=== PATIENT | female | born 1940 | race Caucasian/White ===

== ENCOUNTER 2024-10-10 11:24 | Inpatient (IN) ==
--- NOTE | 2024-10-10 11:50 | Emergency Department Note ---
Impression & Plan Atrial fibrillation with rapid ventricular response, Acute CHF (congestive heart failure) ED Provider Note Name: ASAD SOTO Age: 84 Sex: Female Arrives Via: Walk-In Informant: Patient, son ED Provider: Josue Hernandez MD Chief Complaint: Shortness of breath Impression: As per impressions above Medical Decision Makin-year-old female with history of A-fib with rapidly worsening shortness of breath with exertion. She has significant weight gain weight over the last 2 weeks and is having difficulty breathing even at rest now. She initially had a plan to be cardioverted later this week however she is having too much symptoms to make it to that point. She has been using p.o. Lasix without improvement. Given the degree of symptoms she was given some IV Lopressor to help slow her heart rate as well as some IV Lasix for fluid overload. Chest x-ray does show some congestive findings and BNP is modestly elevated. Interview and her examination and findings I do feel that hospitalization be warranted to continue IV Lasix and consideration of further intervention on her A-fib RVR. Patient has been taking her Xarelto have no concerns for PE at this time. There is no evidence of infectious etiology at this moment. Hospitalist density will further evaluate. Triage/Nursing Notes reviewed by Me External Chart Review by me: Reviewed echocardiogram by primary care pediatrician from 07/07/2024 Differential:Reactive airway disease, pneumonia, pneumothorax, COPD, CHF, infections, cardiac ischemia, pulmonary embolism, musculoskeletal, gastrointestinal, as well as other pathologies. Vital Signs: reviewed and remarkable for tachy Interventions: lasix iv, lopressor iv, nc O2 Labs:ED labs Reviewed by me and remarkable for BNP elevation Imaging:X ray results are stated below per my interpretation: Chest: 1 view: congestive findings EKG:As per my interpretation. Indication shortness of breath. Atrial fibrillation with rvr 109 bpm QTc of 592. There is no ectopy nor ischemia. I do not have a previous EKG to compare to. Cardiac/Tele Monitoring: Cardiac Monitoring: An Order was placed for continuous cardiac monitoring. The monitor shows a rate of 105 with a afib rvr rhythm. Consults:Dr Adrian ZAIDI Hospitalist who will further evaluate and manage. Plan: Disposition:Hospitalization. Condition: Fair History of Present Illness: 84-year-old female arrives for evaluation of shortness of breath. Patient notes that she was diagnosed with A-fib about 4 months ago. She has had progressive worsening shortness of breath and exhaustion in the last few weeks. She admits started on Lasix due to were increasing fluid overload. She continues to gain weight and have increasing leg and abdominal swelling. She notes she is unable to even sit up without becoming dyspneic and when she lays flat she feels even more short of breath. She is unable to ambulate right now. She denies any specific chest pain or syncope. Notes she is quite dyspneic even with talking. Denies any fevers, chills, chest pain, syncope, abdominal pain, back pain, urinary symptoms or other concerning signs or symptoms. Patient has been taking Xarelto. She was scheduled for cardioversion later next week. Past Medical History:See Below Home Medications:See Below Allergies:nickel Vitals:Blood Pressure: 140/100, Pulse 109, RR 28, T 36.6C, O2 93% on RA Physical Exam: GENERAL: Patient is dyspnea and unwell appearing and in mild distress. RESPIRATORY: Distant with tachypneic with diffuse crackles all lung ball CARDIOVASCULAR: Irregular tachycardic.No murmur appreciated. GASTROINTESTINAL: Significantly distended with fluid wave nontender distant bowel sounds EXTREMITIES: Normal motion all extremities, no cyanosis, no edema. NEUROLOGIC: Alert and oriented. No focal neurologic deficits appreciated SKIN: No rash, no jaundice, no diaphoresis. PSYCH: Appropriate GCS: 15 ED Course: Times/Reassessments: Patient remains in mild A-fib RVR. Her breathing is much improved on nasal cannula O2. She is agreeable to hospitalization for diuresis and as needed management of her A-fib. Josue Hernandez MD Past Med/Surg History Problem List (Updated 10/10/24 @ 14:48 by Josue Hernandez MD) Acute CHF (congestive heart failure) (Acute) Atrial fibrillation with rapid ventricular response (Acute) Encounter for pre-operative examination Medical History Atrial fibrillation Follows with Dr. Walker Cardiac murmur Echo 09/2024 Dyspnea on exertion Edema History of anemia (1989) 4 units PRBCs Hx of congestive heart failure (1989) Surgical History Hx laparoscopic cholecystectomy (2013) Hx of tonsillectomy (1945) Social History Smoking Status: Never smoker Second Hand Exposure: No; Do You Dip or Chew Tobacco: No; Hx Alcohol Use: Yes Hx Substance Use: No Preferred Language: Omani Communication Ability: Effective Recruiter Account Manager Required: No Current Living Situation: Family Current Living Situation Comment: 2 sons Feels Safe at Home: Yes Assistive Devices: Cane Allergies Allergies Allergy/AdvReac Type Severity Reaction Status Date / Time nickel AdvReac Mild Rash Verified 10/10/24 13:39 Home Meds Home Medications Medication Instructions Recorded Confirmed cholecalciferol (vitamin D3) 25 25 mcg PO DAILY 10/06/24 10/10/24 mcg (1,000 unit) tablet (Vitamin D3) furosemide 40 mg tablet 40 mg PO QAM 10/06/24 10/10/24 losartan 100 mg tablet 100 mg PO QAM 10/06/24 10/10/24 potassium chloride 20 mEq 20 meq PO QAM 10/06/24 10/10/24 tablet,extended release rivaroxaban 20 mg tablet (Xarelto) 20 mg PO QPM 10/06/24 10/10/24 metoprolol succinate 100 mg 100 mg PO QPM 10/10/24 10/10/24 tablet,extended release 24 hr Results & Data (ED) Vital Signs Vital Signs - 24 hr 10/10/24 11:30 10/10/24 11:44 10/10/24 12:00 Temperature 36.6 C Temperature Source Temporal Artery Scan Pulse Rate 121 H 109 H Respiratory Rate 28 H Respiratory Effort / Characteristics Non-Labored Spontaneous Respiratory Depth Normal Respiratory Pattern Regular Blood Pressure Blood Pressure Mean Blood Pressure Position Lying Pulse Oximetry 93 93 Oxygen Delivery Method Room Air Nasal Cannula Oxygen Flow Rate Sepsis Recent Fever Within 48 Hours No Sepsis New/Unexplained Change in Mental Status No Sepsis Action Taken by Nursing No Action Required Oxygen Flow Rate - Titration 2 Pulse Oximetry Post Tiitration 98 10/10/24 12:09 10/10/24 12:11 10/10/24 12:26 Temperature Temperature Source Pulse Rate 103 H 97 H 93 H Respiratory Rate 20 Respiratory Effort / Characteristics Respiratory Depth Respiratory Pattern Blood Pressure 126/109 H 126/109 H Blood Pressure Mean 114 Blood Pressure Position Pulse Oximetry 95 Oxygen Delivery Method Nasal Cannula Oxygen Flow Rate 2 Sepsis Recent Fever Within 48 Hours Sepsis New/Unexplained Change in Mental Status Sepsis Action Taken by Nursing Oxygen Flow Rate - Titration Pulse Oximetry Post Tiitration 10/10/24 12:36 10/10/24 13:30 Temperature Temperature Source Pulse Rate 95 H 100 H Respiratory Rate 20 22 Respiratory Effort / Characteristics Respiratory Depth Respiratory Pattern Blood Pressure 113/84 124/95 Blood Pressure Mean 88 104 Blood Pressure Position Pulse Oximetry 97 95 Oxygen Delivery Method Nasal Cannula Nasal Cannula Oxygen Flow Rate 2 2 Sepsis Recent Fever Within 48 Hours Sepsis New/Unexplained Change in Mental Status Sepsis Action Taken by Nursing Oxygen Flow Rate - Titration Pulse Oximetry Post Tiitration Laboratory Data 10/10/24 12:11 10/10/24 12:11 Lab Results 10/10/24 Range/Units 12:11 WBC 10.92 H (4.8-10.8) K/ul RBC 5.29 (4.20-5.40) M/uL Hgb 15.9 (12.0-16.0) g/dl Hct 50.9 H (37.0-47.0) % MCV 96.2 (80.0-100.0) fL MCH 30.1 (25.0-34.0) pg MCHC 31.2 L (32.0-36.0) g/dL RDW Std Deviation 53.1 H (36.4-46.3) fL RDW Coeff of Celso 15.2 H (11.5-14.5) % Plt Count 256 (130-400) K/uL MPV 9.5 (9.4-12.4) fL Immature Gran % (Auto) 0.6 % Neut % (Auto) 78.3 % Lymph % (Auto) 10.5 % Ada % (Auto) 9.5 % Eos % (Auto) 0.5 % Baso % (Auto) 0.6 % Neut # (Auto) 8.53 H (1.40-6.50) K/uL Lymph # (Auto) 1.15 L (1.20-3.40) K/uL Ada # (Auto) 1.04 H (0.11-0.59) K/uL Eos # (Auto) 0.06 (0.00-0.50) K/uL Baso # (Auto) 0.07 (0.00-0.20) K/uL Immature Gran # (Auto) 0.07 (0.01-0.20) K/uL PT 17.7 H (9.0-12.0) Seconds INR 1.7 H (0.9-1.1) APTT 32 H (21-31) Seconds PTT Ratio 1.2 Sodium 139 (136-145) mmol/L Potassium 3.9 (3.5-5.1) mmol/L Chloride 103 (98-107) mmol/L Carbon Dioxide 26 (21-32) mmol/L Anion Gap 10 (3-11) BUN 34 H (6-23) mg/dl Creatinine 1.03 (0.6-1.2) mg/dl Est Cr Clr Drug Dosing Not Reportable eGFR 53.62 BUN/Creatinine Ratio 33.0 H (10-20) Glucose 141 H (70-99(Fasting)) mg/dl Calcium 9.5 (8.6-10.3) mg/dl Magnesium 2.2 (1.7-2.4) mg/dl Total Bilirubin 1.2 H (0.2-1.0) mg/dl Direct Bilirubin 0.5 H (0-0.2) mg/dl AST 28 (13-39) U/L ALT 27 (7-52) U/L Alkaline Phosphatase 181 H (34-104) U/L Troponin I High Sens 11.0 (0-14) pg/ml B-Natriuretic Peptide 424 H (0-100) pg/ml Total Protein 6.7 (6.0-8.3) gm/dl Albumin 3.8 (3.4-5.0) gm/dl TSH 3.415 (0.300-4.500) uIu/ml Administered Medications Discontinued Medications Furosemide (Furosemide 40 Mg/4 Ml Vial) 40 mg IV ONE ONE Stop: 10/10/24 13:11 Last Admin: 10/10/24 13:31 Dose: 40 mg Documented By: JEREL Metoprolol Tartrate (Metoprolol Tartrate 1 Mg/Ml Vial) 5 mg IV NOW STA Stop: 10/10/24 11:48 Last Admin: 10/10/24 12:11 Dose: 5 mg Documented By: MMN Imaging Data Radiologist's Impression: Chest X-Ray 10/10/24 11:47 XR chest 1V portable CLINICAL HISTORY: shortness of breath COMPARISON STUDY: None FINDINGS: There is moderate cardiomegaly with mild pulmonary vascular congestion. Inspiration is shallow. There is mild stranding in the lung bases. No other consolidation or pleural effusion seen. No pneumothorax. IMPRESSION: 1. Mild CHF. 2. Likely lung base atelectasis. Follow-up as clinically indicated. ACT 112: Negative or not required by law. Electronically signed by: Ronny Laura M.D. 10/10/2024 12:20 PM Discharge Plan Visit Data Chief Complaint: Swelling/Edema to Extremity Stated Complaint: EDEMA IN LEGS AND ABD DUE TO AFIB ED Provider: Josue Hernandez Discharge Problem: Atrial fibrillation with rapid ventricular response, Acute CHF (congestive heart failure) Patient Disposition: Home - Self-Care Condition: Fair Forms Stand Alone Forms: [facility], Important Visit Information Prescriptions Prescriptions: No Action furosemide 40 mg Tablet 40 mg PO QAM losartan 100 mg Tablet 100 mg PO QAM cholecalciferol (vitamin D3) [Vitamin D3] 25 mcg (1,000 unit) Tablet 25 mcg PO DAILY Xarelto 20 mg Tablet 20 mg PO QPM Rx Instructions: must administer with evening meal potassium chloride 20 mEq Tablet Extended Release 20 meq PO QAM metoprolol succinate 100 mg tablet extended release 24 hr 100 mg PO QPM Referrals Referrals: David Minaya D.O. [Primary Care Provider] - Discharge Problem: Acute CHF (congestive heart failure) Qualifiers: Heart failure type: combined systolic and diastolic Qualified Code(s): I50.41 - Acute combined systolic (congestive) and diastolic (congestive) heart failure
[2024-10-10] MEDS: METOPROLOL TARTRATE 1 MG/ML VIAL IV STA (12:11)
--- NOTE | 2024-10-10 12:22 | XRay Report ---
XR chest 1V portable CLINICAL HISTORY: shortness of breath COMPARISON STUDY: None FINDINGS: There is moderate cardiomegaly with mild pulmonary vascular congestion. Inspiration is shal low. There is mild stranding in the lung bases. No other consolidation or pleural effusion seen. No p neumothorax. IMPRESSION: 1. Mild CHF. 2. Likely lung base atelectasis. Follow-up as clinically indicated. ACT 112: Negative or not required by law. Electronically signed by: Ronny Laura M.D. 10/10/2024 12:20 PM
[2024-10-10 12:38] LABS: Hematocrit (blood only) 50.9 % (37.0-47.0); Hemoglobin 15.9 g/dl (12.0-16.0); Immature Granulocytes # (auto) 0.07 K/uL (0.01-0.20); Immature Granulocytes % (auto) 0.6 %; Mean Corpuscular Hemoglobin 30.1 pg (25.0-34.0); Mean Corpuscular Volume 96.2 fL (80.0-100.0); Platelet Count 256 K/uL (130-400); RDW Standard Deviation 53.1 fL (36.4-46.3); Red Blood Count 5.29 M/uL (4.20-5.40); White Blood Count 10.92 K/ul (4.8-10.8)
[2024-10-10 13:06] LABS: INR 1.7 (0.9-1.1); Partial Thromboplastin Time 32 Seconds (21-31); Prothrombin Time 17.7 Seconds (9.0-12.0)
[2024-10-10 13:08] LABS: Alanine Aminotransferase 27 U/L (7-52); Alkaline Phosphatase 181 U/L (34-104); Anion Gap 10 (3-11); Bilirubin,Total 1.2 mg/dl (0.2-1.0); Blood Urea Nitrogen 34 mg/dl (6-23); Calcium 9.5 mg/dl (8.6-10.3); Carbon Dioxide 26 mmol/L (21-32); Chloride 103 mmol/L (98-107); Glucose 141 mg/dl (70-99(Fasting)); Magnesium 2.2 mg/dl (1.7-2.4); Potassium 3.9 mmol/L (3.5-5.1); Sodium 139 mmol/L (136-145); Total Protein 6.7 gm/dl (6.0-8.3)
[2024-10-10 13:21] LABS: Thyroid Stimulating Hormone 3.415 uIu/ml (0.300-4.500)
[2024-10-10] MEDS: FUROSEMIDE 40 MG/4 ML VIAL IV ONE (13:31)
--- NOTE | 2024-10-10 14:22 | History & Physical Report ---
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 She has been on Lasix for worsening swelling of lower extremities anasarca and weight gain without good response. Also endorses Lightheadedness and abdominal discomfort from swelling stating it has become "rock hard". Acute on chronic CHF exacerbation CHF protocol orders Echocardiogram TFTs IV Lasix 40 twice daily Continue home ACEI and BB. GDMT per cardiology Await cardiology input A-fib RVR Beta-sera Xarelto Follow-up cardiology appointment possible cardioversion here? 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 She has been on Lasix for worsening swelling of lower extremities anasarca and weight gain without good response. Also endorses Lightheadedness and abdominal discomfort from swelling stating it has become "rock hard". No chest pain nausea vomiting abd ominal pain fevers chills recent illness or any other symptoms. Discussed the case with ED physician. Received 40 of Lasix IV times once and metoprolol 5 IV times once She does not know for sure if she was ever officially diagnosed with heart failure. On review of EMR it is noted she has a history of heart failure She is otherwise in good spirits sitting up at edge of bed conversive very talkative and pleasant. Son at bedside. We discussed all aspects of her care extensively. They were appreciative She confirms she is a DNR/DNI status Allergies Allergy/AdvReac Type Severity Reaction Status Date / Time nickel AdvReac Mild Rash Verified 10/10/24 13:39 Home Medications Medication Instructions Recorded Confirmed Type cholecalciferol (vitamin D3) 25 25 mcg PO DAILY 10/06/24 10/10/24 History mcg (1,000 unit) tablet (Vitamin D3) furosemide 40 mg tablet 40 mg PO QAM 10/06/24 10/10/24 History losartan 100 mg tablet 100 mg PO QAM 10/06/24 10/10/24 History potassium chloride 20 mEq 20 meq PO QAM 10/06/24 10/10/24 History tablet,extended release rivaroxaban 20 mg tablet (Xarelto) 20 mg PO QPM 10/06/24 10/10/24 History metoprolol succinate 100 mg 100 mg PO QPM 10/10/24 10/10/24 History tablet,extended release 24 hr Past Med/Surg History Problem List Encounter for pre-operative examination Medical History Atrial fibrillation Follows with Dr. Walker Cardiac murmur Echo 09/2024 Dyspnea on exertion Edema History of anemia (1989) 4 units PRBCs Hx of congestive heart failure (1989) Surgical History Hx laparoscopic cholecystectomy (2013) Hx of tonsillectomy (194) Social History Smoking Status: Never smoker Second Hand Exposure: No; Do You Dip or Chew Tobacco: No; Hx Alcohol Use: Yes Hx Substance Use: No Preferred Language: Japanese Communication Ability: Effective Lead Housekeeper Required: No Current Living Situation: Family Current Living Situation Comment: 2 sons Feels Safe at Home: Yes Assistive Devices: Cane Review of Systems Review of Systems: Negative except as in HPI Physical Exam Physical Exam: GENERAL: Patient is dyspnea and unwell appearing and in mild distress. RESPIRATORY: Distant with tachypneic with diffuse crackles all lung ball CARDIOVASCULAR: Irregular tachycardic.No murmur appreciated. GASTROINTESTINAL: Significantly distended with fluid wave nontender distant bowel sounds EXTREMITIES: Normal motion all extremities, no cyanosis, no edema. NEUROLOGIC: Alert and oriented. No focal neurologic deficits appreciated SKIN: No rash, no jaundice, no diaphoresis. PSYCH: Appropriate GCS: 15 Results & Data Results & Data Vital Signs (Past 12 Hours) Vital Signs Temp Pulse Resp BP Pulse Ox O2 Del Method O2 Flow Rate 10/10/24 12:36 95 H 20 113/84 97 Nasal Cannula 2 10/10/24 12:26 93 H 10/10/24 12:11 97 H 126/109 H 10/10/24 12:09 103 H 20 126/109 H 95 Nasal Cannula 2 10/10/24 12:00 93 Nasal Cannula 10/10/24 11:44 109 H 10/10/24 11:30 36.6 C 121 H 28 H 93 Room Air Laboratory Results Abnormal Labs 10/10/24 12:11 WBC 10.92 H Hct 50.9 H MCHC 31.2 L RDW Std Deviation 53.1 H RDW Coeff of Celso 15.2 H Neut # (Auto) 8.53 H Lymph # (Auto) 1.15 L Cassia # (Auto) 1.04 H PT 17.7 H INR 1.7 H APTT 32 H BUN 34 H BUN/Creatinine Ratio 33.0 H Glucose 141 H Total Bilirubin 1.2 H Direct Bilirubin 0.5 H Alkaline Phosphatase 181 H B-Natriuretic Peptide 424 H Diagnostic Findings Chest X-Ray 10/10/24 11:47 XR chest 1V portable CLINICAL HISTORY: shortness of breath COMPARISON STUDY: None FINDINGS: There is moderate cardiomegaly with mild pulmonary vascular c ongestion. Inspiration is shallow. There is mild stranding in the lung bases. No other consolidation or pleural effusion seen. No pneumothorax. IMPRESSION: 1. Mild CHF. 2. Likely lung base atelectasis. Follow-up as clinically indicated. ACT 112: Negative or not required by law. Electronically signed by: Ronny Laura M.D. 10/10/2024 12:20 PM PG Care Time/CCT Total # of Minutes Spent Total Time Spent with Patient: Total time spent is greater than 50% in coordination of care (as documented) at patient's floor/unit and/or counseling patient: Coding Level of Care Code 74595 INT INP/OBS CARE 2/55MIN Diagnoses Dyspnea on exertion R06.09 Edema R60.9 Hx of congestive heart failure Z86.79 Atrial fibrillation I48.91
[2024-10-10] MEDS ORDERED: ACETAMINOPHEN 325 MG TAB PO PRN (14:31)
[2024-10-10] MEDS ORDERED: ALUMINUM/MAGNESIUM SUSP 30 ML UDC PO PRN (14:31)
[2024-10-10] MEDS ORDERED: MAGNESIUM HYDROXIDE SUSP 30 ML UDC PO PRN (14:31)
[2024-10-10] MEDS: FUROSEMIDE 40 MG/4 ML VIAL IV SCH (20:29)
[2024-10-10] MEDS: METOPROLOL SUCC 50MG EXT REL TAB PO SCH (20:29)
[2024-10-10] MEDS: RIVAROXABAN 20 MG TAB PO SCH (20:30)
[2024-10-10 22:11] LABS: Appearance Urine Clear (Clear); Bacteria Urine Automated None Seen (None Seen); Epithelial Cell Urine Auto 0-2 /hpf (0-2); Glucose Urine UA Negative (Negative); RBC Urine Automated >20 /hpf (0-2); WBC Urine Automated 0-5 /hpf (0-5)
--- NOTE | 2024-10-10 22:23 | Electrocardiogram Report ---
Test Reason : Blood Pressure : */* mmHG Vent. Rate : 109 BPM Atrial Rate : * BPM P-R Int : * ms QRS Dur : 88 ms QT Int : 348 ms P-R-T Axes : * -5 158 degrees QTcB Int : 469 ms Atrial fibrillation with rapid ventricular response Low voltage QRS Septal infarct , age undetermined Cannot rule out Inferior infarct , age undetermined Incomplete right bundle branch block Nonspecific T wave abnormality Abnormal ECG No previous ECGs available Confirmed by Shabbir Mason ([id number]) on 10/10/2024 10:22:45 PM Referred By: Confirmed By: Shabbir Mason
--- NOTE | 2024-10-10 22:44 | XCELERA ---
[id number]
[2024-10-11] MEDS: LOSARTAN POTASSIUM 50 MG TAB PO SCH (07:56)
[2024-10-11 08:16] LABS: Hematocrit (blood only) 48.1 % (37.0-47.0); Hemoglobin 14.9 g/dl (12.0-16.0); Mean Corpuscular Hemoglobin 30.5 pg (25.0-34.0); Mean Corpuscular Volume 98.6 fL (80.0-100.0); Platelet Count 235 K/uL (130-400); RDW Standard Deviation 53.6 fL (36.4-46.3); Red Blood Count 4.88 M/uL (4.20-5.40); White Blood Count 9.31 K/ul (4.8-10.8)
[2024-10-11 08:23] LABS: Alanine Aminotransferase 23.0 U/L (7-52); Albumin Globulin Ratio 1.7 (0.9-2); Alkaline Phosphatase 143.0 U/L (34-104); Anion Gap 11.0 (3-11); Bilirubin,Total 0.9 mg/dl (0.2-1.0); Blood Urea Nitrogen 35.0 mg/dl (6-23); Calcium 8.9 mg/dl (8.6-10.3); Carbon Dioxide 27.0 mmol/L (21-32); Chloride 103.0 mmol/L (98-107); Creatinine Clr Calc Pharmacy 48.1 ml/min; Globulin 2.0 gm/dl (2.5-4.0); Glucose 110.0 mg/dl (70-99(Fasting)); Potassium 4.4 mmol/L (3.5-5.1); Sodium 141.0 mmol/L (136-145); Total Protein 5.4 gm/dl (6.0-8.3)
--- NOTE | 2024-10-11 08:43 | Cardiology Consultation ---
Date of Consultation October 11, 2024 Assessment & Plan (1) Acute CHF (congestive heart failure): (2) Atrial fibrillation with rapid ventricular response: (3) Anticoagulated: Plan Ms. Slater feels better today but still short of breath. She should continue to be diuresed with IV furosemide until her creatinine bumps. Her heart failure is multifactorial due to afib and also her severe TR. She does not sense being in afib all. There was already a plan to cardiovert on with Dr. Walker. Depending on engineer geophysical laboratory and Dr. Walker's schedules, this could potentially be moved to tomorrow. It's a little unclear if she has been compliant on her Xeralto dosing over the last three weeks so we may elect to perform a YAZMIN prior to cardioversion. Her Xeralto is almost $600 a month for her which she cannot afford. We could check on the ba of Eliquis and if also too expensive switch to Coumadin. She does not think she would qualify for income based assistance. Likely Entresto and Jardiance are going to be too expensive for her as well but we can decide if there is room to add these medications depending on how she does after cardioversion. Her blood pressures are controlled. History of Present Illness Attending Physician: Kelly Campbell MD History of Present Illness Ms. Slater presented to the ED for shortness of breath and weight gain with distension in her belly. She has a significantly elevated bnp. Her chest Xray shows congestion. She is in afib on the monitor rates just over 100 bpm. She still feels a bit sob. No chest pain. No palpitations. She has been taking Xeralto but it's a little unclear if she has had any missed doses. Allergies Allergy/AdvReac Type Severity Reaction Status Date / Time nickel AdvReac Mild Rash Verified 10/10/24 13:39 Home Medications Medication Instructions Recorded Confirmed Type cholecalciferol (vitamin D3) 25 25 mcg PO DAILY 10/06/24 10/10/24 History mcg (1,000 unit) tablet (Vitamin D3) furosemide 40 mg tablet 40 mg PO QAM 10/06/24 10/10/24 History losartan 100 mg tablet 100 mg PO QAM 10/06/24 10/10/24 History potassium chloride 20 mEq 20 meq PO QAM 10/06/24 10/10/24 History tablet,extended release rivaroxaban 20 mg tablet (Xarelto) 20 mg PO QPM 10/06/24 10/10/24 History metoprolol succinate 100 mg 100 mg PO QPM 10/10/24 10/10/24 History tablet,extended release 24 hr Patient History Medical History Edema Dyspnea on exertion History of anemia (1989) 4 units PRBCs Hx of congestive heart failure (1989) Cardiac murmur Echo 09/2024 Atrial fibrillation Follows with Dr. Walker Surgical History Hx of tonsillectomy (1944) Hx laparoscopic cholecystectomy (2013) Social History Smoking Status: Never smoker Second Hand Exposure: No; Do You Dip or Chew Tobacco: No; Hx Alcohol Use: No Hx Substance Use: No Preferred Language: Serbian Communication Ability: Effective Deaf And Hard Of Hearing Teacher Required: No Beliefs That Will Affect Care: None Current Living Situation: Family Current Living Situation Comment: with son Feels Safe at Home: Yes Safety Concerns: Feels Safe At This Time Assistive Devices: None Review of Systems Review of Systems: All systems reviewed & are unremarkable except as noted in HPI & below Physical Exam Constitutional: WD/WN, vitals as above Respiratory: normal respiratory effort, lungs clear to auscultation Cardiovascular: Rate/Rhythm: + abnormal rate and + abnormal rhythm Heart Sounds: normal S1 and normal S2 Skin: no rashes, warm and dry Neurologic: moves all extremities and awake Psychiatric: A+Ox3, euthymic affect Results & Data Vital Signs (Past 12 Hours) Vital Signs Temp Pulse Pulse Resp BP Pulse Ox O2 Del Method 10/11/24 07:54 36.3 C L 109 H 22 125/85 92 Room Air 10/11/24 04:40 36.5 C 101 H 21 99/69 L 95 Room Air 10/11/24 00:12 36.4 C L 102 H 18 99/72 L 97 Room Air 10/10/24 21:47 110 H 10/10/24 21:00 Nasal Cannula 10/10/24 20:46 96 Nasal Cannula 10/10/24 20:46 80 L Room Air O2 Flow Rate 07/28/25 07:54 10/11/24 04:40 10/11/24 00:12 10/10/24 21:47 10/10/24 21:00 2 10/10/24 20:46 2 10/10/24 20:46 Diagnostic Findings Echo: Normal LVEF, with EF of 55 to 60%, no regional wall motion abnormalities, mild concentric left ventricular hypertrophy, septal flattening during diastole nuñez ggesting right ventricular volume overload, mildly dilated right ventricle with normal systolic function, severely dilated atrial dilation, severe tricuspid regurgitation valve leaflets that do not fully collapse during systole, mild pulmonary hypertension with RVSP of 42 mmHg, no significant change from July 07 (1) Acute CHF (congestive heart failure) Heart failure type: combined systolic and diastolic Qualified Code(s): I50.41 - Acute combined systolic (congestive) and diastolic (congestive) heart failure
--- NOTE | 2024-10-11 10:33 | Hospitalist Progress Note ---
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 She has been on Lasix for worsening swelling of lower extremities anasarca and weight gain without good response. Also endorses Lightheadedness and abdominal discomfort from swelling stating it has become "rock hard". Acute on chronic CHF exacerbation Tachycardia induced, right heart failure CHF protocol orders Echocardiogram NLEF, mild LV hypertrophy, RV dilatation with volume overload, severe TR, unchanged from prior. No reports of pulmonary hypertension. IV Lasix 40 twice daily Continue home ACEI and BB. GDMT per cardiology Await cardiology input A-fib RVR Beta-sera Xarelto Case management consulted to determine Eliquis affordability As patient cannot afford Xarelto. Otherwise cardiology considering Coumadin Cardiology considering cardioverting here Severely distended firm abdomen Likely secondary to RV volume overload Asymptomatic in this regard CT abdomen pelvis can be considered by PCP in near future if does not improve with diuresis Acute hypoxic respiratory failure secondary to CHF AE and A-fib Wean O2 Prolonged QTc 592 Telemetry Caution with QT prolonging medications K greater than 4 mag greater than 2 Hypertension Home medications Deconditioning PTOT DVT prophylaxis DNR/DNI Disposition Possible discharge home in 1 to 2 days Once cleared by cardiology Admission and Anticipated Discharge Date Admission Date: October 10, 2024 Subjective Doing well sitting up at bedside tells me her breathing is significantly improved. Feels swelling has improved a little bit with IV diuretics. Denies orthopnea chest pain abdominal pain or any other symptoms She tells me the abdominal distention has occurred over the past couple weeks along with increased water weight lower extremity edema and shortness of breath. No constipation diarrhea Change in bowel habits nausea or other GI complaints I's and O's inaccurate as needed urine output measured. I's and O's ordered reinforced. Daily weight seem to be going up Case management consulted to assist with determining anticoagulation affordability Review of Systems Review of Systems: Negative except as in HPI Physical Exam Physical Exam: GENERAL: NAD RESPIRATORY: cta b/l CARDIOVASCULAR: irregular. GASTROINTESTINAL: Significantly distended with fluid wave nontender distant bowel sounds EXTREMITIES: Normal motion all extremities, no cyanosis, no edema. NEUROLOGIC: Alert and oriented. No focal neurologic deficits appreciated SKIN: No rash, no jaundice, no diaphoresis. 2+ edema chronic skin changes PSYCH: Appropriate GCS: 15 Results & Data Results & Data Vital Signs (Past 12 Hours) Vital Signs Temp Pulse Resp BP Pulse Ox O2 Del Method 10/11/24 07:54 36.3 C L 109 H 22 125/85 92 Room Air 10/11/24 04:40 36.5 C 101 H 21 99/69 L 95 Room Air 10/11/24 00:12 36.4 C L 102 H 18 99/72 L 97 Room Air Laboratory Results Abnormal Labs 10/10/24 10/10/24 10/11/24 12:11 Unknown 05:30 WBC 10.92 H Hct 50.9 H MCHC 31.2 L RDW Std Deviation 53.1 H RDW Coeff of Celso 15.2 H Neut # (Auto) 8.53 H Lymph # (Auto) 1.15 L [place] # (Auto) 1.04 H PT 17.7 H INR 1.7 H APTT 32 H BUN 34 H 35 H BUN/Creatinine Ratio 33.0 H 30.4 H Glucose 141 H 110 H Total Bilirubin 1.2 H Direct Bilirubin 0.5 H Alkaline Phosphatase 181 H 143 H B-Natriuretic Peptide 424 H Total Protein 5.4 L Globulin 2.0 L Urine Blood 2+ H Urine RBC (Auto) >20 H U Hyaline Cast (Auto) 3-5 H 10/11/24 05:37 WBC Hct 48.1 H MCHC 31.0 L RDW Std Deviation 53.6 H RDW Coeff of [place] 15.1 H Neut # (Auto) Lymph # (Auto) [place] # (Auto) PT INR APTT BUN BUN/Creatinine Ratio Glucose Total Bilirubin Direct Bilirubin Alkaline Phosphatase B-Natriuretic Peptide Total Protein Globulin Urine Blood Urine RBC (Auto) U Hyaline Cast (Auto) Diagnostic Findings Chest X-Ray 10/10/24 11:47 XR chest 1V portable CLINICAL HISTORY: shortness of breath COMPARISON STUDY: None FINDINGS: There is moderate cardiomegaly with mild pulmonary vascular congestion. Inspiration is shallow. There is mild stranding in the lung bases. No other consolidation or pleural effusion seen. No pneumothorax. IMPRESSION: 1. Mild CHF. 2. Likely lung base atelectasis. Follow-up as clinically indicated. ACT 112: Negative or not required by law. Electronically signed by: Ronny Laura M.D. 10/10/2024 12:20 PM PG Care Time/CCT Total # of Minutes Spent Total Time Spent with Patient: Total time spent is greater than 50% in coordination of care (as documented) at patient's floor/unit and/or counseling patient: Coding Level of Care Code 87432 SUB INP/OBS CARE 2/35MIN Diagnoses Dyspnea on exertion R06.09 Edema R60.9 Hx of congestive heart failure Z86.79 Atrial fibrillation I48.91
[2024-10-11] MEDS: RIVAROXABAN 20 MG TAB PO SCH (17:47)
--- NOTE | 2024-10-12 09:28 | Cardiology Progress Note ---
Date of Service October 12, 2024 Assessment & Plan (1) Acute CHF (congestive heart failure): (2) Atrial fibrillation with rapid ventricular response: (3) Anticoagulated: Plan Ms. Slater is still short of breath. She should continue to be diuresed with IV furosemide until her creatinine bumps; agree with hospitalist increase in dose given her limited diuresis response to current dose. Her bnp is higher today. I will add spironolactone 25 mg daily. Her Is&Os should be strictly monitored. Her heart failure is multifactorial due to afib and also her severe TR. She does not sense being in afib all. She will be cardioverted tomorrow morning. It's a little unclear if she has been compliant on her Xeralto dosing over the last three weeks so we will have a YAZMIN performed prior to cardioversion. Her atria are severely enlarged which reduces the likelihood of successful cardi oversion. She will start amiodarone 200 mg bid today. Her Xeralto is almost $600 a month for her which she cannot afford. Jhon was checked on by case management and is no better. She will need to switch to Coumadin but has three weeks of Xeralto she can finish at home first. Likely Entresto and Jardiance are going to be too expensive for her as well but we can decide if there is room to add these medications depending on how she does after cardioversion. Her blood pressures are controlled. Her case was discussed with Dr. Walker who is in agreement with the plan. Admission and Anticipated Discharge Date Admission Date: October 10, 2024 Supervising Physician Co-Signing Physician Notes spoke with rn labor delivery will do YAZMIN and CV in rn labor delivery 730 am 10/13/24 npo p dominga tonwalter. Subjective Ms. Slater continues to be short of breath but feels she is urinating. Her Is&Os are not accurate. Her weights are about the same. No chest pain. Review of Systems Review of Systems: All systems reviewed & are unremarkable except as noted in HPI & below Physical Exam Constitutional: WD/WN, vitals as above Respiratory: Auscultation: lungs clear to auscultation bilaterally appears short of breath Cardiovascular: Rate/Rhythm: + abnormal rate and + abnormal rhythm Heart Sounds: normal S1 and normal S2 Extremities: + edema (mild lower extremity edema) Skin: no rashes, warm and dry Neurologic: moves all extremities and awake Psychiatric: A+Ox3, euthymic affect Results & Data Vital Signs (Past 12 Hours) Vital Signs Temp Pulse Resp BP Pulse Ox O2 Del Method 10/12/24 07:44 36.4 C L 122 H 20 130/83 92 Room Air 10/12/24 03:00 94 H 18 91/68 L 96 Room Air 10/11/24 23:11 36.8 C 107 H 16 91/59 L 94 Room Air (1) Acute CHF (congestive heart failure) Heart failure type: combined systolic and diastolic Qualified Code(s): I50.41 - Acute combined systolic (congestive) and diastolic (congestive) heart failure
--- NOTE | 2024-10-12 10:13 | Hospitalist Progress Note ---
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 She has been on Lasix for worsening swelling of lower extremities anasarca and weight gain without good response. Also endorses Lightheadedness and abdominal discomfort from swelling stating it has become "rock hard". Acute on chronic CHF exacerbation Tachycardia induced, right heart failure CHF protocol orders Echocardiogram NLEF, mild LV hypertrophy, RV dilatation with volume overload, severe TR, unchanged from prior. No reports of pulmonary hypertension. Continue home ACEI and BB. GDMT per cardiology Diuresis per cardiology A-fib RVR Beta-sera Xarelto Cardiology planning cardioversion Severely distended firm abdomen Likely secondary to RV volume overload Asymptomatic in this regard CT abdomen pelvis can be considered by PCP in near future if does not improve with diuresis Acute hypoxic respiratory failure secondary to CHF AE and A-fib Wean O2 Prolonged QTc 592 Telemetry Caution with QT prolonging medications K greater than 4 mag greater than 2 Hypertension Home medications Deconditioning PTOT DVT prophylaxis DNR/DNI Disposition Possible discharge home in 1 to 2 days Once cleared by cardiology Admission and Anticipated Discharge Date Admission Date: October 10, 2024 Subjective Overall doing well in good spirits. Conversive. breathing and orthopnea unchanged. she states she feels the swelling in her abdomen has improved. 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 lasix increased to 40 q8 for now labs for today pending Discussed with case management this morning they have coupons for affordability of Xarelto/Eliquis that she gave the patient through the next few months. The patient would like to continue this for now does not want to start on Coumadin unless Cardiology decides that she will have long-term need for anticoagulation Review of Systems Review of Systems: Negative except as in HPI Physical Exam Physical Exam: GENERAL: NAD RESPIRATORY: cta b/l CARDIOVASCULAR: irregular. GASTROINTESTINAL: Significantly distended with fluid wave nontender distant bowel sounds EXTREMITIES: Normal motion all extremities, no cyanosis, no edema. NEUROLOGIC: Alert and oriented. No focal neurologic deficits appreciated SKIN: No rash, no jaundice, no diaphoresis. 2+ edema chronic skin changes PSYCH: Appropriate GCS: 15 Results & Data Results & Data Vital Signs (Past 12 Hours) Vital Signs Temp Pulse Resp BP Pulse Ox O2 Del Method 10/12/24 07:44 36.4 C L 122 H 20 130/83 92 Room Air 10/12/24 03:00 94 H 18 91/68 L 96 Room Air 10/11/24 23:11 36.8 C 107 H 16 91/59 L 94 Room Air Laboratory Results Abnormal Labs 10/10/24 10/10/24 10/11/24 12:11 Unknown 05:30 WBC 10.92 H Hct 50.9 H MCHC 31.2 L RDW Std Deviation 53.1 H RDW Coeff of Celso 15.2 H Neut # (Auto) 8.53 H Lymph # (Auto) 1.15 L [place] # (Auto) 1.04 H PT 17.7 H INR 1.7 H APTT 32 H BUN 34 H 35 H BUN/Creatinine Ratio 33.0 H 30.4 H Glucose 141 H 110 H Total Bilirubin 1.2 H Direct Bilirubin 0.5 H Alkaline Phosphatase 181 H 143 H B-Natriuretic Peptide 424 H Total Protein 5.4 L Globulin 2.0 L Urine Blood 2+ H Urine RBC (Auto) >20 H U Hyaline Cast (Auto) 3-5 H 10/11/24 05:37 WBC Hct 48.1 H MCHC 31.0 L RDW Std Deviation 53.6 H RDW Coeff of [place]so 15.1 H Neut # (Auto) Lymph # (Auto) [place] # (Auto) PT INR APTT BUN BUN/Creatinine Ratio Glucose Total Bilirubin Direct Bilirubin Alkaline Phosphatase B-Natriuretic Peptide Total Protein Globulin Urine Blood Urine RBC (Auto) U Hyaline Cast (Auto) PG Care Time/CCT Total # of Minutes Spent Total Time Spent with Patient: Total time spent is greater than 50% in coordination of care (as documented) at patient's floor/unit and/or counseling patient: Coding Level of Care Code 71720 SUB INP/OBS CARE 2/35MIN Diagnoses Dyspnea on exertion R06.09 Edema R60.9 Hx of congestive heart failure Z86.79 Atrial fibrillation I48.91
[2024-10-12 10:20] LABS: Hematocrit (blood only) 45.7 % (37.0-47.0); Hemoglobin 14.7 g/dl (12.0-16.0); Mean Corpuscular Hemoglobin 30.8 pg (25.0-34.0); Mean Corpuscular Volume 95.6 fL (80.0-100.0); Platelet Count 250 K/uL (130-400); RDW Standard Deviation 51.8 fL (36.4-46.3); Red Blood Count 4.78 M/uL (4.20-5.40); White Blood Count 8.79 K/ul (4.8-10.8)
[2024-10-12 10:35] LABS: Alanine Aminotransferase 29.0 U/L (7-52); Albumin Globulin Ratio 1.6 (0.9-2); Alkaline Phosphatase 145.0 U/L (34-104); Anion Gap 8.0 (3-11); Bilirubin,Total 1.2 mg/dl (0.2-1.0); Blood Urea Nitrogen 37.0 mg/dl (6-23); Calcium 8.9 mg/dl (8.6-10.3); Carbon Dioxide 28.0 mmol/L (21-32); Chloride 104.0 mmol/L (98-107); Creatinine Clr Calc Pharmacy 55.3 ml/min; Globulin 2.2 gm/dl (2.5-4.0); Glucose 236.0 mg/dl (70-99(Fasting)); Potassium 3.7 mmol/L (3.5-5.1); Sodium 140.0 mmol/L (136-145); Total Protein 5.7 gm/dl (6.0-8.3)
[2024-10-12] MEDS: SPIRONOLACTONE 25 MG TAB PO SCH (13:41)
[2024-10-12] MEDS: FUROSEMIDE 40 MG/4 ML VIAL IV SCH (13:41)
[2024-10-12] MEDS: AMIODARONE 200 MG TAB PO SCH (17:58)
--- NOTE | 2024-10-13 06:58 | Anesthesiology Consultation ---
Date of Service October 13, 2024 Assessment & Plan Chart Review Chart Review: Acceptable Risk for Surgery History Surgery Operation Date: 10/13/24 07:30 Proposed Procedures p Transesophageal Echo w/Anesthesia - Maki Walker DO s jayy/cv with anes - Maki Walker DO Height/Weight Height: 5 ft 9 in Weight: 110 kg Allergies Allergy/AdvReac Type Severity Reaction Status Date / Time nickel AdvReac Mild Rash Verified 10/10/24 13:39 Medications Home Medications Medication Instructions Recorded Confirmed Last Taken cholecalciferol (vitamin D3) 25 25 mcg PO DAILY 10/06/24 10/10/24 Unknown mcg (1,000 unit) tablet (Vitamin D3) furosemide 40 mg tablet 40 mg PO QAM 10/06/24 10/10/24 Unknown losartan 100 mg tablet 100 mg PO QAM 10/06/24 10/10/24 Unknown potassium chloride 20 mEq 20 meq PO QAM 10/06/24 10/10/24 Unknown tablet,extended release rivaroxaban 20 mg tablet (Xarelto) 20 mg PO QPM 10/06/24 10/10/24 Unknown metoprolol succinate 100 mg 100 mg PO QPM 10/10/24 10/10/24 Unknown tablet,extended release 24 hr Active Medications Generic Name Dose Route Start Last Admin Trade Name Jesusq PRN Reason Stop Dose Admin Amiodarone HCl 200 mg 10/12/24 17:00 10/12/24 17:58 Amiodarone 200 Mg Tab PO 11/11/24 16:59 200 mg BIDM DERECK Administration Furosemide 40 mg 10/12/24 14:00 10/13/24 05:52 Furosemide 40 Mg/4 Ml Vial IV 11/11/24 13:59 40 mg Q8 DERECK Administration Losartan Potassium 100 mg 10/11/24 09:00 10/12/24 09:27 Losartan Potassium 50 Mg Tab PO 11/10/24 08:59 100 mg QAM DERECK Administration Metoprolol Succinate 100 mg 10/10/24 21:00 10/12/24 21:45 Metoprolol Succ 50mg Ext Rel Tab PO 11/09/24 20:59 100 mg QPM DERECK Administration Rivaroxaban 20 mg 10/11/24 16:30 10/12/24 17:58 Rivaroxaban 20 Mg Tab PO 11/10/24 16:29 20 mg QDD DERECK Administration Spironolactone 25 mg 10/12/24 12:30 10/12/24 13:41 Spironolactone 25 Mg Tab PO 11/11/24 12:29 25 mg QAM DERECK Administration Past Medical History Medical History Edema Dyspnea on exertion History of anemia (1989) 4 units PRBCs Hx of congestive heart failure (1989) Cardiac murmur Echo 09/2024 Atrial fibrillation Follows with Dr. Walker Past Surgical History Surgical History Hx of tonsillectomy (194) Hx laparoscopic cholecystectomy (2013) Social History Smoking Status: Never smoker Do You Dip or Chew Tobacco: No Hx Alcohol Use: No alcohol intake frequency: holidays/special occasions only Hx Substance Use: No substance use type: does not use Physical Exam Vital Signs Last Vital Signs Temp 36.7 C 10/13/24 03:26 Pulse 84 10/13/24 03:26 Resp 16 10/13/24 03:26 BP 100/68 10/13/24 03:26 Pulse Ox 94 10/13/24 03:26 O2 Del Method Room Air 10/13/24 03:26 O2 Flow Rate 2 10/10/24 21:00 Testing Laboratory Results 10/12/24 09:37 10/12/24 09:37 PT 17.7 Seconds (9.0-12.0) H 10/10/24 12:11 INR 1.7 (0.9-1.1) H 10/10/24 12:11 APTT 32 Seconds (21-31) H 10/10/24 12:11 Urine Color Yellow 10/10/24 Unknown Urine Appearance Clear (Clear) 10/10/24 Unknown Urine pH 5.0 (4.5-7.5) 10/10/24 Unknown Ur Specific [place] 1.008 (1.000-1.030) 10/10/24 Unknown Urine Protein Negative (Negative) 10/10/24 Unknown Urine Glucose (UA) Negative (Negative) 10/10/24 Unknown Urine Ketones Negative (Negative) 10/10/24 Unknown Urine Nitrite Negative (Negative) 10/10/24 Unknown Ur Leukocyte Esterase Negative (Negative) 10/10/24 Unknown Urine WBC (Auto) 0-5 /hpf (0-5) 10/10/24 Unknown Urine RBC (Auto) >20 /hpf (0-2) H 10/10/24 Unknown U Hyaline Cast (Auto) 3-5 /lpf (0-2) H 10/10/24 Unknown U Epithel Cells (Auto) 0-2 /hpf (0-2) 10/10/24 Unknown Urine Bacteria (Auto) None Seen (None Seen) 10/10/24 Unknown Electrocardiogram Date: 10/10/24 Findings: + AFIB @ (109) Echocardiogram Date: 10/10/24 EF: 55-60% LV Function: normal Other Findings: + atrial enlargement RV dilated but systolic function is normal severe TR mild pulmonary htn
--- NOTE | 2024-10-13 08:48 | Cardioversion ---
Date of Service October 13, 2024 Electrical Cardioversion Rpt Electrical Cardioversion Report The patient was brought to the laborer livestock in an NPO state. Medications confirmed. Conscious sedation provided by the anesthesia department. Glen performed and reported under separate cover. The left atrial appendage was visualized to be free of thrombus. The patient does have a small PFO with evidence of right to left shunting of blood. Right ventricle and Right atrium are massively dilated with significant TR. With the patient sedated, synchronous DC cardioversion performed at 200J x 1 successfully; Normal sinus rhythm was achieved however patient noted to have frequent PACs. Patient to be given 5mg IV lopressor. Post CV ECG performed. Will continue to po load of amiodarone x 24 hours prior to DC. Will cont with IV diuresis. If remains stable will anticipate DC to home tomorrow. Procedure discussed with her son Ronny Slater at [phone]. Impression: 1. Successful DC cardioversion for PAF 2. Dilated right heart with TR. 3. Patent foramen ovale with right to left shunting of blood and + bubble study. 4. Frequent PACs post Cardioversion 5. Cont po load of amiodarone to help maintain NSR.
--- NOTE | 2024-10-13 08:59 | Cardiology Progress Note ---
Date of Service October 13, 2024 Assessment & Plan (1) Acute CHF (congestive heart failure): (2) Atrial fibrillation with rapid ventricular response: (3) Anticoagulated: Plan Will cont IV lasix but decrease to 40mg IV once daily for now cont po amio load. will watch overnight check labs today and in am Admission and Anticipated Discharge Date Admission Date: October 10, 2024 Subjective Patient seen before, during and after her procedure. YAZMIN shows severely dilated right heart with PFO and +bubble study with right to left shunting of blood. No JUNE thrombus. DC cardioversion peroformed at 200 J x 1 successfully. NSR achieved but having frequent PACs. I suspect she may go back in to Afib. Will cont po amio load until tomorrow. Cont IV lasix but decrease to 40mg IV daily for now. Cont po aldactone as well. Will reassess in am. Spoke with her Son Ronny via phone [phone]. Review of Systems Review of Systems: All systems reviewed & are unremarkable except as noted in HPI & below Physical Exam Physical Exam: pleasant, still SOB Respiratory: rales b/l Cardiovascular: irregular tachy Results & Data Vital Signs (Past 12 Hours) Vital Signs Temp Pulse Pulse Resp BP Pulse Ox O2 Del Method 10/13/24 07:27 36.6 C 117 H 18 118/86 93 Room Air 10/13/24 03:26 36.7 C 84 16 100/68 94 Room Air 10/12/24 23:43 36.4 C L 93 H 20 91/61 L 93 Room Air 10/12/24 21:00 Room Air Laboratory Results Abnormal lab results 10/12/24 Range/Units 09:37 RDW Std Deviation 51.8 H (36.4-46.3) fL RDW Coeff of Celso 14.7 H (11.5-14.5) % BUN 37 H (6-23) mg/dl BUN/Creatinine Ratio 37.0 H (10-20) Glucose 236 H (70-99(Fasting)) mg/dl Total Bilirubin 1.2 H (0.2-1.0) mg/dl Alkaline Phosphatase 145 H (34-104) U/L B-Natriuretic Peptide 496 H (0-100) pg/ml Total Protein 5.7 L (6.0-8.3) gm/dl Globulin 2.2 L (2.5-4.0) gm/dl ECG Additional Comments: post CV NSR with frequent PACs (1) Acute CHF (congestive heart failure) Heart failure type: combined systolic and diastolic Qualified Code(s): I50.41 - Acute combined systolic (congestive) and diastolic (congestive) heart failure
[2024-10-13] MEDS: BENZOCAINE/TETRACAIN/BUTAM 50 APPLN/5 GM CAN EXT ONE (09:53)
[2024-10-13 10:16] LABS: Hematocrit (blood only) 47.5 % (37.0-47.0); Hemoglobin 14.9 g/dl (12.0-16.0); Mean Corpuscular Hemoglobin 30.2 pg (25.0-34.0); Mean Corpuscular Volume 96.2 fL (80.0-100.0); Platelet Count 211 K/uL (130-400); RDW Standard Deviation 52.3 fL (36.4-46.3); Red Blood Count 4.94 M/uL (4.20-5.40); White Blood Count 9.19 K/ul (4.8-10.8)
[2024-10-13 10:27] LABS: Anion Gap 8.0 (3-11); Blood Urea Nitrogen 33.0 mg/dl (6-23); Calcium 8.7 mg/dl (8.6-10.3); Carbon Dioxide 29.0 mmol/L (21-32); Chloride 103.0 mmol/L (98-107); Creatinine Clr Calc Pharmacy 55.9 ml/min; Glucose 127.0 mg/dl (70-99(Fasting)); Potassium 3.9 mmol/L (3.5-5.1); Sodium 140.0 mmol/L (136-145)
[2024-10-13 10:28] LABS: Alanine Aminotransferase 31.0 U/L (7-52); Albumin Globulin Ratio 1.6 (0.9-2); Alkaline Phosphatase 137.0 U/L (34-104); Anion Gap 6.0 (3-11); Bilirubin,Total 1.3 mg/dl (0.2-1.0); Blood Urea Nitrogen 32.0 mg/dl (6-23); Calcium 8.7 mg/dl (8.6-10.3); Carbon Dioxide 31.0 mmol/L (21-32); Chloride 103.0 mmol/L (98-107); Creatinine Clr Calc Pharmacy 57.1 ml/min; Globulin 2.1 gm/dl (2.5-4.0); Glucose 123.0 mg/dl (70-99(Fasting)); Potassium 3.7 mmol/L (3.5-5.1); Sodium 140.0 mmol/L (136-145); Total Protein 5.5 gm/dl (6.0-8.3)
--- NOTE | 2024-10-13 10:57 | Hospitalist Progress Note ---
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 She has been on Lasix for worsening swelling of lower extremities anasarca and weight gain without good response. Also endorses Lightheadedness and abdominal discomfort from swelling stating it has become "rock hard". Acute on chronic CHF exacerbation Tachycardia induced, right heart failure CHF protocol orders Echocardiogram NLEF, mild LV hypertrophy, RV dilatation with volume overload, severe TR, unchanged from prior. No reports of pulmonary hypertension. Continue home ACEI and BB. GDMT per cardiology Diuresis per cardiology A-fib RVR Beta-sera Xarelto Status post DC cardioversion 10/13. Amiodarone initiated By cardiology Severely distended firm abdomen Likely secondary to RV volume overload Asymptomatic in this regard CT abdomen pelvis can be considered by PCP in near future if does not improve with diuresis Acute hypoxic respiratory failure secondary to CHF AE and A-fib Wean O2 Prolonged QTc 592 Telemetry Caution with QT prolonging medications K greater than 4 mag greater than 2 Hypertension Home medications Deconditioning PTOT DVT prophylaxis DNR/DNI Disposition discharge home in 1 to 2 days Once cleared by cardiology Admission and Anticipated Discharge Date Admission Date: October 10, 2024 Subjective YAZMIN cardioversion this morning Doing okay post cardioversion no chest pain dyspnea lightheadedness or other symptoms cardiology decreased diuresis. documented weight unchanged. I/O's inaccurate as output not measured. 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 GASTROINTESTINAL: Significantly distended with fluid wave nontender distant bowel sounds EXTREMITIES: Normal motion all extremities, no cyanosis, no edema. NEUROLOGIC: Alert and oriented. No focal neurologic deficits appreciated SKIN: No rash, no jaundice, no diaphoresis. 2+ edema chronic skin changes PSYCH: Appropriate GCS: 15 Results & Data Results & Data Vital Signs (Past 12 Hours) Vital Signs Temp Pulse Pulse Pulse Resp BP BP 10/13/24 10:38 86 92/63 L 10/13/24 09:41 96 H 10/13/24 09:40 36.4 C L 72 18 91/60 L 10/13/24 09:03 71 18 100/67 10/13/24 08:45 72 18 96/72 L 10/13/24 07:27 36.6 C 117 H 18 118/86 10/13/24 05:38 95 H 10/13/24 03:26 36.7 C 84 16 100/68 10/12/24 23:43 36.4 C L 93 H 20 91/61 L Pulse Ox O2 Del Method 10/13/24 10:38 95 Room Air 10/13/24 09:41 10/13/24 09:40 94 Room Air 10/13/24 09:03 96 Room Air 10/13/24 08:45 99 Room Air 10/13/24 07:27 93 Room Air 10/13/24 05:38 10/13/24 03:26 94 Room Air 10/12/24 23:43 93 Room Air Laboratory Results Abnormal Labs 10/10/24 10/10/24 10/11/24 12:11 Unknown 05:30 WBC 10.92 H Hct 50.9 H MCHC 31.2 L RDW Std Deviation 53.1 H RDW Coeff of Celso 15.2 H Neut # (Auto) 8.53 H Lymph # (Auto) 1.15 L Webb # (Auto) 1.04 H PT 17.7 H INR 1.7 H APTT 32 H BUN 34 H 35 H BUN/Creatinine Ratio 33.0 H 30.4 H Glucose 141 H 110 H Total Bilirubin 1.2 H Direct Bilirubin 0.5 H Alkaline Phosphatase 181 H 143 H B-Natriuretic Peptide 424 H Total Protein 5.4 L Globulin 2.0 L Urine Blood 2+ H Urine RBC (Auto) >20 H U Hyaline Cast (Auto) 3-5 H 10/11/24 10/12/24 10/13/24 05:37 09:37 09:53 WBC Hct 48.1 H 47.5 H MCHC 31.0 L 31.4 L RDW Std Deviation 53.6 H 51.8 H 52.3 H RDW Coeff of Celso 15.1 H 14.7 H 14.9 H Neut # (Auto) Lymph # (Auto) Webb # (Auto) PT INR APTT BUN 37 H 32 H BUN/Creatinine Ratio 37.0 H Glucose 236 H Total Bilirubin 1.2 H Direct Bilirubin Alkaline Phosphatase 145 H B-Natriuretic Peptide 496 H Total Protein 5.7 L Globulin 2.2 L Urine Blood Urine RBC (Auto) U Hyaline Cast (Auto) 10/13/24 10/13/24 10/13/24 09:53 09:53 09:53 WBC Hct MCHC RDW Std Deviation RDW Coeff of Celso Neut # (Auto) Lymph # (Auto) Webb # (Auto) PT INR APTT BUN 33 H BUN/Creatinine Ratio 33.0 H 33.3 H Glucose 123 H 127 H Total Bilirubin 1.3 H Direct Bilirubin Alkaline Phosphatase 137 H B-Natriuretic Peptide 387 H Total Protein 5.5 L Globulin 2.1 L Urine Blood Urine RBC (Auto) U Hyaline Cast (Auto) PG Care Time/CCT Total # of Minutes Spent Total Time Spent with Patient: Total time spent is greater than 50% in coordination of care (as documented) at patient's floor/unit and/or counseling patient: Coding Level of Care Code 48663 SUB INP/OBS CARE 2/35MIN Diagnoses Dyspnea on exertion R06.09 Edema R60.9 Hx of congestive heart failure Z86.79 Atrial fibrillation I48.91
--- NOTE | 2024-10-13 11:38 | Anesthesiology Progress Note ---
Date of Service October 13, 2024 Anesthesia Post Procedure Vital Signs Vital Signs: Temp Pulse Pulse Pulse Resp BP BP 10/13/24 11:23 36.3 C L 92 H 19 107/76 10/13/24 10:38 86 92/63 L 10/13/24 09:41 96 H 10/13/24 09:40 36.4 C L 72 18 91/60 L 10/13/24 09:03 71 18 100/67 10/13/24 08:45 72 18 96/72 L 10/13/24 07:27 36.6 C 117 H 18 118/86 10/13/24 05:38 95 H 10/13/24 03:26 36.7 C 84 16 100/68 10/12/24 23:43 36.4 C L 93 H 20 91/61 L 10/12/24 21:00 10/12/24 19:30 36.3 C L 119 H 20 112/73 10/12/24 15:33 36.5 C 109 H 16 119/88 10/12/24 13:01 115 H Pulse Ox O2 Del Method 10/13/24 11:23 94 Room Air 10/13/24 10:38 95 Room Air 10/13/24 09:41 10/13/24 09:40 94 Room Air 10/13/24 09:03 96 Room Air 10/13/24 08:45 99 Room Air 10/13/24 07:27 93 Room Air 10/13/24 05:38 10/13/24 03:26 94 Room Air 10/12/24 23:43 93 Room Air 10/12/24 21:00 Room Air 10/12/24 19:30 93 Room Air 10/12/24 15:33 96 Room Air 10/12/24 13:01 Transfer of Care Handoff Completed per policy Notes Mental Status: alert / awake / arousable Patient Amnestic to Procedure: Yes Nausea / Vomiting: adequately controlled Pain: adequately controlled Airway Patency, RR, SpO2: stable & adequate BP & HR: stable & adequate Hydration State: stable & adequate Anesthetic Complications: no major complications apparent
[2024-10-14 03:07] VITALS: RESP 18
[2024-10-14 06:21] LABS: Hematocrit (blood only) 46.5 % (37.0-47.0); Hemoglobin 14.5 g/dl (12.0-16.0); Mean Corpuscular Hemoglobin 30.1 pg (25.0-34.0); Mean Corpuscular Volume 96.7 fL (80.0-100.0); Platelet Count 200 K/uL (130-400); RDW Standard Deviation 52.5 fL (36.4-46.3); Red Blood Count 4.81 M/uL (4.20-5.40); White Blood Count 9.12 K/ul (4.8-10.8)
[2024-10-14 06:39] LABS: Alanine Aminotransferase 31.0 U/L (7-52); Albumin Globulin Ratio 1.5 (0.9-2); Alkaline Phosphatase 134.0 U/L (34-104); Anion Gap 6.0 (3-11); Bilirubin,Total 1.0 mg/dl (0.2-1.0); Blood Urea Nitrogen 39.0 mg/dl (6-23); Calcium 8.8 mg/dl (8.6-10.3); Carbon Dioxide 30.0 mmol/L (21-32); Chloride 102.0 mmol/L (98-107); Creatinine Clr Calc Pharmacy 43.3 ml/min; Globulin 2.1 gm/dl (2.5-4.0); Glucose 139.0 mg/dl (70-99(Fasting)); Potassium 4.4 mmol/L (3.5-5.1); Sodium 138.0 mmol/L (136-145); Total Protein 5.3 gm/dl (6.0-8.3)
[2024-10-14] MEDS: FUROSEMIDE 40 MG/4 ML VIAL IV SCH (08:02)
--- NOTE | 2024-10-14 10:02 | Cardiology Progress Note ---
Date of Service October 14, 2024 Assessment & Plan (1) Acute CHF (congestive heart failure): (2) Atrial fibrillation with rapid ventricular response: (3) Anticoagulated: Plan Will cont IV lasix but decrease to 40mg IV once daily for now her ECHO shows very small LV size with normal function but huge RV-implying underlying pulm process-??CRESCENCIO AND hypoxia; I will arrange for OP sleep study will cont po amiodarone loade at this time HOLD ARB for now until we see renal function stabilize-will use loop diuretic 1- 2 times daily depending on fluid status. Admission and Anticipated Discharge Date Admission Date: October 10, 2024 Review of Systems Review of Systems: All systems reviewed & are unremarkable except as noted in HPI & below Physical Exam Physical Exam: pleasant, still SOB Results & Data Vital Signs (Past 12 Hours) Vital Signs Temp Pulse Pulse Resp BP Pulse Ox O2 Del Method 10/14/24 07:27 36.3 C L 95 H 18 127/85 93 Room Air 10/14/24 03:06 36.5 C 63 18 88/62 L 94 Room Air 10/13/24 22:54 36.4 C L 85 16 86/57 L 93 Room Air Laboratory Results Abnormal lab results 10/13/24 10/13/24 10/13/24 Range/Units 09:53 09:53 09:53 Hct 47.5 H (37.0-47.0) % MCHC 31.4 L (32.0-36.0) g/dL RDW Std Deviation 52.3 H (36.4-46.3) fL RDW Coeff of Celso 14.9 H (11.5-14.5) % BUN 32 H 33 H (6-23) mg/dl Creatinine (0.6-1.2) mg/dl BUN/Creatinine Ratio 33.0 H 33.3 H (10-20) Glucose 123 H (70-99(Fasting)) mg/dl Total Bilirubin (0.2-1.0) mg/dl Alkaline Phosphatase (34-104) U/L B-Natriuretic Peptide (0-100) pg/ml Total Protein (6.0-8.3) gm/dl Albumin (3.4-5.0) gm/dl Globulin (2.5-4.0) gm/dl 07/30/25 07/31/25 Range/Units 09:53 05:54 Hct (37.0-47.0) % MCHC 31.2 L (32.0-36.0) g/dL RDW Std Deviation 52.5 H (36.4-46.3) fL RDW Coeff of Celso 14.8 H (11.5-14.5) % BUN 39 H (6-23) mg/dl Creatinine 1.27 H (0.6-1.2) mg/dl BUN/Creatinine Ratio 30.7 H (10-20) Glucose 127 H 139 H (70-99(Fasting)) mg/dl Total Bilirubin 1.3 H (0.2-1.0) mg/dl Alkaline Phosphatase 137 H 134 H (34-104) U/L B-Natriuretic Peptide 387 H 370 H (0-100) pg/ml Total Protein 5.5 L 5.3 L (6.0-8.3) gm/dl Albumin 3.2 L (3.4-5.0) gm/dl Globulin 2.1 L 2.1 L (2.5-4.0) gm/dl Medications Administered Current Inpatient Medications Acetaminophen (Acetaminophen 325 Mg Tab) 650 mg PO Q4H PRN PRN Reason: Pain or Fever Stop: 11/09/24 14:30 Al Hydrox/Mg Hydrox/Simethicone (Aluminum/Magnesium Susp 30 Ml Udc) 15 ml PO Q4H PRN PRN Reason: Dyspepsia Stop: 11/09/24 14:30 Amiodarone HCl (Amiodarone 200 Mg Tab) 200 mg PO BIDM [facility] Stop: 11/11/24 16:59 Last Admin: 10/14/24 08:02 Dose: 200 mg Furosemide (Furosemide 40 Mg/4 Ml Vial) 40 mg IV DAILY [facility] Stop: 11/13/24 08:59 Last Admin: 10/14/24 08:02 Dose: 40 mg Magnesium Hydroxide (Magnesium Hydroxide Susp 30 Ml Udc) 30 ml PO Q12H PRN PRN Reason: Constipation Stop: 11/09/24 14:30 Metoprolol Succinate (Metoprolol Succ 50mg Ext Rel Tab) 100 mg PO QPM [facility] Stop: 11/09/24 20:59 Last Admin: 10/13/24 21:19 Dose: Not Given Rivaroxaban (Rivaroxaban 20 Mg Tab) 20 mg PO QDD [facility] Stop: 11/10/24 16:29 Last Admin: 10/13/24 16:50 Dose: 20 mg Spironolactone (Spironolactone 25 Mg Tab) 25 mg PO QAM [facility] Stop: 11/11/24 12:29 Last Admin: 10/14/24 08:03 Dose: 25 mg (1) Acute CHF (congestive heart failure) Heart failure type: combined systolic and diastolic Qualified Code(s): I50.41 - Acute combined systolic (congestive) and diastolic (congestive) heart failure
[2024-10-14 11:14] VITALS: TEMP 97.2; O2SAT 94
[2024-10-14 13:25] VITALS: BP 107/76; PULSE 63
--- NOTE | 2024-10-14 14:00 | Discharge Summary ---
Discharge Summary Date of Service October 14, 2024 Principal Dx & Hospital Course #1 = Principal Diagnosis (1) Atrial fibrillation with rapid ventricular response: (2) Acute CHF (congestive heart failure): Plan Ms. Slater is an 84-year-old female's active medical conditions include heart failure with preserved ejection fraction, paroxysmal atrial fibrillation, hypertension among other chronic medical conditions who presented to [facility] on 10/10 due to progressive dyspnea on exertion, lower extremity edema. #Acute heart failure exacerbation consequential of atrial fibrillation with RVR Most recent ejection fraction of 55 to 60% obtained 10/13 during DCCV which was successful and the patient remains in sustained normal sinus rhythm; continue medication management as detailed below with outpatient follow-up with cardiology continue amiodarone 200 mg p.o. twice daily, furosemide 40 mg p.o. daily, metoprolol succinate 100 mg p.o. daily, spironolactone 25 mg p.o. daily, Xarelto 20 mg p.o. 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 She has been on Lasix for worsening swelling of lower extremities anasarca and weight gain without good response. Also endorses Lightheadedness and abdominal discomfort from swell ing stating it has become "rock hard". No chest pain nausea vomiting abdominal pain fevers chills recent illness or any other symptoms. Discussed the case with ED physician. Received 40 of Lasix IV times once and metoprolol 5 IV times once She does not know for sure if she was ever officially diagnosed with heart failure. On review of EMR it is noted she has a history of heart failure She is otherwise in good spirits sitting up at edge of bed conversive very talkative and pleasant. Son at bedside. We discussed all aspects of her care extensively. They were appreciative She confirms she is a DNR/DNI status Discharge Exam General: Adult in no acute distress Vital Signs: Reviewed HEENT: Normocephalic, atraumatic; pupils equally reactive to light, extraocular motions intact; moist mucous membranes Neck: No palpable lymphadenopathy Pulmonary: symmetric chest wall excursion; CTAB Cardiovascular: Regular rate and rhythm with no murmurs, rubs, or gallops; S1 and S2 normal; bilateral radial and posterior tibial pulses 2+; trace bilateral lower extremity edema distal of the mid leg Gastrointestinal: Soft, protuberant; normal frequency and pitch of bowel sounds throughout; no palpable masses or organomegaly Neurologic: CN II-XII grossly intact Discharge Plan Discharge Items Patient Disposition: Home - Self-Care Reason For Visit: AF/RVR, CHF Discharge Diagnosis: Heart failure exacerbation in the setting of atrial fibrillation with RVR Condition on Discharge: Good Activity: Resume your previous activity Non-emergency contact: Primary Care Provider and Linen Supervisor Call non-emergency contact if: you have any medication questions and your symptoms worsen Follow-up/Referrals: Maki Walker DO [Physician] - 10/26/24 9:30 am (Postcardioversion ) David Minaya D.O. [Primary Care Provider] - (Please call to schedule follow up) Diet: Carb Consistent or DM2, Low Fat and Low Sodium (2gm) Fluids: 1800ml (7 cups) Ambulatory Orders: Basic Metabolic Panel (Routine) Timeframe: 1 Week Location: Determined by Patient Ordered By: Judd Mendoza Attending Provider Instructions: Please follow-up with your primary care doctor and your doctor within 3 to 5 days or as instructed Pending Studies at Discharge: No Stand-Alone Forms: My [employer], Work/School Release Medications and DC Order Prescriptions: New spironolactone 25 mg Tablet 25 mg PO QAM 30 Days Qty: 30 0RF amiodarone 200 mg Tablet 200 mg PO BIDM 14 Days Qty: 28 0RF Continued furosemide 40 mg Tablet 40 mg PO QAM cholecalciferol (vitamin D3) [Vitamin D3] 25 mcg (1,000 unit) Tablet 25 mcg PO DAILY Xarelto 20 mg Tablet 20 mg PO QPM Rx Instructions: must administer with evening meal potassium chloride 20 mEq Tablet Extended Release 20 meq PO QAM metoprolol succinate 100 mg tablet extended release 24 hr 100 mg PO QPM Held losartan 100 mg Tablet 100 mg PO QAM Hold Instructions: Resume on 10/26/24. Pending review by cardiology in outpatient setting Discharge Orders: Discharge Order- CHF (Routine); Ordered 10/14/24 Ordered By: Judd Ansari/Other Patient Handouts: Heart Failure: Tracking Your Weight, Heart Failure Make Changes Diet, AFib Dc, Heart Failure and Physical Activity Admission Data Admit Date/Time: 10/10/24 14:31 Attending Provider: Judd Hendrix Admit Provider: Kelly Campbell Primary Care Provider: David Minaya Other Providers: Huber Mendoza; Ke Ma; Shalom Mae; Rishabh Brown; Evangelina Samson; Nusrat Hoyt; Yovani Pena; Yovani Mohan; Karthik Eubanks; Hair Benjamin; Baudilio Nichols; Idalia Kaur; Huber Marmolejo; Giorgi Lan; Jac Lewis; Shabbir Mason; Emile Watson; Chayito Lozano; Estephania Mendoza; Baldemar Ball Jr; Jeana Campbell; Cesar Tim; Rosana Holman; Maki Walker; Priscilla Acevedo; Aleena Goncalves; Chantal Pimentel; Kristal Valentine; Luis E Grant; Keron Londono; Huber Dejesus; Tae Webber; Nusrat Weinstein; Norris Moses; Jeff Alva; Cesario Hwang; Caro Watson; Ck Rudd; Belkis Rudd; Nolan Camilo E; Alisia Lewis; Doron Lopes; Julianne Garcia; Snehal Carter; Ronny Whitehead; Edna Castro; Diana Goode; Rhoda Arana; Lili Laureano; Berny Laureano V; José Antonio Bennett; Aleena Stevens; David Ca; Manuela Willett; Berny Morfin; Francis Watson; Judd Al; Leny Herrera; Talita Moore; Berny Prakash; Umang Cunha; Renetta Garcia; Dario Barron; Barbie Cain; Pauly Franco; Rishabh Lobato; Balaji Clancy; Hyacinth Cuenca; Huber Guerra; Mary Beth Khan; Cori Salinas; Reyes Larkin; Luis E Husain Jr; Shena Welch; Mikki Renteria; Ashlyn Farah; Ronny Corley; Luis Carlos; Mikki Velazco; Cesar Carolina; Luciano Domingo; Umberto Doe; Juan A Bailey; Collin Hernández; Diana Nettles; Katherin Smith; Antonieta Gomez; Gissell Verdugo; Karina Villarreal; Reuben Amaya Jr; Lety Moran; Edna Magana; Rachid Krishnamurthy; Brittany Weber; Avani Galeano; Alva Fitch; Cherelle Watson Hospital Stay Data Consultations 10/10/24 13:31 ED Decision to Admit Stat 10/10/24 14:28 [facility] CHF Program Referral Routine 10/11/24 07:31 Consult Cardiology Routine 10/12/24 12:26 Consult Anesthesiology Routine Procedures Performed Operation Date: 10/13/24 07:30 Actual Procedures p Trans-Esophageal Echo - MD arlet Sotelo Cardioversion - DO arlet La Echo Color Flow - DO arlet La Doppler Echo Limited/Follow Up - DO arlet La Echo Doppler Complete - Maki Walker DO Pending Results Patient Have Any Pending Studies at Discharge: No Discharge Instructions Given to Patient (Per Discharging Provider) Please follow-up with your primary care doctor and your doctor within 3 to 5 days or as instructed Total Time Total Time Spent Total Time Spent (In Minutes): 55 Coding Level of Care Code 70574 INP/OBS DISCH >30 MIN Diagnoses Atrial fibrillation with rapid ventricular response I48.91 Acute CHF (congestive heart failure) I50.41 Heart failure type: combined systolic and diastolic
--- NOTE | 2024-10-15 23:55 | Electrocardiogram Report ---
Test Reason : Blood Pressure : */* mmHG Vent. Rate : 70 BPM Atrial Rate : 70 BPM P-R Int : 176 ms QRS Dur : 102 ms QT Int : 430 ms P-R-T Axes : 77 95 136 degrees QTcB Int : 464 ms Sinus rhythm with Premature supraventricular complexes Rightward axis Low voltage QRS Incomplete right bundle branch block Septal infarct (cited on or before 10-Oct-2024) Nonspecific T wave abnormality When compared with ECG of 10-Oct-2024 11:40, Sinus rhythm has replaced Atrial fibrillation Vent. rate has decreased by 39 bpm Minimal criteria for Inferior infarct are no longer Present Confirmed by Shabbir Mason ([id number]) on 10/15/2024 11:55:34 PM Referred By: REFERRED SELF Confirmed By: Shabbir Mason
== END 2024-10-14 16:35 | disposition home or self-care (01) | DRG 308 ==
LOC: SUATTDRO → ED 11:24 → EDINP 14:31 → SUATTDRO 14:31 → 2S 17:28

== ENCOUNTER 2024-10-25 02:51 | Inpatient (IN) ==
[2024-10-25 03:32] LABS: iSTAT Art Bld Gas Base Excess -13.0 meg/L (-9-1.8)
--- NOTE | 2024-10-25 03:57 | XRay Report ---
EXAM: XR chest 1V portable CLINICAL HISTORY: SOB TECHNIQUE: An X-ray image of the chest is obtained in AP projection. COMPARISON: No prior studies are available for comparison. FINDINGS: Pulmonary Parenchyma: Prominent bronchovascular markings suggestive of lung congestion, please correlate clinically. Otherwise clear both lung ball. No evidence of consolidation, collapse, or focal opacities. No pulmonary nodules are identified. Mild left-sided and minimal right-sided pleural effusion. Heart and Mediastinum: Cardiomegaly. No mediastinal widening or masses. No hilar or mediastinal lymphadenopathy. Bony Thorax: Osteoarthritis of acromioclavicular and glenohumeral joints. Soft Tissues: Soft tissues overlying the chest wall are unremarkable. IMPRESSION: Mild left-sided and minimal right-sided pleural effusion. Prominent bronchovascular markings suggestive of lung congestion, please correlate clinically. Cardiomegaly. Electronically signed by Bryon Fitzpatrick 10-25-2024 03:57 AM
[2024-10-25 04:22] LABS: Hematocrit (blood only) 49.4 % (37.0-47.0); Hemoglobin 15.3 g/dl (12.0-16.0); Mean Corpuscular Hemoglobin 29.8 pg (25.0-34.0); Mean Corpuscular Volume 96.3 fL (80.0-100.0); Platelet Count 222 K/uL (130-400); RDW Standard Deviation 54.2 fL (36.4-46.3); Red Blood Count 5.13 M/uL (4.20-5.40); White Blood Count 26.49 K/ul (4.8-10.8)
[2024-10-25 04:40] LABS: Alanine Aminotransferase 185.0 U/L (7-52); Albumin Globulin Ratio 1.3 (0.9-2); Alkaline Phosphatase 221.0 U/L (34-104); Anion Gap 18.0 (3-11); Bilirubin,Total 2.5 mg/dl (0.2-1.0); Blood Urea Nitrogen 52.0 mg/dl (6-23); Calcium 9.1 mg/dl (8.6-10.3); Carbon Dioxide 20.0 mmol/L (21-32); Chloride 94.0 mmol/L (98-107); Creatinine Clr Calc Pharmacy 27.0 ml/min; Globulin 2.6 gm/dl (2.5-4.0); Glucose 129.0 mg/dl (70-99(Fasting)); Potassium 5.3 mmol/L (3.5-5.1); Sodium 132.0 mmol/L (136-145); Total Protein 6.0 gm/dl (6.0-8.3)
[2024-10-25] MEDS: CEFEPIME 2000MG 2,000 MG/20 ML SYR IV STA (05:13)
[2024-10-25 05:44] LABS: Magnesium 2.5 mg/dl (1.7-2.4)
[2024-10-25 05:57] LABS: Immature Granulocytes # (auto) 0.63 K/uL (0.01-0.20); Immature Granulocytes % (auto) 2.4 %; Polychromasia 2+
[2024-10-25] MEDS ORDERED: PROPOFOL BOLUS FROM BAG IV PRN (06:10)
[2024-10-25] MEDS ORDERED: STAT IV Infusion **Titration per Protocol STA ×4 (06:10→06:43)
[2024-10-25 06:15] LABS: Chlamydia pneumoniae PCR Not Detected (NotDetected); Coronavirus 229E PCR Not Detected (NotDetected); Coronavirus CoV-2 (COVID19)PCR Not Detected (NotDetected); Coronavirus HKU1 PCR Not Detected (NotDetected); Coronavirus NL63 PCR Not Detected (NotDetected); Coronavirus OC43PCR Not Detected (NotDetected); Human Metapneumovirus PCR Not Detected (NotDetected); Parainfluenza Virus 1 PCR Not Detected (NotDetected); Parainfluenza Virus 2 PCR Not Detected (NotDetected); Parainfluenza Virus 3 PCR Not Detected (NotDetected); Parainfluenza Virus 4 PCR Not Detected (NotDetected); Respiratory Syncytial VirusPCR Not Detected (NotDetected); Rhinovirus/Enterovirus PCR Not Detected (NotDetected)
[2024-10-25] MEDS ORDERED: Concentrate Norepinephrine IV Infusion ONE (06:21)
[2024-10-25] MEDS: NOREPINEPHRINE/D5W 4 MG/250 ML PLCT IV SCH (06:22)
--- NOTE | 2024-10-25 06:29 | History & Physical Report ---
Date of Service October 25, 2024 Assessment & Plan (1) Admitted to intensive care unit: (2) Acute on chronic respiratory failure: (3) Hypotension: (4) Anticoagulated: (5) Atrial fibrillation with rapid ventricular response: (6) Transaminitis: Plan The patient is an 84-year-old female with past medical history including atrial fibrillation with rapid ventricular response, HFpEF, hypertension, PFO. She is most recently admitted to [facility] from 10/10-10/14/2024, with A-fib with RVR and acute CHF. She underwent DCCV, and was started on amiodarone and Xarelto, which she has continued. She was also continued on furosemide 40 mg daily, and metoprolol succinate 100 mg daily along with spironolactone 25 mg daily. She presented to the emergency department with acute onset of shortness of breath, and was intubated in the ED due to acute respiratory failure. Respiratory panel was negative. Chest x-ray showed a slight increase in left pleural effusion but otherwise appeared normal. AST was 190 and ALT 185, with a troponin of 35.8. In the emergency department, patient became hypotensive, and was started on multiple pressors including Levophed, vasopressin, and had addition of milrinone. Patient is a DNR at this time, but continues to be intubated, and will not undergo CPR. Admission to intensive care unit Acute on chronic respiratory failure- Intubated in the ED Ventilator management per ICU team Serial CBC with differential, chemistry profile, magnesium, ABGs Respiratory panel is negative Received cefepime 2 g IV from the ED Atrial fibrillation with RVR/status post DCCV/hypotensive- Holding amiodarone, furosemide, losartan, metoprolol succinate, spironolactone, Xarelto Would likely need to be started on heparin drip YAZMIN performed on 10/13/2024 with PFO, and EF 60-65% Hypotension- Presently on Levophed, vasopressin, addition of milrinone IV fluid resuscitation will continue Transaminitis- Likely secondary to hepatic congestion Follow serially Acute kidney injury- Creatinine 2.03, with baseline 0.99 Likely secondary to decreased perfusion Follow serially with addition of pressors and fluid resuscitation Further management per ICU team History of Present Illness Chief Complaint: The patient was presented to the [facility] hospitalist service for admission after being intubated due to acute respiratory failure. Primary Care Provider: David Minaya The patient is an 84-year-old female with past medical history including atrial fibrillation with rapid ventricular response, HFpEF, hypertension, PFO. She is most recently admitted to [facility] from 10/10-10/14/2024, with A-fib with RVR and acute CHF. She underwent DCCV, and was started on amiodarone and Xarelto, which she has continued. She was also continued on furosemide 40 mg daily, and metoprolol succinate 100 mg daily along with spironolactone 25 mg daily. She presented to the emergency department with acute onset of shortness of breath, and was intubated in the ED due to acute respiratory failure. Respiratory panel was negative. Chest x-ray showed a slight increase in left pleural effusion but otherwise appeared normal. AST was 190 and ALT 185, with a troponin of 35.8. In the emergency department, patient became hypotensive, and was started on multiple pressors including Levophed, vasopressin, and had addition of milrinone. Patient is a DNR at this time, but continues to be intubated, and will not undergo CPR Allergies Allergy/AdvReac Type Severity Reaction Status Date / Time nickel AdvReac Mild Rash Verified 10/10/24 13:39 Home Medications Medication Instructions Recorded Confirmed Type cholecalciferol (vitamin D3) 25 25 mcg PO DAILY 10/06/24 10/10/24 History mcg (1,000 unit) tablet (Vitamin D3) furosemide 40 mg tablet 40 mg PO QAM 10/06/24 10/10/24 History losartan 100 mg tablet 100 mg PO QAM 10/06/24 10/10/24 History potassium chloride 20 mEq 20 meq PO QAM 10/06/24 10/10/24 History tablet,extended release rivaroxaban 20 mg tablet (Xarelto) 20 mg PO QPM 10/06/24 10/10/24 History metoprolol succinate 100 mg 100 mg PO QPM 10/10/24 10/10/24 History tablet,extended release 24 hr amiodarone 200 mg tablet 200 mg PO BIDM 14 days #28 tabs 10/14/24 Rx spironolactone 25 mg tablet 25 mg PO QAM 30 days #30 tabs 10/14/24 Rx Past Med/Surg History Problem List (Updated 10/25/24 @ 07:11 by Volodymyr Saeed MD) Transaminitis Hypotension Admitted to intensive care unit Acute on chronic respiratory failure Anticoagulated Acute CHF (congestive heart failure) (Acute) Atrial fibrillation with rapid ventricular response (Acute) Encounter for pre-operative examination Medical History Edema Dyspnea on exertion History of anemia (1989) 4 units PRBCs Hx of congestive heart failure (1989) Cardiac murmur Echo 09/2024 Atrial fibrillation Follows with Dr. Walker Surgical History Hx of tonsillectomy (194) Hx laparoscopic cholecystectomy (2013) Social History Smoking Status: Never smoker Second Hand Exposure: No; Do You Dip or Chew Tobacco: No; Hx Alcohol Use: No Hx Substance Use: No Preferred Language: Mongolian Communication Ability: Effective Java Web Architect Required: No Beliefs That Will Affect Care: None Current Living Situation: Family Current Living Situation Comment: with son Feels Safe at Home: Yes Assistive Devices: None Review of Systems Review of Systems: Review of systems in HPI not obtainable due to patient's intubated status Physical Exam Physical Exam: The patient is sedated, intubated and unresponsive HEENT--PERRL, EOMI, mucous membranes and oropharynx dry. Neck--supple. No JVD. No bruits. Thyroid normal, trachea midline, no adenopathy. Heart--normal S1 and S2. No murmurs, rubs or gallops. Lungs--crackles at left base Abdomen--normal bowel sounds and soft. Nontender. Mildly distended Extremities--trace to 1+ bilateral pretibial pitting edema. Dermatologic--normal skin turgor, normal color, no abnormal lymph nodes, no rash. Neurologic--cranial nerves II through XII grossly intact. Rheumatologic--limited exam Psychiatric--sedated, intubated nonresponsive Results & Data Results & Data Vital Signs (Past 12 Hours) Vital Signs Pulse Pulse Resp BP BP Pulse Ox O2 Del Method 10/25/24 06:24 46 L 20 63/42 L 92 Mechanical Vent 10/25/24 06:03 65 20 149/102 H 91 Mechanical Vent 10/25/24 05:57 78 20 166/107 H 85 L Mechanical Vent 10/25/24 05:53 76/55 L 10/25/24 05:46 49 L 83/60 L 99 Ambu-Bag 10/25/24 05:33 49 L 33 H 94/77 L 98 Oxymask 10/25/24 05:33 50 L 94/77 L 98 Oxymask 10/25/24 05:23 49 L 30 H 83/57 L 98 Oxymask 10/25/24 05:12 49 L 30 H 81/55 L 99 Oxymask 10/25/24 05:02 50 L 26 H 81/55 L 98 Oxymask 10/25/24 04:54 50 L 27 H 93/44 L 95 Oxymask 10/25/24 04:54 49 L 20 79/57 L 94 BiPAP 10/25/24 04:32 52 L 27 H 86/58 L 95 BiPAP 10/25/24 04:15 50 L 25 H 107/84 90 BiPAP 10/25/24 03:17 52 L 15 93 BiPAP 10/25/24 03:09 93 BiPAP 10/25/24 03:06 51 L 10/25/24 03:01 52 L 26 H 125/86 92 BiPAP 10/25/24 03:00 51 L 45 H 93 10/25/24 02:59 52 L 25 H 125/86 BiPAP 10/25/24 02:59 BiPAP 10/25/24 02:59 53 L 19 125/86 BiPAP 10/25/24 02:59 BiPAP O2 Flow Rate FiO2 10/25/24 06:24 10/25/24 06:03 10/25/24 05:57 10/25/24 05:53 10/25/24 05:46 10/25/24 05:33 10/25/24 05:33 6 10/25/24 05:23 6 10/25/24 05:12 6 10/25/24 05:02 6 10/25/24 04:54 6 10/25/24 04:54 10/25/24 04:32 10/25/24 04:15 10/25/24 03:17 10/25/24 03:09 10/25/24 03:06 10/25/24 03:01 10/25/24 03:00 60 10/25/24 02:59 10/25/24 02:59 10/25/24 02:59 10/25/24 02:59 Laboratory Results Laboratory Results WBC 26.49 K/ul (4.8-10.8) H 10/25/24 03:45 RBC 5.13 M/uL (4.20-5.40) 10/25/24 03:45 Hgb 15.3 g/dl (12.0-16.0) 10/25/24 03:45 POC Hgb 17.0 g/dl (12.0-16.0) H 10/25/24 03:20 Hct 49.4 % (37.0-47.0) H 10/25/24 03:45 POC Hct 50 % (37-47) H 10/25/24 03:20 MCV 96.3 fL (80.0-100.0) 10/25/24 03:45 MCH 29.8 pg (25.0-34.0) 10/25/24 03:45 MCHC 31.0 g/dL (32.0-36.0) L 10/25/24 03:45 RDW Std Deviation 54.2 fL (36.4-46.3) H 10/25/24 03:45 RDW Coeff of Celso 15.6 % (11.5-14.5) H 10/25/24 03:45 Plt Count 222 K/uL (130-400) 10/25/24 03:45 MPV 10.6 fL (9.4-12.4) 10/25/24 03:45 Immature Gran % (Auto) 2.4 % 10/25/24 03:45 Neut % (Auto) 86.0 % 10/25/24 03:45 Lymph % (Auto) 3.1 % 10/25/24 03:45 [place] % (Auto) 8.3 % 10/25/24 03:45 Eos % (Auto) 0.0 % 10/25/24 03:45 Baso % (Auto) 0.2 % 10/25/24 03:45 Neut # (Auto) 22.78 K/uL (1.40-6.50) H 10/25/24 03:45 Lymph # (Auto) 0.81 K/uL (1.20-3.40) L 10/25/24 03:45 [place] # (Auto) 2.20 K/uL (0.11-0.59) H 10/25/24 03:45 Eos # (Auto) 0.01 K/uL (0.00-0.50) 10/25/24 03:45 Baso # (Auto) 0.06 K/uL (0.00-0.20) 10/25/24 03:45 Immature Gran # (Auto) 0.63 K/uL (0.01-0.20) H 10/25/24 03:45 Absolute Nucleated RBC 0.18 K/uL (0.00-0.12) H 10/25/24 03:45 Nucleated RBC % (auto) 0.7 % 10/25/24 03:45 Polychromasia 2+ 10/25/24 03:45 Echinocytes 2+ 10/25/24 03:45 POC pH 7.33 (7.35-7.45) L 10/25/24 03:20 POC pCO2 24 mmHg (35-46) L 10/25/24 03:20 POC pO2 364 mmHg (80-95) H 10/25/24 03:20 POC HCO3 13 arely/L (19-24) L 10/25/24 03:20 POC Total CO2 13 mmol/L (24-31) L 10/25/24 03:20 POC Base Excess -13.0 arely/L (-9-1.8) L 10/25/24 03:20 POC ABG O2 Sat 100.0 % (90-95) H 10/25/24 03:20 POC Sodium 129 mmol/L (135-144) L 10/25/24 03:20 Sodium 132 mmol/L (136-145) L 10/25/24 03:45 POC Potassium 4.9 mmol/L (3.3-5.0) 10/25/24 03:20 Potassium 5.3 mmol/L (3.5-5.1) H 10/25/24 03:45 Chloride 94 mmol/L (98-107) L 10/25/24 03:45 Carbon Dioxide 20 mmol/L (21-32) L 10/25/24 03:45 Anion Gap 18 (3-11) H 10/25/24 03:45 BUN 52 mg/dl (6-23) H 10/25/24 03:45 Creatinine 2.03 mg/dl (0.6-1.2) H 10/25/24 03:45 Est Cr Clr Drug Dosing 27.0 ml/min 10/25/24 03:45 eGFR 23.75 10/25/24 03:45 BUN/Creatinine Ratio 25.6 (10-20) H 10/25/24 03:45 Glucose 129 mg/dl (70-99(Fasting)) H 10/25/24 03:45 Calcium 9.1 mg/dl (8.6-10.3) 10/25/24 03:45 Magnesium 2.5 mg/dl (1.7-2.4) H 10/25/24 03:45 Total Bilirubin 2.5 mg/dl (0.2-1.0) H 10/25/24 03:45 AST 190 U/L (13-39) H 10/25/24 03:45 ALT 185 U/L (7-52) H 10/25/24 03:45 Alkaline Phosphatase 221 U/L (34-104) H 10/25/24 03:45 Lactate Dehydrogenase 549 U/L (86-244) H 10/25/24 03:45 Total Creatine Kinase 83 U/L (26-192) 10/25/24 03:45 Troponin I High Sens 38.8 pg/ml (0-14) H 10/25/24 03:45 Total Protein 6.0 gm/dl (6.0-8.3) 10/25/24 03:45 Albumin 3.4 gm/dl (3.4-5.0) 10/25/24 03:45 Globulin 2.6 gm/dl (2.5-4.0) 10/25/24 03:45 Albumin/Globulin Ratio 1.3 (0.9-2) 10/25/24 03:45 Procalcitonin 5.78 ng/ml (0-0.5) H 10/25/24 03:45 Adenovirus (PCR) Not Detected (NotDetected) 10/25/24 05:10 B. pertussis DNA (PCR) Not Detected (NotDetected) 10/25/24 05:10 B.parapertussis DNA PCR Not Detected (NotDetected) 10/25/24 05:10 C. pneumoniae DNA (PCR) Not Detected (NotDetected) 10/25/24 05:10 Coronavirus OC43 (PCR) Not Detected (NotDetected) 10/25/24 05:10 Coronavirus HKU1 (PCR) Not Detected (NotDetected) 10/25/24 05:10 Coronavirus 229E (PCR) Not Detected (NotDetected) 10/25/24 05:10 SARS-CoV-2 (PCR) Not Detected (NotDetected) 10/25/24 05:10 Coronavirus NL63 (PCR) Not Detected (NotDetected) 10/25/24 05:10 Human Metapneumovir PCR Not Detected (NotDetected) 10/25/24 05:10 Influenza Type A (PCR) Not Detected (NotDetected) 10/25/24 05:10 Influenza Type B (PCR) Not Detected (NotDetected) 10/25/24 05:10 M. pneumoniae (PCR) Not Detected (NotDetected) 10/25/24 05:10 Parainfluenza 1 (PCR) Not Detected (NotDetected) 10/25/24 05:10 Parainfluenza 2 (PCR) Not Detected (NotDetected) 10/25/24 05:10 Parainfluenza 3 (PCR) Not Detected (NotDetected) 10/25/24 05:10 Parainfluenza 4 (PCR) Not Detected (NotDetected) 10/25/24 05:10 RSV (PCR) Not Detected (NotDetected) 10/25/24 05:10 Entero/Rhino (PCR) Not Detected (NotDetected) 10/25/24 05:10 Impressions Chest X-Ray 10/25/24 06:17 EXAM: XR chest 1V portable CLINICAL HISTORY: ETT TECHNIQUE: An X-ray image of the chest is obtained in AP projection. 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 Otherwise clear both lung ball. Mild left-sided and minimal right-sided pleural effusion. Heart and Mediastinum: Cardiomegaly. No mediastinal widening or masses. No hilar or mediastinal lymphadenopathy. Bony Thorax: Osteoarthritis of acromioclavicular and glenohumeral joints. Soft Tissues: Soft tissues overlying the chest wall are unremarkable. Nasogastric tube insitu with tip not covered in current radiograph IMPRESSION: Focal parenchymal opacities/vascular crowding is noted in right upper zone- possibility of infective etiology-stable. Mild left-sided and minimal right-sided pleural effusion.-reduced compare to prior. Prominent bronchovascular markings suggestive of lung congestion, please correlate clinically.-stable. Cardiomegaly. Interval placement of endotracheal tube with tip ~ 2.3cm above stuart Nasogastric tube insitu with tip not covered in current radiograph Electronically signed by Gabe Sagastume 10-25-2024 06:48 AM Code Status & VTE Plan Code Status Conditional code. No further escalation of treatment other than pressors VTE Prophylaxis Plan VTE Prophylaxis will be ordered: Yes PG Care Time/CCT Total # of Minutes Spent Total Time Spent with Patient: Total time spent is greater than 50% in coordination of care (as documented) at patient's floor/unit and/or counseling patient: 52 minutes Coding Level of Care Code 62368 INT INP/OBS CARE 3/75MIN Diagnoses Admitted to intensive care unit Z78.9 Acute on chronic respiratory failure J96.20 Hypotension I95.9 Anticoagulated Z79.01 Atrial fibrillation with rapid ventricular response I48.91 Transaminitis R74.01
[2024-10-25] MEDS ORDERED: FUROSEMIDE INJ 20 MG/2 ML VIAL IV STA (06:43)
[2024-10-25] MEDS: fentaNYL citrate 2,500 MCG/250 ML BAG IV SCH (06:45)
[2024-10-25] MEDS: MILRINONE LACTATE/D5W 20,000 MCG/100 ML BAG IV SCH (06:49)
--- NOTE | 2024-10-25 06:49 | XRay Report ---
EXAM: XR chest 1V portable CLINICAL HISTORY: ETT TECHNIQUE: An X-ray image of the chest is obtained in AP projection. 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 Otherwise clear both lung ball. Mild left-sided and minimal right-sided pleural effusion. Heart and Mediastinum: Cardiomegaly. No mediastinal widening or masses. No hilar or mediastinal lymphadenopathy. Bony Thorax: Osteoarthritis of acromioclavicular and glenohumeral joints. Soft Tissues: Soft tissues overlying the chest wall are unremarkable. Nasogastric tube insitu with tip not covered in current radiograph IMPRESSION: Focal parenchymal opacities/vascular crowding is noted in right upper zone- possibility of infective etiology-stable. Mild left-sided and minimal right-sided pleural effusion.-reduced compare to prior. Prominent bronchovascular markings suggestive of lung congestion, please correlate clinically.-stable. Cardiomegaly. Interval placement of endotracheal tube with tip ~ 2.3cm above stuart Nasogastric tube insitu with tip not covered in current radiograph Electronically signed by Gabe Sagastume 10-25-2024 06:48 AM
[2024-10-25] MEDS: VASOPRESSIN 20 UNITS in SODIUM CHLORIDE 0.9% 100 ML IV SCH (06:52)
[2024-10-25 07:07] LABS: Creatine Kinase 83.0 U/L (26-192)
--- NOTE | 2024-10-25 07:16 | Billing Data ---
Date of Service October 25, 2024 Coding Level of Care Code 49894 CRITICAL CARE
--- NOTE | 2024-10-25 07:27 | Critical Care Consultation ---
Date of Consultation October 25, 2024 Assessment & Plan (1) Ischemic hepatitis: (2) Acute kidney failure: (3) Lactic acidosis: (4) Cardiogenic shock: (5) Right heart failure: (6) Acute hypoxic respiratory failure: Plan Reason Critically Ill: 1. Acute hypoxemic respiratory failure 2/2 #2 and severe V/Q mismatch, R to L shunting 2. Decompensated R heart failure 3. Cardiogenic shock 4. Congestive hepatopathy 5. HAGMA 2/2 lactic acidosis 6. LEANN on CKD, prerenal 7. Bradycardia 8. Atrial fibrillation with recent cardioversion 9. PFO NEUROLOGIC - CAM ICU: Negative RASS GOAL -1 Fentanyl infusion, benzo pushes PRN CARDIOVASCULAR - Continue norepinephrine, vasopressin for MAP goal > 65mmHg Milrinone infusion for decompensated RHF IV Lasix given, assess response and redose as needed. May require higher doses with LEANN Could consider pulmonary artery catheter placement but patient prefers no aggressive measures and there is no obvious reversible pathology Admit EKG sinus bradycardia with RBBB and QRS duration increase, bradycardia is certainly not helping cardiac output Recent YAZMIN showing PFO, severely dilated RV with moderately reduced function. LVEF intact. This was prior to DCCV ACS considered unlikely Doppler BLE, Arterial duplex RLE. CK negative Consider starting heparin infusion after procedures RESPIRATORY - Congestion on CXR. Too unstable for CT chest. PE considered less likely while on Xarelto SpO2 goal 92%, hyperoxia considered acceptable for pulmonary vasodilation Follow up ABG now and make adjustments as needed HOB 30, pulmonary hygiene GI - Congestive hepatopathy, trend Diet: NPO SUP: PPI Bowel regimen: Start today RENAL/LYTES - Trend lactic acid Replete electrolytes as indicated Parham for accurate I/Os Diuresis as above ENDO - No acute concerns. Could check TSH BG 140-180 per SCCM guidelines ISS if needed while inpatient HEME - DIC considered less likely Consider heparin infusion today whilst off Xarelto Trend coags ID - Intraabdominal coverage as she is high risk for bacterial translocation Follow fever trend and culture data Procal increased but of limited utility in acute renal failure LINES/TUBES/DRAINS - ETT (Day #1) OGT (Day #1) Parham (Day #1) DVT PROPHYLAXIS - Heparin as above DISPOSITION - ICU CODE STATUS - Conditional code (No CPR, defibrillation). Patient was clear that she does not wish for aggressive measures. See Dr. Botti note for details of conversation. Son, Ronny, made aware of grim prognosis. He will gather close by family to visit. Considering compassionate extubation and comfort based measures. I have personally spent 86 minutes of critical care time in the direct manage ment of this patient. This is a life/limb threatening event. This includes time spent evaluating patient, direct bedside care, chart review, placing orders, interpretation of diagnostic studies, discussion with consultants, patient, and family members, as well as other required patient management activities. This time is exclusive of all separately billable procedures, and teaching time and separate from and in addition to any other critical care service time. Thank you for allowing us to participate in the care of this patient. Please refer to my attending physician's documentation for any further recommendations. Supervising Physician Co-Signing Physician Notes I have personally evaluated and examined this patient. I agree with assessment and plan of Terri Fragoso PA-C History of Present Illness Reason for Consultation: Shock, acute hypoxic respiratory failure Requesting Physician: Josue Attending Physician: Mark Crump MD History of Present Illness Ms. Liss Slater is an 84YO chronically ill female with a significant past medical history including but not limited to atrial fibrillation s/p CV, CHF with RHF and pHTN, PFO. She presented to [facility] ED due to 3 weeks of shortness of breath with acute worsening this evening. Initially on BIPAP. Subsequently intubated for airway protection. Hemodynamic collapse with intubation requiring vasopressors. Work-up revealing acute renal failure, leukocytosis, hyperkalemia, HAGMA, transaminitis, troponin elevation. It appears she has developed cardiogenic shock 2/2 decompensated RHF. She is on PEEP 14 with FiO2 1.0 with SpO2 75-88%. I've added vasopressin and milrinone infusions. POCUS shows grossly intact LVEF with significant RV dilation and 4cm dilated IVC with signs of hepatic congestion. L to R shunting suspected i/s/o known PFO. Lasix given. Epoprosteronol not available. Arterial line attempted without success. She has been anuric since arrival and parham placement. Extensive discussion held between patient and Dr. Salas prior to intubation. Patient does NOT want CPR, defibrillation. OK for intubation. Admitted to ICU for continuation of care. ROS not able to obtained. Patient seen in ED B01. Intubated. Fentanyl infusion added due to agitation. 2mg Versed given. Persistent hypotension has improved with addition of vasopressin and milrinone. Non-invasive BPs have been unreliable, but unable to thread arterial line. Allergies Allergy/AdvReac Type Severity Reaction Status Date / Time nickel AdvReac Mild Rash Verified 10/10/24 13:39 Home Medications Medication Instructions Recorded Confirmed Type cholecalciferol (vitamin D3) 25 25 mcg PO DAILY 10/06/24 10/10/24 History mcg (1,000 unit) tablet (Vitamin D3) furosemide 40 mg tablet 40 mg PO QAM 10/06/24 10/10/24 History losartan 100 mg tablet 100 mg PO QAM 10/06/24 10/10/24 History potassium chloride 20 mEq 20 meq PO QAM 10/06/24 10/10/24 History tablet,extended release rivaroxaban 20 mg tablet (Xarelto) 20 mg PO QPM 10/06/24 10/10/24 History metoprolol succinate 100 mg 100 mg PO QPM 10/10/24 10/10/24 History tablet,extended release 24 hr amiodarone 200 mg tablet 200 mg PO BIDM 14 days #28 tabs 10/14/24 Rx spironolactone 25 mg tablet 25 mg PO QAM 30 days #30 tabs 10/14/24 Rx Patient History Medical History Edema Dyspnea on exertion History of anemia (1989) 4 units PRBCs Hx of congestive heart failure (1989) Cardiac murmur Echo 09/2024 Atrial fibrillation Follows with Dr. Walker Surgical History Hx of tonsillectomy (1945) Hx laparoscopic cholecystectomy (2013) Social History Smoking Status: Never smoker Second Hand Exposure: No; Do You Dip or Chew Tobacco: No; Hx Alcohol Use: No Hx Substance Use: No Preferred Language: [place] Communication Ability: Effective Manual Machinist Required: No Beliefs That Will Affect Care: None Current Living Situation: Family Current Living Situation Comment: with son Feels Safe at Home: Yes Assistive Devices: None Review of Systems Review of Systems: Unobtainable due to endotracheal tube Physical Exam Constitutional: + ill appearing, + obese, + frail appear ing and + mechanically ventilated Eyes: PERRL, conjunctivae normal, anicteric sclerae ENMT: external ear and nose normal, oropharynx normal Neck: JVD Respiratory: normal respiratory effort Auscultation: + diminished lung sounds, + crackles and + rales; no wheezes Cardiovascular: Rate/Rhythm: regular rhythm and + bradycardic Heart Sounds: + murmur Vessels: + JVD; no carotid bruit Extremities: + edema; + abnormal capillary refill Gastrointestinal (Abdomen): Inspection/Auscultation: + abdomen distended, normal bowel sounds, + abdominal edema and + significant pannus Percussio n/Palpation: + abdomen firm; abdomen nontender and no guarding Diffuse anasarca and edema, pitting. no fluid wave Musculoskeletal: Extremities: + cyanosis and + chronic stasis changes; normal strength Skin: + dry skin, + erythema and + skin hypert rophy BLE cool and cyanotic. Chronic stasis changes noted. R foot without pedal pulse. Capillary refill very delayed. L foot slightly warmer with palpable pedal. Neurologic: Intubated and sedated Genitourinary: Parham in place. Anuric Results & Data Results & Data Vital Signs (Past 12 Hours) Vital Signs Pulse Pulse Resp BP BP Pulse Ox O2 Del Method 10/25/24 07:03 62 20 93 Mechanical Vent 10/25/24 06:49 76/52 L 10/25/24 06:49 66 20 92 10/25/24 06:48 48 L 22 66/53 L 79 L Mechanical Vent 10/25/24 06:39 48 L 21 77 L Mechanical Vent 10/25/24 06:24 46 L 20 63/42 L 92 Mechanical Vent 10/25/24 06:03 65 20 149/102 H 91 Mechanical Vent 10/25/24 05:57 78 20 166/107 H 85 L Mechanical Vent 10/25/24 05:53 76/55 L 10/25/24 05:46 49 L 83/60 L 99 Ambu-Bag 10/25/24 05:33 49 L 33 H 94/77 L 98 Oxymask 10/25/24 05:33 50 L 94/77 L 98 Oxymask 10/25/24 05:23 49 L 30 H 83/57 L 98 Oxymask 10/25/24 05:12 49 L 30 H 81/55 L 99 Oxymask 10/25/24 05:02 50 L 26 H 81/55 L 98 Oxymask 10/25/24 04:54 50 L 27 H 93/44 L 95 Oxymask 10/25/24 04:54 49 L 20 79/57 L 94 BiPAP 10/25/24 04:32 52 L 27 H 86/58 L 95 BiPAP 10/25/24 04:15 50 L 25 H 107/84 90 BiPAP 10/25/24 03:17 52 L 15 93 BiPAP 10/25/24 03:09 93 BiPAP 10/25/24 03:06 51 L 10/25/24 03:01 52 L 26 H 125/86 92 BiPAP 10/25/24 03:00 51 L 45 H 93 10/25/24 02:59 52 L 25 H 125/86 BiPAP 10/25/24 02:59 BiPAP 10/25/24 02:59 53 L 19 125/86 BiPAP 10/25/24 02:59 BiPAP O2 Flow Rate FiO2 10/25/24 07:03 10/25/24 06:49 10/25/24 06:49 100 10/25/24 06:48 10/25/24 06:39 10/25/24 06:24 10/25/24 06:03 10/25/24 05:57 10/25/24 05:53 10/25/24 05:46 10/25/24 05:33 10/25/24 05:33 6 10/25/24 05:23 6 10/25/24 05:12 6 10/25/24 05:02 6 10/25/24 04:54 6 10/25/24 04:54 10/25/24 04:32 10/25/24 04:15 10/25/24 03:17 10/25/24 03:09 10/25/24 03:06 10/25/24 03:01 10/25/24 03:00 60 10/25/24 02:59 10/25/24 02:59 10/25/24 02:59 10/25/24 02:59 Laboratory Results Reviewed Diagnostic Findings Reviewed Medications Administered See [facility] Procedure Codes (Charges) Ventilator Management Ventilator Managment: 14608 Ventilation assist and management; Hospital inpt/obs, intl day Coding Level of Care Code 84270 IN/OBS CONSULT LVL 5,80M Diagnoses Ischemic hepatitis K72.00 Acute kidney failure N17.9 Lactic acidosis E87.20 Cardiogenic shock R57.0 Right heart failure I50.810 Acute hypoxic respiratory failure J96.01 CPT Codes Ventilator Management - Ventilator Managment: 76118 Ventilation assist and management; Hospital inpt/obs, intl day ([id number]) Time Spent (min) 86
[2024-10-25] MEDS ORDERED: MIDAZOLAM HCL 1 MG/ML 2ML VIAL IV STA (07:34)
[2024-10-25] MEDS ORDERED: ALBUT/IPRATROP 3MG/0.5MG NEB 3 ML VIAL NEB PRN (08:20)
[2024-10-25] MEDS ORDERED: ONDANSETRON INJ 2 MG/ML 2 ML VIAL IV PRN (08:20)
--- NOTE | 2024-10-25 08:49 | Emergency Department Note ---
Impression & Plan Respiratory failure, Cardiogenic shock, Sepsis admit to the ICU ED Provider Note NAME: ASAD SOTO AGE: 84 SEX: Female INFORMANT: Patient ED PROVIDER(S): Rachel Salas DO CHIEF COMPLAINT: shortness of breath PLAN: Disposition: admit to the ICU and the [facility] Hospitalist team MEDICAL DECISION MAKING: This is an 84-year-old female patient who presents to the emergency department with a sudden worsening of her chronic dyspnea. Patient describes having a recent admission to the hospital for A-fib with RVR and undergoing cardioversion. She describes chronic dyspnea but had a fairly sudden onset of worsening shortness of breath tonight. Upon EMS arrival, patient had O2 saturations in the 70s and was tripoding. Patient describes taking intermittent high doses of Lasix but will often times become dehydrated. EMS placed the patient on CPAP which helped her breathing. Currently, the patient's blood pressure is 100/60. chest x-ray shows evidence of bilateral pleural effusions with the left being larger than the right. The patient is noted to have significant cardiomegaly. Laboratory studies shows evidence of a white blood cell count of 2626.49. H&H was slightly elevated with hemoglobin 17 and hematocrit 49. Upper respiratory bio fire testing was negative. Glucose was 129. Lactate is 6.8 and procalcitonin was 5.7. It was 222. Count was 62.9 D-dimer was 6290 magnesium was slightly high at 2.5. Total bilirubin was 2.5. AST was 190, ALT was 185, and troponin was 38. BUN was 52 and creatinine was 2.03. Patient had significant improvement in her shortness of breath after being placed on oxygen by BiPAP. Workup was completed but the patient's blood pressure began to plummet and could no longer be supported on the BiPAP. She was taken off of this and placed on oxime mask. Patient's work of breathing increased and a decision was made that she would require endotracheal intubation to maintain her airway. Patient had initially said she did not want to be intubated or have any heroic measures. After discussion with the patient and her son at the bedside, she was interested in intubation but was very specific about not having CPR or defibrillation if her heart were to stop. RSI was performed with etomidate and succinylcholine. Endotracheal intubation was successfully performed by me. Patient's blood pressure was supported with a 500 cc bolus of normal saline solution and a dose of push dose epi during the intubation. Tube placement was confirmed with a chest x-ray. Of note, the patient has significant peripheral vascular disease in her legs. They were significantly edematous and weeping on my initial evaluation. Upon subsequent evaluations, the legs were very cold to the touch, especially in the toes on the right foot and specifically the right great toe which was completely purple and white. as for the significant leukocytosis, no specific source was identified. The upper respiratory bio fire test was negative. Chest x-ray shows bilateral pleural effusions with the left being greater than the right. Urine had not been collected. The patient appears to be septic. She will not be receiving 30 mL/kg bolus of saline as she is significantly fluid overloaded with excessive fluid from her abdomen to her feet. Suffers from chronic heart failure. Care/management discussed with: The patient, her son, and the director of strategy & mobile team, and [facility] Nursing notes: reviewed and agree with them. Vital Signs: reviewed and remarkable for bradycardia and tachypnea Additional History obtained from: the patient's son who arrived at the bedside Chronic Medical/Social Conditions affecting care: chronic heart failure; peripheral vascular disease; A-fib Differential Diagnosis: Congestive heart failure, pneumonia, PE, pneumothorax, pleural effusions, Diagnostics, independently interpreted by me: ECG: sinus bradycardia at a rate of 52 with a right bundle branch block. Mild ST segment depression in the inferior leads with T wave inversion in the lateral leads. No obvious signs of ischemia Cardiac Monitoring: sinus bradycardia at a rate of 58 Imaging studies: portable chest x-ray: bilateral pleural effusions with the left being greater than the right; associated cardiomegaly as per my independent interpretation HPI: 84 year old Female arrives for evaluation of sudden onset of shortness of breath. patient has a history of A-fib and heart failure. She takes intermittent doses of Lasix. Patient has chronic shortness of breath but tonight was watching TV when she had a sudden onset of shortness of breath. PAST MEDICAL HISTORY: See Below, PAST SURGICAL HISTORY: See Below, SOCIAL HISTORY: See Below, HOME MEDICATIONS: see list ALLERGIES: nickel VITALS: See Below PHYSICAL EXAMINATION: HEENT: Head - normocephalic and atraumatic Pupils are equal, round, and reactive to light. Extraocular eye muscles are intact, and sclera are anicteric. Nose - moist nasal mucosa without discharge. Mouth - moist buccal mucosa. Oropharynx is nonerythematous and there is no tonsillar exudate or edema noted. Neck: Supple; no JVD or cervical lymphadenopathy Heart: Bradycardic rate and regular rhythm. There is a normal S1 and S2 with no murmurs, clicks, or gallops appreciated. Lungs: Clear to auscultation bilaterally with no wheezes, rales, or rhonchi. Abdomen: Soft, significantly distended and edematous. The edema was pitting. Extremities: Patient has evidence of severe peripheral vascular disease in both lower extremities with moderate weeping wounds noted. Skin: warm and dry with Poor turgor and multiple small areas of skin breakdown in both lower extremities. PROCEDURES: endotracheal intubation Endotracheal Intubation Indication respiratory failure. The patient was on 100% oxygen via OxyMask prior to the procedure. Suction, airway equipment, RSI drugs, respiratory equipment, and appropriate personnel were prepared prior to the initiation of the procedure. A time out was taken. Induction was performed with etomidate and succinylcholine. After observing the clinical benefit of the medications, the airway was easily visualized utilizing a [place] scope. A 7.5 size ETT tube was placed atraumatically to 7.525 cm using standard technique. The cuff inflated without signs of malfunction. There were bilateral breath sounds, positive colormetric change, no gastric sounds, a good capnography waveform, and post procedure pulse oximetry was 91%. Post intubation sedation and paralysis was administered using fentanyl and Versed. There were no complications. emergency department treatment: monitoring analyst, BiPAP, supplemental oxygen, IV cefepime, IV normal saline bolus, RSI, endotracheal intubation, push dose epi, IV fentanyl, IV Versed Emergency Department course: the patient was evaluated in room A-10. A complete history and physical was performed. An order was placed for continuous cardiac monitoring. Patient was in a sinus bradycardia at a rate of 58. patient was placed on BiPAP. Laboratory studies were drawn as above. Patient was noted to have a white blood cell count of 26.4. Complete septic protocol was performed. Patient was given a dose of IV cefepime. She was tolerating BiPAP well. She was hemodynamically stable. Portable chest x-ray was performed. Patient became increasingly hypotensive. She began to complain of increasing pain in the right foot. I reevaluated the right foot and it had become completely cold to the touch and purple/white, specifically in the right great toe. The BiPAP had to be removed and she developed increasing respiratory failure. Overall, the patient's skin began to appear more mottled. I had a lengthy discussion with the patient and her son about her wishes. She was agreeable to have endotracheal intubation but was very specific about no CPR or heroic measures such as defibrillation. RSI and endotracheal intubation were performed. She received a bolus of IV normal saline solution and push dose epi during the procedure to support her blood pressure. Following the procedure, she had a postintubation chest x-ray performed and had to remain sitting upright to support O2 saturations. I had a conversation with the critical care medicine team as well as [facility] and they will continue care for this patient. I have personally spent greater than 120 minutes of critical care time in the direct management of this patient. This includes bedside care, interpretation of diagnostic studies, and testing, discussion with consultants, patient, and family members, and other required patient management activities. This 120 minutes is in excess of all separately billable procedures. Past Med/Surg History Problem List (Updated 10/25/24 @ 09:28 by Rachel Salas DO) Sepsis (Acute) Cardiogenic shock (Acute) Respiratory failure (Acute) Acute hypoxic respiratory failure Right heart failure Cardiogenic shock Lactic acidosis Acute kidney failure Ischemic hepatitis Transaminitis Hypotension Admitted to intensive care unit Acute on chronic respiratory failure Anticoagulated Acute CHF (congestive heart failure) (Acute) Atrial fibrillation with rapid ventricular response (Acute) Encounter for pre-operative examination Medical History Edema Dyspnea on exertion History of anemia (1989) 4 units PRBCs Hx of congestive heart failure (1989) Cardiac murmur Echo 09/2024 Atrial fibrillation Follows with Dr. Walker Surgical History Hx of tonsillectomy (1945) Hx laparoscopic cholecystectomy (2013) Social History Smoking Status: Never smoker Second Hand Exposure: No; Do You Dip or Chew Tobacco: No; Hx Alcohol Use: No Hx Substance Use: No Preferred Language: Danish Communication Ability: Effective Media Director Required: No Beliefs That Will Affect Care: None Current Living Situation: Family Current Living Situation Comment: with son Feels Safe at Home: Yes Assistive Devices: None Allergies Allergies Allergy/AdvReac Type Severity Reaction Status Date / Time nickel AdvReac Mild Rash Verified 10/10/24 13:39 Home Meds Home Medications Medication Instructions Recorded Confirmed cholecalciferol (vitamin D3) 25 25 mcg PO DAILY 10/06/24 10/10/24 mcg (1,000 unit) tablet (Vitamin D3) furosemide 40 mg tablet 40 mg PO QAM 10/06/24 10/10/24 losartan 100 mg tablet 100 mg PO QAM 10/06/24 10/10/24 potassium chloride 20 mEq 20 meq PO QAM 10/06/24 10/10/24 tablet,extended release rivaroxaban 20 mg tablet (Xarelto) 20 mg PO QPM 10/06/24 10/10/24 metoprolol succinate 100 mg 100 mg PO QPM 10/10/24 10/10/24 tablet,extended release 24 hr Previous Rx's Medication Instructions Recorded amiodarone 200 mg tablet 200 mg PO BIDM 14 days #28 tabs 10/14/24 spironolactone 25 mg tablet 25 mg PO QAM 30 days #30 tabs 10/14/24 Results & Data (ED) Vital Signs Vital Signs - 24 hr 10/25/24 02:59 10/25/24 02:59 10/25/24 02:59 Pulse Rate 53 L Pulse Rate [Apical] Pulse Rate from SpO2 Sensor Pulse Rhythm Irregular Pulse Rhythm [Apical] Pulse Strength Normal Pulse Strength [Apical] Respiratory Rate 19 Respiratory Effort / Characteristics Spontaneous Labored Spontaneous Labored Respiratory Depth Deep Normal Respiratory Pattern Tachypnea Regular Blood Pressure 125/86 Blood Pressure [Right Arm] Blood Pressure Mean 99 Blood Pressure Mean [Right Arm] Blood Pressure Position [Right Arm] Pulse Oximetry Oxygen Delivery Method BiPAP BiPAP BiPAP Oxygen Flow Rate Fraction of Inspired Oxygen Sepsis Recent Fever Within 48 Hours No Sepsis New/Unexplained Change in Mental Status No Sepsis Action Taken by Nursing No Action Required End-Tidal CO2 10/25/24 02:59 10/25/24 03:00 10/25/24 03:01 Pulse Rate 51 L 52 L Pulse Rate [Apical] 52 L Pulse Rate from SpO2 Sensor Pulse Rhythm Pulse Rhythm [Apical] Irregular Pulse Strength Pulse Strength [Apical] Normal Respiratory Rate 25 H 45 H 26 H Respiratory Effort / Characteristics Spontaneous Labored Spontaneous Accessory Muscle Use Respiratory Depth Deep Respiratory Pattern Tachypnea Tachypnea Blood Pressure 125/86 Blood Pressure [Right Arm] 125/86 Blood Pressure Mean 99 Blood Pressure Mean [Right Arm] 99 Blood Pressure Position [Right Arm] Pulse Oximetry 93 92 Oxygen Delivery Method BiPAP BiPAP Oxygen Flow Rate Fraction of Inspired Oxygen 60 Sepsis Recent Fever Within 48 Hours Sepsis New/Unexplained Change in Mental Status Sepsis Action Taken by Nursing End-Tidal CO2 10/25/24 03:06 10/25/24 03:09 10/25/24 03:17 Pulse Rate 51 L 52 L Pulse Rate [Apical] Pulse Rate from SpO2 Sensor Pulse Rhythm Irregular Pulse Rhythm [Apical] Pulse Strength Pulse Strength [Apical] Respiratory Rate 15 Respiratory Effort / Characteristics Respiratory Depth Respiratory Pattern Blood Pressure Blood Pressure [Right Arm] Blood Pressure Mean Blood Pressure Mean [Right Arm] Blood Pressure Position [Right Arm] Pulse Oximetry 93 93 Oxygen Delivery Method BiPAP BiPAP Oxygen Flow Rate Fraction of Inspired Oxygen Sepsis Recent Fever Within 48 Hours Sepsis New/Unexplained Change in Mental Status Sepsis Action Taken by Nursing End-Tidal CO2 10/25/24 04:15 10/25/24 04:32 10/25/24 04:54 Pulse Rate 50 L 52 L 49 L Pulse Rate [Apical] Pulse Rate from SpO2 Sensor 49 L 49 L Pulse Rhythm Pulse Rhythm [Apical] Pulse Strength Pulse Strength [Apical] Respiratory Rate 25 H 27 H 20 Respiratory Effort / Characteristics Respiratory Depth Respiratory Pattern Blood Pressure 107/84 86/58 L 79/57 L Blood Pressure [Right Arm] Blood Pressure Mean 91 60 64 Blood Pressure Mean [Right Arm] Blood Pressure Position [Right Arm] Pulse Oximetry 90 95 94 Oxygen Delivery Method BiPAP BiPAP BiPAP Oxygen Flow Rate Fraction of Inspired Oxygen Sepsis Recent Fever Within 48 Hours Sepsis New/Unexplained Change in Mental Status Sepsis Action Taken by Nursing End-Tidal CO2 10/25/24 04:54 10/25/24 05:02 10/25/24 05:12 Pulse Rate 50 L 50 L 49 L Pulse Rate [Apical] Pulse Rate from SpO2 Sensor 49 L Pulse Rhythm Pulse Rhythm [Apical] Pulse Strength Pulse Strength [Apical] Respiratory Rate 27 H 26 H 30 H Respiratory Effort / Characteristics Respiratory Depth Respiratory Pattern Blood Pressure 93/44 L 81/55 L 81/55 L Blood Pressure [Right Arm] Blood Pressure Mean 60 71 63 Blood Pressure Mean [Right Arm] Blood Pressure Position [Right Arm] Pulse Oximetry 95 98 99 Oxygen Delivery Method Oxymask Oxymask Oxymask Oxygen Flow Rate 6 6 6 Fraction of Inspired Oxygen Sepsis Recent Fever Within 48 Hours Sepsis New/Unexplained Change in Mental Status Sepsis Action Taken by Nursing End-Tidal CO2 10/25/24 05:23 10/25/24 05:33 10/25/24 05:33 Pulse Rate 50 L Pulse Rate [Apical] 49 L 49 L Pulse Rate from SpO2 Sensor 50 L Pulse Rhythm Pulse Rhythm [Apical] Irregular Irregular Pulse Strength Pulse Strength [Apical] Normal Respiratory Rate 30 H 33 H Respiratory Effort / Characteristics Spontaneous Labored Spontaneous Labored Short of Breath Respiratory Depth Shallow Shallow Respiratory Pattern Tachypnea Tachypnea Blood Pressure 94/77 L Blood Pressure [Right Arm] 83/57 L 94/77 L Blood Pressure Mean 82 Blood Pressure Mean [Right Arm] 65 82 Blood Pressure Position [Right Arm] Sitting Pulse Oximetry 98 98 98 Oxygen Delivery Method Oxymask Oxymask Oxymask Oxygen Flow Rate 6 6 Fraction of Inspired Oxygen Sepsis Recent Fever Within 48 Hours Sepsis New/Unexplained Change in Mental Status Sepsis Action Taken by Nursing End-Tidal CO2 10/25/24 05:46 10/25/24 05:53 10/25/24 05:57 Pulse Rate 49 L 78 Pulse Rate [Apical] Pulse Rate from SpO2 Sensor Pulse Rhythm Pulse Rhythm [Apical] Pulse Strength Pulse Strength [Apical] Respiratory Rate 20 Respiratory Effort / Characteristics Respiratory Depth Respiratory Pattern Blood Pressure 83/60 L 76/55 L 166/107 H Blood Pressure [Right Arm] Blood Pressure Mean 65 58 126 Blood Pressure Mean [Right Arm] Blood Pressure Position [Right Arm] Pulse Oximetry 99 85 L Oxygen Delivery Method Ambu-Bag Mechanical Vent Oxygen Flow Rate Fraction of Inspired Oxygen Sepsis Recent Fever Within 48 Hours Sepsis New/Unexplained Change in Mental Status Sepsis Action Taken by Nursing End-Tidal CO2 28 10/25/24 06:03 10/25/24 06:24 Pulse Rate 65 46 L Pulse Rate [Apical] Pulse Rate from SpO2 Sensor Pulse Rhythm Pulse Rhythm [Apical] Pulse Strength Pulse Strength [Apical] Respiratory Rate 20 20 Respiratory Effort / Characteristics Respiratory Depth Respiratory Pattern Blood Pressure 149/102 H 63/42 L Blood Pressure [Right Arm] Blood Pressure Mean 117 49 Blood Pressure Mean [Right Arm] Blood Pressure Position [Right Arm] Pulse Oximetry 91 92 Oxygen Delivery Method Mechanical Vent Mechanical Vent Oxygen Flow Rate Fraction of Inspired Oxygen Sepsis Recent Fever Within 48 Hours Sepsis New/Unexplained Change in Mental Status Sepsis Action Taken by Nursing End-Tidal CO2 30 23 Laboratory Data 10/25/24 03:45 10/25/24 03:45 Lab Results 10/25/24 10/25/24 10/25/24 Range/Units 03:20 03:45 05:00 WBC 26.49 H (4.8-10.8) K/ul RBC 5.13 (4.20-5.40) M/uL Hgb 15.3 (12.0-16.0) g/dl POC Hgb 17.0 H (12.0-16.0) g/dl Hct 49.4 H (37.0-47.0) % POC Hct 50 H (37-47) % MCV 96.3 (80.0-100.0) fL MCH 29.8 (25.0-34.0) pg MCHC 31.0 L (32.0-36.0) g/dL RDW Std Deviation 54.2 H (36.4-46.3) fL RDW Coeff of Celso 15.6 H (11.5-14.5) % Plt Count 222 (130-400) K/uL MPV 10.6 (9.4-12.4) fL Immature Gran % (Auto) 2.4 % Neut % (Auto) 86.0 % Lymph % (Auto) 3.1 % Blount % (Auto) 8.3 % Eos % (Auto) 0.0 % Baso % (Auto) 0.2 % Neut # (Auto) 22.78 H (1.40-6.50) K/uL Lymph # (Auto) 0.81 L (1.20-3.40) K/uL Blount # (Auto) 2.20 H (0.11-0.59) K/uL Eos # (Auto) 0.01 (0.00-0.50) K/uL Baso # (Auto) 0.06 (0.00-0.20) K/uL Immature Gran # (Auto) 0.63 H (0.01-0.20) K/uL Absolute Nucleated RBC 0.18 H (0.00-0.12) K/uL Nucleated RBC % (auto) 0.7 % Polychromasia 2+ Echinocytes 2+ D-Dimer 6290 H* (0-500) ug/L FEU POC pH 7.33 L (7.35-7.45) POC pCO2 24 L (35-46) mmHg POC pO2 364 H (80-95) mmHg POC HCO3 13 L (19-24) arely/L POC Total CO2 13 L (24-31) mmol/L POC Base Excess -13.0 L (-9-1.8) arely/L POC ABG O2 Sat 100.0 H (90-95) % POC Sodium 129 L (135-144) mmol/L Sodium 132 L (136-145) mmol/L POC Potassium 4.9 (3.3-5.0) mmol/L Potassium 5.3 H (3.5-5.1) mmol/L Chloride 94 L (98-107) mmol/L Carbon Dioxide 20 L (21-32) mmol/L Anion Gap 18 H (3-11) BUN 52 H (6-23) mg/dl Creatinine 2.03 H (0.6-1.2) mg/dl Est Cr Clr Drug Dosing 27.0 ml/min eGFR 23.75 BUN/Creatinine Ratio 25.6 H (10-20) Glucose 129 H (70-99(Fasting)) mg/dl Lactate 6.8 H* (0.4-2.0) mmol/L Calcium 9.1 (8.6-10.3) mg/dl Magnesium 2.5 H (1.7-2.4) mg/dl Total Bilirubin 2.5 H (0.2-1.0) mg/dl AST 190 H (13-39) U/L ALT 185 H (7-52) U/L Alkaline Phosphatase 221 H (34-104) U/L Lactate Dehydrogenase 549 H (86-244) U/L Total Creatine Kinase 83 (26-192) U/L Troponin I High Sens 38.8 H (0-14) pg/ml Total Protein 6.0 (6.0-8.3) gm/dl Albumin 3.4 (3.4-5.0) gm/dl Globulin 2.6 (2.5-4.0) gm/dl Albumin/Globulin Ratio 1.3 (0.9-2) Procalcitonin 5.78 H (0-0.5) ng/ml Adenovirus (PCR) (NotDetected) B. pertussis DNA (PCR) (NotDetected) B.parapertussis DNA PCR (NotDetected) C. pneumoniae DNA (PCR) (NotDetected) Coronavirus OC43 (PCR) (NotDetected) Coronavirus HKU1 (PCR) (NotDetected) Coronavirus 229E (PCR) (NotDetected) SARS-CoV-2 (PCR) (NotDetected) Coronavirus NL63 (PCR) (NotDetected) Human Metapneumovir PCR (NotDetected) Influenza Type A (PCR) (NotDetected) Influenza Type B (PCR) (NotDetected) M. pneumoniae (PCR) (NotDetected) Parainfluenza 1 (PCR) (NotDetected) Parainfluenza 2 (PCR) (NotDetected) Parainfluenza 3 (PCR) (NotDetected) Parainfluenza 4 (PCR) (NotDetected) RSV (PCR) (NotDetected) Entero/Rhino (PCR) (NotDetected) 10/25/24 Range/Units 05:10 WBC (4.8-10.8) K/ul RBC (4.20-5.40) M/uL Hgb (12.0-16.0) g/dl POC Hgb (12.0-16.0) g/dl Hct (37.0-47.0) % POC Hct (37-47) % MCV (80.0-100.0) fL MCH (25.0-34.0) pg MCHC (32.0-36.0) g/dL RDW Std Deviation (36.4-46.3) fL RDW Coeff of Celso (11.5-14.5) % Plt Count (130-400) K/uL MPV (9.4-12.4) fL Immature Gran % (Auto) % Neut % (Auto) % Lymph % (Auto) % Blount % (Auto) % Eos % (Auto) % Baso % (Auto) % Neut # (Auto) (1.40-6.50) K/uL Lymph # (Auto) (1.20-3.40) K/uL Blount # (Auto) (0.11-0.59) K/uL Eos # (Auto) (0.00-0.50) K/uL Baso # (Auto) (0.00-0.20) K/uL Immature Gran # (Auto) (0.01-0.20) K/uL Absolute Nucleated RBC (0.00-0.12) K/uL Nucleated RBC % (auto) % Polychromasia Echinocytes D-Dimer (0-500) ug/L FEU POC pH (7.35-7.45) POC pCO2 (35-46) mmHg POC pO2 (80-95) mmHg POC HCO3 (19-24) arely/L POC Total CO2 (24-31) mmol/L POC Base Excess (-9-1.8) arely/L POC ABG O2 Sat (90-95) % POC Sodium (135-144) mmol/L Sodium (136-145) mmol/L POC Potassium (3.3-5.0) mmol/L Potassium (3.5-5.1) mmol/L Chloride (98-107) mmol/L Carbon Dioxide (21-32) mmol/L Anion Gap (3-11) BUN (6-23) mg/dl Creatinine (0.6-1.2) mg/dl Est Cr Clr Drug Dosing ml/min eGFR BUN/Creatinine Ratio (10-20) Glucose (70-99(Fasting)) mg/dl Lactate (0.4-2.0) mmol/L Calcium (8.6-10.3) mg/dl Magnesium (1.7-2.4) mg/dl Total Bilirubin (0.2-1.0) mg/dl AST (13-39) U/L ALT (7-52) U/L Alkaline Phosphatase (34-104) U/L Lactate Dehydrogenase (86-244) U/L Total Creatine Kinase (26-192) U/L Troponin I High Sens (0-14) pg/ml Total Protein (6.0-8.3) gm/dl Albumin (3.4-5.0) gm/dl Globulin (2.5-4.0) gm/dl Albumin/Globulin Ratio (0.9-2) Procalcitonin (0-0.5) ng/ml Adenovirus (PCR) Not Detected (NotDetected) B. pertussis DNA (PCR) Not Detected (NotDetected) B.parapertussis DNA PCR Not Detected (NotDetected) C. pneumoniae DNA (PCR) Not Detected (NotDetected) Coronavirus OC43 (PCR) Not Detected (NotDetected) Coronavirus HKU1 (PCR) Not Detected (NotDetected) Coronavirus 229E (PCR) Not Detected (NotDetected) SARS-CoV-2 (PCR) Not Detected (NotDetected) Coronavirus NL63 (PCR) Not Detected (NotDetected) Human Metapneumovir PCR Not Detected (NotDetected) Influenza Type A (PCR) Not Detected (NotDetected) Influenza Type B (PCR) Not Detected (NotDetected) M. pneumoniae (PCR) Not Detected (NotDetected) Parainfluenza 1 (PCR) Not Detected (NotDetected) Parainfluenza 2 (PCR) Not Detected (NotDetected) Parainfluenza 3 (PCR) Not Detected (NotDetected) Parainfluenza 4 (PCR) Not Detected (NotDetected) RSV (PCR) Not Detected (NotDetected) Entero/Rhino (PCR) Not Detected (NotDetected) Administered Medications Fentanyl Citrate (Fentanyl Citrate) 2,500 mcg in 250 mls @ 2.5 mls/hr IV .Q96H [facility]; Protocol Stop: 11/08/24 06:14 Last Admin: 10/25/24 06:45 Dose: 25 mcg/hr, 2.5 mls/hr Documented By: ARTURO Co-signed By: KUSHAL Norepinephrine Bitartrate (Levophed/D5w) 4 mg in 250 mls @ 60.863 mls/hr IV .Q4H7M [facility]; Protocol Stop: 11/24/24 06:29 Last Titration: 10/25/24 06:57 Dose: 0.15 mcg/kg/min, 60.9 mls/hr Documented By: ARTURO Co-signed By: ML Titration: 10/25/24 06:57 Dose: 0.11 mcg/kg/min, 44.6 mls/hr Documented By: ARTURO Co-signed By: CC Titration: 10/25/24 06:56 Dose: 0.09 mcg/kg/min, 36.5 mls/hr Documented By: CASAW Co-signed By: CC Titration: 10/25/24 06:28 Dose: 0.07 mcg/kg/min, 28.4 mls/hr Documented By: CASAW Co-signed By: KUSHAL Admin: 10/25/24 06:22 Dose: 0.05 mcg/kg/min, 20.3 mls/hr Documented By: CASAW Co-signed By: KUSHAL Vasopressin 20 units/ Sodium (Chloride) 101 mls @ 12.12 mls/hr IV .Q8H20M [facility] Stop: 11/24/24 06:44 Last Admin: 10/25/24 06:52 Dose: 0.04 unit/min, 12.1 mls/hr Documented By: ARTURO Co-signed By: KUSHAL Milrinone Lactate/Dextrose (Primacor/D5w) 20,000 mcg in 100 mls @ 3.246 mls/hr IV .Q24H [facility]; Protocol Stop: 11/24/24 06:44 Last Admin: 10/25/24 06:49 Dose: 0.1 mcg/kg/min, 3.2 mls/hr Documented By: ARTURO Co-signed By: KUSHAL Discontinued Medications Cefepime HCl (Maxipime 2000mg) 2,000 mg in 20 mls @ 5 mls/min IV NOW STA; Protocol Stop: 10/25/24 04:50 Last Admin: 10/25/24 05:13 Dose: 5 mls/min Documented By: RICHARD Imaging Data Radiologist's Impression: Chest X-Ray 10/25/24 03:01 EXAM: XR chest 1V portable CLINICAL HISTORY: SOB TECHNIQUE: An X-ray image of the chest is obtained in AP projection. COMPARISON: No prior studies are available for comparison. FINDINGS: Pulmonary Parenchyma: Prominent bronchovascular markings suggestive of lung congestion, please correlate clinically. Otherwise clear both lung ball. No evidence of consolidation, collapse, or focal opacities. No pulmonary nodules are identified. Mild left-sided and minimal right-sided pleural effusion. Heart and Mediastinum: Cardiomegaly. No mediastinal widening or masses. No hilar or mediastinal lymphadenopathy. Bony Thorax: Osteoarthritis of acromioclavicular and glenohumeral joints. Soft Tissues: Soft tissues overlying the chest wall are unremarkable. IMPRESSION: Mild left-sided and minimal right-sided pleural effusion. Prominent bronchovascular markings suggestive of lung congestion, please correlate clinically. Cardiomegaly. Electronically signed by Bryon Fitzpatrick 10-25-2024 03:57 AM Chest X-Ray 10/25/24 06:17 EXAM: XR chest 1V portable CLINICAL HISTORY: ETT TECHNIQUE: An X-ray image of the chest is obtained in AP projection. 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 Otherwise clear both lung ball. Mild left-sided and minimal right-sided pleural effusion. Heart and Mediastinum: Cardiomegaly. No mediastinal widening or masses. No hilar or mediastinal lymphadenopathy. Bony Thorax: Osteoarthritis of acromioclavicular and glenohumeral joints. Soft Tissues: Soft tissues overlying the chest wall are unremarkable. Nasogastric tube insitu with tip not covered in current radiograph IMPRESSION: Focal parenchymal opacities/vascular crowding is noted in right upper zone- possibility of infective etiology-stable. Mild left-sided and minimal right-sided pleural effusion.-reduced compare to prior. Prominent bronchovascular markings suggestive of lung congestion, please correlate clinically.-stable. Cardiomegaly. Interval placement of endotracheal tube with tip ~ 2.3cm above stuart Nasogastric tube insitu with tip not covered in current radiograph Electronically signed by Gabe Sagastume 10-25-2024 06:48 AM Discharge Plan Visit Data Chief Complaint: Respiratory Problems Stated Complaint: SOB ED Provider: Rachel Salas Discharge Problem: Respiratory failure, Cardiogenic shock, Sepsis Patient Disposition: Admitted As Inpatient Condition: Critical Discharge Instructions Interventions: ED Discharge Assessment Last Done: 10/25/24 07:26
--- NOTE | 2024-10-25 08:50 | Communication Note ---
Date of Service: October 25, 2024 Had extensive discussion with patient's family at bedside. Discussed CODE STATUS, she would not want chest compressions in the event of cardiac arrest she is comfortable with intubation in event of respiratory insufficiency. At this time we will minimize aggressive interventions and watch the patient clinically. She had significant prolonged hypoxia with slow recovery, she has very minimal cardiopulmonary reserve. I have personally spent 30 minutes of critical care time in the direct management of this patient. This is a life/limb threatening event. This includes time spent evaluating patient, direct bedside care, chart review, placing orders, interpretation of diagnostic studies, discussion with consultants, patient, and/or family members regarding treatment decisions, as well as other required patient management activities. This time is exclusive of all separately billable procedures, and teaching time and separate from and in addition to any other critical care service time. Coding Level of Care Code 02419 CRITICAL CARE 1ST 30-74M
[2024-10-25] MEDS: RAPID SEQUENCE INDUCTION BAG ONE (08:57)
[2024-10-25] MEDS: NOREPINEPHRINE/D5W 4 MG/250 ML IV ONE (08:58)
[2024-10-25] MEDS: PANTOprazole 40 MG/10 ML SYR IV SCH (10:09)
[2024-10-25] MEDS: FUROSEMIDE 40 MG/4 ML VIAL IV STA (10:10)
[2024-10-25 10:24] LABS: Base Excess VBG -6.6 mEq/L; HCO3 VBG 17 mmol/L; Oxygen Saturation VBG 99.9 %; PCO2 VBG 28 mmHg (38-50); PO2 VBG 284 mmHg; pH VBG 7.39 (7.36-7.41)
[2024-10-25 10:38] LABS: Hematocrit (blood only) 44.8 % (37.0-47.0); Hemoglobin 14.4 g/dl (12.0-16.0)
[2024-10-25 10:51] LABS: Anion Gap 16.0 (3-11); Blood Urea Nitrogen 55.0 mg/dl (6-23); Calcium 8.6 mg/dl (8.6-10.3); Carbon Dioxide 17.0 mmol/L (21-32); Chloride 98.0 mmol/L (98-107); Creatinine Clr Calc Pharmacy 27.4 ml/min; Glucose 154.0 mg/dl (70-99(Fasting)); Potassium 4.5 mmol/L (3.5-5.1); Sodium 131.0 mmol/L (136-145)
--- NOTE | 2024-10-25 11:14 | Procedure Note ---
Procedure Note Date of Service October 25, 2024 ARTERIAL LINE PROCEDURE NOTE: Procedure: Left Axillary Arterial Line Placement Attending: Dr. Tae Chew APC: SINCERE [place] Indication: Monitoring on Pressors/Frequent labs Anesthesia: Lidocaine 1% Consent was not signed due to emergent circumstances. A time-out was completed verifying correct patient, procedure, site, positioning, and implant(s) or special equipment if applicable. Allens test was performed to ensure adequate perfusion. Patients left upper arm was prepped and draped in the usual sterile fashion. Ultrasound guidance was used to aid needle placement. A 20g Arrow arterial line was introduced into the left axillary artery. Catheter was threaded, and the needle was removed with appropriate blood return. Good waveform was observed. The patient tolerated the procedure well.]Confirmation of placement with ultrasound. Images saved to medical record. Blood Loss: Minimal Complications: None Procedural Ultrasound Guidance: Procedure Date: Indication: Arterial catheter placement. Attending: Dr. Oniel Chew APC: SINCERE Mccain Artery Identified: YES Line confirmed in Artery with ultrasound: Yes Complications: NONE Patient tolerated procedure: [facility] [place] Procedure Codes (Charges) Tubes, Drains, and Vasc Access Procedure 1: Tubes, Drains, and Vasc Access: [id number] Arterial Cath/Cannulation Sa mpling/Monitoring/Transfusion Procedure 2: Tubes, Drains, and Vasc Access: [id number] Ultrasound Guidance For Vascular Coding CPT Codes Tubes, Drains, and Vasc Access - Tubes, Drains, and Vasc Access: [id number] Arterial Cath/Cannulation Sampling/Monitoring/Transfusion ([id number]) Tubes, Drains, and Vasc Access - Tubes, Drains, and Vasc Access: [id number] Ultrasound Guidance For Vascular ([id number]) Additional Codes Date of Service (PG.SURGERY)
[2024-10-25 11:21] LABS: Fibrinogen 370 mg/dl (184-400)
[2024-10-25] MEDS ORDERED: MIDAZOLAM HCL 5 MG/ML 2ML VIAL IV ONE ×2 (11:29)
[2024-10-25] MEDS ORDERED: ETOMIDATE 2 MG/ML 20 ML VIAL IV ONE (11:29)
[2024-10-25] MEDS ORDERED: SUCCINYLCHOLINE CHLORIDE 20 MG/ML 10 ML VIAL IV ONE (11:29)
[2024-10-25] MEDS: FUROSEMIDE 100 MG in SODIUM CHLORIDE 0.9% 90 ML IV SCH (12:04)
--- NOTE | 2024-10-25 12:10 | Electrocardiogram Report ---
Test Reason : Blood Pressure : */* mmHG Vent. Rate : 52 BPM Atrial Rate : 52 BPM P-R Int : 176 ms QRS Dur : 150 ms QT Int : 508 ms P-R-T Axes : 70 85 16 degrees QTcB Int : 472 ms Sinus bradycardia Right bundle branch block Abnormal ECG When compared with ECG of 13-Oct-2024 08:41, Premature supraventricular complexes are no longer Present QRS duration has increased Questionable change in initial forces of Anteroseptal leads Nonspecific T wave abnormality, worse in Inferior leads T wave inversion now evident in Anterolateral leads Confirmed by Shalom Mae ([id number]) on 10/25/2024 12:10:21 PM Referred By: REFERRED SELF Confirmed By: Shalom Mae
--- NOTE | 2024-10-25 12:39 | XCELERA ---
[id number]
[2024-10-25 13:28] LABS: iSTAT Art Bld Gas Base Excess -7.0 meg/L (-9-1.8); iSTAT Art Bld Gas pCO2 Correct 37 mmHg (35-46); iSTAT Art Bld Gas pH Corrected 7.318 (7.35-7.45); iSTAT Arterial Blood Gas pO2 C 159
--- NOTE | 2024-10-25 13:50 | Ultrasound Report ---
BILATERAL LOWER EXTREMITY VENOUS DOPPLER HISTORY: rule out DVT COMPARISON STUDY: 06/07/2024 FINDINGS: No evidence of DVT seen in bilateral lower extremities. IMPRESSION: No DVT seen. ACT 112: Negative or not required by law. Electronically signed by: Ronny Laura M.D. 10/25/2024 1:49 PM
--- NOTE | 2024-10-25 14:24 | Ultrasound Report ---
US arterial duplex LE RT CLINICAL HISTORY: Cold L foot COMPARISON STUDY: None FINDINGS: No elevated velocities seen at the right lower extremity arteries. There is monophasic wave form at the superficial femoral artery, popliteal artery, and all of the below the knee arteries sugg esting proximal right SFA or distal right common femoral artery narrowing. There is minimal flow into the right dorsalis pedis artery. IMPRESSION: 1. No arterial occlusion seen at the right lower extremity. 2. Low flow suggesting proximal narrowing. ACT 112: Negative or not required by law. Electronically signed by: Ronny Laura M.D. 10/25/2024 2:22 PM
[2024-10-25 15:51] LABS: Appearance Urine Cloudy (Clear); Bacteria Urine Automated None Seen (None Seen); Cast Urine Automated >20 /lpf (0-2); Glucose Urine UA Negative (Negative); RBC Urine Automated >20 /hpf (0-2)
[2024-10-25 18:10] LABS: iSTAT Art Bld Gas Base Excess -2.0 meg/L (-9-1.8); iSTAT Art Bld Gas pCO2 Correct 45 mmHg (35-46); iSTAT Art Bld Gas pH Corrected 7.332 (7.35-7.45); iSTAT Arterial Blood Gas pO2 C 171
--- NOTE | 2024-10-25 18:32 | Communication Note ---
Date of Service: October 25, 2024 Patient seen and examined. Admitted the same day therefore I will not be billing for this encounter. Admitted for cardiogenic shock. Severe sudden onset s hortness of breath suggestive of flash pulmonary edema more than infective etiology, cefepime given in the ER, will defer further antibiotics to ICU team. Appreciate ICU and cardiology management of acute decompensated heart failure with Lasix drip and milrinone. 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 Will need cardioversion if continues to decompensate.
[2024-10-25 19:02] LABS: A calco-baum cmplx NotReported Not Detected (NotDetected); Bact fragilis Not Reported Not Detected (NotDetected); Blood Culture Id Panel See PCR Comment (NotDetected); C auris Not Reported Not Detected (NotDetected); CTX-M Resistant Gene Not Detected (NotDetected); Calbicans Not Reported Not Detected (NotDetected); Candida glabrata Not Reported Not Detected (NotDetected); Candida krusei Not Reported Not Detected (NotDetected); Cneoformans/gatti Not Reported Not Detected (NotDetected); Cparapsilosis Not Reported Not Detected (NotDetected); Ctropicalis Not Reported Not Detected (NotDetected); E cloacae compx Not Reported Not Detected (NotDetected); Efaecalis Not Reported Not Detected (NotDetected); Efaecium Not Reported Not Detected (NotDetected); Enterobacterales Not Reported DETECTED (NotDetected); Escherichia coli Not Reported Not Detected (NotDetected); H influenzae Not Reported Not Detected (NotDetected); IMP Resistant Gene Not Detected (NotDetected); K aerogenes Not Reported Not Detected (NotDetected); KPC Resistant Gene Not Detected (NotDetected); Koxytoca Not Reported Not Detected (NotDetected); Kpneumoniae grp Not Reported Not Detected (NotDetected); Lmonocyt Not Reported Not Detected (NotDetected); N meningitidis Not Reported Not Detected (NotDetected); NDM Resistant Gene Not Detected (NotDetected); OXA 48 Like Resistant Gene Not Detected (NotDetected); P aeruginosa Not Reported Not Detected (NotDetected); Proteus spp Not Reported Not Detected (NotDetected); Salmonella spp Not Reported Not Detected (NotDetected); Staph lugdunensis Not Reported Not Detected (NotDetected); Staph spp. Not Reported Not Detected (NotDetected); Staphaureus Not Reported Not Detected (NotDetected); Staphepi Not Reported Not Detected (NotDetected); Stenmaltophilia Not Reported Not Detected (NotDetected); Strep agal(GrpB) Not Reported Not Detected (NotDetected); Strep pneum Not Reported Not Detected (NotDetected); Strep pyog (GrpA) Not Reported Not Detected (NotDetected); Strep spp Not Reported Not Detected (NotDetected); VIM Resistant Gene Not Detected (NotDetected)
[2024-10-25 19:12] LABS: Hematocrit (blood only) 42.7 % (37.0-47.0); Hemoglobin 13.7 g/dl (12.0-16.0)
[2024-10-25 19:29] LABS: Anion Gap 11.0 (3-11); Blood Urea Nitrogen 56.0 mg/dl (6-23); Calcium 8.2 mg/dl (8.6-10.3); Carbon Dioxide 23.0 mmol/L (21-32); Chloride 99.0 mmol/L (98-107); Creatinine Clr Calc Pharmacy 29.3 ml/min; Glucose 118.0 mg/dl (70-99(Fasting)); Potassium 4.2 mmol/L (3.5-5.1); Sodium 133.0 mmol/L (136-145)
[2024-10-25 19:45] LABS: Enterobacterales DETECTED (NotDetected)
--- NOTE | 2024-10-25 19:56 | Communication Note ---
Date of Service: October 25, 2024 Rocephin ordered due to fever this evening. Subsequently received word that BC + Enterobacter. Will replace with Cefepime renally dose pending susceptibilities. D/w pharmacy Kidney function improving slowly. Electrolytes WNL. Lactate downtrending. Lasix gtt on. Follow UOP closely, loop + thiazide if limited OP. AFRVR recurred this afternoon. Rates currently controlled around 70-80bpm. On 200mg BID amidoarone at home. If RVR returns will give Digoxin. D/w Dr. Chew Addendum 0115: Digitalization load calculated with assistance of pharmacy and administered. Remaining load 0300 and 0900. Persistent tachyarrhythmia with HR > 150 requiring increasing dose of norepinephrine. Vasopressin restarted. Milrinone increased. Norepinephrine able to be decreased. Amiodarone straight dose infusion at 1mg/min started. HR improved to 110s and pressor requirement continues to improve. Will consider bolus as well. Coding Level of Care Code None
[2024-10-25] MEDS: cefTRIAXone SODIUM 2,000 MG/50 ML BAG IV SCH (20:02)
[2024-10-25] MEDS: DIGOXIN 125 MCG in SYRINGE 9.5 ML IV STA (20:57)
[2024-10-25] MEDS: CEFEPIME 1000MG 1,000 MG/10 ML SYR IV SCH (20:57)
[2024-10-25] MEDS ORDERED: 0.2 MICRON FILTER SET 1 EACH IV ONE (22:23)
[2024-10-25] MEDS: AMIODARONE / D5W 360 MG/200 ML BAG IV SCH (22:52)
[2024-10-26] MEDS: DIGOXIN IV ONE ×2 (02:52→09:06)
[2024-10-26] MEDS ORDERED: DIGOXIN IV ONE ×2 (03:00→09:00)
[2024-10-26 04:04] LABS: Hematocrit (blood only) 44.2 % (37.0-47.0); Hemoglobin 14.3 g/dl (12.0-16.0); Mean Corpuscular Hemoglobin 29.5 pg (25.0-34.0); Mean Corpuscular Volume 91.3 fL (80.0-100.0); Platelet Count 192 K/uL (130-400); RDW Standard Deviation 50.0 fL (36.4-46.3); Red Blood Count 4.84 M/uL (4.20-5.40); White Blood Count 20.36 K/ul (4.8-10.8)
[2024-10-26 04:25] LABS: Alanine Aminotransferase 245.0 U/L (7-52); Albumin Globulin Ratio 1.5 (0.9-2); Alkaline Phosphatase 167.0 U/L (34-104); Anion Gap 8.0 (3-11); Bilirubin,Total 2.3 mg/dl (0.2-1.0); Blood Urea Nitrogen 54.0 mg/dl (6-23); Calcium 8.2 mg/dl (8.6-10.3); Carbon Dioxide 25.0 mmol/L (21-32); Chloride 100.0 mmol/L (98-107); Creatinine Clr Calc Pharmacy 33.9 ml/min; Globulin 1.9 gm/dl (2.5-4.0); Glucose 168.0 mg/dl (70-99(Fasting)); Magnesium 2.0 mg/dl (1.7-2.4); Potassium 4.0 mmol/L (3.5-5.1); Sodium 133.0 mmol/L (136-145); Total Protein 4.7 gm/dl (6.0-8.3)
[2024-10-26 04:27] LABS: Immature Granulocytes # (auto) 0.18 K/uL (0.01-0.20); Immature Granulocytes % (auto) 0.9 %; Polychromasia 2+; Toxic Vacuolation 1+
[2024-10-26 04:41] LABS: Partial Thromboplastin Time 48 Seconds (21-31); Prothrombin Time 52.9 Seconds (9.0-12.0)
[2024-10-26 06:02] LABS: INR 5.7 (0.9-1.1)
--- NOTE | 2024-10-26 06:42 | Critical Care Consultation ---
Date of Consultation October 26, 2024 Assessment & Plan (1) Ischemic hepatitis: (2) Acute kidney failure: (3) Lactic acidosis: (4) Cardiogenic shock: (5) Right heart failure: (6) Acute hypoxic respiratory failure: Plan Reason Critically Ill: 1. Acute hypoxemic respiratory failure 2/2 #2 and severe V/Q mismatch, R to L shunting 2. Decompensated R heart failure 3. Cardiogenic shock 4. Congestive hepatopathy 5. HAGMA 2/2 lactic acidosis 6. LEANN on CKD, prerenal 7. Bradycardia 8. Atrial fibrillation with recent cardioversion 9. PFO NEUROLOGIC - CAM ICU: Negative RASS GOAL -1 Fentanyl infusion, benzo pushes PRN CARDIOVASCULAR - Continue norepinephrine, vasopressin for MAP goal > 65mmHg Milrinone infusion for decompensated RHF IV Lasix given, assess response and redose as needed. May require higher doses with LEANN Could consider pulmonary artery catheter placement but patient prefers no aggressive measures and there is no obvious reversible pathology Admit EKG sinus bradycardia with RBBB and QRS duration increase, bradycardia is certainly not helping cardiac output Recent YAZMIN showing PFO, severely dilated RV with moderately reduced function. LVEF intact. This was prior to DCCV ACS considered unlikely Doppler BLE, Arterial duplex RLE. CK negative Consider starting heparin infusion after procedures RESPIRATORY - Congestion on CXR. Too unstable for CT chest. PE considered less likely while on Xarelto SpO2 goal 92%, hyperoxia considered acceptable for pulmonary vasodilation Follow up ABG now and make adjustments as needed HOB 30, pulmonary hygiene GI - Congestive hepatopathy, trend Diet: NPO SUP: PPI Bowel regimen: Start today RENAL/LYTES - Trend lactic acid Replete electrolytes as indicated Badillo for accurate I/Os Diuresis as above ENDO - No acute concerns. Could check TSH BG 140-180 per SCCM guidelines ISS if needed while inpatient HEME - DIC considered less likely Consider heparin infusion today whilst off Xarelto Trend coags ID - Intraabdominal coverage as she is high risk for bacterial translocation Follow fever trend and culture data Procal increased but of limited utility in acute renal failure LINES/TUBES/DRAINS - ETT (Day #1) OGT (Day #1) Badillo (Day #1) DVT PROPHYLAXIS - Heparin as above DISPOSITION - ICU CODE STATUS - Conditional code (No CPR, defibrillation). Patient was clear that she does not wish for aggressive measures. See Dr. Botti note for details of conversation. Son, Ronny, made aware of grim prognosis. He will gather close by family to visit. Considering compassionate extubation and comfort based measures. I have personally spent 86 minutes of critical care time in the direct manage ment of this patient. This is a life/limb threatening event. This includes time spent evaluating patient, direct bedside care, chart review, placing orders, interpretation of diagnostic studies, discussion with consultants, patient, and family members, as well as other required patient management activities. This time is exclusive of all separately billable procedures, and teaching time and separate from and in addition to any other critical care service time. Thank you for allowing us to participate in the care of this patient. Please refer to my attending physician's documentation for any further recommendations. History of Present Illness Attending Physician: Mark Crump MD Allergies Allergy/AdvReac Type Severity Reaction Status Date / Time nickel AdvReac Mild Rash Verified 10/10/24 13:39 Home Medications Medication Instructions Recorded Confirmed Type cholecalciferol (vitamin D3) 25 25 mcg PO DAILY 10/06/24 10/10/24 History mcg (1,000 unit) tablet (Vitamin D3) furosemide 40 mg tablet 40 mg PO QAM 10/06/24 10/10/24 History losartan 100 mg tablet 100 mg PO QAM 10/06/24 10/10/24 History potassium chloride 20 mEq 20 meq PO QAM 10/06/24 10/10/24 History tablet,extended release rivaroxaban 20 mg tablet (Xarelto) 20 mg PO QPM 10/06/24 10/10/24 History metoprolol succinate 100 mg 100 mg PO QPM 10/10/24 10/10/24 History tablet,extended release 24 hr amiodarone 200 mg tablet 200 mg PO BIDM 14 days #28 tabs 10/14/24 Rx spironolactone 25 mg tablet 25 mg PO QAM 30 days #30 tabs 10/14/24 Rx Patient History Medical History Edema Dyspnea on exertion History of anemia (1989) 4 units PRBCs Hx of congestive heart failure (1989) Cardiac murmur Echo 09/2024 Atrial fibrillation Follows with Dr. Walker Surgical History Hx of tonsillectomy (1945) Hx laparoscopic cholecystectomy (2014) Social History Smoking Status: Never smoker Second Hand Exposure: No; Do You Dip or Chew Tobacco: No; Hx Alcohol Use: Yes Alcohol type: beer and wine Hx Substance Use: No Preferred Language: Bolivian Communication Ability: Effective Government Property Inspector Required: No Beliefs That Will Affect Care: None Current Living Situation: Family Current Living Situation Comment: Lives with Son Ronny Feels Safe at Home: Yes Assistive Devices: None Physical Exam Physical Exam: The patient is sedated, intubated and unresponsive HEENT--PERRL, EOMI, mucous membranes and oropharynx dry. Neck--supple. No JVD. No bruits. Thyroid normal, trachea midline, no adenopathy. Heart--normal S1 and S2. No murmurs, rubs or gallops. Lungs--crackles at left base Abdomen--normal bowel sounds and soft. Nontender. Mildly distended Extremities--trace to 1+ bilateral pretibial pitting edema. Dermatologic--normal skin turgor, normal color, no abnormal lymph nodes, no rash. Neurologic--cranial nerves II through XII grossly intact. Rheumatologic--limited exam Psychiatric--sedated, intubated nonresponsive Results & Data Results & Data Vital Signs (Past 12 Hours) Vital Signs Temp Pulse Resp BP Pulse Ox O2 Del Method FiO2 10/26/24 06:03 36.5 C 115 H 12 97 Mechanical Vent 40 10/26/24 05:00 36.6 C 120 H 17 94 Mechanical Vent 40 10/26/24 04:00 36.6 C 110 H 12 97 Mechanical Vent 40 10/26/24 04:00 40 10/26/24 04:00 110 H 98/51 L 10/26/24 03:27 121 H 12 98 40 10/26/24 03:06 36.8 C 115 H 14 97 Mechanical Vent 40 10/26/24 02:52 113 H 10/26/24 02:06 37.0 C 113 H 12 99 Mechanical Vent 50 10/26/24 01:06 37.3 C 122 H 12 98 Mechanical Vent 50 10/26/24 00:58 98 50 10/26/24 00:03 37.6 C H 126 H 12 96 Mechanical Vent 50 10/26/24 00:00 50 10/26/24 00:00 119 H 108/58 L 10/25/24 23:03 37.7 C H 153 H 13 95 Mechanical Vent 50 10/25/24 23:03 146 H 10/25/24 22:40 139 H 14 95 50 10/25/24 22:03 37.8 C H 151 H 14 96 Mechanical Vent 50 10/25/24 21:30 38.0 C H 90 14 97 10/25/24 21:22 Mechanical Vent 50 10/25/24 21:06 38.1 C H 147 H 13 97 Mechanical Vent 50 10/25/24 20:57 148 H 10/25/24 20:15 38.0 C H 107 H 14 96 Mechanical Vent 50 10/25/24 20:00 50 10/25/24 20:00 140 H 91/53 L 10/25/24 19:54 99 H 14 96 50 10/25/24 19:00 38.2 C H 87 14 96 Mechanical Vent 50 10/25/24 18:50 127 H
--- NOTE | 2024-10-26 06:44 | Critical Care Progress Note ---
Date of Service October 26, 2024 Assessment & Plan (1) Ischemic hepatitis: (2) Acute kidney failure: (3) Lactic acidosis: (4) Cardiogenic shock: (5) Right heart failure: (6) Acute hypoxic respiratory failure: Plan Reason Critically Ill: 1. Acute hypoxemic respiratory failure 2/2 #2 and severe V/Q mismatch, R to L shunting 2. Decompensated R heart failure 3. Cardiogenic shock 4. Congestive hepatopathy 5. HAGMA 2/2 lactic acidosis 6. LEANN on CKD, prerenal 7. Bradycardia 8. Atrial fibrillation with recent cardioversion 9. PFO NEUROLOGIC - CAM ICU: Negative RASS GOAL -1 Fentanyl infusion, benzo pushes PRN CARDIOVASCULAR - Wean Milrinone infusion to DC Following DC of milrinone, begin weaning norepinephrine, then vasopressin as tolerable while maintaining MAP goal > 65mmHg Continue IV Lasix at 10mg/hr Could consider pulmonary artery catheter placement but patient prefers no aggressive measures and there is no obvious reversible pathology Pt has been in a-fib, primarily with RVR since 1800 on 10/25. She received digoxin loading and amiodarone - Continue IV amiodarone 1mg/min Recent YAZMIN showing PFO, severely dilated RV with moderately reduced function. LVEF intact. This was prior to DCCV ACS considered unlikely Doppler BLE, Arterial duplex RLE. CK negative Holding heparin due to elevated INR and coag panal RESPIRATORY - Congestion on CXR. Too unstable for CT chest. PE considered less likely while on Xarelto at home SpO2 goal 92%, hyperoxia considered acceptable for pulmonary vasodilation Follow up ABG now and make adjustments as needed HOB 30, pulmonary hygiene GI - Congestive hepatopathy, ALT/AST are trending up. Concern for cirrhosis, infected ascites Started thiamine 100mg qam Diet: start tube feed SUP: Continue IV pantoprazole 40mg BID Bowel regimen: Continue RENAL/LYTES - Increase in overnight urine output, IV Lasix reduced Electrolytes have been stable Continue Parham for accurate I/Os Continue Diuresis as above Trending CMP q8h x 6 to assess potassium ENDO - No acute concerns. BG 140-180 per SCCM guidelines ISS if needed while inpatient HEME - Elevated coag panel with symptomatic vaginal bleeding- likely due to liver pathology Holding chemo DVT prophylaxis Holding anticoag for a-fib Continue to trend coags Ordered H&H q8h x 3 ID - Blood cx grew gram neg cocci Changed antibiotic Intraabdominal coverage from Cefepime to Ceftazidime as she is high risk for bacterial translocation Follow fever trend Repeat blood cx ordered for 8/13 AM Lactate trending down, continue trending lactate level in AM labs LINES/TUBES/DRAINS - ETT (Day #2) OGT (Day #2) Parham (Day #2) DVT PROPHYLAXIS - Chemo prophylaxis contraindicated due to elevated coag panel and current vaginal bleeding. SCDs contraindicated due to open,weeping sore at bilateral LEs. Ordered GARRET hose DISPOSITION - ICU CODE STATUS - Conditional code (No CPR, defibrillation). Patient was clear that she does not wish for aggressive measures. See Dr. Salas note for details of conversation. Son, Ronny, made aware of grim prognosis. He will gather close by family to visit. Considering compassionate extubation and comfort based measures. Admission and Anticipated Discharge Date Admission Date: October 25, 2024 Supervising Physician Co-Signing Physician Notes Dr. Stephens was resident physician during care of patient. I separately evaluated patient for rivera portions of the history and the exam. I was present during the critical portion of medical decision making, and I discussed the case with the resident. I generally agree with the findings and plan. Patient most likely has congestive hepatopathy causing supratherapeutic INR. Having vaginal bleeding, I think the risks of bleeding outweigh the benefits of chemical prophylaxis for DVT. Patient also has bilateral lower extremity wounds precluding mechanical prophylaxis through SCDs, will order GARRET hose to be applied. Patient has very limited cardiopulmonary reserve yesterday when she would drop from 40 degrees head of elevation to roughly flat she would promptly desaturate. Her renal function is improved and she is starting to have urinary output, goal will to be 2 L negative today. Will trend H&H if there is blood loss that becomes concerning we will consider treating the supratherapeutic INR however I feel treating it at this time would most likely create a prothrombotic situation. Serial H&H and BMPs given aggressive diuresis. Patient receiving 250 mg digoxin load will check digoxin level, also continuing amiodarone patient had been on this as an outpatient I feel the benefits from a cardiovascular standpoint outweigh the risks of any pulmonary toxicity. Amiodarone will be decreased to half a milligram per hour until we can transition to oral with some reassurance that she is adequately absorbing: Ideally this will be off vasoactive medication. Patient's oxygenation requirement has decreased I think it is reasonable to discontinue the milrinone at this time. Lactate improving, adding thiamine. Ultimately the patient is battling gram- negative sepsis: Given that ID of organism is not E. coli and critical illness I feel it prudent to check repeat blood cultures tomorrow morning. Will adjust antibiotics to cefoxitin for greater gram-negative/anaerobic coverage, I do not believe the patient has risk factors for Pseudomonas. I have personally spent 65 minutes of critical care time in the direct management of this patient. This is a life/limb threatening event. This includes time spent evaluating patient, direct bedside care, chart review, placing orders, interpretation of diagnostic studies, discussion with consultants, patient, and/or family members regarding treatment decisions, as well as other required patient management activities. This time is exclusive of all separately billable procedures, and teaching time and separate from and in addition to any other critical care service time. Subjective Overnight, pt started making large amounts of urine totaling 3L. Lasix drip was reduced to 15mls/hr. She continues in a-fib. She received digoxin load as well as amiodarone drip. Rate continues between 110-120. Pt remains sedated and on vent this morning. Her son from [place] is at bed side. Physical Exam Physical Exam: Gen: Laying bed bed, sedated, on vent HENT: Normocephalic, atraumatic. External ear without deformities. Trachea midline, no thyromegaly Cardio: a-fib, no murmurs or clicks. Resp: CTAB, Equal bilateral chest rise, on ventilator GI: Distended but soft, hypoactive bowel sounds : Parham in place, large volume, pale yellow urine in parham bag MSK: Moving left arm without purpose. All other extremities without movement due to sedation Skin: Reduction in purple coloring at bilateral distal toes, Feet with warmth to touch Neuro: Pt is sedated, CN II-VII not tested at this time Results & Data Results & Data Vital Signs (Past 12 Hours) Vital Signs Temp Pulse Resp BP Pulse Ox O2 Del Method FiO2 10/26/24 06:03 36.5 C 115 H 12 97 Mechanical Vent 40 10/26/24 05:00 36.6 C 120 H 17 94 Mechanical Vent 40 10/26/24 04:00 36.6 C 110 H 12 97 Mechanical Vent 40 10/26/24 04:00 40 10/26/24 04:00 110 H 98/51 L 10/26/24 03:27 121 H 12 98 40 10/26/24 03:06 36.8 C 115 H 14 97 Mechanical Vent 40 10/26/24 02:52 113 H 10/26/24 02:06 37.0 C 113 H 12 99 Mechanical Vent 50 10/26/24 01:06 37.3 C 122 H 12 98 Mechanical Vent 50 10/26/24 00:58 98 50 10/26/24 00:03 37.6 C H 126 H 12 96 Mechanical Vent 50 10/26/24 00:00 50 10/26/24 00:00 119 H 108/58 L 10/25/24 23:03 37.7 C H 153 H 13 95 Mechanical Vent 50 10/25/24 23:03 146 H 10/25/24 22:40 139 H 14 95 50 10/25/24 22:03 37.8 C H 151 H 14 96 Mechanical Vent 50 10/25/24 21:30 38.0 C H 90 14 97 10/25/24 21:22 Mechanical Vent 50 10/25/24 21:06 38.1 C H 147 H 13 97 Mechanical Vent 50 10/25/24 20:57 148 H 10/25/24 20:15 38.0 C H 107 H 14 96 Mechanical Vent 50 10/25/24 20:00 50 10/25/24 20:00 140 H 91/53 L 10/25/24 19:54 99 H 14 96 50 10/25/24 19:00 38.2 C H 87 14 96 Mechanical Vent 50 10/25/24 18:50 127 H Resident Activity Tracking Resident Involvement: Resident Care Provided Care Provided: [facility] Medicine
[2024-10-26] MEDS ORDERED: Nursing to Pharmacy Communication SCH (08:30)
--- NOTE | 2024-10-26 09:09 | Hospitalist Progress Note ---
Date of Service October 26, 2024 Assessment & Plan (1) Acute on chronic respiratory failure: (2) Hypotension: (3) Anticoagulated: (4) Atrial fibrillation with rapid ventricular response: (5) Transaminitis: (6) Bacteremia due to Gram-negative bacteria: (7) Acute on chronic heart failure with preserved ejection fraction: (8) Septic shock: (9) Acute kidney failure: (10) Cardiogenic shock: Plan The patient is an 84-year-old female with past medical history including atrial fibrillation with rapid ventricular response, HFpEF, hypertension, PFO. She is most recently admitted to [facility] from 10/10-10/14/2024, with A-fib with RVR and acute CHF. She underwent DCCV, and was started on amiodarone and Xarelto, which she has continued. She was also continued on furosemide 40 mg daily, and metoprolol succinate 100 mg daily along with spironolactone 25 mg daily. She presented to the emergency department with acute onset of shortness of breath, and was intubated in the ED due to acute respiratory failure. Respiratory panel was negative. Chest x-ray showed a slight increase in left pleural effusion but otherwise appeared normal. AST was 190 and ALT 185, with a troponin of 35.8. In the emergency department, patient became hypotensive, and was started on multiple pressors including Levophed, vasopressin, and had addition of milrinone. Patient is a DNR at this time, but continues to be intubated, and will not undergo CPR. #Cardiogenic and septic shock Management per ICU team with combination of Levophed, vasopressin and milrinone (now discontinued) #Gram-negative bacilli bacteremia Cefepime given in the ER 10/25, restarted 10/25 evening after blood cultures returned positive, switched to ceftazidime 10/26 Leclercia Adecarboxylata - I have not come across this bacteria however from [facility] this is normal gut shashi but can also come from water, soil environments and contaminated food Alternative source is right lower extremity which appears more cellulitic now that her legs are better perfused (dusky, purple appearance yesterday bilaterally) Discussed with Dr Chew and suspect this is translocation of bacteria with her significant volume overload and ascites on POCUS Consider ID consult Enteral feeding started #Acute on chronic respiratory failure with hypoxia / Acute on chronic HFpEF Intubated in the ED Ventilator management per ICU team Diuresing well on Lasix drip Unclear cause for deterioration other than bacteremia as above Pantoprazole for GI prophylaxis with elevated INR - hemoglobin appears stable #Atrial fibrillation with rapid ventricular rate Paroxysmal following cardioversion 10/13 on last hospitalization and discharged on amiodarone Converted to a. fib RVR 10/25 evening with subsequent drop in BP therefore could consider cardioversion especially now after amiodarone running for a day however Levophed is coming down therefore will defer this to the ICU Rates appear to be improved on digoxin and amiodarone Currently off anticoagulation (see VTE Prophylaxis) #Transaminitis Likely secondary to hepatic congestion Improving #Acute kidney injury Creatinine 2.03, with baseline 0.99 Improving with treatment of shock and decreased congestion, having good urine output on Lasix drip and this was decreased by ICU team #Elevated INR - concerning for possible DIC however platelets and PTT relatively unremarkable in comparison, no bleeding from cannula sites but reportedly having vagina bleeding, ?hepatic congestion - repeat levels in AM VTE Prophylaxis - defer to ICU team in the setting of elevated INR, reportedly also having vaginal bleeding, SCDs contraindicated with skin condition of lower extremities Disposition - continued admission to ICU, renal/liver improving, concerning elevation in INR, prognosis remains guarded however heart failure is being treated successfully with good urine output and she is on antibiotics for a pot entially reversible bacteremia without immunosuppressive medications or medical conditions at baseline Admission and Anticipated Discharge Date Admission Date: October 25, 2024 Subjective Patient currently sedated and intubated. Son at bedside was updated. Converted to atrial fibrillation yesterday evening. This was treated with amiodarone and digoxin. Rates appear better controlled today. Physical Exam Constitutional: no acute distress Respiratory: Intubated and sedated, Cardiovascular: Rate/Rhythm: + tachycardic and + irregularly irregular Heart Sounds: no murmur Extremities: + pedal edema (1+ with tight skin) Gastrointestinal (Abdomen): Inspection/Auscultation: + abdomen distended Percussion/Palpation: abdomen soft; abdomen nontender Skin: Feet are now more well-perfused from yesterday, right lower extremity appears more cellulitic than left lower extremity which is normal colour. Capillary refill less than 2 seconds in toes Neurologic: + not awake Results & Data Results & Data Vital Signs (Past 12 Hours) Vital Signs Temp Pulse Resp BP Pulse Ox O2 Del Method FiO2 08/12/25 08:18 36.3 C L 117 H 12 98 10/26/24 08:00 40 10/26/24 08:00 121 H 10/26/24 07:45 36.3 C L 117 H 12 99 10/26/24 07:30 36.3 C L 120 H 12 98 10/26/24 07:25 116 H 12 98 40 10/26/24 07:15 36.4 C L 110 H 12 98 10/26/24 07:03 36.4 C L 112 H 12 98 Mechanical Vent 40 10/26/24 07:00 Mechanical Vent 40 10/26/24 06:03 36.5 C 115 H 12 97 Mechanical Vent 40 10/26/24 05:00 36.6 C 120 H 17 94 Mechanical Vent 40 10/26/24 04:00 36.6 C 110 H 12 97 Mechanical Vent 40 10/26/24 04:00 40 10/26/24 04:00 110 H 98/51 L 10/26/24 03:27 121 H 12 98 40 10/26/24 03:06 36.8 C 115 H 14 97 Mechanical Vent 40 10/26/24 02:52 113 H 10/26/24 02:06 37.0 C 113 H 12 99 Mechanical Vent 50 10/26/24 01:06 37.3 C 122 H 12 98 Mechanical Vent 50 10/26/24 00:58 98 50 10/26/24 00:03 37.6 C H 126 H 12 96 Mechanical Vent 50 10/26/24 00:00 50 10/26/24 00:00 119 H 108/58 L 10/25/24 23:03 37.7 C H 153 H 13 95 Mechanical Vent 50 10/25/24 23:03 146 H 10/25/24 22:40 139 H 14 95 50 10/25/24 22:03 37.8 C H 151 H 14 96 Mechanical Vent 50 10/25/24 21:30 38.0 C H 90 14 97 10/25/24 21:22 Mechanical Vent 50 PG Care Time/CCT Total # of Minutes Spent Total Time Spent with Patient: Total time spent is greater than 50% in coordination of care (as documented) at patient's floor/unit and/or counseling patient: Coding Level of Care Code 55869 SUB INP/OBS CARE 3/50MIN Diagnoses Acute on chronic respiratory failure J96.20 Hypotension I95.9 Anticoagulated Z79.01 Atrial fibrillation with rapid ventricular response I48.91 Transaminitis R74.01 Bacteremia due to Gram-negative bacteria R78.81 Acute on chronic heart failure with preserved ejection fraction I50.33 Septic shock A41.9; R65.21 Acute kidney failure N17.9 Cardiogenic shock R57.0
--- NOTE | 2024-10-26 10:13 | Billing Data ---
Date of Service October 26, 2024 Coding Level of Care Code 59504 CRITICAL CARE M
[2024-10-26 10:57] LABS: Hematocrit (blood only) 43.5 % (37.0-47.0); Hemoglobin 14.1 g/dl (12.0-16.0)
[2024-10-26 11:09] LABS: Alanine Aminotransferase 225.0 U/L (7-52); Albumin Globulin Ratio 1.3 (0.9-2); Alkaline Phosphatase 169.0 U/L (34-104); Anion Gap 8.0 (3-11); Bilirubin,Total 2.2 mg/dl (0.2-1.0); Blood Urea Nitrogen 52.0 mg/dl (6-23); Calcium 8.0 mg/dl (8.6-10.3); Carbon Dioxide 27.0 mmol/L (21-32); Chloride 98.0 mmol/L (98-107); Creatinine Clr Calc Pharmacy 36.7 ml/min; Globulin 2.0 gm/dl (2.5-4.0); Glucose 206.0 mg/dl (70-99(Fasting)); Potassium 3.8 mmol/L (3.5-5.1); Sodium 133.0 mmol/L (136-145); Total Protein 4.6 gm/dl (6.0-8.3)
[2024-10-26] MEDS: THIAMINE HCL 100 MG in SYRINGE 9 ML IV SCH (11:36)
[2024-10-26] MEDS: cefTAZidime 2,000 MG in DEXTROSE 5 % MINI-B 50 ML IV SCH (11:40)
--- NOTE | 2024-10-26 11:54 | XRay Report ---
KUB HISTORY: confirm OG placement for tube feeds COMPARISON STUDY: None FINDINGS: Nasogastric tube tip is in the proximal stomach with the sidehole near the GE junction. IMPRESSION: Nasogastric tube. ACT 112: Negative or not required by law. The above report was generated using voice recognition software. It may contain grammatical, syntax o r spelling errors. Electronically signed by: Ronny Laura M.D. 10/26/2024 11:52 AM
[2024-10-26] MEDS ORDERED: GLUCOSE 10 TAB/TUBE PO PRN (12:08)
[2024-10-26] MEDS ORDERED: DEXTROSE 50% 50 ML SYRINGE IV PRN (12:08)
[2024-10-26] MEDS ORDERED: CARBOHYDRATES FOR HYPOGLYCEMIA PO PRN (12:08)
[2024-10-26] MEDS ORDERED: GLUCAGON FOR INJ 1 MG VIAL SQ PRN (12:08)
[2024-10-26] MEDS ORDERED: GLUCOSE 40% GEL 15 GM TUBE PO PRN (12:08)
[2024-10-26] MEDS: INSULIN ASPART PER UNIT CHARGE SC SCH (12:29)
[2024-10-26] MEDS: PEPTAMEN INTENSE VHP 1.0 CAL 1,000 ML BAG OG SCH (12:31)
[2024-10-26] MEDS: TUBE FEEDING WATER FLUSH OG SCH (12:31)
--- NOTE | 2024-10-26 13:17 | Electrocardiogram Report ---
Test Reason : Blood Pressure : */* mmHG Vent. Rate : 120 BPM Atrial Rate : * BPM P-R Int : * ms QRS Dur : 136 ms QT Int : 336 ms P-R-T Axes : * 96 -52 degrees QTcB Int : 474 ms Probable Atrial flutter with 2 to 1 block Right bundle branch block Septal infarct (cited on or before 10-Oct-2024) T wave abnormality, consider inferior ischemia Abnormal ECG When compared with ECG of 25-Oct-2024 03:00, Atrial flutter has replaced Sinus rhythm Vent. rate has increased by 68 bpm Questionable change in initial forces of Anteroseptal leads Nonspecific T wave abnormality has replaced inverted T waves in Lateral leads Confirmed by Shalom Mae ([id number]) on 10/26/2024 1:16:42 PM Referred By: REFERRED SELF Confirmed By: Shalom Mae
--- NOTE | 2024-10-26 13:30 | Electrocardiogram Report ---
Test Reason : Blood Pressure : */* mmHG Vent. Rate : 115 BPM Atrial Rate : * BPM P-R Int : * ms QRS Dur : 102 ms QT Int : 344 ms P-R-T Axes : * 95 91 degrees QTcB Int : 475 ms Probable Atrial fibrillation with rapid ventricular response Rightward axis Low voltage QRS Incomplete right bundle branch block Abnormal ECG When compared with ECG of 25-Oct-2024 18:08, (unconfirmed) Questionable change in QRS duration Criteria for Septal infarct are no longer Present Confirmed by Shalom Mae ([id number]) on 10/26/2024 1:30:06 PM Referred By: REFERRED SELF Confirmed By: Shalom Mae
[2024-10-26 17:35] LABS: Anion Gap 8.0 (3-11); Blood Urea Nitrogen 46.0 mg/dl (6-23); Calcium 8.0 mg/dl (8.6-10.3); Carbon Dioxide 30.0 mmol/L (21-32); Chloride 98.0 mmol/L (98-107); Creatinine Clr Calc Pharmacy 42.4 ml/min; Glucose 205.0 mg/dl (70-99(Fasting)); Magnesium 1.8 mg/dl (1.7-2.4); Potassium 3.7 mmol/L (3.5-5.1); Sodium 136.0 mmol/L (136-145)
[2024-10-26 18:03] LABS: iSTAT Art Bld Gas Base Excess 6.0 meg/L (-9-1.8); iSTAT Art Bld Gas pCO2 Correct 45 mmHg (35-46); iSTAT Art Bld Gas pH Corrected 7.438 (7.35-7.45); iSTAT Arterial Blood Gas pO2 C 131
[2024-10-26] MEDS: POTASSIUM CHLORIDE 20 MEQ/15 ML UDC PO STA ×2 (20:04→23:39)
[2024-10-26] MEDS: acetaZOLAMIDE 500 MG in SYRINGE 0 ML IV STA (20:04)
[2024-10-26] MEDS: FUROSEMIDE 40 MG/4 ML VIAL IV ONE (20:04)
[2024-10-26 23:03] LABS: Anion Gap 7.0 (3-11); Blood Urea Nitrogen 44.0 mg/dl (6-23); Calcium 8.0 mg/dl (8.6-10.3); Carbon Dioxide 32.0 mmol/L (21-32); Chloride 96.0 mmol/L (98-107); Creatinine Clr Calc Pharmacy 47.6 ml/min; Glucose 208.0 mg/dl (70-99(Fasting)); Potassium 3.5 mmol/L (3.5-5.1); Sodium 135.0 mmol/L (136-145)
[2024-10-27 04:51] LABS: Hematocrit (blood only) 40.5 % (37.0-47.0); Hemoglobin 13.7 g/dl (12.0-16.0); Immature Granulocytes # (auto) 0.12 K/uL (0.01-0.20); Immature Granulocytes % (auto) 0.7 %; Mean Corpuscular Hemoglobin 29.8 pg (25.0-34.0); Mean Corpuscular Volume 88.2 fL (80.0-100.0); Platelet Count 139 K/uL (130-400); RDW Standard Deviation 48.2 fL (36.4-46.3); Red Blood Count 4.59 M/uL (4.20-5.40); White Blood Count 16.16 K/ul (4.8-10.8)
[2024-10-27 05:20] LABS: INR 2.4 (0.9-1.1); Partial Thromboplastin Time 38 Seconds (21-31); Prothrombin Time 24.2 Seconds (9.0-12.0)
[2024-10-27 05:49] LABS: Alanine Aminotransferase 189.0 U/L (7-52); Albumin Globulin Ratio 1.1 (0.9-2); Alkaline Phosphatase 197.0 U/L (34-104); Anion Gap 9.0 (3-11); Bilirubin,Total 1.7 mg/dl (0.2-1.0); Blood Urea Nitrogen 42.0 mg/dl (6-23); Calcium 8.0 mg/dl (8.6-10.3); Carbon Dioxide 29.0 mmol/L (21-32); Chloride 97.0 mmol/L (98-107); Creatinine Clr Calc Pharmacy 50.8 ml/min; Globulin 2.2 gm/dl (2.5-4.0); Glucose 205.0 mg/dl (70-99(Fasting)); Magnesium 1.6 mg/dl (1.7-2.4); Potassium 3.9 mmol/L (3.5-5.1); Sodium 135.0 mmol/L (136-145); Total Protein 4.6 gm/dl (6.0-8.3)
[2024-10-27] MEDS: MAGNESIUM SULFATE / D5W 1 GM/100 ML BAG IV SCH (06:28)
[2024-10-27] MEDS: POTASSIUM CHLORIDE 20 MEQ/15 ML UDC PO STA (06:28)
[2024-10-27] MEDS ORDERED: POLYETHYLENE (MIRALAX) 17 GM PACK PO PRN (06:38)
--- NOTE | 2024-10-27 06:41 | Critical Care Progress Note ---
Date of Service October 27, 2024 Assessment & Plan (1) Ischemic hepatitis: (2) Acute kidney failure: (3) Lactic acidosis: (4) Cardiogenic shock: (5) Right heart failure: (6) Acute hypoxic respiratory failure: Plan Reason Critically Ill: 1. Acute hypoxemic respiratory failure 2/2 #2 and severe V/Q mismatch, R to L shunting 2. Decompensated R heart failure 3. Cardiogenic shock 4. Congestive hepatopathy 5. HAGMA 2/2 lactic acidosis 6. LEANN on CKD, prerenal 7. Bradycardia 8. Atrial fibrillation with recent cardioversion 9. PFO NEUROLOGIC - CAM ICU: Negative RASS GOAL -1 Fentanyl infusion at 25mcg, benzo pushes PRN CARDIOVASCULAR - DC'ed Milrinone infusion 10/26 Continue weaning norepinephrine, then vasopressin as tolerable while maintaining MAP goal > 65mmHg DC IV Lasix drip 10/26, Continue IV lasix 60mg BID and IV Diamox 500mg BID Pt has been in a-fib 1800 on 10/25, RVR has resolved with amiodarone and digoxin - DC IV amiodarone, resume home dose of 200mg po - DC digoxin - Consider resuming metoprolol 100mg pending wean from pressors and pt's ability to maintain BPs Recent YAZMIN showing PFO, severely dilated RV with moderately reduced function. LVEF intact. This was prior to DCCV Ordered Cardio consult Doppler BLE, Arterial duplex RLE. CK negative Holding heparin due to elevated INR and coag panel RESPIRATORY - Congestion on CXR. Too unstable for CT chest. PE considered less likely while on Xarelto at home Continue on vent for respiratory support while continuing to diurese SpO2 goal 92%, hyperoxia considered acceptable for pulmonary vasodilation Pt is awake and alert, consider trial for extubation 10/28 pending continued reduction in volume Follow up ABG now and make adjustments as needed HOB 30, pulmonary hygiene GI - Congestive hepatopathy, ALT/AST are down trending Continue thiamine 100mg qam Diet: continue tube feed SUP: Continue IV pantoprazole 40mg qd Bowel regimen: Continue RENAL/LYTES - Continues with high urine output on diuretics, another 3+L int he last 24 hrs Started Diamox due to concern for contraction alkalosis Cr is stable Replaced potassium, phosphorus and magnesium Continue Parham for accurate I/Os Continue Diuresis as above Trending BMP q8h to assess potassium ENDO - Ordered random cortisol, pending BG 140-180 per SCCM guidelines ISS if needed while inpatient HEME - Down trending coag panel and resolution of vaginal bleeding which was likely due to liver pathology Holding chemo DVT prophylaxis Holding anticoag for a-fib Continue to trend coags Hbg and Hct was stable ID - Blood cx positive for Leclercia adacarboxlata, gram negative cristi, that is known to be a normal shashi in the gut Continue Ceftazidime for presumed bacterial translocation from gut Follow fever trend Repeat blood cx pending WBC trending down, lactate in normal range LINES/TUBES/DRAINS - ETT (Day #3) OGT (Day #3) Parham (Day #3) DVT PROPHYLAXIS - Chemo prophylaxis contraindicated due to INR in suprathrapeutic range. GARRET hose in place at L LE, add SCD to L LE. Unable to apply GARRET or SCD to R LE due to skin fragility and continuous weeping. DISPOSITION - ICU CODE STATUS - Conditional code (No CPR, defibrillation). Patient was clear that she does not wish for aggressive measures. See Dr. Salas note for details of conversation. Son, Ronny, made aware of grim prognosis. He will gather close by family to visit. Considering compassionate extubation and comfort based measures. Admission and Anticipated Discharge Date Admission Date: October 25, 2024 Supervising Physician Co-Signing Physician Notes Dr. Stephens was resident physician during care of patient. I separately evaluated patient for rivera portions of the history and the exam. I was present during the critical portion of medical decision making, and I discussed the case with the resident. I generally agree with the findings and plan. Discontinuing IV amiodarone transition to oral home dose. Patient is in A-fib however rate controlled. Adding random cortisol, patient is off milrinone saturating well. 6 L diuresis despite this patient still exhibiting significant clinical signs of volume overload and sodium is 125. Continue aggressive diuresis with Diamox and Lasix (500 mg Diamox and 60 mg Lasix twice today) Kidney function significantly improved: I suspect this was largely due to c ardiorenal syndrome, INR improving again I believe multifactorial but most consistent with congestive hepatopathy. Aggressive potassium repletion will likely require both oral and IV, 21 mmol of potassium phosphate. Anticipate family discussion today as patient might be candidate for extubation there needs to be a definitive plan for respiratory insufficiency and whether patient would desire reintubation or transition to comfort measures. Patient was reported to be having vaginal bleeding; however, this is in the setting of supratherapeutic INR. This appears to have stopped H&H is stable, while this is concerning and may require outpatient evaluation there are larger goals of care questions and patient is too unstable to necessitate evaluation of possible vaginal bleeding. I also believe the patient's supratherapeutic INR is indicative of poor synthetic function I feel the risk of additional anticoagulation outweighs the benefit we will hold today. We attempted to place GARRET hose they are on the left lower extremity, right lower extremity has significant wounds and skin is sloughing with attempted applications therefore we have not applied GARRET hose for the fear of worsening her clinical status and giving additional wounds. We will apply SCDs to the left lower extremity where the GARRET hose have been applied. Patient can be on a PPI daily, no indication for high-dose therapy. Tolerating trickle feeds if patient remains intubated today we could advance nutritional support. Continue current antibiotics we have repeat cultures pending. This is an atypical organism, I suspect this could be contaminant as it is 1 of 2 bottles and the patient is not on immunocompromising agents. Not withstanding we will continue the antibiotics. If this represents a true infection this is most likely from bacterial translocation in the setting of significant abdominal ascites. Had an extensive discussion with 3 of the patient's sons in the patient's room. Patient was able to follow two-step commands and appeared to express an understanding of the discussion. Patient shook her head affirmative that she would want breathing tube replaced in event of respiratory insufficiency. We discussed probabilities of successful liberation from the ventilator. Today is the first day we have been able to decrease the patient's inclination without having adverse effects on oxygenation. She shows persistent physical signs of volume overload. I do believe she would not be able to tolerate negative pressure breathing, therefore we will continue with intubation and aggressive diuresis goal 1 to 2 L negative again today. Patient's weight on October 06 of this year was reported by the patient at 200 (90 kg) pounds, it does not appear that this was an actual measured weight, lowest measured weight according to our records was 108 kg; outpatient cardiology notes dated August 20 document 84 kg weight without specification of how this weight was obtained. I have personally spent 65 minutes of critical care time in the direct management of this patient. This is a life/limb threatening event. This includes time spent evaluating patient, direct bedside care, chart review, placing orders, interpretation of diagnostic studies, discussion with consultants, patient, and/or family members regarding treatment decisions, as well as other required patient management activities. This time is exclusive of all separately billable procedures, and teaching time and separate from and in addition to any other critical care service time. Subjective Overnight, lasix drip was stopped and she was given IV lasix 60mg and IV acetazolamide 500mg. Pt put on 2.5L or urine. Per report, she was more awake and alert. This morning, pt awakes to sound, opens her eyes and answers yes/no questions and follows commands. Pt denies CP, abdominal pain, nausea, numbness/tingling or noted extremity weakness. Review of Systems Review of Systems: As per HPI Physical Exam Physical Exam: Gen: Laying bed bed, easily arousable but sleepy, on vent HENT: Normocephalic, atraumatic. External ear without deformities. Trachea midline, no thyromegaly Cardio: a-fib, no murmurs or clicks. Resp: CTAB, Equal bilateral chest rise, ventilator in place but breathing independently GI: Distended but soft, normoactive bowel sounds : Parham in place, pale yellow urine in parham bag MSK: Following commands, able to move UE's against gravity, move toes and ankles Skin: Bilateral distal toes/feet are red and warm to touch, lower legs with weeping open skin. Drainage is serous. Neuro: Pt is alert and oriented to name. Unable to assess orientation to time and place due to vent in place. Pt is following commands and answering questions with yes/no. gross strength is noted at UE's and LEs as well as sensation to sound during exam. Results & Data Results & Data Vital Signs (Past 12 Hours) Vital Signs Temp Pulse Resp BP Pulse Ox O2 Del Method FiO2 10/27/24 04:03 36.7 C 97 H 23 99 40 10/27/24 04:00 92 H 120/62 10/27/24 04:00 40 10/27/24 03:15 100 H 14 100 35 10/27/24 03:09 36.6 C 92 H 12 98 40 10/27/24 02:03 36.8 C 102 H 12 96 40 10/27/24 01:09 36.8 C 106 H 12 95 40 10/27/24 00:00 36.8 C 100 H 19 97 40 10/27/24 00:00 95 H 10/27/24 00:00 99 H 108/55 L 10/27/24 00:00 40 10/26/24 23:06 36.9 C 105 H 12 97 40 10/26/24 22:51 111 H 12 97 35 10/26/24 22:12 36.9 C 100 H 12 98 40 10/26/24 21:00 36.9 C 107 H 12 99 40 10/26/24 20:20 103 H 18 100 40 10/26/24 20:00 36.8 C 108 H 21 100 40 10/26/24 20:00 40 10/26/24 20:00 105 H 106/54 L 10/26/24 19:30 Mechanical Vent 10/26/24 19:06 36.7 C 111 H 26 H 99 40 Resident Activity Tracking Resident Involvement: Resident Care Provided Care Provided: Adult Hospital Medicine
--- NOTE | 2024-10-27 07:36 | Hospitalist Progress Note ---
Date of Service October 27, 2024 Assessment & Plan (1) Acute on chronic respiratory failure: (2) Hypotension: (3) Anticoagulated: (4) Atrial fibrillation with rapid ventricular response: (5) Transaminitis: (6) Bacteremia due to Gram-negative bacteria: (7) Acute on chronic heart failure with preserved ejection fraction: (8) Septic shock: (9) Acute kidney failure: (10) Cardiogenic shock: Plan The patient is an 84-year-old female with past medical history including atrial fibrillation with rapid ventricular response, HFpEF, hypertension, PFO. She is most recently admitted to [facility] from 10/10-10/14/2024, with A-fib with RVR and acute CHF. She underwent DCCV, and was started on amiodarone and Xarelto, which she has continued. She was also continued on furosemide 40 mg daily, and metoprolol succinate 100 mg daily along with spironolactone 25 mg daily. She presented to the emergency department with acute onset of shortness of breath, and was intubated in the ED due to acute respiratory failure. Respiratory panel was negative. Chest x-ray showed a slight increase in left pleural effusion but otherwise appeared normal. AST was 190 and ALT 185, with a troponin of 35.8. In the emergency department, patient became hypotensive, and was started on multiple pressors including Levophed, vasopressin, and had addition of milrinone. Patient is a DNR at this time, but continues to be intubated, and will not undergo CPR. #Cardiogenic and septic shock, HFPEFresolved and felt to be initial event even with sepsis Management per ICU team with combination of Levophed, vasopressin and milrinone (now discontinued) attempting to maximize diuresis while reducing vasopressors #Gram-negative bacilli bacteremia Cefepime given in the ER 10/25, restarted 10/25 evening after blood cultures returned positive, switched to ceftazidime 10/26 Leclercia Adecarboxylata - this is normal gut shashi suspect this is translocation of bacteria with her significant volume overload and ascites on POCUS Alternative source is right lower extremity which appears more cellulitic now that her legs are better perfused (dusky, purple appearance yesterday bilaterally) Enteral feeding started, appropriate positive with attempts of extubation #Acute on chronic respiratory failure with hypoxia / Acute on chronic HFpEF Diuresing well on parenteral Lasix Pantoprazole for GI prophylaxis with elevated INR - hemoglobin appears stable #Atrial fibrillation with rapid ventricular rate Paroxysmal following cardioversion 10/13 on last hospitalization and discharged on amiodarone Converted to a. fib RVR 10/25 evening with subsequent drop in BP Rates appear to be improved on digoxin and amiodarone Currently off anticoagulation but INR is 2.4 digoxin is subtherapeutic at 0.7 state cardiology is following #Transaminitis Likely secondary to hepatic congestion., shock liver Improving #Acute kidney injury Creatinine 2.03, with baseline 0.99 Improving with treatment of shock and decreased congestion, having good urine output on Lasix drip and this was decreased by ICU team VTE Prophylaxis - defer to ICU team in the setting of elevated INR, reportedly also having vaginal bleeding, SCDs contraindicated with skin condition of lower extremities Disposition - continued admission to ICU, renal/liver improving, concerning elevation in INR, prognosis remains guarded however heart failure is being treated successfully with good urine output and she is on antibiotics for a potentially reversible bacteremia without immunosuppressive medications or medical conditions at baseline. Discussion to reintubate if the patient fails extubation is understandable hopefully target possible extubation on 10/28 Admission and Anticipated Discharge Date Admission Date: October 25, 2024 Subjective Patient is intubated but communicative. She is understanding provide try to optimize her cardiovascular status with diuresis and then attempt to extubate on 10/28. Patient did voiced to the ICU team that she wishes to be reintubated if she fails extubation. She has no other focal complaints or problems mildly uncomfortable abdomen Physical Exam Physical Exam: Card exam is regular lungs are coarse she is mildly uncomfortable abdomen on the right side to exam there is not a rigid abdomen acute abdomen or guarding. Results & Data Results & Data Vital Signs (Past 12 Hours) Vital Signs Temp Pulse Resp BP Pulse Ox O2 Del Method FiO2 10/27/24 06:00 98.2 F 103 H 23 99 40 10/27/24 05:24 98.2 F 91 H 13 98 40 10/27/24 04:03 98.1 F 97 H 23 99 40 10/27/24 04:00 92 H 120/62 10/27/24 04:00 40 10/27/24 03:15 100 H 14 100 35 10/27/24 03:09 97.9 F 92 H 12 98 40 10/27/24 02:03 98.2 F 102 H 12 96 40 10/27/24 01:09 98.2 F 106 H 12 95 40 10/27/24 00:00 98.2 F 100 H 19 97 40 10/27/24 00:00 95 H 10/27/24 00:00 99 H 108/55 L 10/27/24 00:00 40 10/26/24 23:06 98.4 F 105 H 12 97 40 10/26/24 22:51 111 H 12 97 35 10/26/24 22:12 98.4 F 100 H 12 98 40 10/26/24 21:00 98.4 F 107 H 12 99 40 10/26/24 20:20 103 H 18 100 40 10/26/24 20:00 98.2 F 108 H 21 100 40 10/26/24 20:00 40 10/26/24 20:00 105 H 106/54 L 10/26/24 19:30 Mechanical Vent Laboratory Results Reviewed CBC persistent leukocytosis reviewed chemistry, LFTs improving discussed case with ICU team PG Care Time/CCT Total # of Minutes Spent Total Time Spent with Patient: Total time spent is greater than 50% in coordination of care (as documented) at patient's floor/unit and/or counseling patient: Coding Level of Care Code 05894 SUB INP/OBS CARE 3/50MIN Diagnoses Acute on chronic respiratory failure J96.20 Hypotension I95.9 Anticoagulated Z79.01 Atrial fibrillation with rapid ventricular response I48.91 Transaminitis R74.01 Bacteremia due to Gram-negative bacteria R78.81 Acute on chronic heart failure with preserved ejection fraction I50.33 Septic shock A41.9; R65.21 Acute kidney failure N17.9 Cardiogenic shock R57.0
[2024-10-27] MEDS: MULTI VIT W/MINERALS LIQUID 15 ML UDC NG SCH (08:29)
[2024-10-27] MEDS ORDERED: SODIUM PHOSPHATE 3 MMOL/1 ML INFUSION IV STA (09:26)
[2024-10-27] MEDS ORDERED: SODIUM PHOSPHATE 15 MMOL in SODIUM CHLORIDE 0.9% 250 ML IV ONE (09:45)
--- NOTE | 2024-10-27 09:49 | Cardiology Consultation ---
Date of Consultation October 27, 2024 Assessment & Plan (1) Right-sided congestive heart failure: (2) Diastolic CHF, chronic: (3) Atrial fibrillation with rapid ventricular response: (4) Atrial fibrillation with rapid ventricular response: (5) Acute hypoxic respiratory failure: (6) Acute kidney failure: (7) Ischemic hepatitis: Plan I suspect her significant right-sided heart failure has been going on for longer than we realize. By her own report when I saw her in the office she had had abdominal swelling and lower extremity edema and was told that the right side of her heart was enlarged in the past. The etiology of this is not completely clear however her atrial fibrillation has been extremely difficult to control and was definitely contributing to her symptoms. At this point her family is trying to decide how they want to proceed with her level of care. I know she has 5 sons I have spoken to her her son Ronny who lives locally and assists her. I will attempt to touch base with them as well so we can come up with a game plan History of Present Illness Attending Physician: Fernando Pope MD History of Present Illness Liss Treviño is an 84-year-old woman who I first met back in August and evaluated her for atrial fibrillation as well as increasing shortness of breath. She has a history of A-fib going back to at least 2013 when she was in [place] and apparently never had this further evaluated. She apparently developed gallstone pancreatitis back in 2013 and that was when she first developed her A-fib initially when I met her she told me that she did have signs of heart failure for years she was told this many years ago with swelling in her abdomen as well as swelling in her legs. Initially when I met her she was found to have A-fib with RVR and appeared to be quite short of breath. We attempted to get her on rate controlling medications with metoprolol and she was started on Xarelto as well as furosemide. She came to me already taking losartan. Her echo done showed overall normal LV function however her right heart was significantly dilated with at least mild pulmonary hypertension. After several weeks of attempting to control her heart rate unsuccessfully we decided to proceed with doing a cardioversion on her. Unfortunately she ended up being admitted to the hospital with congestive heart failure several days before the outpatient cardioversion. We did do a YAZMIN because I was not completely sure if she was compliant with her anticoagulation prior to doing the cardioversion. The YAZMIN sh ows a massively enlarged right heart with pulmonary hypertension the LV was small and somewhat hyperdynamic but there was no signs of left atrial appendage thrombus so we proceeded with cardioversion. Normal sinus rhythm was achieved. While she was in the hospital she was also started on p.o. amiodarone in an attempt to maintain normal rhythm. Prior to her discharge from the hospital at the end of September I stopped her losartan and maintained her just on beta-sera amiodarone as well as diuresis. She was scheduled to follow-up with me in the office this past Friday and unfortunately no-showed for the appointment. When we looked her up in the [employer] system I found that she come into the hospital the day before in respiratory distress and had already been intubated at this point. She remains on the ventilator and intubated initially when she came in she was quite hypotensive and was on pressors as well. Her weight when I saw her initially in August was 84 kg. Subsequent visits in the office she refused to be weighed. Allergies Allergy/AdvReac Type Severity Reaction Status Date / Time nickel AdvReac Mild Rash Verified 10/10/24 13:39 Home Medications Medication Instructions Recorded Confirmed Type cholecalciferol (vitamin D3) 25 25 mcg PO DAILY 10/06/24 10/10/24 History mcg (1,000 unit) tablet (Vitamin D3) furosemide 40 mg tablet 40 mg PO QAM 10/06/24 10/10/24 History losartan 100 mg tablet 100 mg PO QAM 10/06/24 10/10/24 History potassium chloride 20 mEq 20 meq PO QAM 10/06/24 10/10/24 History tablet,extended release rivaroxaban 20 mg tablet (Xarelto) 20 mg PO QPM 10/06/24 10/10/24 History metoprolol succinate 100 mg 100 mg PO QPM 10/10/24 10/10/24 History tablet,extended release 24 hr amiodarone 200 mg tablet 200 mg PO BIDM 14 days #28 tabs 10/14/24 Rx spironolactone 25 mg tablet 25 mg PO QAM 30 days #30 tabs 10/14/24 Rx Patient History Medical History Edema Dyspnea on exertion History of anemia (1989) 4 units PRBCs Hx of congestive heart failure (1989) Cardiac murmur Echo 09/2024 Atrial fibrillation Follows with Dr. 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 Beliefs That Will Affect Care: None Current Living Situation: Family Current Living Situation Comment: Lives with Son Ronny Feels Safe at Home: Yes Assistive Devices: None Review of Systems Review of Systems: Unobtainable due to endotracheal tube Physical Exam Physical Exam: Intubated and ventilated Neck: JVD Respiratory: Diminished breath sounds Cardiovascular: Irregular tachycardic in A-fib Skin: Significant edema Results & Data Vital Signs (Past 12 Hours) Vital Signs Temp Pulse Resp BP Pulse Ox FiO2 10/27/24 08:00 40 10/27/24 08:00 88 10/27/24 08:00 88 10/27/24 07:50 94 H 19 99 30 10/27/24 07:24 36.8 C 88 15 99 10/27/24 06:51 36.8 C 93 H 12 99 10/27/24 06:36 36.8 C 94 H 12 98 10/27/24 06:15 36.9 C 100 H 22 100 10/27/24 06:00 36.8 C 103 H 23 99 40 10/27/24 05:24 36.8 C 91 H 13 98 40 10/27/24 04:03 36.7 C 97 H 23 99 40 10/27/24 04:00 92 H 120/62 10/27/24 04:00 40 10/27/24 03:15 100 H 14 100 35 10/27/24 03:09 36.6 C 92 H 12 98 40 10/27/24 02:03 36.8 C 102 H 12 96 40 10/27/24 01:09 36.8 C 106 H 12 95 40 10/27/24 00:00 36.8 C 100 H 19 97 40 10/27/24 00:00 95 H 10/27/24 00:00 99 H 108/55 L 10/27/24 00:00 40 10/26/24 23:06 36.9 C 105 H 12 97 40 10/26/24 22:51 111 H 12 97 35 10/26/24 22:12 36.9 C 100 H 12 98 40 Laboratory Results Abnormal lab results 10/26/24 10/26/24 10/26/24 Range/Units 10:27 12:01 16:40 WBC (4.8-10.8) K/ul RDW Std Deviation (36.4-46.3) fL RDW Coeff of Celso (11.5-14.5) % Neut # (Auto) (1.40-6.50) K/uL Lymph # (Auto) (1.20-3.40) K/uL Yolo # (Auto) (0.11-0.59) K/uL PT (9.0-12.0) Seconds INR (0.9-1.1) APTT (21-31) Seconds POC pO2 (80-95) mmHg POC HCO3 (19-24) arely/L POC Total CO2 (24-31) mmol/L POC Base Excess (-9-1.8) arely/L POC ABG O2 Sat (90-95) % Sodium 133 L (136-145) mmol/L Chloride (98-107) mmol/L BUN 52 H 46 H (6-23) mg/dl Creatinine 1.40 H 1.21 H (0.6-1.2) mg/dl BUN/Creatinine Ratio 37.1 H 38.0 H (10-20) Glucose 206 H 205 H (70-99(Fasting)) mg/dl POC Glucose (other) 203 H (70-99) mg/dl Calcium 8.0 L 8.0 L (8.6-10.3) mg/dl Phosphorus (2.5-4.9) mg/dl Magnesium (1.7-2.4) mg/dl Total Bilirubin 2.2 H (0.2-1.0) mg/dl AST 146 H (13-39) U/L ALT 225 H (7-52) U/L Alkaline Phosphatase 169 H (34-104) U/L Total Protein 4.6 L (6.0-8.3) gm/dl Albumin 2.6 L (3.4-5.0) gm/dl Globulin 2.0 L (2.5-4.0) gm/dl Digoxin (0.8-2.0) ng/ml 10/26/24 10/26/24 10/26/24 Range/Units 17:52 18:21 22:29 WBC (4.8-10.8) K/ul RDW Std Deviation (36.4-46.3) fL RDW Coeff of Celso (11.5-14.5) % Neut # (Auto) (1.40-6.50) K/uL Lymph # (Auto) (1.20-3.40) K/uL Yolo # (Auto) (0.11-0.59) K/uL PT (9.0-12.0) Seconds INR (0.9-1.1) APTT (21-31) Seconds POC pO2 134 H (80-95) mmHg POC HCO3 31 H (19-24) arely/L POC Total CO2 32 H (24-31) mmol/L POC Base Excess 6.0 H (-9-1.8) arely/L POC ABG O2 Sat 99.0 H (90-95) % Sodium 135 L (136-145) mmol/L Chloride 96 L (98-107) mmol/L BUN 44 H (6-23) mg/dl Creatinine (0.6-1.2) mg/dl BUN/Creatinine Ratio 40.7 H (10-20) Glucose 208 H (70-99(Fasting)) mg/dl POC Glucose (other) 210 H (70-99) mg/dl Calcium 8.0 L (8.6-10.3) mg/dl Phosphorus (2.5-4.9) mg/dl Magnesium (1.7-2.4) mg/dl Total Bilirubin (0.2-1.0) mg/dl AST (13-39) U/L ALT (7-52) U/L Alkaline Phosphatase (34-104) U/L Total Protein (6.0-8.3) gm/dl Albumin (3.4-5.0) gm/dl Globulin (2.5-4.0) gm/dl Digoxin (0.8-2.0) ng/ml 10/26/24 10/27/24 Range/Units 23:24 04:20 WBC 16.16 H (4.8-10.8) K/ul RDW Std Deviation 48.2 H (36.4-46.3) fL RDW Coeff of Celso 14.9 H (11.5-14.5) % Neut # (Auto) 13.73 H (1.40-6.50) K/uL Lymph # (Auto) 0.70 L (1.20-3.40) K/uL Yolo # (Auto) 1.47 H (0.11-0.59) K/uL PT 24.2 H (9.0-12.0) Seconds INR 2.4 H (0.9-1.1) APTT 38 H (21-31) Seconds POC pO2 (80-95) mmHg POC HCO3 (19-24) arely/L POC Total CO2 (24-31) mmol/L POC Base Excess (-9-1.8) arely/L POC ABG O2 Sat (90-95) % Sodium 135 L (136-145) mmol/L Chloride 97 L (98-107) mmol/L BUN 42 H (6-23) mg/dl Creatinine (0.6-1.2) mg/dl BUN/Creatinine Ratio 41.6 H (10-20) Glucose 205 H (70-99(Fasting)) mg/dl POC Glucose (other) 206 H (70-99) mg/dl Calcium 8.0 L (8.6-10.3) mg/dl Phosphorus 2.2 L D (2.5-4.9) mg/dl Magnesium 1.6 L (1.7-2.4) mg/dl Total Bilirubin 1.7 H (0.2-1.0) mg/dl AST 90 H (13-39) U/L ALT 189 H (7-52) U/L Alkaline Phosphatase 197 H (34-104) U/L Total Protein 4.6 L (6.0-8.3) gm/dl Albumin 2.4 L (3.4-5.0) gm/dl Globulin 2.2 L (2.5-4.0) gm/dl Digoxin 0.7 L (0.8-2.0) ng/ml
[2024-10-27] MEDS: POTASSIUM PHOSPHATE 21 MMOL in SODIUM CHLORIDE 0.9% 500 ML IV ONE (10:02)
[2024-10-27] MEDS: POTASSIUM CHLORIDE 20 MEQ/15 ML UDC PO ONE (11:05)
[2024-10-27] MEDS: acetaZOLAMIDE 500 MG in SYRINGE 0 ML IV SCH (11:05)
[2024-10-27] MEDS: AMIODARONE 200 MG TAB PO SCH (11:05)
[2024-10-27 11:12] LABS: Hematocrit (blood only) 39.3 % (37.0-47.0); Hemoglobin 13.4 g/dl (12.0-16.0)
[2024-10-27] MEDS: FUROSEMIDE 40 MG/4 ML VIAL IV SCH (11:24)
--- NOTE | 2024-10-27 13:09 | Electrocardiogram Report ---
Test Reason : Blood Pressure : */* mmHG Vent. Rate : 99 BPM Atrial Rate : * BPM P-R Int : * ms QRS Dur : 106 ms QT Int : 300 ms P-R-T Axes : * 85 231 degrees QTcB Int : 385 ms Atrial fibrillation Low voltage QRS Incomplete right bundle branch block Nonspecific T wave abnormality Abnormal ECG When compared with ECG of 26-Oct-2024 04:51, Nonspecific T wave abnormality now evident in Inferior leads Nonspecific T wave abnormality, worse in Anterior leads Confirmed by Shalom Mae ([id number]) on 10/27/2024 1:09:03 PM Referred By: REFERRED SELF Confirmed By: Shalom Mae
[2024-10-27 16:20] LABS: Anion Gap 7.0 (3-11); Blood Urea Nitrogen 38.0 mg/dl (6-23); Calcium 8.0 mg/dl (8.6-10.3); Carbon Dioxide 30.0 mmol/L (21-32); Chloride 100.0 mmol/L (98-107); Creatinine Clr Calc Pharmacy 55.9 ml/min; Glucose 154.0 mg/dl (70-99(Fasting)); Magnesium 2.1 mg/dl (1.7-2.4); Potassium 4.0 mmol/L (3.5-5.1); Sodium 137.0 mmol/L (136-145)
[2024-10-27] MEDS: MAGNESIUM OXIDE 400 MG TAB PO SCH (20:01)
[2024-10-28] MEDS: FUROSEMIDE 40 MG/4 ML VIAL IV ONE ×3 (00:12→15:43)
[2024-10-28 04:31] LABS: Hematocrit (blood only) 40.8 % (37.0-47.0); Hemoglobin 13.4 g/dl (12.0-16.0); Immature Granulocytes # (auto) 0.09 K/uL (0.01-0.20); Immature Granulocytes % (auto) 0.5 %; Mean Corpuscular Hemoglobin 29.5 pg (25.0-34.0); Mean Corpuscular Volume 89.7 fL (80.0-100.0); Platelet Count 120 K/uL (130-400); RDW Standard Deviation 50.4 fL (36.4-46.3); Red Blood Count 4.55 M/uL (4.20-5.40); White Blood Count 17.03 K/ul (4.8-10.8)
[2024-10-28 04:48] LABS: Alanine Aminotransferase 137.0 U/L (7-52); Albumin Globulin Ratio 1.1 (0.9-2); Alkaline Phosphatase 214.0 U/L (34-104); Anion Gap 3.0 (3-11); Bilirubin,Total 1.5 mg/dl (0.2-1.0); Blood Urea Nitrogen 34.0 mg/dl (6-23); Calcium 8.2 mg/dl (8.6-10.3); Carbon Dioxide 31.0 mmol/L (21-32); Chloride 103.0 mmol/L (98-107); Creatinine Clr Calc Pharmacy 60.4 ml/min; Globulin 2.3 gm/dl (2.5-4.0); Glucose 136.0 mg/dl (70-99(Fasting)); Magnesium 2.0 mg/dl (1.7-2.4); Potassium 3.5 mmol/L (3.5-5.1); Sodium 137.0 mmol/L (136-145); Total Protein 4.8 gm/dl (6.0-8.3)
[2024-10-28 04:58] LABS: INR 1.3 (0.9-1.1); Partial Thromboplastin Time 33 Seconds (21-31); Prothrombin Time 13.6 Seconds (9.0-12.0)
[2024-10-28] MEDS: POTASSIUM CHLORIDE / WTR 10 MEQ/100 ML PLCT IV SCH (06:30)
--- NOTE | 2024-10-28 06:45 | Critical Care Progress Note ---
Date of Service October 28, 2024 Assessment & Plan (1) Ischemic hepatitis: (2) Acute kidney failure: (3) Lactic acidosis: (4) Cardiogenic shock: (5) Right heart failure: (6) Acute hypoxic respiratory failure: Plan Reason Critically Ill: 1. Acute hypoxemic respiratory failure 2/2 #2 and severe V/Q mismatch, R to L shunting 2. Decompensated R heart failure 3. Cardiogenic shock 4. Congestive hepatopathy 5. HAGMA 2/2 lactic acidosis 6. LEANN on CKD, prerenal 7. Bradycardia 8. Atrial fibrillation with recent cardioversion 9. PFO NEUROLOGIC - CAM ICU: Negative RASS GOAL -1 Fentanyl infusion at 50mcg, benzo pushes PRN CARDIOVASCULAR - DC'ed Milrinone infusion 10/26 DC vasopressin 10/27 Continue weaning norepinephrine, maintaining MAP goal > 65mmHg Continues hypervolemic, volume reduced by -7.4L Continue IV lasix 60mg BID and IV Diamox 500mg BID Pt has been in a-fib 1800 on 10/25, RVR has resolved - Continue po amiodarone of 200mg - Resume metoprolol 100mg pending wean from pressors and pt's ability to maintain BPs Recent YAZMIN showing PFO, severely dilated RV with moderately reduced function. LVEF intact. This was prior to [facility] Cardio consult completed Doppler BLE, Arterial duplex RLE. CK negative Resume Xarelto at home dose of 20mg RESPIRATORY - Due to significant reduction in volume since admission, consider trial of spontaneous breathing and extubation today SpO2 goal 92%, hyperoxia considered acceptable for pulmonary vasodilation Follow up ABG now and make adjustments as needed HOB 30, pulmonary hygiene GI - Congestive hepatopathy, ALT/AST continues down trending Ordered hepatic panel Continue thiamine 100mg qam Diet: continue tube feed SUP: Continue IV pantoprazole 40mg qd Bowel regimen: Continue RENAL/LYTES - Continues with high urine output on diuretics, another 3+L int he last 24 hrs Continue Diamox due to concern for contraction alkalosis Cr is stable Replaced potassium and magnesium Continue Parham for accurate I/Os Continue Diuresis as above Trending potassium q12h ENDO - Random cortisol is 28.13, slightly below threshold for beginning hydrocortisone therapy Considering she is able to reduce pressor support without drop in MAP, will hold off on starting IV steroids at this time BSG ranging from 231-149 BG 140-180 per SCCM guidelines ISS if needed while inpatient HEME - Down trending coag panel and resolution of vaginal bleeding Resume Xarelto Continue to trend coags Hbg and Hct was stable ID - Blood cx positive for Leclercia adacarboxlata in 1/2 bottles. Repeat blood cx is negative for growth in 24 hrs Pt is symptomatic and stable WBC Continue Ceftazidime for presumed bacterial translocation from gut Will continue to follow LINES/TUBES/DRAINS - ETT (Day #4) OGT (Day #4) Parham (Day #4) DVT PROPHYLAXIS - Xarelto 20mg DISPOSITION - ICU CODE STATUS - Conditional code (No CPR, defibrillation). Patient was clear that she does not wish for aggressive measures. See Dr. Salas note for details of conversation. Son, Ronny, made aware of grim prognosis. He will gather close by family to visit. Considering compassionate extubation and comfort based measures. Admission and Anticipated Discharge Date Admission Date: October 25, 2024 Supervising Physician Co-Signing Physician Notes Dr. Stephens was resident physician during care of patient. I separately evaluated patient for rivera portions of the history and the exam. I was present during the critical portion of medical decision making, and I discussed the case with the resident. I generally agree with the findings and plan. Additional information from cardiology service reports that 08/16/2024 outpatient note weight was a measured scale weight of 84 kg. Next measured at weight 8 weeks later, October 10, 2024 was 108 kg. Admission measured weight initially 108.2 kg. Current weight 96.7 kg. Current I/O: -7.6 L, patient now tolerating lowering head of bed; however, still showing significant clinical signs of anasarca, albeit decreased. Ceftazidime for possible bacteremia, will treat for 7 days, this would be adequate coverage for community-acquired pneumonia: Patient has leukocytosis however remains afebrile) further but feel the organism in 1 bottle does not represent a true bacteremia. This organism is not known to cause significant infections and not immunocompromise individuals, she does not have significant evidence of osteomyelitis which there appear to be only case reports of this organism causing similar infections, I feel it would be appropriate for 7 days treatment duration. For completeness we will add an acute hepatitis panel however clinically this appears to be most consistent with congestive hepatopathy. Supratherapeutic INR resolving, I feel it is appr opriate to continue systemic anticoagulation with the indication being atrial fibrillation. She does not appear to have evidence concerning for venous thromboembolism, her venous duplex was negative, a CT scan of the chest was not obtained secondary to acute kidney injury. Patient's hypoxia appeared to be most consistent with profound volume overload I feel the risks of a CT scan of the chest outweigh the benefits of empiric treatment, further given the patient was reportedly taking anticoagulation medication I feel the pretest probability of her having a venous thromboembolism is exceedingly low. Restart Xarelto 20 mg daily. Patient on minimal vasoactives that can probably be discontinued. I think it is reasonable to restart her metoprolol we will start 50 mg tartrate to evaluate for tolerability. Continuing with aggressive diuresis with Diamox and Lasix: Patient received first dose this morning, continue potassium supplementation Subjective No acute events overnight. This morning, pt continues to be easily arousable with voice or tough. She answers yes/no questions with head nods or shakes as she remains intubated. She denies chest pain, new myalgias/arthralgias, abdominal pain, headache, dizziness, or nausea. Pt endorses numbness in her hands and feet, but confirms this symptom was a pre-existing to this hospitaliza tion. Review of Systems Review of Systems: As per HPI Physical Exam Physical Exam: Gen: Laying bed bed, easily arousable but sleepy, intubated HENT: Normocephalic, atraumatic. External ear without deformities. Trachea midline, no thyromegaly Cardio: a-fib, no murmurs or clicks. Resp: CTAB, Equal bilateral chest rise, ventilator assisted GI: Distended but soft, and nontender, normoactive bowel sounds : Parham in place, pale yellow urine in parham bag MSK: Able to move UE's and LE's against gravity, moving toes and fingers, fair- good grasp Skin: Bilateral distal toes/feet are red and warm to touch, lower legs with weeping open skin. Drainage is serous. Neuro: Pt is alert and oriented to name. Unable to assess orientation to time and place due to intubation. Pt is following 1-2 step commands and answering questions with yes/no. gross strength is noted at UE's and LEs as well as sensation during exam. Results & Data Results & Data Vital Signs (Past 12 Hours) Vital Signs Temp Pulse Resp BP Pulse Ox O2 Del Method O2 Flow Rate 10/28/24 03:35 94 H 16 99 10/28/24 03:03 36.8 C 89 12 98 10/28/24 02:06 36.9 C 102 H 12 99 10/28/24 01:00 36.8 C 105 H 12 96 10/28/24 00:06 36.8 C 103 H 14 96 10/28/24 00:00 96 H 10/28/24 00:00 105 H 110/60 10/28/24 00:00 10/27/24 23:30 100 H 12 98 10/27/24 23:12 36.8 C 103 H 12 98 10/27/24 22:06 36.7 C 98 H 14 94 10/27/24 21:00 36.8 C 91 H 12 93 10/27/24 20:38 15 10/27/24 20:12 36.7 C 104 H 12 93 10/27/24 20:00 10/27/24 20:00 100 H 107/60 10/27/24 19:30 Mechanical Vent 30 10/27/24 19:00 36.6 C 111 H 24 95 FiO2 10/28/24 03:35 30 10/28/24 03:03 30 10/28/24 02:06 30 10/28/24 01:00 30 10/28/24 00:06 30 10/28/24 00:00 10/28/24 00:00 10/28/24 00:00 30 10/27/24 23:30 30 10/27/24 23:12 30 10/27/24 22:06 10/27/24 21:00 30 10/27/24 20:38 30 10/27/24 20:12 30 10/27/24 20:00 30 10/27/24 20:00 10/27/24 19:30 10/27/24 19:00 40 Critical Care Results & Data Vital Signs (Past 12 Hours) Vital Signs Temp Pulse Resp BP Pulse Ox O2 Del Method O2 Flow Rate 10/28/24 10:05 98 Oxymask 4 10/28/24 09:54 36.9 C 18 99 Oxymask 7 10/28/24 09:39 36.9 C 90 25 H 10/28/24 09:15 36.9 C 93 H 12 95 10/28/24 09:03 36.9 C 89 15 100 Mechanical Vent 10/28/24 08:30 36.8 C 82 45 H 99 Mechanical Vent 10/28/24 08:28 Mechanical Vent 10/28/24 08:03 36.8 C 90 23 100 Mechanical Vent 10/28/24 08:00 10/28/24 08:00 78 10/28/24 07:54 36.8 C 98 H 30 H 100 CPAP 10/28/24 07:40 85 13 100 10/28/24 07:00 36.8 C 78 18 100 Mechanical Vent 10/28/24 06:42 36.8 C 82 17 100 Mechanical Vent 10/28/24 06:12 36.9 C 77 14 98 10/28/24 05:33 36.9 C 100 H 27 H 98 10/28/24 04:00 36.8 C 90 17 100 10/28/24 04:00 10/28/24 04:00 96/51 L 10/28/24 03:35 94 H 16 99 10/28/24 03:03 36.8 C 89 12 98 10/28/24 02:06 36.9 C 102 H 12 99 10/28/24 01:00 36.8 C 105 H 12 96 10/28/24 00:06 36.8 C 103 H 14 96 10/28/24 00:00 96 H 10/28/24 00:00 105 H 110/60 10/28/24 00:00 10/27/24 23:30 100 H 12 98 10/27/24 23:12 36.8 C 103 H 12 98 10/27/24 22:06 36.7 C 98 H 14 94 FiO2 10/28/24 10:05 10/28/24 09:54 10/28/24 09:39 10/28/24 09:15 10/28/24 09:03 10/28/24 08:30 10/28/24 08:28 30 10/28/24 08:03 10/28/24 08:00 30 10/28/24 08:00 10/28/24 07:54 10/28/24 07:40 30 10/28/24 07:00 10/28/24 06:42 10/28/24 06:12 30 10/28/24 05:33 30 10/28/24 04:00 30 10/28/24 04:00 30 10/28/24 04:00 10/28/24 03:35 30 10/28/24 03:03 30 10/28/24 02:06 30 10/28/24 01:00 30 10/28/24 00:06 30 10/28/24 00:00 10/28/24 00:00 10/28/24 00:00 30 10/27/24 23:30 30 10/27/24 23:12 30 10/27/24 22:06 Lab & Micro Results (Past 24 Hours) RBC 4.55 M/uL (4.20-5.40) 10/28/24 WBC 17.03 K/ul (4.8-10.8) H 10/28/24 Hgb 13.4 g/dl (12.0-16.0) 10/28/24 Hct 40.8 % (37.0-47.0) 10/28/24 MCV 89.7 fL (80.0-100.0) 10/28/24 MCH 29.5 pg (25.0-34.0) 10/28/24 MCHC 32.8 g/dL (32.0-36.0) 10/28/24 RDW Standard Deviation 50.4 fL (36.4-46.3) H 10/28/24 RDW Coefficient of Variation 15.5 % (11.5-14.5) H 10/28/24 Plt Count 120 K/uL (130-400) L 10/28/24 MPV 10.3 fL (9.4-12.4) 10/28/24 Neutrophils (%) (Auto) 83.6 % 10/28/24 Lymphocytes (%) (Auto) 5.3 % 10/28/24 Monocytes # (Auto) 1.60 K/uL (0.11-0.59) H 10/28/24 Eosinophils # (Auto) 0.16 K/uL (0.00-0.50) 10/28/24 Immature Granulocyte % (Auto) 0.5 % 10/28/24 Neutrophils # (Auto) 14.22 K/uL (1.40-6.50) H 10/28/24 Lymphocytes # (Auto) 0.91 K/uL (1.20-3.40) L 10/28/24 Monocytes # (Auto) 1.60 K/uL (0.11-0.59) H 10/28/24 Eosinophils # (Auto) 0.16 K/uL (0.00-0.50) 10/28/24 Basophils # (Auto) 0.05 K/uL (0.00-0.20) 10/28/24 Immature Granulocyte # (Auto) 0.09 K/uL (0.01-0.20) 5 Na 137 mmol/L (136-145) 10/28/24 K 3.5 mmol/L (3.5-5.1) 10/28/24 Cl 103 mmol/L (98-107) 10/28/24 CO2 31 mmol/L (21-32) 10/28/24 Anion Gap 3 (3-11) 10/28/24 BUN 34 mg/dl (6-23) H 10/28/24 Creatinine 0.87 mg/dl (0.6-1.2) 10/28/24 BUN/Creatinine Ratio 39.1 (10-20) H 10/28/24 Glu 136 mg/dl (70-99(Fasting)) H 10/28/24 Ca 8.2 mg/dl (8.6-10.3) L 10/28/24 Phosphorus Level 2.8 mg/dl (2.5-4.9) 10/27/24 Total Bilirubin 1.5 mg/dl (0.2-1.0) H 10/28/24 AST 52 U/L (13-39) H 10/28/24 ALT 137 U/L (7-52) H 10/28/24 Alkaline Phosphatase 214 U/L (34-104) H 10/28/24 TP 4.8 gm/dl (6.0-8.3) L 10/28/24 Albumin 2.5 gm/dl (3.4-5.0) L 10/28/24 Globulin 2.3 gm/dl (2.5-4.0) L 10/28/24 Albumin/Globulin Ratio 1.1 (0.9-2) 10/28/24 Mg 2.0 mg/dl (1.7-2.4) 10/28/24 04:09 Calcium Level 8.2 mg/dl (8.6-10.3) L 10/28/24 04:09 Prothromb Time International Ratio 1.3 (0.9-1.1) H 10/28/24 04 :09 Microbiology 10/27/24 04:20 Aerobic Blood Culture - Preliminary Blood No growth in Aerobic bottle after 24 hours. Anaerobic Blood Culture - Preliminary No growth in Anaerobic bottle after 24 hours. 10/27/24 04:20 Aerobic Blood Culture - Preliminary Blood No growth in Aerobic bottle after 24 hours. Anaerobic Blood Culture - Preliminary No growth in Anaerobic bottle after 24 hours. 10/25/24 10:10 Aerobic Blood Culture - Preliminary Blood No growth in Aerobic bottle after 48 hours. Anaerobic Blood Culture - Final 10/25/24 05:00 Aerobic Blood Culture - Final Blood Leclercia adecarboxylata Anaerobic Blood Culture - Final Leclercia adecarboxylata I & O Totals 24 Hours 10/27/24 10/28/24 10/29/24 06:59 06:59 06:59 Intake Total 1748.188 / 2262.996 9788.449 / 2166.449 288.324 / 288.324 Output Total 6610 / 6610 3450 / 3450 550 / 550 Balance -4861.812 / -4861.812 -1283.551 / -1283.551 -261.676 / -261.676 Cumulative 10/25/24 02:44 thru 10/28/24 10:00 Intake Total 6002.243 Output Total 92387 Balance -7977.757 RT Ventilator Mngmt (Last Documented) Ventilator Ordered Settings Ventilator Support Mode Assist Control 10/28/24 08 :00 Respiratory Rate 18 10/28/24 09:54 Ventilator Tidal Volume 440 10/28/24 08:00 Setting Minute Ventilation 57 10/28/24 07:40 Positive End Expiratory 6 10/28/24 08:00 Pressure Fraction of Inspired Oxygen 30 10/28/24 08:28 Machine Comment Fio2 decreaed from 35% to 30% 10/27/24 07:50 Ventilator - PT Measurements Respiratory Rate 18 Exhaled Tidal Volume 441 Minute Ventilation 57 Peak Inspiratory Airway 19 Pressure Plateau Pressure 15.6 Respiratory Cycle Inspiratory: 1:4 Expiratory Ratio Inspiratory Phase Time 1 End-Tidal CO2 34 Static Lung Compliance 45.94 Dynamic Lung Compliance 33.92 Normal Static Lung Compliance 48.00 Patient Measurements Comment Pt extubated at 09:[address] Beckwith order. PT placed on 6L O2. PT's SPO2 995, HR 99. RR 28. RT will continue to monitor. Resident Activity Tracking Resident Involvement: Resident Care Provided Care Provided: Adult [facility] Medicine
[2024-10-28] MEDS: POTASSIUM CHLORIDE / WTR 20 MEQ/100 ML PLCT IV ONE (07:07)
[2024-10-28] MEDS: THIAMINE HCL 100 MG TAB PO SCH (07:29)
[2024-10-28] MEDS: PANTOprazole 40 MG/10 ML SYR IV SCH (07:31)
[2024-10-28 07:58] LABS: Hemoglobin A1C 7.6 % (4.5-5.6)
--- NOTE | 2024-10-28 08:28 | Hospitalist Progress Note ---
Date of Service October 28, 2024 Assessment & Plan (1) Acute on chronic respiratory failure: (2) Hypotension: (3) Anticoagulated: (4) Atrial fibrillation with rapid ventricular response: (5) Transaminitis: (6) Bacteremia due to Gram-negative bacteria: (7) Acute on chronic heart failure with preserved ejection fraction: (8) Septic shock: (9) Acute kidney failure: (10) Cardiogenic shock: Plan The patient is an 84-year-old female with past medical history including atrial fibrillation with rapid ventricular response, HFpEF, hypertension, PFO. She is most recently admitted to [facility] from 10/10-10/14/2024, with A-fib with RVR and acute CHF. She underwent DCCV, and was started on amiodarone and Xarelto, which she has continued. She was also continued on furosemide 40 mg daily, and metoprolol succinate 100 mg daily along with spironolactone 25 mg daily. She presented to the emergency department with acute onset of shortness of breath, and was intubated in the ED due to acute respiratory failure. Respiratory panel was negative. Chest x-ray showed a slight increase in left pleural effusion but otherwise appeared normal. AST was 190 and ALT 185, with a troponin of 35.8. In the emergency department, patient became hypotensive, and was started on multiple pressors including Levophed, vasopressin, and had addition of milrinone. Patient successfully extubated remains conditional code pressors have been titrated to off #Cardiogenic and septic shock, HFPEFresolved and felt to be initial event even with sepsis Parenteral blood pressure support has been discontinued and patient is improving from cardiogenic shock #Gram-negative bacilli bacteremia Cefepime given in the ER 10/25, restarted 10/25 evening after blood cultures returned positive, switched to ceftazidime 10/26 Leclercia Adecarboxylata - this is normal gut shashi suspect this is translocation of bacteria with her significant volume overload and ascites on POCUS Alternative source is right lower extremity which appears more cellulitic now that her legs are better perfused patient has evidence of skin breach with skin tear and hematoma which likely could be portal of entry for her gram-negative bacteremia #Acute on chronic respiratory failure with hypoxia / Acute on chronic HFpEF Successfully extubated daily dosing of Lasix to be determined Pantoprazole for GI prophylaxis with elevated INR - hemoglobin appears stable #Atrial fibrillation with rapid ventricular rate Paroxysmal following cardioversion 10/13 on last hospitalization and discharged on amiodarone Converted to a. fib RVR 10/25 evening with subsequent drop in BP Rates appear to be improved on digoxin and amiodarone Currently off anticoagulation but INR is 2.4 digoxin is subtherapeutic at 0.7 [facility] cardiology is following #Transaminitis Likely secondary to hepatic congestion., shock liver Improving #Acute kidney injury Improving with treatment of shock and decreased congestion, having good urine output intermittent Lasix dosing determined by clinical assessment VTE Prophylaxis - defer to ICU team in the setting of elevated INR, reportedly also having vaginal bleeding, SCDs contraindicated with skin condition of lower extremities Admission and Anticipated Discharge Date Admission Date: October 25, 2024 Subjective Patient is extubated and breathing comfortably. Son is at the bedside and updated. Patient arouses but falls back to sleep easily she has no focal complaints. She does have discomfort to her leg where she has got both a skin tear and looks like a hematoma that is beginning to expand breast is held by pointing to the skin. Physical Exam Physical Exam: Her card exam is regular her lungs are diminished at the bases her abdomen is normal active bowel sounds no longer tender and her extremity Continues to be erythematous with a hematoma and a skin tear. Results & Data Results & Data Vital Signs (Past 12 Hours) Vital Signs Temp Pulse Resp BP Pulse Ox O2 Del Method FiO2 10/28/24 08:03 98.2 F 90 23 100 Mechanical Vent 10/28/24 08:00 30 10/28/24 08:00 78 10/28/24 07:54 98.2 F 98 H 30 H 100 CPAP 10/28/24 07:40 85 13 100 10/28/24 07:00 98.2 F 78 18 100 Mechanical Vent 10/28/24 06:42 98.2 F 82 17 100 Mechanical Vent 10/28/24 06:12 98.4 F 77 14 98 30 10/28/24 05:33 98.4 F 100 H 27 H 98 30 10/28/24 04:00 98.2 F 90 17 100 30 10/28/24 04:00 30 10/28/24 04:00 96/51 L 10/28/24 03:35 94 H 16 99 30 10/28/24 03:03 98.2 F 89 12 98 10/28/24 02:06 98.4 F 102 H 12 99 30 10/28/24 01:00 98.2 F 105 H 12 96 30 10/28/24 00:06 98.2 F 103 H 14 96 30 10/28/24 00:00 96 H 10/28/24 00:00 105 H 110/60 10/28/24 00:00 30 10/27/24 23:30 100 H 12 98 30 10/27/24 23:12 98.2 F 103 H 12 98 30 10/27/24 22:06 98.1 F 98 H 14 94 10/27/24 21:00 98.2 F 91 H 12 93 30 10/27/24 20:38 15 30 Laboratory Results Reviewed CBC continues with leukocytosis reviewed chemistry transaminases improving from shock liver PG Care Time/CCT Total # of Minutes Spent Total Time Spent with Patient: Total time spent is greater than 50% in coordination of care (as documented) at patient's floor/unit and/or counseling patient: Coding Level of Care Code 32859 SUB INP/OBS CARE 3/50MIN Diagnoses Acute on chronic respiratory failure J96.20 Hypotension I95.9 Anticoagulated Z79.01 Atrial fibrillation with rapid ventricular response I48.91 Transaminitis R74.01 Bacteremia due to Gram-negative bacteria R78.81 Acute on chronic heart failure with preserved ejection fraction I50.33 Septic shock A41.9; R65.21 Acute kidney failure N17.9 Cardiogenic shock R57.0
[2024-10-28] MEDS: POTASSIUM CHLORIDE 20 MEQ/15 ML UDC PO STA (08:42)
[2024-10-28] MEDS: acetaZOLAMIDE 500 MG in SYRINGE 0 ML IV STA (08:44)
[2024-10-28] MEDS: METOPROLOL TARTRATE 50 MG TAB PO SCH (09:08)
[2024-10-28] MEDS: POTASSIUM CHLORIDE PWD 20 MEQ PACK PO SCH (09:08)
--- NOTE | 2024-10-28 10:09 | Billing Data ---
Date of Service October 28, 2024 Coding Level of Care Code 74586 CRITICAL CARE
[2024-10-28 10:18] LABS: Hep B Surface Ag with confirm Negative (Negative)
[2024-10-28 10:23] LABS: Hep C Ab Rflx HepCQuant RNA Negative (Negative)
[2024-10-28] MEDS: cefTAZidime 2,000 MG in DEXTROSE 5 % MINI-B 50 ML IV SCH (11:00)
--- NOTE | 2024-10-28 11:21 | Cardiology Progress Note ---
Date of Service October 28, 2024 Assessment & Plan (1) Right-sided congestive heart failure: (2) Diastolic CHF, chronic: (3) Atrial fibrillation with rapid ventricular response: (4) Acute hypoxic respiratory failure: (5) Acute kidney failure: (6) Ischemic hepatitis: Plan I suspect her significant right-sided heart failure has been going on for longer than we realize. By her own report when I saw her in the office she had had abdominal swelling and lower extremity edema and was told that the right side of her heart was enlarged in the past. The etiology of this is not completely clear however her atrial fibrillation has been extremely difficult to control and was definitely contributing to her symptoms. At this point her family is trying to decide how they want to proceed with her level of care. I know she has 5 sons I have spoken to her her son Ronny who lives locally and assists her. Her weight is still up from 84kg from my August OV. She still has significant diuresis to undergo--must do cautiously to follow her renal function Admission and Anticipated Discharge Date Admission Date: October 25, 2024 Subjective No acute events overnight. This morning, pt continues to be easily arousable with voice or tough. Extubated earlier this am; resp appear comfortable Spoke with son Ronny Review of Systems Review of Systems: Unobtainable due to reduced consciousness Physical Exam Physical Exam: Extubated; appear comfortable able to answer yes/no questions Respiratory: diminshed b/l Cardiovascular: irregular/tachy/afib Results & Data Vital Signs (Past 12 Hours) Vital Signs Temp Pulse Resp BP Pulse Ox O2 Del Method O2 Flow Rate 10/28/24 10:05 98 Oxymask 4 10/28/24 09:54 36.9 C 18 99 Oxymask 7 10/28/24 09:39 36.9 C 90 25 H 10/28/24 09:15 36.9 C 93 H 12 95 10/28/24 09:03 36.9 C 89 15 100 Mechanical Vent 10/28/24 08:30 36.8 C 82 45 H 99 Mechanical Vent 10/28/24 08:28 Mechanical Vent 10/28/24 08:03 36.8 C 90 23 100 Mechanical Vent 10/28/24 08:00 90 10/28/24 08:00 10/28/24 08:00 78 10/28/24 07:54 36.8 C 98 H 30 H 100 CPAP 10/28/24 07:40 85 13 100 10/28/24 07:00 36.8 C 78 18 100 Mechanical Vent 10/28/24 06:42 36.8 C 82 17 100 Mechanical Vent 10/28/24 06:12 36.9 C 77 14 98 10/28/24 05:33 36.9 C 100 H 27 H 98 10/28/24 04:00 36.8 C 90 17 100 10/28/24 04:00 10/28/24 04:00 96/51 L 10/28/24 03:35 94 H 16 99 10/28/24 03:03 36.8 C 89 12 98 10/28/24 02:06 36.9 C 102 H 12 99 10/28/24 01:00 36.8 C 105 H 12 96 10/28/24 00:06 36.8 C 103 H 14 96 10/28/24 00:00 96 H 10/28/24 00:00 105 H 110/60 10/28/24 00:00 10/27/24 23:30 100 H 12 98 FiO2 10/28/24 10:05 10/28/24 09:54 10/28/24 09:39 10/28/24 09:15 10/28/24 09:03 10/28/24 08:30 10/28/24 08:28 30 10/28/24 08:03 10/28/24 08:00 10/28/24 08:00 30 10/28/24 08:00 10/28/24 07:54 10/28/24 07:40 30 10/28/24 07:00 10/28/24 06:42 10/28/24 06:12 30 10/28/24 05:33 30 10/28/24 04:00 30 10/28/24 04:00 30 10/28/24 04:00 10/28/24 03:35 30 10/28/24 03:03 30 10/28/24 02:06 30 10/28/24 01:00 30 10/28/24 00:06 30 10/28/24 00:00 10/28/24 00:00 10/28/24 00:00 30 10/27/24 23:30 30 Laboratory Results Abnormal lab results 10/27/24 10/27/24 10/27/24 Range/Units 11:08 15:48 17:28 WBC (4.8-10.8) K/ul RDW Std Deviation (36.4-46.3) fL RDW Coeff of Celso (11.5-14.5) % Plt Count (130-400) K/uL Neut # (Auto) (1.40-6.50) K/uL Lymph # (Auto) (1.20-3.40) K/uL Mccracken # (Auto) (0.11-0.59) K/uL PT (9.0-12.0) Seconds INR (0.9-1.1) APTT (21-31) Seconds BUN 38 H (6-23) mg/dl BUN/Creatinine Ratio 40.4 H (10-20) Glucose 154 H (70-99(Fasting)) mg/dl POC Glucose (other) 231 H 128 H (70-99) mg/dl Hemoglobin A1c (4.5-5.6) % Calcium 8.0 L (8.6-10.3) mg/dl Total Bilirubin (0.2-1.0) mg/dl AST (13-39) U/L ALT (7-52) U/L Alkaline Phosphatase (34-104) U/L Total Protein (6.0-8.3) gm/dl Albumin (3.4-5.0) gm/dl Globulin (2.5-4.0) gm/dl 10/28/24 10/28/24 Range/Units 00:08 04:09 WBC 17.03 H (4.8-10.8) K/ul RDW Std Deviation 50.4 H (36.4-46.3) fL RDW Coeff of Celso 15.5 H (11.5-14.5) % Plt Count 120 L (130-400) K/uL Neut # (Auto) 14.22 H (1.40-6.50) K/uL Lymph # (Auto) 0.91 L (1.20-3.40) K/uL Mccracken # (Auto) 1.60 H (0.11-0.59) K/uL PT 13.6 H (9.0-12.0) Seconds INR 1.3 H (0.9-1.1) APTT 33 H (21-31) Seconds BUN 34 H (6-23) mg/dl BUN/Creatinine Ratio 39.1 H (10-20) Glucose 136 H (70-99(Fasting)) mg/dl POC Glucose (other) 149 H (70-99) mg/dl Hemoglobin A1c 7.6 H (4.5-5.6) % Calcium 8.2 L (8.6-10.3) mg/dl Total Bilirubin 1.5 H (0.2-1.0) mg/dl AST 52 H (13-39) U/L ALT 137 H (7-52) U/L Alkaline Phosphatase 214 H (34-104) U/L Total Protein 4.8 L (6.0-8.3) gm/dl Albumin 2.5 L (3.4-5.0) gm/dl Globulin 2.3 L (2.5-4.0) gm/dl
[2024-10-28] MEDS ORDERED: FUROSEMIDE 40 MG/4 ML VIAL IV ONE (12:00)
[2024-10-28] MEDS ORDERED: Nursing to Pharmacy Communication SCH (13:15)
[2024-10-28] MEDS: acetaZOLAMIDE 500 MG in SYRINGE 0 ML IV SCH (15:43)
[2024-10-28] MEDS ORDERED: ENOXAPARIN 1 MG/KG SQ ONE (19:00)
[2024-10-28] MEDS: RIVAROXABAN 20 MG TAB PO SCH (19:11)
[2024-10-28] MEDS: ENOXAPARIN 100 MG/1ML SYR SQ SCH (20:42)
[2024-10-28] MEDS: METOPROLOL TARTRATE 1 MG/ML VIAL IV SCH (20:43)
[2024-10-29 05:07] LABS: Hematocrit (blood only) 41.5 % (37.0-47.0); Hemoglobin 13.4 g/dl (12.0-16.0); Immature Granulocytes # (auto) 0.17 K/uL (0.01-0.20); Immature Granulocytes % (auto) 1.1 %; Mean Corpuscular Hemoglobin 29.4 pg (25.0-34.0); Mean Corpuscular Volume 91.0 fL (80.0-100.0); Platelet Count 127 K/uL (130-400); RDW Standard Deviation 52.4 fL (36.4-46.3); Red Blood Count 4.56 M/uL (4.20-5.40); White Blood Count 14.81 K/ul (4.8-10.8)
[2024-10-29 05:22] LABS: Anion Gap 8.0 (3-11); Blood Urea Nitrogen 35.0 mg/dl (6-23); Calcium 8.3 mg/dl (8.6-10.3); Carbon Dioxide 29.0 mmol/L (21-32); Chloride 102.0 mmol/L (98-107); Creatinine Clr Calc Pharmacy 61.0 ml/min; Glucose 136.0 mg/dl (70-99(Fasting)); Magnesium 2.0 mg/dl (1.7-2.4); Potassium 3.5 mmol/L (3.5-5.1); Sodium 139.0 mmol/L (136-145)
[2024-10-29 05:32] LABS: INR 1.2 (0.9-1.1); Prothrombin Time 12.7 Seconds (9.0-12.0)
--- NOTE | 2024-10-29 06:44 | Critical Care Progress Note ---
Date of Service October 29, 2024 Assessment & Plan (1) Ischemic hepatitis: (2) Acute kidney failure: (3) Lactic acidosis: (4) Cardiogenic shock: (5) Right heart failure: (6) Acute hypoxic respiratory failure: (7) Cardiorenal syndrome with renal failure: (8) Hepatopathy: Plan Liss is breathing independently and sating >92% on RA. She is hemodynamically stable and no longer requiring pressors to maintain MAP >65mmHg. Concern for safe swallowing and unilateral lower extremity edema/calf pain/decreased sensation. Pt is medically stable and no longer requires critical care support. Pt ready to downgrade to medical floor for continued hospital course. Reason Critically Ill: 1. Acute hypoxemic respiratory failure 2/2 #2 and severe V/Q mismatch, R to L shunting 2. Decompensated R heart failure 3. Cardiogenic shock 4. Congestive hepatopathy 5. HAGMA 2/2 lactic acidosis 6. LEANN on CKD, prerenal 7. Bradycardia 8. Atrial fibrillation with recent cardioversion 9. PFO NEUROLOGIC - Neurologically intact. Swallow eval with ST today. Pending recommendations CARDIOVASCULAR - Remove arterial line DC norepinephrine with MAP goal > 65mmHg without meds Continues hypervolemic, volume reduced by -9.5L Continue IV lasix 60mg BID and IV Diamox 500mg BID Cardio following, will adjust meds as appropriate to treat continued a-fib po Xarelto 20mg held, given weight based lovenox. Will resume po Xarelto is deemed safe for po meds following ST eval Concern for DVT at right vs left lower leg with more edema, pain with palpation at proximal calf and decreased sensation at foot when compared to left. Placed order for repeat doppler to assess venous blood flow. WIll follow up on study RESPIRATORY - Successfully extubated 10/28 in AM. Pt's O2 sat >92% on RA. ICS prn Will continue to monitor GI - Congestive hepatopathy, ALT/AST continues down trending Hep Bs and hep C are negative, pending Hep B core IgM and Hep C IgM Continue thiamine 100mg qam Diet: pending ST eval SUP: Continue IV pantoprazole 40mg qd Bowel regimen: Continue RENAL/LYTES - Continues with high urine output on diuretics, another 2.6L int he last 24 hrs Continue Diamox due to concern for contraction alkalosis Cr is stable Replaced potassium Continue Parham for accurate I/Os Continue Diuresis as above Continue BMP qam ENDO - A1c is 7.6%, no previous dx of DM BSG ranging from 118-136 BG 140-180 per SCC[employer] guidelines ISS if needed HEME - INR is stable at 1.2 Holding po Xarelto in favor of lovenox. Resume po meds when clear for safe swallow by ST Continue to trend coags Hbg and Hct was stable ID - Initial blood cx positive for Leclercia adacarboxlata in 1/2 bottles. Repeat b lood cx is negative for growth in 48 hrs. Contaminant vs resolved bacteremia Pt is asymptomatic and stable WBC Continue Ceftazidime to complete 7 day course Will continue to follow LINES/TUBES/DRAINS - Parham (Day #5) DVT PROPHYLAXIS - Lovenox 100mg sq DISPOSITION - Downgrade to medical floor CODE STATUS - Conditional code (No CPR, defibrillation). Patient was clear that she does not wish for aggressive measures. See Dr. Salas note for details of conversation. Son, Ronny, made aware of grim prognosis. He will gather close by family to visit. Considering compassionate extubation and comfort based measures. Admission and Anticipated Discharge Date Admission Date: October 25, 2024 Supervising Physician Co-Signing Physician Notes Dr. Stephens was resident physician during care of patient. I separately evaluated patient for rivera portions of the history and the exam. I was present during the critical portion of medical decision making, and I discussed the case with the resident. I generally agree with the findings and plan. Presumptive dry weight of 84 kg from 08/16/2024 outpatient notes, today's weight 96.5 kg down 12 kg from admission approaching 10 L negative. INR normalizing, on Lovenox for systemic anticoagulation secondary to atrial fibrillation until cleared for swallow and would transition back to Xarelto. Sodium back within acceptable range previously hypervolemic hyponatremia, LFTs also normalizing, hepatitis panel B surface and C both negative A and B core pending. Anticipate finishing 7-day ceftazidime course given questionable bacteremia and possible pneumonia. Continue aggressive diuresis: I would anticipate she should be able to tolerate aggressive until 90 kg body weight or other systemic signs of relative intravascular depletion. At this point patient still shows systemic signs of anasarca. Patient is tolerating low-dose beta-sera at this time. I anticipate the patient will be able to pass a swallow study today and would add a fluid restricted, low-sodium heart healthy diet as well as a bowel regimen With regards to the significant hypoxia, the patient could have been experiencing hepatopulmonary syndrome: Echo was not obtained with agitated saline. Dean-pulmonary hypertension also remains in the differential. There is significant overlap regarding treatment so we will continue with diuresis, sodium restriction and beta-blockade. Patient had grade 3 ascites on presentation. Prior LFTs were normal therefore I suspect primary hepatic disease to be less likely compared to congestive hepatopathy. Given the ascites findings would consider increasing spironolactone to 50 mg daily and attempt to maintain 5:2 ratio spironolactone to Lasix when able to take p.o. We have discontinued vasoactive medications this morning. If patient remains off vasoactives she would be stable for downgrade out of ICU later today. Subjective Pt was extubated yesterday. This morning, pt reports she is feeling tired, but overall well. She notes pain at her right lower leg and foot. She also has some mild discomfort at left lower leg, but not as bad at the right. Pt was sucking on ice chips during the exam and denied chocking or coughing. Pt denies chest pain, SOB, dizziness/lightheadedness, abdominal pain, nausea, vomiting, or headache. Pt endorses bilateral foot numbness, but states right foot feels more numb than left this morning. Pt also endorses sore throat. Review of Systems Review of Systems: As per HPI Physical Exam Physical Exam: Gen: Laying in bed. Alert and awake. Verbally answering questions appropriately in complete sentences HENT: Normocephalic, atraumatic. External ear without deformities. Trachea midline, no thyromegaly Cardio: a-fib, no murmurs or clicks. Right lower leg, ankle and foot is more edematous than left. Right proximal calf is significantly tender to palpation and firm when compared to left. Bilateral lower legs and feet warm to touch. Resp: CTAB, Equal bilateral chest rise, no increased work of breathing at rest GI: Distended but primarily soft mildly firm at right lower quadrant, Non tender to palpation, normoactive bowel sounds : Parham in place, pale yellow urine in parham bag MSK: Able to move UE's against gravity, general weakness noted, move all toes and bilateral ankles Skin: Bilateral distal toes/feet are red and warm to touch, Right lower leg bandaged due to weeping open skin. Drainage is serous. Neuro: A&O x 3. CN II- VII is grossly intact. Gross motor and sensation are in tact with exception of right foot with reported decreased sensation to light touch than left Results & Data Results & Data Vital Signs (Past 12 Hours) Vital Signs Temp Pulse Resp BP Pulse Ox O2 Del Method 10/29/24 06:00 36.8 C 84 19 92 10/29/24 05:00 36.8 C 81 20 92 10/29/24 04:24 36.9 C 83 19 92 10/29/24 04:15 87 92/51 L 10/29/24 04:00 89 112/59 L 10/29/24 03:06 37.0 C 91 H 36 H 92 10/29/24 02:03 37.0 C 81 17 87 L 10/29/24 01:00 37.0 C 87 18 94 10/29/24 00:03 37.0 C 97 H 26 H 94 10/29/24 00:00 97 H 10/28/24 23:03 37.1 C 98 H 27 H 93 10/28/24 22:03 37.1 C 86 32 H 91 10/28/24 21:03 37.1 C 83 23 91 10/28/24 21:03 78 89/52 L 10/28/24 20:43 92 H 120/60 10/28/24 20:00 37.0 C 97 H 21 92 10/28/24 19:56 Room Air 10/28/24 19:00 36.9 C 91 H 25 H 93
[2024-10-29] MEDS: POTASSIUM CHLORIDE / WTR 10 MEQ/100 ML PLCT IV SCH (06:45)
--- NOTE | 2024-10-29 07:24 | Hospitalist Progress Note ---
Date of Service October 29, 2024 Assessment & Plan (1) Acute on chronic respiratory failure: (2) Septic shock: (3) Acute on chronic heart failure with preserved ejection fraction: (4) Atrial fibrillation with rapid ventricular response: (5) Acute kidney failure: Plan The patient is an 84-year-old female with past medical history including atrial fibrillation with rapid ventricular response, HFpEF, hypertension, PFO. She is most recently admitted to [facility] from 10/10-10/14/2024, with A-fib with RVR and acute CHF. She underwent DCCV, and was started on amiodarone and Xarelto, which she has continued. She was also continued on furosemide 40 mg daily, and metoprolol succinate 100 mg daily along with spironolactone 25 mg daily. She presented to the emergency department with acute onset of shortness of breath, and was intubated in the ED due to acute respiratory failure. She was septic with confirmed bacteremia, AST was 190 and ALT 185, with a troponin of 35.8. In the emergency department despite volume resusitation her bp was not improved until was started on multiple pressors including Levophed, vasopressin, and had addition of milrinone. Patient successfully extubated, with treatment of sepsis pressors have been titrated to off, remains conditional code #Cardiogenic and septic shock, HFPEFresolved and felt to be initial event even with sepsis Parenteral blood pressure support has been discontinued and patient is improving from cardiogenic shock #Gram-negative bacilli bacteremia Cefepime given in the ER 10/25, restarted 10/25 evening after blood cultures returned positive, switched to ceftazidime 10/26 comlete 7 days -- Leclercia Adecarboxylata - this is normal gut shashi suspect this is translocation of bacteria with her significant volume overload and ascites on POCUS Alternative source is right lower extremity which appears more cellulitic now that her legs are better perfused patient has evidence of skin breach with skin tear and hematoma which likely could be portal of entry for her gram-negative bacteremia #Acute on chronic respiratory failure with hypoxia / Acute on chronic HFpEF Successfully extubated daily dosing of Lasix to be determined Pantoprazole for GI prophylaxis with elevated INR - hemoglobin appears stable #Atrial fibrillation with rapid ventricular rate Paroxysmal following cardioversion 10/13 on last hospitalization and discharged on amiodarone Converted to a. fib RVR 10/25 evening with subsequent drop in BP Rates appear to be improved on digoxin and cardiology wishes to stop amiodarone given history of liver dysfunction, target rate control with b sera and dig, will start b sera as bp allows Currently lovenox with transition to Xarelto #Transaminitis Likely secondary to hepatic congestion., shock liver Improving #Acute kidney injury Improving with treatment of shock and decreased congestion, having good urine output intermittent Lasix dosing determined by clinical assessment no lasix on 10/29/24 VTE Prophylaxis -full anticoagulation for afib xarelto, electing to use prophylactic dose with non occlusive changes suggested in right leg on us given recent hematoma and vaginal bleeding Admission and Anticipated Discharge Date Admission Date: October 25, 2024 Subjective Patient is doing well eating Icelandic lemon ice. Speech therapy is willing to give her a liquid diet for another day before pursuing more advanced diet She endorses extreme weakness and fatigue. Her leg wound is without significant pain except with movement lower extremity Doppler today right venous webers nonocclusive thrombus right common femoral vein Physical Exam Physical Exam: Her card exam is regular her lungs are diminished at the bases her abdomen is normal active bowel sounds no longer tender and her extremity Continues to be erythematous with a hematoma and a skin tear. Of the right leg swelling in place. Doppler is not confirmatory of DVT but suggestive Results & Data Results & Data Vital Signs (Past 12 Hours) Vital Signs Temp Pulse Resp BP Pulse Ox O2 Del Method 10/29/24 07:08 92 H 10/29/24 06:00 98.2 F 84 19 92 10/29/24 05:00 98.2 F 81 20 92 10/29/24 04:24 98.4 F 83 19 92 10/29/24 04:15 87 92/51 L 10/29/24 04:00 89 112/59 L 10/29/24 03:06 98.6 F 91 H 36 H 92 10/29/24 02:03 98.6 F 81 17 87 L 10/29/24 01:00 98.6 F 87 18 94 10/29/24 00:03 98.6 F 97 H 26 H 94 10/29/24 00:00 97 H 10/28/24 23:03 98.8 F 98 H 27 H 93 10/28/24 22:03 98.8 F 86 32 H 91 10/28/24 21:03 98.8 F 83 23 91 10/28/24 21:03 78 89/52 L 10/28/24 20:43 92 H 120/60 10/28/24 20:00 98.6 F 97 H 21 92 10/28/24 19:56 Room Air Laboratory Results Reviewed CBC reviewed chemistry Discussed case with cardiology at the bedside Discussed case with intensive care provider in the unit PG Care Time/CCT Total # of Minutes Spent Total Time Spent with Patient: Total time spent is greater than 50% in coordination of care (as documented) at patient's floor/unit and/or counseling patient: Coding Level of Care Code 63117 SUB INP/OBS CARE 3/50MIN Diagnoses Acute on chronic respiratory failure J96.20 Septic shock A41.9; R65.21 Acute on chronic heart failure with preserved ejection fraction I50.33 Atrial fibrillation with rapid ventricular response I48.91 Acute kidney failure N17.9
--- NOTE | 2024-10-29 08:34 | Cardiology Progress Note ---
Date of Service October 29, 2024 Assessment & Plan (1) Right-sided congestive heart failure: (2) Diastolic CHF, chronic: (3) Atrial fibrillation with rapid ventricular response: (4) Acute hypoxic respiratory failure: (5) Acute kidney failure: (6) Ischemic hepatitis: Plan I suspect her significant right-sided heart failure has been going on for longer than we realize. By her own report when I saw her in the office she had had abdominal swelling and lower extremity edema and was told that the right side of her heart was enlarged in the past. The etiology of this is not completely clear however her atrial fibrillation has been extremely difficult to control and was definitely contributing to her symptoms. Would opt for HR control at this time and abandon rhythm control. particularly with amio given the right sided CHF as well as ? ascites. DC ami, cont IV/PO metoprolol . Diurese judiciously. Her weight is about 15kg above her weight from August. I will be away for the next week. Asked Dr. Eubanks and [facility] to cover in my absence Patient and family aware. Admission and Anticipated Discharge Date Admission Date: October 25, 2024 Subjective No acute events overnight. This morning, pt continues to be easily arousable with voice or tough. Extubated earlier this am; resp appear comfortable Spoke with son. Remains in Afib but rate controlled. Review of Systems Review of Systems: All systems reviewed & are unremarkable except as noted in HPI & below Physical Exam Physical Exam: Extubated; appear comfortable able to answer yes/no questions Respiratory: diminished BS b/l there are some rales noted Cardiovascular: ireegular no new murmurs noted +3 edema Gastrointestinal (Abdomen): distended BS ascites? Results & Data Vital Signs (Past 12 Hours) Vital Signs Temp Pulse Resp BP Pulse Ox O2 Del Method 10/29/24 07:09 36.7 C 94 H 18 93 Room Air 10/29/24 07:08 92 H 10/29/24 06:48 36.7 C 87 23 93 Room Air 10/29/24 06:00 36.8 C 84 19 92 10/29/24 05:00 36.8 C 81 20 92 10/29/24 04:24 36.9 C 83 19 92 10/29/24 04:15 87 92/51 L 10/29/24 04:00 89 112/59 L 10/29/24 03:06 37.0 C 91 H 36 H 92 10/29/24 02:03 37.0 C 81 17 87 L 10/29/24 01:00 37.0 C 87 18 94 10/29/24 00:03 37.0 C 97 H 26 H 94 10/29/24 00:00 97 H 10/28/24 23:03 37.1 C 98 H 27 H 93 10/28/24 22:03 37.1 C 86 32 H 91 10/28/24 21:03 37.1 C 83 23 91 10/28/24 21:03 78 89/52 L 10/28/24 20:43 92 H 120/60 Laboratory Results Abnormal lab results 10/28/24 10/28/24 10/29/24 Range/Units 11:20 17:25 00:48 WBC (4.8-10.8) K/ul RDW Std Deviation (36.4-46.3) fL RDW Coeff of Celso (11.5-14.5) % Plt Count (130-400) K/uL Neut # (Auto) (1.40-6.50) K/uL Lymph # (Auto) (1.20-3.40) K/uL Jones # (Auto) (0.11-0.59) K/uL PT (9.0-12.0) Seconds INR (0.9-1.1) BUN (6-23) mg/dl BUN/Creatinine Ratio (10-20) Glucose (70-99(Fasting)) mg/dl POC Glucose 120 H 118 H (70-99) mg/dl POC Glucose (other) 135 H (70-99) mg/dl Calcium (8.6-10.3) mg/dl 10/29/24 Range/Units 04:49 WBC 14.81 H (4.8-10.8) K/ul RDW Std Deviation 52.4 H (36.4-46.3) fL RDW Coeff of Celso 15.8 H (11.5-14.5) % Plt Count 127 L (130-400) K/uL Neut # (Auto) 11.81 H (1.40-6.50) K/uL Lymph # (Auto) 0.89 L (1.20-3.40) K/uL Jones # (Auto) 1.77 H (0.11-0.59) K/uL PT 12.7 H (9.0-12.0) Seconds INR 1.2 H (0.9-1.1) BUN 35 H (6-23) mg/dl BUN/Creatinine Ratio 41.2 H (10-20) Glucose 136 H (70-99(Fasting)) mg/dl POC Glucose (70-99) mg/dl POC Glucose (other) (70-99) mg/dl Calcium 8.3 L (8.6-10.3) mg/dl Diagnostic Findings Repeat ECHO done still with massive Right heart PA pressures 40ish LV size function normal Medications Administered Current Inpatient Medications Albuterol (Albut/Ipratrop 3mg/0.5mg Neb 3 Ml Vial) 3 ml NEB Q2H PRN; Protocol PRN Reason: dyspnea Stop: 11/24/24 08:19 Amiodarone HCl (Amiodarone 200 Mg Tab) 200 mg PO BIDM DERECK Stop: 11/26/24 11:59 Last Admin: 10/28/24 19:11 Dose: Not Given Dextrose (Dextrose 50% 50 Ml Syringe) 25 - 50 ml IV UD PRN; Protocol PRN Reason: Hypoglycemia Protocol Stop: 11/25/24 12:07 Enoxaparin Sodium (Enoxaparin 100 Mg/1ml Syr) 100 mg SQ ONE DERECK Stop: 11/27/24 19:14 Last Admin: 10/28/24 20:42 Dose: 100 mg Glucagon (Glucagon For Inj 1 Mg Vial) 1 mg SQ UD PRN; Protocol PRN Reason: Hypoglycemia Protocol Stop: 11/25/24 12:07 Glucose (Glucose 40% Gel 15 Gm Tube) 15 - 30 gm PO UD PRN; Protocol PRN Reason: Hypoglycemia Protocol Stop: 11/25/24 12:07 Glucose (Glucose 10 Tab/Tube) 4 - 8 tab PO UD PRN; Protocol PRN Reason: Hypoglycemia Protocol Stop: 11/25/24 12:07 Norepinephrine Bitartrate (Levophed/D5w) 4 mg in 250 mls @ 8.115 mls/hr IV .Q24H DERECK; Protocol Stop: 11/24/24 06:29 Last Titration: 10/28/24 18:59 Dose: 0.02 mcg/kg/min, 8.1 mls/hr Pantoprazole Sodium (Protonix) 40 mg in 10 mls @ 5 mls/min IV DAILY DERECK Stop: 11/24/24 08:59 Last Admin: 10/28/24 07:31 Dose: 5 mls/min Acetazolamide 500 mg/ Syringe 5 mls @ 1.667 mls/min IV ONE DERECK Stop: 11/27/24 15:59 Last Admin: 10/28/24 15:43 Dose: 1.667 mls/min Ceftazidime 2,000 mg/ Dextrose 50 mls @ 100 mls/hr IV Q8H DERECK Stop: 11/01/24 23:59 Last Infusion: 10/29/24 04:40 Dose: Infused Potassium Chloride (K Yosef / Wtr) 10 meq in 100 mls @ 100 mls/hr IV Q1H DERECK Stop: 10/29/24 10:29 Last Admin: 10/29/24 06:45 Dose: 100 mls/hr Insulin Aspart (Insulin Aspart Per Unit Charge) 0 units SC Q6 DERECK Stop: 11/25/24 12:14 Last Admin: 10/29/24 05:55 Dose: Not Given Lorazepam (Lorazepam 2 Mg/1 Ml Vial) 0.5 mg IV Q6H PRN PRN Reason: Anxiety/Agitation Stop: 11/27/24 08:49 Magnesium Oxide (Magnesium Oxide 400 Mg Tab) 400 mg PO BID DERECK Stop: 11/26/24 20:59 Last Admin: 10/28/24 20:40 Dose: Not Given Metoprolol Tartrate (Metoprolol Tartrate 50 Mg Tab) 50 mg PO BID DERECK Stop: 11/27/24 08:59 Last Admin: 10/28/24 09:08 Dose: 50 mg Metoprolol Tartrate (Metoprolol Tartrate 1 Mg/Ml Vial) 5 mg IV Q6H DERECK Stop: 11/27/24 20:59 Last Admin: 10/29/24 04:00 Dose: 5 mg Miscellaneous (Carbohydrates For Hypoglycemia ) 15 - 30 gm PO UD PRN PRN Reason: Hypoglycemia Protocol Stop: 11/25/24 12:07 Multivitamins/Minerals (Multi Vit W/Minerals Liquid 15 Ml Udc) 15 ml NG QAM DERECK Stop: 11/26/24 08:59 Last Admin: 10/28/24 07:29 Dose: 15 ml Nutritional Formula (Peptamen Intense Vhp 1.0 Bk 1,000 Ml Bag) 1,000 ml OG .See Protocol DERECK; Protocol Stop: 11/25/24 10:59 Last Admin: 10/26/24 12:31 Dose: 1,000 ml Ondansetron HCl (Ondansetron Inj 2 Mg/Ml 2 Ml Vial) 4 mg IV Q6H PRN PRN Reason: NAUSEA/VOMITING Stop: 11/24/24 08:19 Polyethylene Glycol (Polyethylene (Miralax) 17 Gm Pack) 17 gm PO DAILY PRN PRN Reason: Constipation Stop: 11/26/24 06:37 Potassium Chloride (Potassium Chloride Pwd 20 Meq Pack) [facility] [place]: 11/27/24 08:59 Last Admin: 10/28/24 09:08 Dose: 20 meq Rivaroxaban (Rivaroxaban 20 Mg Tab) 20 mg PO DAILY@[facility] Stop: 11/27/24 16:59 Last Admin: 10/28/24 19:11 Dose: Not Given Thiamine HCl (Thiamine Hcl 100 Mg Tab) [address] [facility] Stop: 11/27/24 08:59 Last Admin: 10/28/24 07:29 Dose: 100 mg
--- NOTE | 2024-10-29 09:01 | Billing Data ---
Date of Service October 29, 2024 Coding Level of Care Code 08509 SUB INP/OBS CARE 3MIN
[2024-10-29] MEDS: acetaZOLAMIDE 500 MG in SYRINGE 0 ML IV STA (09:21)
[2024-10-29] MEDS: FUROSEMIDE 40 MG/4 ML VIAL IV ONE (09:22)
[2024-10-29] MEDS: SPIRONOLACTONE 25 MG TAB PO ONE (09:54)
--- NOTE | 2024-10-29 09:56 | Ultrasound Report ---
US venous doppler LE RT HISTORY: edema, calf pain and sensation at R foot COMPARISON: 10/25/2024 TECHNIQUE: Multiple real-time sonographic images of the right lower extremity deep venous structures were obtained assessing grayscale appearance, color and spectral flow. FINDINGS: There is nonocclusive linear echogenicity in the right common femoral vein, likely venous w eb or nonocclusive thrombus. No evidence of DVT seen at the right lower extremity. IMPRESSION: 1. Venous web versus nonocclusive thrombus at the right common femoral vein. 2. No other evidence of DVT seen in the right lower extremity. ACT 112: Negative or not required by law. The above report was generated using voice recognition software. It may contain grammatical, syntax o r spelling errors. Electronically signed by: Ronny Laura M.D. 10/29/2024 9:55 AM
[2024-10-29 10:47] LABS: Hepatitis A Antibody IgM NON-REACTIVE (NON-REACTIVE); Hepatitis B Core Antibody IgM NON-REACTIVE (NON-REACTIVE)
[2024-10-29] MEDS ORDERED: METOPROLOL TARTRATE 1 MG/ML VIAL IV PRN (13:23)
[2024-10-29] MEDS ORDERED: Nursing to Pharmacy Communication SCH (19:00)
[2024-10-29] MEDS: INSULIN ASPART PER UNIT CHARGE SC SCH (19:49)
[2024-10-30] MEDS: METOPROLOL SUCC 25MG EXT REL TAB PO SCH (09:38)
[2024-10-30] MEDS: METOPROLOL TARTRATE 25 MG TAB PO SCH (09:38)
--- NOTE | 2024-10-30 12:27 | Cardiology Progress Note ---
Date of Service October 30, 2024 Assessment & Plan (1) Atrial fibrillation with rapid ventricular response: (2) Right-sided congestive heart failure: (3) Tricuspid regurgitation: (4) Edema of both legs: Plan 1. Atrial fibrillation/flutter: Although not always very organized her electrocardiogram from October 26, 2024 suggests atrial flutter with rapid AV conduction, the heart rate is now much better controlled on relatively low doses of AV heaven blocking medications (Metoprolol succinate 25 mg daily and metoprolol tartrate 12.5 mg twice daily) and looks more like atrial fibrillation. Part of this heart rate variability may be catecholamine level, part may be a change in rhythm between flutter and fibrillation. We need to watch but she may need better heart rate control from time to time, especially with discontinuation of amiodarone and a gradual improvement in AV heaven function. Agree with anticoagulation and rhythm control for now. Her blood pressure is little bit on the low side so I am not increasing her beta-blockade although I suspect she will need a higher dose in the future. I am going to switch from a combination of metoprolol succinate to metoprolol tartrate at a roughly equivalent dose. 2. Right heart failure: She has right heart failure based on her echocardiogram and exam, she has significant pulmonary hypertension which would be difficult to directly address. Some of her pulmonary hypertension may be due to elevated left ventricular end-diastolic pressure but I do not think that is the primary component. Between her pulmonary hypertension and her tricuspid regurgitation control of her leg edema will be very difficult. Her AST and ALT as well as her bilirubin have improved consistent with improved liver congestion with diuresis. 3. Tricuspid regurgitation: She does have severe tricuspid regurgitation, this could potentially be addressed. I discussed this with her to a certain extent and she would be interested if it can be addressed, there are potentially percutaneous methods to control the regurgitation and I can investigate that this coming week, I cannot do that very easily over the weekend. With her liver congestion and severe debilitating leg edema I think this approach should be entertained. 4. Leg edema: By her description it seems that that has occurred relatively recently, possibly with onset of right heart failure which could have occurred this year (we do not have prior records as far as I know). I would try diuresis however it is likely that we will not be able to eliminate her peripheral edema with her pulmonary hypertension and severe TR. I believe it is disabling enough that we should consider tricuspid valve repair and possibly venous evaluation. She is not opposed to this. Her albumin is also on the low side which will contribute. Admission and Anticipated Discharge Date Admission Date: October 25, 2024 Subjective Chart reviewed and patient examined. I am a little bit confused about her presentation with respiratory failure, her chest x-ray does not really look like left heart failure, her left ventricular function is hyperdynamic so this really does not fit. Nor did she have an cardiac ischemic event evidently based on her troponin although it did rise somewhat. Perhaps it was sepsis. She has recovered from this presentation. At the time of my evaluation she is feeling well, she is laying supine in bed having just completed a bath. She does not have orthopnea, she does not have palpitations and has no specific complaints. She has not had chest discomfort and is not short of breath but has not been active and out of bed. Her main complaint has been severe leg swelling and shortness of breath over the last few months, a relatively short period of time based on her history. Her records here (which only started in June of this year) also describe relatively acute peripheral edema starting around May of this year. Physical Exam Physical Exam: Constitutional: Alert, cooperative and in no distress. Laying supine in bed comfortably. HEENT: Unremarkable Neck: No jugular venous distention, carotid pulses are normal and equal bilaterally without bruits. Pulmonary: Clear to auscultation bilaterally. Cardiac: Regular rhythm with no murmur, gallop or rub. Abdomen: Soft with normal bowel sounds. Extremities: +3 bilateral pitting edema. Neurologic: No focal findings. Skin: No rash, her legs are ecchymotic with signs of ulceration and chronic venous disease. Results & Data Vital Signs (Past 12 Hours) Vital Signs Temp Pulse Pulse Resp BP BP Pulse Ox 10/30/24 11:52 36.5 C 87 18 111/78 94 10/30/24 09:37 83 91/65 L 10/30/24 08:00 10/30/24 07:50 36.3 C L 92 H 20 96/66 L 94 10/30/24 04:00 36.7 C 93 H 24 10/30/24 04:00 87/60 L 10/30/24 03:03 36.8 C 87 22 10/30/24 02:00 37.0 C 102 H 22 10/30/24 01:00 36.9 C 94 H 28 H O2 Del Method 10/30/24 11:52 Room Air 10/30/24 09:37 10/30/24 08:00 Room Air 10/30/24 07:50 10/30/24 04:00 10/30/24 04:00 10/30/24 03:03 10/30/24 02:00 10/30/24 01:00 Laboratory Results Intake and Output 10/29/24 10/30/24 10/30/24 22:59 06:59 14:59 Intake Total 50 / 1058.72 50 / 1058.72 50 / 50 Output Total 225 / 985 310 / 985 Balance -175 / 73.72 -260 / 73.72 50 / 50 Intake: IV 50 / 738.72 50 / 738.72 50 / 50 cefTAZidime 2,000 mg In 50 / 150 50 / 150 50 / 50 Dextrose 5 % Mini-B 50 ml @ 100 mls/hr IV Q8H [facility] Rx#:[id number] Output: Urine Amount (Catheter) 225 / 985 310 / 985 [place]/Indwelling 225 / 985 310 / 985 Diagnostic Findings An echocardiogram today demonstrates mild left ventricular hypertrophy with a small left ventricular cavity and hyperdynamic left ventricular function, the right ventricle is moderate to severely dilated with mild to moderate right ventricular hypertrophy and mild to moderate right ventricular dysfunction. There is severe tricuspid regurgitation and her right ventricular systolic pressure is markedly elevated. Telemetry: Atrial fibrillation with a well-controlled heart rate in the 80s. PG Care Time/CCT Total # of Minutes Spent Total Time Spent with Patient: Total time spent is greater than 50% in coordination of care (as documented) at patient's floor/unit and/or counseling patient: Coding Level of Care Code 09445 SUB INP/OBS CARE 3/50MIN Diagnoses Atrial fibrillation with rapid ventricular response I48.91 Right-sided congestive heart failure I50.810 Tricuspid regurgitation I07.1 Edema of both legs R60.0
[2024-10-30] MEDS: ACETAMINOPHEN 325 MG TAB PO PRN (12:28)
--- NOTE | 2024-10-30 17:22 | Hospitalist Progress Note ---
Date of Service October 30, 2024 Assessment & Plan (1) Acute on chronic respiratory failure: (2) Septic shock: (3) Acute on chronic heart failure with preserved ejection fraction: (4) Atrial fibrillation with rapid ventricular response: (5) Acute kidney failure: Plan The patient is an 84-year-old female with past medical history including atrial fibrillation with rapid ventricular response, HFpEF, hypertension, PFO. She is most recently admitted to [facility] from 10/10-10/14/2024, with A-fib with RVR and acute CHF. She underwent DCCV, and was started on amiodarone and Xarelto, which she has continued. She was also continued on furosemide 40 mg daily, and metoprolol succinate 100 mg daily along with spironolactone 25 mg daily. She presented to the emergency department with acute onset of shortness of breath, and was intubated in the ED due to acute respiratory failure. She was septic with confirmed bacteremia, AST was 190 and ALT 185, with a troponin of 35.8. In the emergency department despite volume resusitation her bp was not improved until was started on multiple pressors including Levophed, vasopressin, and had addition of milrinone. Patient successfully extubated, with treatment of sepsis pressors have been titrated to off, remains conditional code #Cardiogenic and septic shock, HFPEFresolved and felt to be initial event even with sepsis Parenteral blood pressure support has been discontinued and patient is improving from cardiogenic shock - cardiology recs appreciated, suggest the volume overload status / right heart failure in the setting of pulm HTN and TR. Recs tricuspid valve repair, attempt to be done during the week. #Gram-negative bacilli bacteremia Cefepime given in the ER 10/25, restarted 10/25 evening after blood cultures returned positive, switched to ceftazidime 10/26 complete 7 days -- Leclercia Adecarboxylata - this is normal gut shashi suspect this is translocation of bacteria with her significant volume overload and ascites on POCUS Alternative source is right lower extremity which appears more cellulitic now that her legs are better perfused patient has evidence of skin breach with skin tear and hematoma which likely could be portal of entry for her gram-negative bacteremia #RLE wound - wound care on board, cont recs - cont abx #Acute on chronic respiratory failure with hypoxia / Acute on chronic HFpEF Successfully extubated daily dosing of Lasix to be determined Pantoprazole for GI prophylaxis with elevated INR - hemoglobin appears stable #Atrial fibrillation with rapid ventricular rate Paroxysmal following cardioversion 10/13 on last hospitalization and discharged on amiodarone Converted to a. fib RVR 10/25 evening with subsequent drop in BP Rates appear to be improved on digoxin and cardiology wishes to stop amiodarone given history of liver dysfunction, target rate control with b sera and dig, will start b sera as bp allows Currently lovenox with transition to Xarelto #Transaminitis Likely secondary to hepatic congestion., shock liver Improving #Acute kidney injury Improving with treatment of shock and decreased congestion, having good urine output intermittent Lasix dosing determined by clinical assessment no lasix on 10/29/24 #Vaginal bleeding - pt stated that she has had this ongoing since 2013. she stated she was not concerned about it as it did not get heavy. She had pap smear 2001 (she is unsure). Discussed importance of follow up once acute illness resolves. Pt agreeable VTE Prophylaxis -full anticoagulation for afib xarelto, electing to use prophylactic dose with non occlusive changes suggested in right leg on us given recent hematoma and vaginal bleeding Admission and Anticipated Discharge Date Admission Date: October 25, 2024 Subjective No acute events overnight and not really complaining of chest pain, dyspnea, palpitations. Pt notes that she has improvement in her abdominal distension. Currently, her biggest complaint now is the swelling of her legs and inability to raise her legs. Review of Systems Review of Systems: Comprehensive ROS completed and is otherwise negative. Physical Exam Physical Exam: Gen: no acute distress, lying in bed comfortable HEENT: NC/AT, MMM Lungs: nonlabored breathing, CTAB CVS: s1s2nl, II/, RRR Abd: nl bowel sounds, soft, NT / ND : no parham Ext: b/l LE edema, R > L, right foot wound / erythema Neuro: AAOx3 Psych: calm cooperative Results & Data Results & Data Vital Signs (Past 12 Hours) Vital Signs Temp Pulse Pulse Resp BP BP Pulse Ox 10/30/24 16:01 36.4 C L 79 18 104/73 94 10/30/24 16:00 92 H 10/30/24 11:52 36.5 C 87 18 111/78 94 10/30/24 09:37 83 91/65 L 10/30/24 08:00 08/16/25 07:50 36.3 C L 92 H 20 96/66 L 94 O2 Del Method 10/30/24 16:01 Room Air 10/30/24 16:00 10/30/24 11:52 Room Air 10/30/24 09:37 10/30/24 08:00 Room Air 10/30/24 07:50 PG Care Time/CCT Total # of Minutes Spent Total Time Spent with Patient: Total time spent is greater than 50% in coordination of care (as documented) at patient's floor/unit and/or counseling patient: Coding Level of Care Code 59486 SUB INP/OBS CARE 3/50MIN Diagnoses Acute on chronic respiratory failure J96.20 Septic shock A41.9; R65.21 Acute on chronic heart failure with preserved ejection fraction I50.33 Atrial fibrillation with rapid ventricular response I48.91 Acute kidney failure N17.9
[2024-10-30] MEDS ORDERED: CARBOHYDRATES FOR HYPOGLYCEMIA PO PRN (20:16)
[2024-10-30] MEDS ORDERED: GLUCOSE 40% GEL 15 GM TUBE PO PRN (20:16)
[2024-10-30] MEDS ORDERED: DEXTROSE 50% 50 ML SYRINGE IV PRN (20:16)
[2024-10-30] MEDS ORDERED: GLUCAGON FOR INJ 1 MG VIAL SQ PRN (20:16)
[2024-10-30] MEDS ORDERED: GLUCOSE 10 TAB/TUBE PO PRN (20:16)
[2024-10-30] MEDS: INSULIN ASPART PER UNIT CHARGE SC SCH (20:51)
[2024-10-31 07:14] LABS: Hematocrit (blood only) 41.7 % (37.0-47.0); Hemoglobin 13.2 g/dl (12.0-16.0); Mean Corpuscular Hemoglobin 28.9 pg (25.0-34.0); Mean Corpuscular Volume 91.2 fL (80.0-100.0); Platelet Count 168 K/uL (130-400); RDW Standard Deviation 52.0 fL (36.4-46.3); Red Blood Count 4.57 M/uL (4.20-5.40); White Blood Count 11.98 K/ul (4.8-10.8)
[2024-10-31 07:44] LABS: Anion Gap 8.0 (3-11); Blood Urea Nitrogen 30.0 mg/dl (6-23); Calcium 8.8 mg/dl (8.6-10.3); Carbon Dioxide 27.0 mmol/L (21-32); Chloride 102.0 mmol/L (98-107); Creatinine Clr Calc Pharmacy 71.3 ml/min; Glucose 121.0 mg/dl (70-99(Fasting)); Magnesium 2.1 mg/dl (1.7-2.4); Potassium 3.6 mmol/L (3.5-5.1); Sodium 137.0 mmol/L (136-145)
--- NOTE | 2024-10-31 07:56 | Hospitalist Progress Note ---
Date of Service October 31, 2024 Assessment & Plan (1) Acute on chronic respiratory failure: (2) Septic shock: (3) Acute on chronic heart failure with preserved ejection fraction: (4) Atrial fibrillation with rapid ventricular response: (5) Acute kidney failure: Plan 84 yo F with PMHx of AFib, HFpEF, HTN, PFO, tricuspid regurgitation, pulm HTN returns to [facility] on 10/25/24 for the evaluation of acute onset of dyspnea. She was most recently admitted to [facility] from 10/10-10/14/2024, with A-fib with RVR and acute CHF. During this time, she underwent DCCV and was started on amiodarone and Xarelto, which she has continued. She was also continued on furosemide 40 mg daily, and metoprolol succinate 100 mg daily along with spironolactone 25 mg daily. During the current presentation, she was intubated in the ED due to acute respiratory failure. She was septic with confirmed bacteremia. Her AST was 190 and ALT 185, with a troponin of 35.8. In the ER, despite volume resuscitation, her bp was not improved until initiation of multiple pressors including Levophed, vasopressin, and addition of milrinone. Patient successfully extubated on 10/28 and with treatment of sepsis, pressors have been titrated to off. She remains conditional code (ok for pulmonary resuscitation, but no cardiac resuscitation). #Cardiogenic and septic shock - resolved and felt to be initial event with sepsis - currently not on pressors and pt is improving from cardiogenic shock - cardiology recs appreciated, suspect the volume overload status / right heart failure in the setting of pulm HTN (RVSP: 42mmHg) and severe TR. Recs tricuspid valve repair, attempt to be done during the week. #Gram-negative bacilli bacteremia - Cefepime given in the ER 10/25, restarted 10/25 evening after blood cultures returned positive, switched to ceftazidime 10/26 complete 7 days -- - Leclercia Adecarboxylata - this is normal gut shashi suspect this is translocation of bacteria with her significant volume overload and ascites on POCUS - Alternative source is right lower extremity which appears more cellulitic now that her legs are better perfused patient has evidence of skin breach with skin tear and hematoma which likely could be portal of entry for her gram-negative bacteremia #RLE wound - wound care on board, cont recs - cont Ceftazidime as above #Acute on chronic respiratory failure with hypoxia / Acute on chronic HFpEF - Successfully extubated - will give Lasix 20mg IV x1 with albumin - Pantoprazole for GI prophylaxis with elevated INR - hemoglobin appears stable #Atrial fibrillation with rapid ventricular rate - Paroxysmal following cardioversion 10/13 on last hospitalization and discharged on amiodarone - Converted to a. fib RVR 10/25 evening with subsequent drop in BP - Rates appear to be improved on digoxin and cardiology wishes to stop amiodarone given history of liver dysfunction, target rate control with b sera and dig, will start b sera as bp allows - AC with Xarelto #Transaminitis - Likely secondary to hepatic congestion, shock liver - Improving #Acute kidney injury - resolved - Improving with treatment of shock and decreased congestion, having good urine output intermittent Lasix dosing determined by clinical assessment no lasix on 10/29/24 - no diuretics on 10/30 due to hypotension / borderline BP - additional lasix (10/31) #Vaginal bleeding - pt stated that she has had this ongoing since 2013. she stated she was not concerned about it as it did not get heavy. She had pap smear 2001 (she is unsure but states it was normal). Discussed importance of follow up once acute illness resolves. Pt agreeable #DVT ppx: full anticoagulation for afib xarelto, electing to use prophylactic dose with non occlusive changes suggested in right leg on us given recent hematoma and vaginal bleeding Admission and Anticipated Discharge Date Admission Date: October 25, 2024 Subjective No acute events overnight Currently no new complaints Review of Systems Review of Systems: Comprehensive ROS completed and is otherwise negative. Physical Exam Physical Exam: Gen: no acute distress, lying in bed comfortable HEENT: NC/AT, MMM Lungs: nonlabored breathing, CTAB CVS: s1s2nl, RRR Abd: nl bowel sounds, soft, NT / ND : no parham Ext: b/l LE edema, R > L, right foot wound / erythema Neuro: AAOx3 Psych: calm cooperative Results & Data Results & Data Vital Signs (Past 12 Hours) Vital Signs Temp Pulse Pulse Resp BP Pulse Ox O2 Del Method 10/31/24 03:02 36.5 C 85 18 106/70 92 Room Air 10/31/24 00:00 76 10/30/24 23:03 36.4 C L 85 18 111/75 94 Room Air PG Care Time/CCT Total # of Minutes Spent Total Time Spent with Patient: Total time spent is greater than 50% in coordination of care (as documented) at patient's floor/unit and/or counseling patient: Coding Level of Care Code 89819 SUB INP/OBS CARE 2/35MIN Diagnoses Acute on chronic respiratory failure J96.20 Septic shock A41.9; R65.21 Acute on chronic heart failure with preserved ejection fraction I50.33 Atrial fibrillation with rapid ventricular response I48.91 Acute kidney failure N17.9
[2024-10-31 08:30] LABS: Alanine Aminotransferase 62.0 U/L (7-52); Alkaline Phosphatase 187.0 U/L (34-104); Bilirubin,Total 1.8 mg/dl (0.2-1.0); Total Protein 5.1 gm/dl (6.0-8.3)
[2024-10-31] MEDS: METOPROLOL SUCC 50MG EXT REL TAB PO SCH (09:14)
--- NOTE | 2024-10-31 11:11 | Cardiology Progress Note ---
Date of Service October 31, 2024 Assessment & Plan (1) Atrial fibrillation with rapid ventricular response: (2) Right-sided congestive heart failure: (3) Tricuspid regurgitation: (4) Edema of both legs: Plan 1. Atrial fibrillation/flutter: Although not always very organized her electrocardiogram from October 26, 2024 suggests atrial flutter with rapid AV conduction, the heart rate is now much better controlled on relatively low doses of AV heaven blocking medications (Metoprolol succinate 50 mg daily) and looks more like atrial fibrillation. Part of this heart rate variability may be catecholamine level, part may be a change in rhythm between flutter and fibrillation. We need to watch but she may need better heart rate control from time to time, especially with discontinuation of amiodarone and a gradual improvement in AV heaven function that may become apparent over time as the amiodarone is metabolized. Agree with anticoagulation and rhythm control for now. Her blood pressure is little bit on the low side so I am not increasing her beta-blockade although I suspect she will need a higher dose in the future but for now with residual amiodarone effect and inactivity her heart rate is adequately controlled. 2. Right heart failure: She has right heart failure based on her echocardiogram and exam, she has significant pulmonary hypertension which would be difficult to directly address. Some of her pulmonary hypertension may be due to elevated left ventricular end-diastolic pressure but I do not think that is the primary component. Between her pulmonary hypertension and her tricuspid regurgitation control of her leg edema will be very difficult. Her AST and ALT as well as her bilirubin have improved consistent with improved liver congestion with diuresis. Her weights vary so much that I do not think they are helpful to assess fluid status but her legs look better to me today. 3. Tricuspid regurgitation: She does have severe tricuspid regurgitation, this could potentially be addressed. I discussed this with her to a certain extent and she would be interested if it can be addressed, there are now percutaneous methods to control the regurgitation and I can investigate that this coming week, I cannot do that very easily over the weekend. With her liver congestion and severe debilitating leg edema I think this approach should be entertained. 4. Leg edema: By her description it seems that that has occurred relatively recently, possibly with onset of right heart failure which could have occurred this year (we do not have prior records as far as I know). I would try diuresis however it is likely that we will not be able to eliminate her peripheral edema due to her pulmonary hypertension and severe TR raising venous pressure. I believe it is disabling enough that we should consider tricuspid valve repair and possibly venous evaluation. She is not opposed to this. Her albumin is also on the low side which will contribute. Admission and Anticipated Discharge Date Admission Date: October 25, 2024 Subjective She is feeling relatively well today although her legs are still bothering her, she tells me she cannot move them but by that she means that it hurts when she moves her legs. She relates this to her edema and leg difficulty over the last few months. She tells me she has no recollection of the events during her first few days here. She is not short of breath and has no other cardiovascular complaints. Physical Exam Physical Exam: Constitutional: Alert, cooperative and in no distress. Laying supine in bed comfortably. HEENT: Unremarkable Neck: No jugular venous distention, carotid pulses are normal and equal bilaterally without bruits. Pulmonary: Clear to auscultation bilaterally. Cardiac: Regular rhythm with no murmur, gallop or rub. Abdomen: Soft with normal bowel sounds. Extremities: +2 bilateral pitting edema. Neurologic: No focal findings. Skin: No rash, her legs are ecchymotic with signs of ulceration and chronic venous disease. Results & Data Vital Signs (Past 12 Hours) Vital Signs Temp Pulse Pulse Resp BP Pulse Ox O2 Del Method 10/31/24 08:30 36.4 C L 85 19 105/71 93 Room Air 10/31/24 03:02 36.5 C 85 18 106/70 92 Room Air 10/31/24 00:00 76 Laboratory Results Cardiac Enzymes 10/31/24 10/31/24 Range/Units 06:02 06:02 AST 28 Cancelled (13-39) U/L CBC 10/31/24 Range/Units 06:02 WBC 11.98 H (4.8-10.8) K/ul RBC 4.57 (4.20-5.40) M/uL Hgb 13.2 (12.0-16.0) g/dl Hct 41.7 (37.0-47.0) % Plt Count 168 (130-400) K/uL Comprehensive Metabolic Panel 10/31/24 10/31/24 10/31/24 Range/Units 06:02 06:02 06:02 Sodium 137 (136-145) mmol/L Potassium 3.6 (3.5-5.1) mmol/L Chloride 102 (98-107) mmol/L Carbon Dioxide 27 (21-32) mmol/L BUN 30 H (6-23) mg/dl Creatinine 0.75 (0.6-1.2) mg/dl Glucose 121 H (70-99(Fasting)) mg/dl Calcium 8.8 (8.6-10.3) mg/dl Direct Bilirubin 0.8 H Cancelled (0-0.2) mg/dl AST 28 Cancelled (13-39) U/L ALT 62 H (7-52) U/L Alkaline Phosphatase (34-104) U/L Total Protein (6.0-8.3) gm/dl Albumin (3.4-5.0) gm/dl 10/31/24 10/31/24 10/31/24 Range/Units 06:02 06:02 06:02 Sodium (136-145) mmol/L Potassium (3.5-5.1) mmol/L Chloride (98-107) mmol/L Carbon Dioxide (21-32) mmol/L BUN (6-23) mg/dl Creatinine (0.6-1.2) mg/dl Glucose (70-99(Fasting)) mg/dl Calcium (8.6-10.3) mg/dl Direct Bilirubin (0-0.2) mg/dl AST (13-39) U/L ALT Cancelled (7-52) U/L Alkaline Phosphatase 187 H Cancelled (34-104) U/L Total Protein 5.1 L Cancelled (6.0-8.3) gm/dl Albumin 2.6 L (3.4-5.0) gm/dl 10/31/24 Range/Units 06:02 Sodium (136-145) mmol/L Potassium (3.5-5.1) mmol/L Chloride (98-107) mmol/L Carbon Dioxide (21-32) mmol/L BUN (6-23) mg/dl Creatinine (0.6-1.2) mg/dl Glucose (70-99(Fasting)) mg/dl Calcium (8.6-10.3) mg/dl Direct Bilirubin (0-0.2) mg/dl AST (13-39) U/L ALT (7-52) U/L Alkaline Phosphatase (34-104) U/L Total Protein (6.0-8.3) gm/dl Albumin Cancelled (3.4-5.0) gm/dl Intake and Output 10/30/24 10/31/24 10/31/24 22:59 06:59 14:59 Intake Total 50 / 880 300 / 880 Output Total 300 / 500 Balance 50 / 380 0 / 380 Intake: IV 50 / 150 50 / 150 cefTAZidime 2,000 mg In 50 / 150 50 / 150 Dextrose 5 % Mini-B 50 ml @ 100 mls/hr IV Q8H [facility] Rx#:[id number] Oral 250 / 730 Output: Urine Amount (Catheter) 300 / 500 [place]/Indwelling 300 / 500 Other: Weight 102.9 kg Weight Measurement Method Built in [facility] Diagnostic Findings Telemetry: Atrial fibrillation with a heart rate ranging from 80 to 90 bpm. PG Care Time/CCT Total # of Minutes Spent Total Time Spent with Patient: Total time spent is greater than 50% in coordination of care (as documented) at patient's floor/unit and/or counseling patient: Coding Level of Care Code 77223 SUB INP/OBS CARE 2/35MIN Diagnoses Atrial fibrillation with rapid ventricular response I48.91 Right-sided congestive heart failure I50.810 Tricuspid regurgitation I07.1 Edema of both legs R60.0
[2024-10-31] MEDS: POT PHOSPHATE MONOBASIC W/ SOD TAB PO SCH (12:41)
[2024-10-31] MEDS: ALBUMIN 25% 25 GM/100 ML VIAL IV ONE (12:41)
[2024-10-31] MEDS: FUROSEMIDE INJ 20 MG/2 ML VIAL IV ONE (12:42)
[2024-10-31] MEDS: MAGNESIUM OXIDE 400 MG TAB PO SCH (18:44)
[2024-11-01 06:40] LABS: Hematocrit (blood only) 39.4 % (37.0-47.0); Hemoglobin 13.1 g/dl (12.0-16.0); Mean Corpuscular Hemoglobin 30.2 pg (25.0-34.0); Mean Corpuscular Volume 90.8 fL (80.0-100.0); Platelet Count 176 K/uL (130-400); RDW Standard Deviation 52.7 fL (36.4-46.3); Red Blood Count 4.34 M/uL (4.20-5.40); White Blood Count 12.04 K/ul (4.8-10.8)
[2024-11-01 07:12] LABS: Alanine Aminotransferase 45.0 U/L (7-52); Albumin Globulin Ratio 1.2 (0.9-2); Alkaline Phosphatase 158.0 U/L (34-104); Anion Gap 6.0 (3-11); Bilirubin,Total 1.7 mg/dl (0.2-1.0); Blood Urea Nitrogen 30.0 mg/dl (6-23); Calcium 8.8 mg/dl (8.6-10.3); Carbon Dioxide 29.0 mmol/L (21-32); Chloride 102.0 mmol/L (98-107); Creatinine Clr Calc Pharmacy 68.5 ml/min; Globulin 2.3 gm/dl (2.5-4.0); Glucose 112.0 mg/dl (70-99(Fasting)); Magnesium 2.1 mg/dl (1.7-2.4); Potassium 3.8 mmol/L (3.5-5.1); Sodium 137.0 mmol/L (136-145); Total Protein 5.1 gm/dl (6.0-8.3)
--- NOTE | 2024-11-01 08:49 | XRay Report ---
XR chest 1V portable CLINICAL HISTORY: CHF COMPARISON STUDY: 10/25/2024 FINDINGS: Stable cardiomegaly with mild pulmonary vascular congestion. Stable small bilateral pleural effusions and lung base consolidation. No pneumothorax. There is interval intubation. IMPRESSION: Stable CHF with small bilateral pleural effusions. ACT 112: Negative or not required by law. Electronically signed by: Ronny Laura M.D. 11/01/2024 8:48 AM
[2024-11-01] MEDS: FUROSEMIDE 40 MG/4 ML VIAL IV SCH (10:43)
--- NOTE | 2024-11-01 16:53 | Hospitalist Progress Note ---
Date of Service November 01, 2024 Assessment & Plan (1) Acute on chronic respiratory failure: Plan: She required ventilator support earlier this admission. Now resolved. She is on room air (2) Septic shock: Plan: Present on admission. Due to gram-negative bacteremia. Intravenous antibiotic has been switched to oral cephalexin today, November 01, to complete a 2-week course (3) Acute on chronic heart failure with preserved ejection fraction: Plan: Parenteral Lasix therapy. Serial chest x-ray. Monitor intake and output. (4) Atrial fibrillation with rapid ventricular response: Plan: Now rate controlled. Continue current medical management. Continue Xarelto therapy (5) Acute kidney failure: Plan: Now resolved. Monitor intake and output. Serial labs Plan IPR or SNF at discharge pending. Hopefully within the next day or 2 Admission and Anticipated Discharge Date Admission Date: October 25, 2024 Subjective Alert and oriented. Her chest x-ray reveals evidence of CHF with bilateral pleural effusions. She is now on parenteral Lasix therapy. Fortunately, she is on room air. Appreciate cardiology consultation and recommendations. She will require assessment for possible TR repair at a later date. 2/4 blood culture bottles positive for Leclerciaon October 25. Repeat blood cultures drawn October 27 are negative. Ceftazidime has been switched to oral Keflex therapy. Review of Systems 2 Review of Systems: Constitutionalno fever or chills ENTno blurred vision, no double vision, no epistaxis, no sore throat Respiratoryno cough, no wheezing, no shortness of breath at rest. She does have dyspnea on exertion Cardiacno palpitations, no chest pain, no syncope Joel nausea, vomiting, diarrhea, melena, hematochezia GUno urinary retention, no urinary incontinence, no dysuria, no hematuria Musculoskeletalno joint pain, no muscle tenderness. 1-2+ pitting edema bilateral lower extremities below the knees Skinno bruising, no rashes, no pruritus Neurono isolated weakness, no paresthesia, no weakness Psychno depression, no anxiety Physical Exam 2 Physical Exam: General-alert and oriented x3, no fever, no chills HEENT-head atraumatic and normocephalic, pupils equal and reactive to light, extraocular muscles intact Neck-no lymphadenopathy or thyromegaly, trachea midline Chest-bibasilar inspiratory rales. No rhonchi. No wheezing. Cardiac -irregular rhythm. Controlled rate. Normal S1 and S2 GI-normal bowel sounds, no hepatosplenomegaly Cudccmjtgid-0-9+ pitting edema bilateral lower extremities below the knees Neuro-cranial nerves II through XII intact, motor and sensory function within normal limits, strength symmetrical, no focal deficits Psych-normal affect, normal mood Results & Data Results & Data Vital Signs (Past 12 Hours) Vital Signs Temp Pulse Pulse Resp BP Pulse Ox O2 Del Method 11/01/24 12:07 36.5 C 70 20 113/60 97 Room Air 11/01/24 08:00 36.6 C 72 18 129/68 96 Room Air 11/01/24 07:40 82 Laboratory Results 11/01/24 06:14 11/01/24 06:14 PG Care Time/CCT Total # of Minutes Spent Total Time Spent with Patient: Total time spent is greater than 50% in coordination of care (as documented) at patient's floor/unit and/or counseling patient: Coding Level of Care Code 93268 SUB INP/OBS CARE 3/50MIN Diagnoses Acute on chronic respiratory failure J96.20 Septic shock A41.9; R65.21 Acute on chronic heart failure with preserved ejection fraction I50.33 Atrial fibrillation with rapid ventricular response I48.91 Acute kidney failure N17.9
[2024-11-02 07:47] LABS: Anion Gap 6.0 (3-11); Blood Urea Nitrogen 29.0 mg/dl (6-23); Calcium 8.6 mg/dl (8.6-10.3); Carbon Dioxide 29.0 mmol/L (21-32); Chloride 101.0 mmol/L (98-107); Creatinine Clr Calc Pharmacy 74.0 ml/min; Glucose 128.0 mg/dl (70-99(Fasting)); Potassium 3.6 mmol/L (3.5-5.1); Sodium 136.0 mmol/L (136-145)
--- NOTE | 2024-11-02 13:51 | Hospitalist Progress Note ---
Date of Service November 02, 2024 Assessment & Plan (1) Acute on chronic respiratory failure: Plan: She required ventilator support earlier this admission. Now resolved. She is on room air (2) Septic shock: Plan: Present on admission. Due to gram-negative bacteremia. Intravenous antibiotic has been switched to oral cephalexin on November 01 to complete a 2-week course (3) Acute on chronic heart failure with preserved ejection fraction: Plan: Improving with parenteral Lasix therapy. Serial chest x-ray. Monitor intake and output. (4) Atrial fibrillation with rapid ventricular response: Plan: Now rate controlled. Continue current medical management. Continue Xarelto therapy (5) Acute kidney failure: Plan: Now resolved. Monitor intake and output. Serial labs (6) Chronic cor pulmonale: Plan: Known severe tricuspid regurgitation and elevated right ventricular systolic pressures. She may be a candidate for tricuspid valve repair in the future. Cardiology consultation and recommendations appreciated. Plan IPR or SNF at discharge pending. Hopefully within the next day or 2 Admission and Anticipated Discharge Date Admission Date: October 25, 2024 Subjective Alert and oriented. Nursing however states she is not participating with therapies and I spoke to her telling her that this needs to be accomplished so we can get authorization for her to go to senior living. She had a significant diuresis with the parenteral Lasix started yesterday, November 01, and this will continue. She remains on room air. Will repeat chest x-ray again tomorrow, November 03. Review of Systems 2 Review of Systems: Constitutionalno fever or chills ENTno blurred vision, no double vision, no epistaxis, no sore throat Respiratoryno cough, no wheezing, no shortness of breath at rest. She does have dyspnea on exertion Cardiacno palpitations, no chest pain, no syncope Joel nausea, vomiting, diarrhea, melena, hematochezia GUno urinary retention, no urinary incontinence, no dysuria, no hematuria Musculoskeletalno joint pain, no muscle tenderness. 1-2+ pitting edema bilateral lower extremities below the knees Skinno bruising, no rashes, no pruritus Neurono isolated weakness, no paresthesia, no weakness Psychno depression, no anxiety Physical Exam 2 Physical Exam: General-alert and oriented x3, no fever, no chills HEENT-head atraumatic and normocephalic, pupils equal and reactive to light, extraocular muscles intact Neck-no lymphadenopathy or thyromegaly, trachea midline Chest-bibasilar inspiratory rales. No rhonchi. No wheezing. Cardiac -irregular rhythm. Controlled rate. Normal S1 and S2 GI-normal bowel sounds, no hepatosplenomegaly Qqhmryvzxgi-7-9+ pitting edema bilateral lower extremities below the knees Neuro-cranial nerves II through XII intact, motor and sensory function within normal limits, strength symmetrical, no focal deficits Psych-normal affect, normal mood Results & Data Results & Data Vital Signs (Past 12 Hours) Vital Signs Temp Pulse Resp BP Pulse Ox O2 Del Method 11/02/24 11:30 36.6 C 84 18 114/56 L 96 Room Air 11/02/24 08:00 36.5 C 89 16 129/66 97 Room Air 11/02/24 03:04 36.4 C L 77 18 100/71 94 Room Air Laboratory Results 11/01/24 06:14 11/02/24 06:35 PG Care Time/CCT Total # of Minutes Spent Total Time Spent with Patient: Total time spent is greater than 50% in coordination of care (as documented) at patient's floor/unit and/or counseling patient: Coding Level of Care Code 37559 SUB INP/OBS CARE 2/35MIN Diagnoses Acute on chronic respiratory failure J96.20 Septic shock A41.9; R65.21 Acute on chronic heart failure with preserved ejection fraction I50.33 Atrial fibrillation with rapid ventricular response I48.91 Acute kidney failure N17.9 Chronic cor pulmonale I27.81
[2024-11-03 06:34] LABS: Anion Gap 6.0 (3-11); Blood Urea Nitrogen 29.0 mg/dl (6-23); Calcium 8.4 mg/dl (8.6-10.3); Carbon Dioxide 31.0 mmol/L (21-32); Chloride 101.0 mmol/L (98-107); Creatinine Clr Calc Pharmacy 77.6 ml/min; Glucose 101.0 mg/dl (70-99(Fasting)); Potassium 4.0 mmol/L (3.5-5.1); Sodium 138.0 mmol/L (136-145)
--- NOTE | 2024-11-03 08:47 | XRay Report ---
EXAM: XR chest 1V portable CLINICAL HISTORY: CHF TECHNIQUE: An X-ray image of the chest is obtained in AP projection. COMPARISON: Chest x ray 11/01/2024. FINDINGS: Pulmonary Parenchyma: Mild left-sided and minimal right-sided pleural effusion. (stable) Stable appearance of the right upper zone opacity. Prominent bronchovascular markings suggestive of lung congestion. (stable) Heart and Mediastinum: Cardiomegaly is seen (stable) No mediastinal widening or masses. No hilar or mediastinal lymphadenopathy. Bony Thorax: Bony thorax appears intact without fractures or deformities. Soft Tissues: Soft tissues overlying the chest wall are unremarkable. IMPRESSION: 1. Mild left-sided and minimal right-sided pleural effusion.(stable) 2. Stable appearance of the right upper zone opacity. 3. Prominent bronchovascular markings suggestive of lung congestion. (stable) 4. Cardiomegaly. (stable) Electronically signed by Bryon Fitzpatrick 11-03-2024 08:46 AM
--- NOTE | 2024-11-03 13:49 | Hospitalist Progress Note ---
Date of Service November 03, 2024 Assessment & Plan (1) Acute on chronic respiratory failure: Plan: She required ventilator support earlier this admission. Now resolved. She is on room air (2) Septic shock: Plan: Present on admission. Due to gram-negative bacteremia( leclercia). Intravenous antibiotic has been switched to oral cephalexin on November 01 to complete a 2- week course (3) Acute on chronic heart failure with preserved ejection fraction: Plan: Improving with parenteral Lasix therapy. Chest x-ray done today, November 03, looks better with decreased size of bilateral pleural effusions. Serial chest x-ray every 2 days while hospitalized. Monitor intake and output. (4) Atrial fibrillation with rapid ventricular response: Plan: Now rate controlled. Continue current medical management. Continue Xarelto therapy (5) Acute kidney failure: Plan: Now resolved. Monitor intake and output. Serial labs (6) Chronic cor pulmonale: Plan: Known severe tricuspid regurgitation and elevated right ventricular systolic pressures. She may be a candidate for tricuspid valve repair in the future. Cardiology consultation and recommendations appreciated. Plan IPR or SNF at discharge pending. She is stable for discharge when arrangements are finalized Admission and Anticipated Discharge Date Admission Date: October 25, 2024 Subjective Alert and oriented. Good spirits. Continued a brisk diuresis with parenteral Lasix. Chest x-ray done today, November 03, looks better with decreased size of bilateral pleural effusions. Potassium corrected to 4.0. Oral dosage has been decreased today, November 03. She was encouraged to participate with OT and PT so case management can apply for rehab or SNF placement. Review of Systems 2 Review of Systems: Constitutionalno fever or chills ENTno blurred vision, no double vision, no epistaxis, no sore throat Respiratoryno cough, no wheezing, no shortness of breath at rest. She does have dyspnea on exertion Cardiacno palpitations, no chest pain, no syncope Joel nausea, vomiting, diarrhea, melena, hematochezia GUno urinary retention, no urinary incontinence, no dysuria, no hematuria Musculoskeletalno joint pain, no muscle tenderness. 1-2+ pitting edema bilateral lower extremities below the knees Skinno bruising, no rashes, no pruritus Neurono isolated weakness, no paresthesia, no weakness Psychno depression, no anxiety Physical Exam 2 Physical Exam: General-alert and oriented x3, no fever, no chills HEENT-head atraumatic and normocephalic, pupils equal and reactive to light, extraocular muscles intact Neck-no lymphadenopathy or thyromegaly, trachea midline Chest-bibasilar inspiratory rales. No rhonchi. No wheezing. Cardiac -irregular rhythm. Controlled rate. Normal S1 and S2 GI-normal bowel sounds, no hepatosplenomegaly Qojybisswxq-9-3+ pitting edema bilateral lower extremities below the knees Neuro-cranial nerves II through XII intact, motor and sensory function within normal limits, strength symmetrical, no focal deficits Psych-normal affect, normal mood Results & Data Results & Data Vital Signs (Past 12 Hours) Vital Signs Temp Pulse Resp BP Pulse Ox O2 Del Method 11/03/24 11:00 36.4 C L 87 19 119/73 95 Room Air 11/03/24 07:45 36.4 C L 86 18 119/77 93 Room Air 11/03/24 04:20 36.0 C L 82 18 112/79 93 Room Air Laboratory Results 11/01/24 06:14 11/03/24 05:36 PG Care Time/CCT Total # of Minutes Spent Total Time Spent with Patient: Total time spent is greater than 50% in coordination of care (as documented) at patient's floor/unit and/or counseling patient: Coding Level of Care Code 42852 SUB INP/OBS CARE 2/35MIN Diagnoses Acute on chronic respiratory failure J96.20 Septic shock A41.9; R65.21 Acute on chronic heart failure with preserved ejection fraction I50.33 Atrial fibrillation with rapid ventricular response I48.91 Acute kidney failure N17.9 Chronic cor pulmonale I27.81
[2024-11-04 06:10] LABS: Hematocrit (blood only) 39.9 % (37.0-47.0); Hemoglobin 12.5 g/dl (12.0-16.0); Immature Granulocytes # (auto) 0.31 K/uL (0.01-0.20); Immature Granulocytes % (auto) 2.2 %; Mean Corpuscular Hemoglobin 29.6 pg (25.0-34.0); Mean Corpuscular Volume 94.3 fL (80.0-100.0); Platelet Count 242 K/uL (130-400); RDW Standard Deviation 55.3 fL (36.4-46.3); Red Blood Count 4.23 M/uL (4.20-5.40); White Blood Count 13.89 K/ul (4.8-10.8)
[2024-11-04 06:26] LABS: Anion Gap 4.0 (3-11); Blood Urea Nitrogen 30.0 mg/dl (6-23); Calcium 8.4 mg/dl (8.6-10.3); Carbon Dioxide 34.0 mmol/L (21-32); Chloride 101.0 mmol/L (98-107); Creatinine Clr Calc Pharmacy 66.8 ml/min; Glucose 107.0 mg/dl (70-99(Fasting)); Potassium 4.2 mmol/L (3.5-5.1); Sodium 139.0 mmol/L (136-145)
[2024-11-04] MEDS: POTASSIUM CHLORIDE PWD 20 MEQ PACK PO SCH (08:22)
[2024-11-04] MEDS: SODIUM CHLORIDE 0.9% 500 ML IV SCH (10:57)
--- NOTE | 2024-11-04 11:38 | OB/GYN Consultation ---
Date of Consultation November 04, 2024 Assessment & Plan (1) Vaginal bleeding: - Ultrasound is pending today, ordered by primary service already. 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 Small amount of blood was seen, however does not appear to be actively bleeding from what I can see. -Hemoglobin is slightly down trended from yesterday but not significantly. Discussed potential etiologies including malignancy but would not be able to determine this by imaging alone and patient verbalized understanding. Suspect if pathology is present, it is worsened due to recent coagulopathy and antic oagulation. Can discuss workup further pending pelvic ultrasound results today and outpatient follow-up when she is medically more stable. Patient in agreement. - Can let gynecology know when patient will be discharged and outpatient follow- up can be arranged. History of Present Illness Reason for Consultation: Vaginal bleeding Attending Physician: Andres Workman MD History of Present Illness 84-year-old para 5 menopausal female admitted to medicine service for acute on chronic heart and respiratory failure and septic shock now resolving with concerns for vaginal bleeding. Complex past medical history who was admitted in September for A-fib and subsequently underwent cardioversion and started on Xarelto after that admission. Re-presented 11 days ago with the above concerns and admitted to ICU, now on floor status however significantly weaker than prior with plans to go to SNF/rehab. Gynecology consulted due to concerns for vaginal bleeding. The patient reports that she has been hav intermittent spotting since 2013 when she underwent a cholecystectomy. Would have episodes of spotting every 12 to 15 months, because it never got where she did not think much of it and did not get evaluated. Bleeding worsened slightly following initiation of Xarelto last month. During this hospital admission has been having intermittent vaginal bleeding, nursing noted passage of small dime size clots last evening so gynecology was called. -Reports 5 vaginal deliveries, possibly has had more pregnancies but were very early miscarriages -Reports menopause occurred around age 52, prior to that did have long episodes of menorrhagia that required blood transfusion. Has not really seen a stock digger since then. Denies history of abnormal Pap and STIs, last Pap was likely around that time. Allergies Allergy/AdvReac Type Severity Reaction Status Date / Time nickel AdvReac Mild Rash Verified 10/10/24 13:39 Home Medications Medication Instructions Recorded Confirmed Type cholecalciferol (vitamin D3) 25 25 mcg PO DAILY 10/06/24 11/03/24 History mcg (1,000 unit) tablet (Vitamin D3) furosemide 40 mg tablet 40 mg PO QAM 10/06/24 11/03/24 History losartan 100 mg tablet 100 mg PO QAM 10/06/24 11/03/24 History potassium chloride 20 mEq 20 meq PO QAM 10/06/24 11/03/24 History tablet,extended release rivaroxaban 20 mg tablet (Xarelto) 20 mg PO QPM 10/06/24 11/03/24 History metoprolol succinate 100 mg 100 mg PO QPM 10/10/24 11/03/24 History tablet,extended release 24 hr amiodarone 200 mg tablet 200 mg PO BIDM 14 days #28 tabs 10/14/24 11/03/24 Rx spironolactone 25 mg tablet 25 mg PO QAM 30 days #30 tabs 10/14/24 11/03/24 Rx Patient History Medical History Edema Dyspnea on exertion History of anemia (1989) 4 units PRBCs Hx of congestive heart failure (1989) Cardiac murmur Echo 09/2024 Atrial fibrillation Follows with Dr. Walker Surgical History Hx of tonsillectomy (194) Hx laparoscopic cholecystectomy (2013) Social History Smoking Status: Never smoker Second Hand Exposure: No; Do You Dip or Chew Tobacco: No; Hx Alcohol Use: Yes Alcohol type: beer and wine Hx Substance Use: No Preferred Language: Danish Communication Ability: Impaired Wildlife Biologist Required: No Beliefs That Will Affect Care: None Current Living Situation: Family Current Living Situation Comment: Lives with Son Ronny Feels Safe at Home: Yes Assistive Devices: None Physical Exam Genitourinary: Patient very weak and unable to move lower extremities without assistance. Able to see pad under patient with small amount of red blood, was recently changed. Of note urine in [place] tubing does appear to be pink Results & Data Vital Signs (Past 12 Hours) Vital Signs Temp Pulse Pulse Resp BP BP Pulse Ox 11/04/24 10:41 97.5 F L 86 14 107/72 93 11/04/24 08:00 90 11/04/24 07:25 97.5 F L 86 16 122/86 94 11/04/24 03:15 97.5 F L 90 16 112/76 94 O2 Del Method 11/04/24 10:41 Room Air 11/04/24 08:00 11/04/24 07:25 Room Air 11/04/24 03:15 Room Air PG Care Time/CCT Total # of Minutes Spent Total Time Spent with Patient: Total time spent is greater than 50% in coordination of care (as documented) at patient's floor/unit and/or counseling patient: Coding Level of Care Code 36669 INT INP/OBS CARE 2/55MIN Diagnoses Vaginal bleeding N93.9
--- NOTE | 2024-11-04 12:06 | Hospitalist Progress Note ---
Date of Service November 04, 2024 Assessment & Plan (1) Acute on chronic respiratory failure: Plan: She required ventilator support earlier this admission. Now resolved. She is on room air (2) Septic shock: Plan: Present on admission. Due to gram-negative bacteremia( leclercia). Intravenous antibiotic has been switched to oral cephalexin on November 01 to complete a 2- week course (3) Acute on chronic heart failure with preserved ejection fraction: Plan: Improving with parenteral Lasix therapy. Chest x-ray done on November 03 looked better with decreased size of bilateral pleural effusions. Serial chest x-ray every 2 days while hospitalized. Monitor intake and output. (4) Atrial fibrillation with rapid ventricular response: Plan: Now rate controlled. Continue current medical management. Continue Xarelto therapy (5) Acute kidney failure: Plan: Now resolved. Monitor intake and output. Serial labs (6) Chronic cor pulmonale: Plan: Known severe tricuspid regurgitation and elevated right ventricular systolic pressures. She may be a candidate for tricuspid valve repair in the future. Cardiology consultation and recommendations appreciated. (7) Vaginal bleeding: Plan: She is having persistent dysfunctional uterine bleeding. 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 This will need further outpatient follow-up. Plan IPR or SNF at discharge pending. She is stable for discharge when arrangements are finalized. Hopefully she can be discharged tomorrow, November 05 Admission and Anticipated Discharge Date Admission Date: October 25, 2024 Subjective Alert and oriented and clinically improved. She was able to dissipate with OT and PT. Acceptance at either [facility] or [facility] is pending. She continues to have some vaginal bleeding, probably from dysfunctional uterine bleeding. While she is hospitalized this will be evaluated with SPINNING MACHINE TENDER consultation and pelvic ultrasound. Review of Systems 2 Review of Systems: Constitutionalno fever or chills ENTno blurred vision, no double vision, no epistaxis, no sore throat Respiratoryno cough, no wheezing, no shortness of breath at rest. She does have dyspnea on exertion Cardiacno palpitations, no chest pain, no syncope Joel nausea, vomiting, diarrhea, melena, hematochezia GUno urinary retention, no urinary incontinence, no dysuria, no hematuria Musculoskeletalno joint pain, no muscle tenderness. 1-2+ pitting edema bilateral lower extremities below the knees Skinno bruising, no rashes, no pruritus Neurono isolated weakness, no paresthesia, no weakness Psychno depression, no anxiety Physical Exam 2 Physical Exam: General-alert and oriented x3, no fever, no chills HEENT-head atraumatic and normocephalic, pupils equal and reactive to light, extraocular muscles intact Neck-no lymphadenopathy or thyromegaly, trachea midline Chest-faint bibasilar inspiratory rales. No rhonchi. No wheezing. Cardiac -irregular rhythm. Controlled rate. Normal S1 and S2 GI-normal bowel sounds, no hepatosplenomegaly Feeozduxcgo-0-8+ pitting edema bilateral lower extremities below the knees Neuro-cranial nerves II through XII intact, motor and sensory function within normal limits, strength symmetrical, no focal deficits Psych-normal affect, normal mood Results & Data Results & Data Vital Signs (Past 12 Hours) Vital Signs Temp Pulse Pulse Resp BP BP Pulse Ox 11/04/24 10:41 36.4 C L 86 14 107/72 93 11/04/24 08:00 90 11/04/24 07:25 36.4 C L 86 16 122/86 94 11/04/24 03:15 36.4 C L 90 16 112/76 94 O2 Del Method 11/04/24 10:41 Room Air 11/04/24 08:00 11/04/24 07:25 Room Air 11/04/24 03:15 Room Air Laboratory Results 11/04/24 05:48 11/04/24 05:48 PG Care Time/CCT Total # of Minutes Spent Total Time Spent with Patient: Total time spent is greater than 50% in coordination of care (as documented) at patient's floor/unit and/or counseling patient: Coding Level of Care Code 12412 SUB INP/OBS CARE 3/50MIN Diagnoses Acute on chronic respiratory failure J96.20 Septic shock A41.9; R65.21 Acute on chronic heart failure with preserved ejection fraction I50.33 Atrial fibrillation with rapid ventricular response I48.91 Acute kidney failure N17.9 Chronic cor pulmonale I27.81 Vaginal bleeding N93.9
--- NOTE | 2024-11-04 12:48 | Ultrasound Report ---
ULTRASOUND OF THE PELVIS CLINICAL HISTORY: Chronic vaginal bleeding. COMPARISON STUDY: No priors TECHNIQUE: Real-time, grayscale, and color flow sonography of the pelvis is performed. Images are rev iewed in the transverse and longitudinal planes. FINDINGS: Uterus: The uterus is enlarged and heterogeneous, measuring 13.9 x 7.0 x 8.0 cm. Endometrium: The endometrium appears markedly thickened and heterogeneous, measuring up to 5.8 cm in diameter. There are endometrial calcifications as well as cystic foci/pockets of fluid. No abnormal f low is clearly shown on color imaging. Ovaries: The ovaries were not visualized on this transabdominal examination due to overlying bowel ga s. Pelvis: There is pelvic ascites. No adnexal lesion is seen. IMPRESSION: 1. Enlarged and heterogeneous uterus. 2. The endometrium appears markedly thickened and heterogeneous as above. An endometrial neoplasm is to be excluded. Follow-up with gynecology is recommended. 3. The ovaries were not visualized. 4. Pelvic ascites. ACT 112: Positive. There are findings on this exam that require communication between the performing entity and the patient following Patient Test Result Information Act ([place] Act 112) guidelines. Electronically signed by: Dario Hong M.D. 11/04/2024 12:46 PM
[2024-11-05] MEDS: ACETAMINOPHEN 325 MG TAB PO STA (07:32)
--- NOTE | 2024-11-05 08:24 | XRay Report ---
EXAM: XR chest 1V portable CLINICAL HISTORY: CHF TECHNIQUE: An X-ray image of the chest was obtained in AP projection. COMPARISON: Chest X-ray 11/03/2024 FINDINGS: Pulmonary Parenchyma: Mild left-sided and minimal right-sided pleural effusion (increasing). Prominent bronchovascular markings suggestive of lung congestion (stable). Heart and Mediastinum: Cardiomegaly is seen (stable). No mediastinal widening or masses. No hilar or mediastinal lymphadenopathy. Bony Thorax: Bony thorax appears intact without fractures or deformities. Soft Tissues: Soft tissues overlying the chest wall are unremarkable. IMPRESSION: 1. Compared to X-ray study dated 11/03/2024. 2. Mild left-sided and minimal right-sided pleural effusion (increased). 3. Prominent bronchovascular markings suggestive of lung congestion (stable). 4. Cardiomegaly (stable). Electronically signed by Bryon Fitzpatrick 11-05-2024 08:23 AM
--- NOTE | 2024-11-05 12:51 | Hospitalist Progress Note ---
Date of Service November 05, 2024 Assessment & Plan (1) Acute on chronic respiratory failure: Plan: She required ventilator support earlier this admission. Now resolved. She is on room air (2) Septic shock: Plan: Present on admission. Due to gram-negative bacteremia( leclercia). Intravenous antibiotic has been switched to oral cephalexin on November 01 to complete a 2- week course (3) Acute on chronic heart failure with preserved ejection fraction: Plan: Improving with parenteral Lasix therapy. Chest x-ray done today, November 05, read as increasing size of left pleural effusion but I think overall she is stable. Parenteral Lasix has been switched to oral dosing today, November 05. Monitor intake and output. (4) Atrial fibrillation with rapid ventricular response: Plan: Now rate controlled. Continue current medical management. Continue Xarelto therapy (5) Acute kidney failure: Plan: Now resolved. Monitor intake and output. Serial labs (6) Chronic cor pulmonale: Plan: Known severe tricuspid regurgitation and elevated right ventricular systolic pressures. She may be a candidate for tricuspid valve repair in the future. Cardiology consultation and recommendations appreciated. (7) Vaginal bleeding: Plan: Pelvic ultrasound reveals enlarged uterine size and thickened endometrium. This will need further outpatient assessment to rule out uterine cancer. In the meantime, Xarelto has been discontinued. Appreciate SYSTEMS MANAGEMENT CONSULTANT consultation and recommendations Plan IPR has been denied by insurance. Case management will pursue SNF placement. She is stable for discharge when arrangements are finalized. Admission and Anticipated Discharge Date Admission Date: October 25, 2024 Subjective Alert and oriented. Pleasant. She understands the results of the pelvic ultrasound and the fact that she will need further outpatient evaluation. Xarelto in the meantime has been discontinued to hopefully stem her blood loss. Parenteral Lasix has been switched to oral dosing. IPR placement has been denied by insurance. Case management notified to pursue SNF placement. She remains on room air. Parenteral Fortaz has been switched to oral Keflex. Chest x-ray done today, November 05, was interpreted as increasing size of left pleural effusion but I think overall she is stable. Review of Systems 2 Review of Systems: Constitutionalno fever or chills ENTno blurred vision, no double vision, no epistaxis, no sore throat Respiratoryno cough, no wheezing, no shortness of breath at rest. She does have dyspnea on exertion Cardiacno palpitations, no chest pain, no syncope Joel nausea, vomiting, diarrhea, melena, hematochezia GUno urinary retention, no urinary incontinence, no dysuria, no hematuria Musculoskeletalno joint pain, no muscle tenderness. 1-2+ pitting edema bilateral lower extremities below the knees Skinno bruising, no rashes, no pruritus Neurono isolated weakness, no paresthesia, no weakness Psychno depression, no anxiety Physical Exam 2 Physical Exam: General-alert and oriented x3, no fever, no chills HEENT-head atraumatic and normocephalic, pupils equal and reactive to light, extraocular muscles intact Neck-no lymphadenopathy or thyromegaly, trachea midline Chest-faint bibasilar inspiratory rales. No rhonchi. No wheezing. Cardiac -irregular rhythm. Controlled rate. Normal S1 and S2 GI-normal bowel sounds, no hepatosplenomegaly Xwiltclxbur-[id number]+ pitting edema bilateral lower extremities below the knees Neuro-cranial nerves II through XII intact, motor and sensory function within normal limits, strength symmetrical, no focal deficits Psych-normal affect, normal mood Results & Data Results & Data Vital Signs (Past 12 Hours) Vital Signs Temp Pulse Resp BP BP Pulse Ox O2 Del Method 11/05/24 11:23 85 17 97/64 L 95 Room Air 11/05/24 08:01 91 H 18 105/74 94 Room Air 11/05/24 08:00 Room Air 11/05/24 02:42 36.4 C L 77 18 104/70 93 Room Air Laboratory Results 11/04/24 05:48 11/04/24 05:48 PG Care Time/CCT Total # of Minutes Spent Total Time Spent with Patient: Total time spent is greater than 50% in coordination of care (as documented) at patient's floor/unit and/or counseling patient: Coding Level of Care Code 19468 SUB INP/OBS CARE 3/50MIN Diagnoses Acute on chronic respiratory failure J96.20 Septic shock A41.9; R65.21 Acute on chronic heart failure with preserved ejection fraction I50.33 Atrial fibrillation with rapid ventricular response I48.91 Acute kidney failure N17.9 Chronic cor pulmonale I27.81 Vaginal bleeding N93.9
[2024-11-05] MEDS: FUROSEMIDE 80 MG TAB PO SCH (17:43)
[2024-11-06 06:58] LABS: Hematocrit (blood only) 36.7 % (37.0-47.0); Hemoglobin 11.8 g/dl (12.0-16.0); Immature Granulocytes # (auto) 0.12 K/uL (0.01-0.20); Immature Granulocytes % (auto) 1.1 %; Mean Corpuscular Hemoglobin 30.5 pg (25.0-34.0); Mean Corpuscular Volume 94.8 fL (80.0-100.0); Platelet Count 248 K/uL (130-400); RDW Standard Deviation 58.0 fL (36.4-46.3); Red Blood Count 3.87 M/uL (4.20-5.40); White Blood Count 10.57 K/ul (4.8-10.8)
[2024-11-06 07:29] LABS: Anion Gap 4.0 (3-11); Blood Urea Nitrogen 32.0 mg/dl (6-23); Calcium 8.4 mg/dl (8.6-10.3); Carbon Dioxide 35.0 mmol/L (21-32); Chloride 101.0 mmol/L (98-107); Creatinine Clr Calc Pharmacy 73.3 ml/min; Glucose 112.0 mg/dl (70-99(Fasting)); Potassium 4.2 mmol/L (3.5-5.1); Sodium 140.0 mmol/L (136-145)
[2024-11-06] MEDS: MULTIVITAMIN TAB PO SCH (09:16)
[2024-11-06] MEDS: POTASSIUM CHLORIDE 10 MEQ TABCR PO SCH (09:19)
--- NOTE | 2024-11-06 15:28 | Hospitalist Progress Note ---
Date of Service November 06, 2024 Assessment & Plan (1) Acute on chronic respiratory failure: Plan: She required ventilator support earlier this admission. Now resolved. She is on room air (2) Septic shock: Plan: Present on admission. Due to gram-negative bacteremia( leclercia). Intravenous antibiotic has been switched to oral cephalexin on November 01 to complete a 2- week course (3) Acute on chronic heart failure with preserved ejection fraction: Plan: Improved with parenteral Lasix therapy. Parenteral Lasix has been switched to oral dosing on November 05. Monitor intake and output. (4) Atrial fibrillation with rapid ventricular response: Plan: Now rate controlled. Continue current medical management. Continue Xarelto therapy (5) Acute kidney failure: Plan: Now resolved. Monitor intake and output. Serial labs (6) Chronic cor pulmonale: Plan: Known severe tricuspid regurgitation and elevated right ventricular systolic pressures. She may be a candidate for tricuspid valve repair in the future. Cardiology consultation and recommendations appreciated. (7) Vaginal bleeding: Plan: Pelvic ultrasound reveals enlarged uterine size and thickened endometrium. This will need further outpatient assessment to rule out uterine cancer. In the meantime, Xarelto has been discontinued. Appreciate COMMUNICATIONS ANALYST consultation and recommendations Plan IPR has been denied by insurance. SNF has not been improved. Anticipate discharge to [facility] on November 08. She is stable for discharge Admission and Anticipated Discharge Date Admission Date: October 25, 2024 Subjective Stable overall. SNF approval has been received. Anticipate discharge to [facility] on November 08. Xarelto has been discontinued due to dysfunctional uterine bleeding. Fortunately, her hemoglobin remains stable. She is on room air. Review of Systems 2 Review of Systems: Constitutionalno fever or chills ENTno blurred vision, no double vision, no epistaxis, no sore throat Respiratoryno cough, no wheezing, no shortness of breath at rest. She does have dyspnea on exertion Cardiacno palpitations, no chest pain, no syncope Joel nausea, vomiting, diarrhea, melena, hematochezia GUno urinary retention, no urinary incontinence, no dysuria, no hematuria Musculoskeletalno joint pain, no muscle tenderness. 1-2+ pitting edema bilateral lower extremities below the knees Skinno bruising, no rashes, no pruritus Neurono isolated weakness, no paresthesia, no weakness Psychno depression, no anxiety Physical Exam 2 Physical Exam: General-alert and oriented x3, no fever, no chills HEENT-head atraumatic and normocephalic, pupils equal and reactive to light, extraocular muscles intact Neck-no lymphadenopathy or thyromegaly, trachea midline Chest-faint bibasilar inspiratory rales. No rhonchi. No wheezing. Cardiac -irregular rhythm. Controlled rate. Normal S1 and S2 GI-normal bowel sounds, no hepatosplenomegaly Xzewpgiixmc-4-9+ pitting edema bilateral lower extremities below the knees Neuro-cranial nerves II through XII intact, motor and sensory function within normal limits, strength symmetrical, no focal deficits Psych-normal affect, normal mood Results & Data Results & Data Vital Signs (Past 12 Hours) Vital Signs Temp Pulse Resp BP Pulse Ox O2 Del Method 11/06/24 12:00 36.6 C 92 H 18 98/60 L 98 Room Air 11/06/24 08:00 Room Air 11/06/24 08:00 36.5 C 91 H 20 98/64 L 99 Room Air 11/06/24 03:47 36.4 C L 82 18 100/67 95 Room Air Laboratory Results 11/06/24 06:07 11/06/24 06:07 PG Care Time/CCT Total # of Minutes Spent Total Time Spent with Patient: Total time spent is greater than 50% in coordination of care (as documented) at patient's floor/unit and/or counseling patient: Coding Level of Care Code 81657 SUB INP/OBS CARE 2/35MIN Diagnoses Acute on chronic respiratory failure J96.20 Septic shock A41.9; R65.21 Acute on chronic heart failure with preserved ejection fraction I50.33 Atrial fibrillation with rapid ventricular response I48.91 Acute kidney failure N17.9 Chronic cor pulmonale I27.81 Vaginal bleeding N93.9
[2024-11-06 19:55] VITALS: RESP 18
[2024-11-07 06:40] LABS: Hematocrit (blood only) 35.0 % (37.0-47.0); Hemoglobin 11.2 g/dl (12.0-16.0); Immature Granulocytes # (auto) 0.12 K/uL (0.01-0.20); Immature Granulocytes % (auto) 1.0 %; Mean Corpuscular Hemoglobin 30.4 pg (25.0-34.0); Mean Corpuscular Volume 95.1 fL (80.0-100.0); Platelet Count 266 K/uL (130-400); RDW Standard Deviation 60.3 fL (36.4-46.3); Red Blood Count 3.68 M/uL (4.20-5.40); White Blood Count 11.76 K/ul (4.8-10.8)
[2024-11-07 07:09] LABS: Anion Gap 6.0 (3-11); Blood Urea Nitrogen 32.0 mg/dl (6-23); Calcium 8.5 mg/dl (8.6-10.3); Carbon Dioxide 34.0 mmol/L (21-32); Chloride 101.0 mmol/L (98-107); Creatinine Clr Calc Pharmacy 80.7 ml/min; Glucose 108.0 mg/dl (70-99(Fasting)); Potassium 3.9 mmol/L (3.5-5.1); Sodium 141.0 mmol/L (136-145)
[2024-11-07 08:22] VITALS: PULSE 94; TEMP 97.9; O2SAT 92
--- NOTE | 2024-11-07 10:35 | Discharge Summary ---
Discharge Summary Date of Service November 07, 2024 Principal Dx & Hospital Course #1 = Principal Diagnosis (1) Acute on chronic respiratory failure: She required ventilator support earlier this admission. Now resolved. She is on room air (2) Septic shock: Present on admission. Due to gram-negative bacteremia( leclercia). Intravenous antibiotic has been switched to oral cephalexin on November 01 to complete a 2- week course (3) Acute on chronic heart failure with preserved ejection fraction: Improved with parenteral Lasix therapy. Parenteral Lasix has been switched to oral dosing on November 05. Monitor intake and output. (4) Atrial fibrillation with rapid ventricular response: Now rate controlled. Continue current medical management. Xarelto has been discontinued due to dysfunctional uterine bleeding (5) Acute kidney failure: Now resolved. Monitor intake and output. Serial labs (6) Chronic cor pulmonale: Known severe tricuspid regurgitation and elevated right ventricular systolic pressures. She may be a candidate for tricuspid valve repair in the future. Cardiology consultation and recommendations appreciated. (7) Vaginal bleeding: Pelvic ultrasound reveals enlarged uterine size and thickened endometrium. This will need further outpatient assessment to rule out uterine cancer. In the meantime, Xarelto has been discontinued. Appreciate CRUISE AGENT consultation and recommendations Plan Discharge to [facility] today, November 07. She will follow-up with CRUISE AGENT as soon as she can get an appointment for further evaluation of the dysfunctional uterine bleeding. Xarelto has been discontinued. Admission HPI Per Admitting Provider The patient is an 84-year-old female with past medical history including atrial fibrillation with rapid ventricular response, HFpEF, hypertension, PFO. She is most recently admitted to [facility] from 10/10-10/14/2024, with A-fib with RVR and acute CHF. She underwent DCCV, and was started on amiodarone and Xarelto, which she has continued. She was also continued on furosemide 40 mg daily, and metoprolol succinate 100 mg daily along with spironolactone 25 mg daily. She presented to the emergency department with acute onset of shortness of breath, and was intubated in the ED due to acute respiratory failure. Respiratory panel was negative. Chest x-ray showed a slight increase in left pleural effusion but otherwise appeared normal. AST was 190 and ALT 185, with a troponin of 35.8. In the emergency department, patient became hypotensive, and was started on multiple pressors including Levophed, vasopressin, and had addition of milrinone. Patient is a DNR at this time, but continues to be intubated, and will not undergo CPR Discharge Exam General-alert and oriented x3, no fever, no chills HEENT-head atraumatic and normocephalic, pupils equal and reactive to light, extraocular muscles intact Neck-no lymphadenopathy or thyromegaly, trachea midline Chest-faint bibasilar inspiratory rales. No rhonchi. No wheezing. Cardiac -irregular rhythm. Controlled rate. Normal S1 and S2 GI-normal bowel sounds, no hepatosplenomegaly Xnhzrnbvtxq-6-4+ pitting edema bilateral lower extremities below the knees Neuro-cranial nerves II through XII intact, motor and sensory function within normal limits, strength symmetrical, no focal deficits Psych-normal affect, normal mood Discharge Plan Discharge Items Patient Disposition: Transfer Shelter Fac Reason For Visit: ACUTE RESPIRATORY FAILURE Discharge Diagnosis: Acute on chronic respiratory failure, acute diastolic congestive heart failure, gram-negative bacteremia, dysfunctional uterine bleeding Condition on Discharge: Good Activity: Resume your previous activity Non-emergency contact: Primary Care Provider Call non-emergency contact if: your symptoms worsen Follow-up/Referrals: David Minaya D.O. [Primary Care Provider] - Diet: Regular and Heart Healthy Add Attending Provider Instructions: See your primary care provider soon as possible after discharge from [facility]. Follow-up with CRUISE AGENT physician for further evaluation of abnormal uterus and bleeding Pending Studies at Discharge: No Stand-Alone Forms: My [facility] Skilled Items Patient informed of condition?: Yes DNR: Yes Discharge Level of Care: Skilled Communicable Disease: No Discharge Prognosis: Stable Lines: None Urinary Catheter: Yes Medications and DC Order Prescriptions: New metoprolol succinate 50 mg Tablet Extended Release 24 Hr 50 mg PO QAM Qty: 20 0RF thiamine HCl (vitamin B1) 100 mg Tablet 100 mg PO QAM Qty: 20 0RF magnesium oxide 400 mg (241.3 mg magnesium) Tablet 400 mg PO BID@0700,1900 Qty: 20 0RF furosemide 80 mg Tablet 80 mg PO BID17 Qty: 20 0RF cephalexin 500 mg Capsule 500 mg PO QID Qty: 8 0RF multivitamin with folic acid [Daily-Charity (with folic acid)] 400 mcg Tablet 1 tab PO QAM Qty: 20 0RF Continued cholecalciferol (vitamin D3) [Vitamin D3] 25 mcg (1,000 unit) Tablet 25 mcg PO DAILY potassium chloride 20 mEq Tablet Extended Release 20 meq PO QAM amiodarone 200 mg Tablet 200 mg PO BIDM 14 Days Qty: 28 0RF Discontinued furosemide 40 mg Tablet 40 mg PO QAM losartan 100 mg Tablet 100 mg PO QAM Hold Instructions: Resume on 10/26/24. Pending review by cardiology in outpatient setting Xarelto 20 mg Tablet 20 mg PO QPM Rx Instructions: must administer with evening meal metoprolol succinate 100 mg tablet extended release 24 hr 100 mg PO QPM spironolactone 25 mg Tablet 25 mg PO QAM 30 Days Qty: 30 0RF Discharge Orders: Discharge Order- CHF (Routine); Ordered 11/07/24 Ordered By: Andres Ansari/Other Patient Handouts: Type 2 Diabetes Admission Data Admit Date/Time: 10/25/24 06:28 Attending Provider: Andres Workman Admit Provider: Volodymyr Saeed Primary Care Provider: David Minaya Other Providers: [facility]; Shgagy Bro [facility] [place]; Volodymyr Saeed; Chad Ron; Maki Walker; Rhoda Nunez; Patrice Charles; Alisson Hopper; Meri Campbell; Chery Dobbs; Jose Weiss; Chhaya Walters; Sharlene Thakkar; Nay Angeles; Aubrey Rodrigez; Agata Zapata Meagan R Hospital Stay Data Consultations 10/25/24 06:13 ED Decision to Admit Stat 10/25/24 08:20 Consult Cisco Consultant Routine 10/27/24 09:38 Consult Cardiology Routine 11/04/24 10:11 Consult Gynecology Routine Diagnostic Imagining Performed 10/25/24 06:14 US venous doppler LE BI Urgent 10/25/24 06:20 US arterial duplex LE RT Urgent 10/29/24 08:30 US venous doppler LE RT Stat 11/04/24 10:12 US pelvic complete Urgent Pending Results Patient Have Any Pending Studies at Discharge: No Discharge Instructions Given to Patient (Per Discharging Provider) See your primary care provider soon as possible after discharge from [facility]. Follow-up with CRUISE AGENT physician for further evaluation of abnormal uterus and bleeding Total Time Total Time Spent Total Time Spent (In Minutes): 45 minutes Coding Level of Care Code 83789 INP/OBS DISCH >30 MIN Diagnoses Acute on chronic respiratory failure J96.20 Septic shock A41.9; R65.21 Acute on chronic heart failure with preserved ejection fraction I50.33 Atrial fibrillation with rapid ventricular response I48.91 Acute kidney failure N17.9 Chronic cor pulmonale I27.81 Vaginal bleeding N93.9
[2024-11-07 12:01] VITALS: BP 97/64
== END 2024-11-07 13:58 | DRG 208 ==
LOC: SUATTDRO → ED 02:51 → SUATTDRO 06:28 → 1E 06:28 → 2S 10-30 06:37

== ENCOUNTER 2024-11-15 20:56 | Inpatient (IN) ==
[2024-11-15 21:22] LABS: Hematocrit (blood only) 39.3 % (37.0-47.0); Hemoglobin 12.3 g/dl (12.0-16.0); Immature Granulocytes # (auto) 0.10 K/uL (0.01-0.20); Immature Granulocytes % (auto) 1.0 %; Mean Corpuscular Hemoglobin 30.5 pg (25.0-34.0); Mean Corpuscular Volume 97.5 fL (80.0-100.0); Platelet Count 296 K/uL (130-400); RDW Standard Deviation 64.2 fL (36.4-46.3); Red Blood Count 4.03 M/uL (4.20-5.40); White Blood Count 10.30 K/ul (4.8-10.8)
--- NOTE | 2024-11-15 21:40 | Emergency Department Note ---
Impression & Plan Acute CHF (congestive heart failure), Atrial fibrillation with rapid ventricular response, Hypervolemia, Compensated respiratory acidosis, Hypoalbuminemia, Pleural effusion ED Provider Note NAME: ASAD SOTO AGE: 84 SEX: F : 1940 ARRIVES VIA: Ambulance INFORMANT: Patient, EMS ED PROVIDER(S): Ryan Rodrigez DO CHIEF COMPLAINT: hypervolemia HPI: This is a 84-year-old female with the PMHx of paroxysmal atrial fibrillation on Xarelto, CHF, valvular heart disease, and ongoing vaginal bleeding presenting to [facility] for further evaluation of dypnea and swelling. Patient is accompanied by EMS who provide additional history. EMS states that the patient required no treatments while and route. They note that she was tachypneic. Patient states this has been ongoing since May of this year. She states that she has had multiple admissions for hypervolemia in the setting of CHF. Patient states that her diuretic regiment was recently changed as an outpatient in order to prevent admission. She states that she is only voiding approximately 4 times a day. She has reported no improvement since changes in her medications. She reports progressive dyspnea as well as orthopnea. Patient reports abdominal swelling and some lower extremity edema. They deny fever or chills. No cough or congestion. Denies chest pain or palpitations. They deny abdominal pain, nausea and vomiting. No urinary complaints. No recent changes in bowel movements. Patient denies recent changes in medications or OTC supplements. Patient offers no other complaints, today. ADDITIONAL HISTORY OBTAINED: Per HPI Chronic Medical/Social Conditions Affecting Care: Per HPI PAST MEDICAL HISTORY: See Below PAST SURGICAL HISTORY: See Below FAMILY HISTORY: See Below SOCIAL HISTORY: See Below HOME MEDICATIONS: See Below ALLERGIES: See Below VITALS: See Below PHYSICAL EXAMINATION: GENERAL: Sitting up in bed, alert, well appearing, well nourished, no distress, non-toxic EYE EXAM: normal conjunctiva. PERRL and EOM's grossly intact. OROPHARYNX: no exudate, no erythema, lips, buccal mucosa, and tongue normal and mucous membranes are moist NECK: supple, no nuchal rigidity, no adenopathy, non-tender LUNGS: Rales in bases. Tachypnea. Normal chest wall mechanics HEART: no murmurs, tachycardic rate, irregular rhythm ABDOMEN: abdomen soft, non-tender, no masses, no rebound or guarding. Some distention, likely fluid. BACK: Back is symmetrical on inspection and there is no deformity, no midline tenderness, no CVA tenderness. SKIN: no rashes and no bruising UPPER EXTREMITIES: upper extremities are grossly normal. LOWER EXTREMITIES: 1+ pitting edema. NEURO EXAM: Normal sensorium, GCS 15, normal speech, no gross weakness of arms, no gross weakness of legs. MEDICAL DECISION MAKING: Differential diagnoses includes but not limited to ACS, unstable angina, dysrhythmia, PNA, hypervolemia/pulmonary edema, CHF exacerbation, COPD exacerbation, PE, pneumothorax, pericardial effusion, cardiac tamponade, anxiety/psychogenic, viral URI In summary, this is a 84 year old female who presented with dyspnea and evidence of hypervolemia Differential as above. Nursing notes and pertinent past medical records reviewed. Vital signs reviewed and the patient is tachycardic and tachypneic. Patient has normal oxygenation status on room air. History and presentation revealed extensive cardiovascular history. Physical examination revealed evidence of hypervolemia. As a result of my initial evaluation, plan for labs and chest x-ray. Do feel the patient presentation today is likely related to hypervolemia in the setting of decompensated heart failure. Patient will require inpatient management for further IV diuresis as she has failed outpatient management. Diagnostics interpreted by me include EKG and cardiac monitoring as listed below: -Cardiac Monitoring: An order was placed for continuous cardiac monitoring. The monitor shows a rate of 80-130s with irregular rhythm. -ECG: EKG independently interpreted by me reveals rate controlled atrial fibrillation at [address] segment changes to suggest STEMI. QRS is of low voltage on this EKG. Intervals are within normal limits. Patient completed laboratory studies and imaging. Chest x-ray is independently interpreted me as negative for focal infiltration to suggest pneumonia. No pneumothorax. There is bilateral interstitial edema as well as pleural effusions that are worse on the left. Results independently interpreted by me are no significant anemia or leukocytosis. Coagulation studies are normal. VBG shows some evidence of a respiratory acidosis that is compensated. No significant electrolyte derangements. Patient does have minimal hypocalcemia. Mild elevation in alkaline phosphatase. Troponin is normal. Does have hypoalbuminemia which is likely falsely lowering calcium. And there is elevation of the patient's BMP which fits her physical examination is consistent with hypervolemia. Patient's lab work, examination, history and chest x-ray are consistent with hypervolemia from mild CHF. Unfortunately, the patient has failed outpatient management with increased diuretics. Patient will require IV diuretics given her tachypnea and progressive hypervolemia. Given clinical picture, we will plan for IV bolus of Furosemide in the ED. Ultimately, the decision was made to admit the patient for mildly decompensated CHF with hypervolemia and tachypnea. I discussed the case with the hospitalist service via telephone/T[employer] and they are agreeable to admit the patient to their services. Based on the above, including the patient's age, coexisting illnesses, labs, imaging, and exam findings the decision to treat as an inpatient. I discussed the patient with the hospitalist team who recommended admission to their services. They received the medications, treatments, interventions indicated above and their condition []. I discussed my findings with the patient and their family and they understand and agree with the treatment plan. All patient / family questions were answered to their satisfaction. Following admission, the patient reported brief chest pain that resolved prior to obtaining EKG. Repeat EKG was independently interpreted by me reveals what appears to be rate controlled atrial fibrillation at 99 bpm. There is an incomplete right bundle branch block present. No significant ST segment changes to suggest STEMI. There is a poor baseline on this EKG. Consults/Care Managements Discussions: Per MDM ER treatment provided: See above Procedures:none Critical Care: None The chart was completed utilizing [employer] Speech voice recognition software. Grammatical errors, random word insertions, pronoun errors, and incomplete sentences are an occasional consequence of this system due to software limitations, ambient noise, and hardware issues. Any formal questions or concerns about the content, text, or information contained within the body of this dictation should be directly addressed to the physician for clarification. Past Med/Surg History Problem List (Updated 11/16/24 @ 00:50 by Ryan Rodrigez DO) Pleural effusion (Acute) Hypoalbuminemia (Acute) Compensated respiratory acidosis (Acute) Hypervolemia (Acute) Vaginal bleeding Vaginal bleeding Chronic cor pulmonale Edema of both legs Tricuspid regurgitation Hepatopathy Cardiorenal syndrome with renal failure Atrial fibrillation with rapid ventricular response (Acute) Diastolic CHF, chronic Right-sided congestive heart failure Septic shock Acute on chronic heart failure with preserved ejection fraction Bacteremia due to Gram-negative bacteria Sepsis (Acute) Cardiogenic shock (Acute) Respiratory failure (Acute) Acute hypoxic respiratory failure Right heart failure Cardiogenic shock Lactic acidosis Acute kidney failure Ischemic hepatitis Transaminitis Hypotension Admitted to intensive care unit Acute on chronic respiratory failure Anticoagulated Acute CHF (congestive heart failure) (Acute) Atrial fibrillation with rapid ventricular response (Acute) Medical History Edema Dyspnea on exertion History of anemia (1989) 4 units PRBCs Hx of congestive heart failure (1989) Cardiac murmur Echo 09/2024 Atrial fibrillation Follows with Dr. 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 Beliefs That Will Affect Care: None Current Living Situation: Family Current Living Situation Comment: Lives with Son Ronny Feels Safe at Home: Yes Assistive Devices: None Allergies Allergies Allergy/AdvReac Type Severity Reaction Status Date / Time nickel AdvReac Mild Rash Verified 10/10/24 13:39 Home Meds Home Medications Medication Instructions Recorded Confirmed cholecalciferol (vitamin D3) 25 25 mcg PO DAILY 10/06/24 11/03/24 mcg (1,000 unit) tablet (Vitamin D3) furosemide 40 mg tablet 40 mg PO QAM 10/06/24 11/03/24 losartan 100 mg tablet 100 mg PO QAM 10/06/24 11/03/24 potassium chloride 20 mEq 20 meq PO QAM 10/06/24 11/03/24 tablet,extended release rivaroxaban 20 mg tablet (Xarelto) 20 mg PO QPM 10/06/24 11/03/24 metoprolol succinate 100 mg 100 mg PO QPM 10/10/24 11/03/24 tablet,extended release 24 hr Previous Rx's Medication Instructions Recorded cephalexin 500 mg capsule 500 mg PO QID #8 caps 11/07/24 furosemide 80 mg tablet 80 mg PO BID17 #20 tabs 11/07/24 magnesium oxide 400 mg (241.3 mg 400 mg PO BID@0700,1900 #20 tabs 11/07/24 magnesium) tablet metoprolol succinate 50 mg 50 mg PO QAM #20 tabs 11/07/24 tablet,extended release 24 hr multivitamin with folic acid 400 1 tab PO QAM #20 tabs 11/07/24 mcg tablet (Daily-Charity (with folic acid)) thiamine HCl (vitamin B1) 100 mg 100 mg PO QAM #20 tabs 11/07/24 tablet Results & Data (ED) Vital Signs Vital Signs - 24 hr 11/15/24 20:50 11/15/24 21:07 11/15/24 21:12 Temperature 36.5 C Temperature Source Oral Pulse Rate 100 H Pulse Rate from SpO2 Sensor Respiratory Rate 25 H Respiratory Effort / Characteristics Non-Labored Respiratory Depth Normal Respiratory Pattern Regular Blood Pressure 112/87 Blood Pressure Mean 95 Pulse Oximetry 93 Oxygen Delivery Method Room Air Room Air Sepsis Recent Fever Within 48 Hours No Sepsis New/Unexplained Change in Mental Status No Sepsis Action Taken by Nursing No Action Required 11/15/24 21:14 11/15/24 21:15 11/15/24 21:24 Temperature Temperature Source Pulse Rate 92 H 101 H 90 Pulse Rate from SpO2 Sensor 95 H Respiratory Rate 26 H 25 H Respiratory Effort / Characteristics Respiratory Depth Respiratory Pattern Blood Pressure 111/79 Blood Pressure Mean 89 Pulse Oximetry 97 Oxygen Delivery Method Sepsis Recent Fever Within 48 Hours Sepsis New/Unexplained Change in Mental Status Sepsis Action Taken by Nursing 11/15/24 21:27 11/15/24 21:32 11/15/24 21:36 Temperature Temperature Source Pulse Rate 92 H 89 Pulse Rate from SpO2 Sensor 96 H 92 H Respiratory Rate 29 H 30 H Respiratory Effort / Characteristics Respiratory Depth Respiratory Pattern Blood Pressure 111/79 Blood Pressure Mean 91 Pulse Oximetry 96 98 Oxygen Delivery Method Sepsis Recent Fever Within 48 Hours Sepsis New/Unexplained Change in Mental Status Sepsis Action Taken by Nursing 11/15/24 21:45 11/15/24 21:57 11/15/24 22:00 Temperature Temperature Source Pulse Rate 91 H 96 H Pulse Rate from SpO2 Sensor 97 H 95 H Respiratory Rate Respiratory Effort / Characteristics Respiratory Depth Respiratory Pattern Blood Pressure 98/74 L Blood Pressure Mean 83 Pulse Oximetry 95 96 Oxygen Delivery Method Sepsis Recent Fever Within 48 Hours Sepsis New/Unexplained Change in Mental Status Sepsis Action Taken by Nursing 11/15/24 22:21 11/15/24 22:30 11/15/24 22:30 Temperature Temperature Source Pulse Rate 112 H 90 Pulse Rate from SpO2 Sensor Respiratory Rate 34 H 27 H Respiratory Effort / Characteristics Respiratory Depth Respiratory Pattern Blood Pressure 106/83 Blood Pressure Mean 86 Pulse Oximetry Oxygen Delivery Method Sepsis Recent Fever Within 48 Hours Sepsis New/Unexplained Change in Mental Status Sepsis Action Taken by Nursing 11/15/24 22:30 11/15/24 22:30 11/15/24 22:30 Temperature Temperature Source Pulse Rate Pulse Rate from SpO2 Sensor Respiratory Rate Respiratory Effort / Characteristics Respiratory Depth Respiratory Pattern Blood Pressure 106/83 106/83 106/83 Blood Pressure Mean 86 86 86 Pulse Oximetry Oxygen Delivery Method Sepsis Recent Fever Within 48 Hours Sepsis New/Unexplained Change in Mental Status Sepsis Action Taken by Nursing 11/15/24 22:48 11/15/24 23:00 11/15/24 23:00 Temperature Temperature Source Pulse Rate 93 H 93 H Pulse Rate from SpO2 Sensor 91 H Respiratory Rate 35 H 30 H Respiratory Effort / Characteristics Respiratory Depth Respiratory Pattern Blood Pressure 121/81 Blood Pressure Mean 96 Pulse Oximetry 95 Oxygen Delivery Method Sepsis Recent Fever Within 48 Hours Sepsis New/Unexplained Change in Mental Status Sepsis Action Taken by Nursing 11/15/24 23:18 11/15/24 23:21 11/15/24 23:42 Temperature Temperature Source Pulse Rate 90 101 H 125 H Pulse Rate from SpO2 Sensor 94 H 99 H 99 H Respiratory Rate 40 H 40 H 25 H Respiratory Effort / Characteristics Respiratory Depth Respiratory Pattern Blood Pressure Blood Pressure Mean Pulse Oximetry 95 95 89 L Oxygen Delivery Method Sepsis Recent Fever Within 48 Hours Sepsis New/Unexplained Change in Mental Status Sepsis Action Taken by Nursing 11/15/24 23:51 11/15/24 23:54 11/16/24 00:01 Temperature Temperature Source Pulse Rate 101 H 99 H Pulse Rate from SpO2 Sensor 101 H 95 H Respiratory Rate 30 H 30 H Respiratory Effort / Characteristics Respiratory Depth Respiratory Pattern Blood Pressure 113/85 Blood Pressure Mean 100 Pulse Oximetry 94 95 Oxygen Delivery Method Sepsis Recent Fever Within 48 Hours Sepsis New/Unexplained Change in Mental Status Sepsis Action Taken by Nursing 11/16/24 00:12 11/16/24 00:21 11/16/24 00:31 Temperature Temperature Source Pulse Rate 103 H 93 H 97 H Pulse Rate from SpO2 Sensor 104 H 101 H Respiratory Rate 36 H 30 H 35 H Respiratory Effort / Characteristics Respiratory Depth Respiratory Pattern Blood Pressure 113/82 Blood Pressure Mean Pulse Oximetry 96 90 96 Oxygen Delivery Method Room Air Sepsis Recent Fever Within 48 Hours Sepsis New/Unexplained Change in Mental Status Sepsis Action Taken by Nursing Laboratory Data 11/15/24 21:04 11/15/24 21:04 Lab Results 11/15/24 11/15/24 Range/Units 21:04 21:28 WBC 10.30 (4.8-10.8) K/ul RBC 4.03 L (4.20-5.40) M/uL Hgb 12.3 (12.0-16.0) g/dl Hct 39.3 (37.0-47.0) % MCV 97.5 (80.0-100.0) fL MCH 30.5 (25.0-34.0) pg MCHC 31.3 L (32.0-36.0) g/dL RDW Std Deviation 64.2 H (36.4-46.3) fL RDW Coeff of Celso 18.2 H (11.5-14.5) % Plt Count 296 (130-400) K/uL MPV 9.4 (9.4-12.4) fL Immature Gran % (Auto) 1.0 % Neut % (Auto) 72.5 % Lymph % (Auto) 11.7 % Tift % (Auto) 12.0 % Eos % (Auto) 1.6 % Baso % (Auto) 1.2 % Neut # (Auto) 7.48 H (1.40-6.50) K/uL Lymph # (Auto) 1.20 (1.20-3.40) K/uL Tift # (Auto) 1.24 H (0.11-0.59) K/uL Eos # (Auto) 0.16 (0.00-0.50) K/uL Baso # (Auto) 0.12 (0.00-0.20) K/uL Immature Gran # (Auto) 0.10 (0.01-0.20) K/uL Absolute Nucleated RBC 0.04 (0.00-0.12) K/uL Nucleated RBC % (auto) 0.4 % PT 11.8 (9.0-12.0) Seconds INR 1.1 (0.9-1.1) APTT 24 (21-31) Seconds PTT Ratio 0.9 VBG pH 7.40 (7.36-7.41) VBG pCO2 54 H (38-50) mmHg VBG pO2 < 20 mmHg VBG HCO3 33 mmol/L VBG O2 Saturation < 60.0 % VBG Base Excess 7.2 mEq/L Sodium 138 (136-145) mmol/L Potassium 4.3 (3.5-5.1) mmol/L Chloride 99 (98-107) mmol/L Carbon Dioxide 30 (21-32) mmol/L Anion Gap 9 (3-11) BUN 31 H (6-23) mg/dl Creatinine 0.93 (0.6-1.2) mg/dl Est Cr Clr Drug Dosing 52.0 ml/min eGFR 60.61 BUN/Creatinine Ratio 33.3 H (10-20) Glucose 157 H (70-99(Fasting)) mg/dl Calcium 8.5 L (8.6-10.3) mg/dl Magnesium 2.4 (1.7-2.4) mg/dl Total Bilirubin 0.8 (0.2-1.0) mg/dl AST 20 (13-39) U/L ALT 22 (7-52) U/L Alkaline Phosphatase 191 H (34-104) U/L Troponin I High Sens 13.2 (0-14) pg/ml B-Natriuretic Peptide 535 H (0-100) pg/ml Total Protein 6.1 (6.0-8.3) gm/dl Albumin 3.2 L (3.4-5.0) gm/dl Globulin 2.9 (2.5-4.0) gm/dl Albumin/Globulin Ratio 1.1 (0.9-2) Administered Medications Discontinued Medications Furosemide (Furosemide 40 Mg/4 Ml Vial) 80 mg IV ONE ONE Stop: 11/15/24 22:08 Last Admin: 11/15/24 22:14 Dose: 80 mg Documented By: [facility] Imaging Data Radiologist's Impression: Chest X-Ray 11/15/24 21:07 Exam(s): XR CXR 1 VIEW EXAM: XR Chest, 1 View CLINICAL HISTORY: Reason for exam: Dyspnea. TECHNIQUE: Frontal view of the chest. COMPARISON: 11/05/2024 FINDINGS: Lungs: No consolidation. No overt edema. Pleural space: Unchanged small left and trace right pleural effusions. Heart: Cardiomegaly. IMPRESSION: Unchanged small left and trace right pleural effusions. Electronically signed by: Sushant Sharpe MD 11/15/24 23:15 PM Discharge Plan Visit Data Chief Complaint: Abdominal Pain Stated Complaint: WEIGHT GAIN, ABDOMINAL DISTENSION, CHF ED Provider: Ryan Rodrigez Discharge Problem: Acute CHF (congestive heart failure), Atrial fibrillation with rapid ventricular response, Hypervolemia, Compensated respiratory acidosis, Hypoalbuminemia, Pleural effusion Patient Disposition: Admitted As Inpatient Condition: Serious Discharge Instructions Interventions: ED Discharge Assessment Last Done: 11/16/24 00:31 Forms Stand Alone Forms: [facility] Prescriptions Prescriptions: No Action metoprolol succinate 50 mg Tablet Extended Release 24 Hr 50 mg PO QAM Qty: 20 0RF thiamine HCl (vitamin B1) 100 mg Tablet 100 mg PO QAM Qty: 20 0RF magnesium oxide 400 mg (241.3 mg magnesium) Tablet 400 mg PO BID@0700,1900 Qty: 20 0RF furosemide 80 mg Tablet 80 mg PO BID17 Qty: 20 0RF cephalexin 500 mg Capsule 500 mg PO QID Qty: 8 0RF multivitamin with folic acid [Daily-Charity (with folic acid)] 400 mcg Tablet 1 tab PO QAM Qty: 20 0RF furosemide 40 mg Tablet 40 mg PO QAM losartan 100 mg Tablet 100 mg PO QAM Hold Instructions: Resume on 10/26/24. Pending review by cardiology in outpatient setting cholecalciferol (vitamin D3) [Vitamin D3] 25 mcg (1,000 unit) Tablet 25 mcg PO DAILY Xarelto 20 mg Tablet 20 mg PO QPM Rx Instructions: must administer with evening meal potassium chloride 20 mEq Tablet Extended Release 20 meq PO QAM metoprolol succinate 100 mg tablet extended release 24 hr 100 mg PO QPM Referrals Referrals: David Minaya D.O. [Primary Care Provider] -
[2024-11-15 21:45] LABS: Alanine Aminotransferase 22.0 U/L (7-52); Albumin Globulin Ratio 1.1 (0.9-2); Alkaline Phosphatase 191.0 U/L (34-104); Anion Gap 9.0 (3-11); Bilirubin,Total 0.8 mg/dl (0.2-1.0); Blood Urea Nitrogen 31.0 mg/dl (6-23); Calcium 8.5 mg/dl (8.6-10.3); Carbon Dioxide 30.0 mmol/L (21-32); Chloride 99.0 mmol/L (98-107); Creatinine Clr Calc Pharmacy 52.0 ml/min; Globulin 2.9 gm/dl (2.5-4.0); Glucose 157.0 mg/dl (70-99(Fasting)); Magnesium 2.4 mg/dl (1.7-2.4); Potassium 4.3 mmol/L (3.5-5.1); Sodium 138.0 mmol/L (136-145); Total Protein 6.1 gm/dl (6.0-8.3)
[2024-11-15 21:51] LABS: Base Excess VBG 7.2 mEq/L; HCO3 VBG 33 mmol/L; Oxygen Saturation VBG < 60.0 %; PCO2 VBG 54 mmHg (38-50); PO2 VBG < 20 mmHg; pH VBG 7.40 (7.36-7.41)
[2024-11-15 21:54] LABS: INR 1.1 (0.9-1.1); Partial Thromboplastin Time 24 Seconds (21-31); Prothrombin Time 11.8 Seconds (9.0-12.0)
[2024-11-15] MEDS: FUROSEMIDE 40 MG/4 ML VIAL IV ONE (22:14)
--- NOTE | 2024-11-15 22:25 | History & Physical Report ---
Date of Service November 15, 2024 Assessment & Plan (1) Acute on chronic heart failure with preserved ejection fraction: (2) Elevated alkaline phosphatase level: Plan 84-year-old female PMHx A-fib on Xarelto, HFpEF, HTN, PFO, and recent hospital admission 10/25/2024 until 11/07/2024 for acute on chronic respiratory failure as well as A-fib with RVR he was now presenting for abdominal pain and leg swelling with additional weight gain. ED evaluation does not reveal evidence of infec tion, does show elevated CO2 of 54, likely compensated; alkaline phosphatase is within at 191. Calcium slightly decreased, BNP is elevated to 535. Suspect that this is acute on chronic heart failure, she was recently started on increased dose of her Lasix. Will admit for such. #Acute on chronic HFpEF H/o HFpEF, recent admission requiring intubation; presenting with BLE edema, abdominal distention, and SOB; volume overloaded at time of admission. Prior admission for acute HF requiring intubation and lasix drip. Currently taking Lasix 80mg BID with additional 80mg prn for weight gain as outpatient. Also on spironolactone. Pt desires intubation in the case of hypoxic - Daily weights standing, I+Os - CBC w/o leukocytosis; PT/INR WNL; VBGs pCO2 54; BNP 535 - CBC, BMP am - Echo 10/2024 EF 65-70%, severe TR, RVSP > 60 mmHg, tricuspid annulus dilated, mild concentric LVH, EV moderate/severe dilation, mild/moderate RVH - CXR unchanged small L and trace R pleural effusions - Hold oral furosemide - Lasix 80mg IV BID - Low threshold for BiPAP if hypoxia occurs #Elevated alkaline phosphatase H/o transaminitis, was thought to be 2/2 hepatic congestion. No abdominal pain, some distention. - Alk Phos 191 - Trend as appropriate #Hypocalcemia In setting of low albumin/fluid mismatch. - Ca 8.5, albumin 3.2; corrected 9.1 - Trend Ca as appropriate #RLE wound- ? if taking abx at present (med list from [facility] does not list abx), no leukocytosis/fever/pain. Continue wound care to area #A-fib- Metoprolol, ? Xarelto, not on med list from [facility] - continue if presently on, needs further confirmation Code status discussion held at admission; she is sure that she wants respiratory interventions to take place in the case of emergencies but is unsure if she wants to pursue cardiac interventions (CPR, defibrillation). Decided to be full code at time of admission but would like to further think on this moving forward. Dispo: Admit, PCU VTE Prophylaxis: On Xeralto - continue This document was dictated utilizing [employer]. Please excuse any grammatical errors that may be secondary to use of this software. Admission and Anticipated Discharge Date Admission Date: 11/15/2024 History of Present Illness Chief Complaint: Abdominal pain Primary Care Provider: David Minaya 84-year-old female PMHx A-fib on Xarelto, HFpEF, HTN, PFO, and recent hospital admission 10/25/2024 until 11/07/2024 for acute on chronic respiratory failure as well as A-fib with RVR he was now presenting for abdominal pain and leg swelling with additional weight gain. Patient provides limited history. When asked when she was at the hospital she states "fluid". She states that she has had swelling in her legs bilaterally which has been "on and off since May." She also has noted some abdominal swelling but she does not know whenever this started. She states that she is currently short of breath and the only thing that makes it better as whenever the excess fluid is removed. Nothing makes the SOB worse. She is unsure what dose of Lasix she is taking. States that she occasionally gets some chest pain that is a quick sharp pain on the left side of her chest that comes and goes. She did feel dizzy with standing. No falls. Denies palpitations, abdominal pain, N/V/D/C, numbness/tingling, fever/chills, URI symptoms, LUTS, syncope, or falls. She states she does not feel as bad as she did during her prior admission. ED evaluation reveals CBC without leukocytosis, stable H&H; PT/INR WNL; VBG's PCO2 54; CMP BUN 31, BUN/creatinine ratio 33.3, glucose 157, alkaline phosphatase 191; calcium 8.5; troponin 13.2; BNP 535; CXR unchanged pleural effusions bilaterally; EKG A-fib, low voltage QRS, incomplete RBBB at 93 bpm.; Provided with furosemide 80 mg IV in ED. Please see Dr. Oneil attestation for adjustments/additions to treatment plan. Allergies Allergy/AdvReac Type Severity Reaction Status Date / Time nickel AdvReac Mild Rash Verified 10/10/24 13:39 Home Medications Medication Instructions Recorded Confirmed Type cholecalciferol (vitamin D3) 25 25 mcg PO DAILY 10/06/24 11/16/24 History mcg (1,000 unit) tablet (Vitamin D3) furosemide 40 mg tablet 80 mg PO DAILY PRN Edema/Wt > 220 10/06/24 11/16/24 History lbs potassium chloride 20 mEq 20 meq PO QAM 10/06/24 11/16/24 History tablet,extended release rivaroxaban 20 mg tablet (Xarelto) 20 mg PO QPM 10/06/24 11/03/24 History cephalexin 500 mg capsule 500 mg PO QID #8 caps 11/07/24 Rx furosemide 80 mg tablet 80 mg PO BID17 #20 tabs 11/07/24 11/16/24 Rx magnesium oxide 400 mg (241.3 mg 400 mg PO BID@0700,1900 #20 tabs 11/07/24 11/16/24 Rx magnesium) tablet metoprolol succinate 50 mg 50 mg PO QAM #20 tabs 11/07/24 11/16/24 Rx tablet,extended release 24 hr multivitamin with folic acid 400 1 tab PO QAM #20 tabs 11/07/24 11/16/24 Rx mcg tablet (Daily-Charity (with folic acid)) thiamine HCl (vitamin B1) 100 mg 100 mg PO QAM #20 tabs 11/07/24 11/16/24 Rx tablet acetaminophen 325 mg tablet 325 mg PO QID PRN Pain/fever 11/16/24 11/16/24 History bisacodyl 10 mg rectal suppository 10 mg MA DAILY PRN Constipation 11/16/24 11/16/24 History docusate sodium 100 mg capsule 100 mg PO DAILY PRN Constipation 11/16/24 11/16/24 History (Colace) spironolactone 25 mg tablet 25 mg PO DAILY 11/16/24 11/16/24 History Past Med/Surg History Problem List Elevated alkaline phosphatase level Pleural effusion (Acute) Hypoalbuminemia (Acute) Compensated respiratory acidosis (Acute) Hypervolemia (Acute) Vaginal bleeding Vaginal bleeding Chronic cor pulmonale Edema of both legs Tricuspid regurgitation Hepatopathy Cardiorenal syndrome with renal failure Atrial fibrillation with rapid ventricular response (Acute) Diastolic CHF, chronic Right-sided congestive heart failure Septic shock Acute on chronic heart failure with preserved ejection fraction Bacteremia due to Gram-negative bacteria Sepsis (Acute) Cardiogenic shock (Acute) Respiratory failure (Acute) Acute hypoxic respiratory failure Right heart failure Cardiogenic shock Lactic acidosis Acute kidney failure Ischemic hepatitis Transaminitis Hypotension Admitted to intensive care unit Acute on chronic respiratory failure Anticoagulated Acute CHF (congestive heart failure) (Acute) Atrial fibrillation with rapid ventricular response (Acute) Medical History Edema Dyspnea on exertion History of anemia (1989) 4 units PRBCs Hx of congestive heart failure (1989) Cardiac murmur Echo 09/2024 Atrial fibrillation Follows with Dr. 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: No Beliefs That Will Affect Care: None Current Living Situation: Personal Care Facility Current Living Situation Comment: Lives with Son Ronny Feels Safe at Home: Yes Safety Concerns: Feels Safe At This Time Assistive Devices: Walker and Wheelchair Review of Systems Review of Systems: All systems reviewed & are unremarkable except as noted in Subjective Physical Exam Physical Exam: General: No acute distress Skin: Warm and dry; chronic changes BLE Head: Normocephalic, atraumatic Eyes: PERRL, conjunctivae clear, sclera non-icteric ENT: External ear and ear canal without swelling; nose atraumatic; good dentition, tongue normal appearance, pharynx normal Neck: Supple, no LAD Cardio: RRR, no M/G/R, S1 and S2 normal Resp: Decreased lung sounds, Lungs CTA in all lobes bilaterally, no wheezes, rales, or rhonchi Abdomen: Soft, symmetric, nontender; mild distention, negative fluid wave sign; No masses or hepatosplenomegaly; Bowel sounds normoactive MSK: No deformities; pulses palpable and equal; pitting edema BLE, chronic skin changes, RLE in bandage wrap. Neuro: Awake, alert; Sensation intact bilaterally; CN grossly intact Psych: Appropriate mood and affect; good judgement and insight. Results & Data Results & Data Vital Signs (Past 12 Hours) Vital Signs Temp Pulse Resp BP Pulse Ox O2 Del Method 11/15/24 22:00 98/74 L 11/15/24 21:57 96 H 96 11/15/24 21:45 91 H 95 11/15/24 21:36 89 30 H 98 11/15/24 21:32 111/79 11/15/24 21:27 92 H 29 H 96 11/15/24 21:24 90 25 H 111/79 97 11/15/24 21:15 101 H 26 H 11/15/24 21:14 92 H 11/15/24 21:12 Room Air 11/15/24 20:50 36.5 C 100 H 25 H 112/87 93 Room Air Laboratory Results 11/15/24 11/15/24 21:28 21:04 WBC 10.30 RBC 4.03 L Hgb 12.3 Hct 39.3 MCV 97.5 MCH 30.5 MCHC 31.3 L RDW Std Deviation 64.2 H RDW Coeff of Celso 18.2 H Plt Count 296 MPV 9.4 Immature Gran % (Auto) 1.0 Neut % (Auto) 72.5 Lymph % (Auto) 11.7 Webster % (Auto) 12.0 Eos % (Auto) 1.6 Baso % (Auto) 1.2 Neut # (Auto) 7.48 H Lymph # (Auto) 1.20 Webster # (Auto) 1.24 H Eos # (Auto) 0.16 Baso # (Auto) 0.12 Immature Gran # (Auto) 0.10 Absolute Nucleated RBC 0.04 Nucleated RBC % (auto) 0.4 PT 11.8 INR 1.1 APTT 24 PTT Ratio 0.9 VBG pH 7.40 VBG pCO2 54 H VBG pO2 < 20 VBG HCO3 33 VBG O2 Saturation < 60.0 VBG Base Excess 7.2 Sodium 138 Potassium 4.3 Chloride 99 Carbon Dioxide 30 Anion Gap 9 BUN 31 H Creatinine 0.93 Est Cr Clr Drug Dosing 52.0 eGFR 60.61 BUN/Creatinine Ratio 33.3 H Glucose 157 H Calcium 8.5 L Magnesium 2.4 Total Bilirubin 0.8 AST 20 ALT 22 Alkaline Phosphatase 191 H Troponin I High Sens 13.2 B-Natriuretic Peptide 535 H Total Protein 6.1 Albumin 3.2 L Globulin 2.9 Albumin/Globulin Ratio 1.1 Diagnostic Findings Chest X-Ray 11/15/24 21:07 Exam(s): XR CXR 1 VIEW EXAM: XR Chest, 1 View CLINICAL HISTORY: Reason for exam: Dyspnea. TECHNIQUE: Frontal view of the chest. COMPARISON: 11/05/2024 FINDINGS: Lungs: No consolidation. No overt edema. Pleural space: Unchanged small left and trace right pleural effusions. Heart: Cardiomegaly. IMPRESSION: Unchanged small left and trace right pleural effusions. Electronically signed by: Sushant Sharpe MD 11/15/24 23:15 PM Medications Administered Furosemide 80mg IV ECG Additional Comments: A-fib, low voltage QRS, incomplete RBBB 93 bpm, MA *, QRS 100, QT/QTc 388/42, PRT*/69/117 Code Status & VTE Plan Code Status Full Would like to further think on her final decision; is 100% OK with intubation, unclear her final thoughts on cardiac involvement however, decided to be full code for the time being. Supervising Physician Co-Signing Physician Notes Patient seen and examined, chart reviewed, case discussed with KAYKAY Mcghee and I agree with the assessment and plan as above. Patient with acute on chronic HFpEF presenting with significant shortness of breath, edema, abdominal distention On exam she is ill in appearance, tachypneic +crackles in bilateral lung ball, no wheeze +Abdominal fullness, nontender +LE edema +JVD Labs and images reviewed Assessment/Plan -Aggressive diuresis - patient given 80mg IV in the ER and has just started urinating - will need to monitor closely UOP and daily weights as well as electrolytes and renal function. Continue diuresis with 80mg IV BID -Repeat LFTs in with AM labs to monitor AP -Remainder as above PG Care Time/CCT Total # of Minutes Spent Total Time Spent with Patient: Total time spent is greater than 50% in coordination of care (as documented) at patient's floor/unit and/or counseling patient: Coding Level of Care Code 91972 INT INP/OBS CARE MIN Diagnoses Acute on chronic heart failure with preserved ejection fraction I50.33 Elevated alkaline phosphatase level R74.8
--- NOTE | 2024-11-15 23:16 | XRay Report ---
Exam(s): XR CXR 1 VIEW EXAM: XR Chest, 1 View CLINICAL HISTORY: Reason for exam: Dyspnea. TECHNIQUE: Frontal view of the chest. COMPARISON: 11/05/2024 FINDINGS: Lungs: No consolidation. No overt edema. Pleural space: Unchanged small left and trace right pleural effusions. Heart: Cardiomegaly. IMPRESSION: Unchanged small left and trace right pleural effusions. Electronically signed by: Sushant Sharpe MD 11/15/24 23:15 PM
[2024-11-16] MEDS ORDERED: POLYETHYLENE (MIRALAX) 17 GM PACK PO PRN (00:57)
[2024-11-16] MEDS ORDERED: DOCUSATE SODIUM 100 MG CAP PO PRN (01:19)
[2024-11-16 03:30] LABS: Hematocrit (blood only) 39.5 % (37.0-47.0); Hemoglobin 12.1 g/dl (12.0-16.0); Mean Corpuscular Hemoglobin 29.7 pg (25.0-34.0); Mean Corpuscular Volume 96.8 fL (80.0-100.0); Platelet Count 268 K/uL (130-400); RDW Standard Deviation 63.7 fL (36.4-46.3); Red Blood Count 4.08 M/uL (4.20-5.40); White Blood Count 10.62 K/ul (4.8-10.8)
[2024-11-16 04:03] LABS: Anion Gap 10.0 (3-11); Calcium 8.5 mg/dl (8.6-10.3); Carbon Dioxide 29.0 mmol/L (21-32); Chloride 101.0 mmol/L (98-107); Potassium 3.9 mmol/L (3.5-5.1); Sodium 140.0 mmol/L (136-145)
[2024-11-16 04:09] LABS: Blood Urea Nitrogen 28.0 mg/dl (6-23); Creatinine Clr Calc Pharmacy 64.2 ml/min; Glucose 132.0 mg/dl (70-99(Fasting))
[2024-11-16] MEDS: POTASSIUM CHLORIDE CRTAB 20 MEQ TABCR PO SCH (09:09)
[2024-11-16] MEDS: FUROSEMIDE 80 MG TAB PO SCH (09:09)
[2024-11-16] MEDS: SPIRONOLACTONE 25 MG TAB PO SCH (09:10)
[2024-11-16] MEDS: THIAMINE HCL 100 MG TAB PO SCH (09:10)
[2024-11-16] MEDS: MAGNESIUM OXIDE 400 MG TAB PO SCH (09:10)
[2024-11-16] MEDS: METOPROLOL SUCC 50MG EXT REL TAB PO SCH (09:12)
--- NOTE | 2024-11-16 10:27 | Hospitalist Progress Note ---
"Date of Service November 16, 2024 Assessment & Plan (1) Acute on chronic heart failure with preserved ejection fraction: (2) Elevated alkaline phosphatase level: Plan 84-year-old female PMHx A-fib on Xarelto, HFpEF, HTN, PFO, and recent hospital admission 10/25/2024 until 11/07/2024 for acute on chronic respiratory failure as well as A-fib with RVR he was now presenting for abdominal pain and leg swelling with additional weight gain. Inital evaluation without evidence of infection, alkaline phosphatase is within at 191, BNP 535 . Admitted for CHF exacerbation. #Acute on chronic HFpEF | Afib - recent admission (10/25-11/07) requiring intubation and lasix drip; presenting with BLE edema, abdominal distention, and SOB; volume overloaded at time of admission. Home regimen: Lasix 80mg BID with additional 80mg prn for weight gain, spironolactone. Recent Echo - /2024 EF 65- 70%, severe TR, RVSP > 60 mmHg, tricuspid annulus dilated, mild concentric LVH, EV moderate/severe dilation, mild/moderate RVH Daily weights standing, I+Os CXR unchanged small L and trace R pleural effusions Lasix 80mg IV BID With abd distention, and elevated Alk Phos - check abd US if ascities that could be drained Consult cardiology (follows with [facility])- ? afib contributing with rates 110s, hypotensive so cant increase BB, but rhythm controlled d/c'ed last admission Continue metoprolol. Xarelto was held with vaginal bleeding. Patient still reports vaginal bleeding but not as severe. Consider restarting Xarelto if no planned procedure as hgb stable PT/OT - came from rehab but progressing, hoping she can go home with HH at time of discharge #Elevated alkaline phosphatase H/o transaminitis, was thought to be 2/2 hepatic congestion. No abdominal pain, but distended. - Alk Phos 191, trend Abd US as above #Hypocalcemia In setting of low albumin/fluid mismatch. - Ca 8.5, albumin 3.2; corrected 9.1 #RLE wound- no leukocytosis/fever/pain. Continue wound care to area #Vaginal bleeding - US done last admissions shows thickened endometrium. Needs OP RISK CONTROL MANAGER follow up. Dispo: Continued inpatient stay, cardiology consulted VTE Prophylaxis: Xarelto held with vaginal bleeding Follow ups after discharge: RISK CONTROL MANAGER Code status discussion held at admission; she is sure that she wants respiratory interventions to take place in the case of emergencies but is unsure if she wants to pursue cardiac interventions (CPR, defibrillation). Decided to be full code at time of admission but would like to further think on this moving forward. Admission and Anticipated Discharge Date Admission Date: November 15, 2024 Subjective Patient seen sitting up in bed. Reports feeling surprised about how short of breath she still feels, but does not this is improved. Does not think she was getting large amounts of salt wjile at rehab. Does report that she had episodes of where she feels like her heart is going very fast. Tele - afib 100-110s Review of Systems Review of Systems: All systems reviewed & are unremarkable except as noted in Subjective Physical Exam Physical Exam: General: NAD, VS as above Resp: ascessory muscle use with any activity, diminished in the bases CV: afib - tachycardic Abd: normal bowel sounds, distended, mild tenderness Extremities: Moves all extremities, 1+ LE edema Neuro: A&O x3, Skin: wound covered over left leg Results & Data Results & Data Vital Signs (Past 12 Hours) Vital Signs Temp Pulse Pulse Resp BP BP BP 11/16/24 09:13 125 H 96/66 L 11/16/24 08:07 97.7 F 109 H 18 92/65 L 11/16/24 02:25 97.5 F L 96 H 20 106/71 11/16/24 01:01 11/16/24 01:01 11/16/24 00:57 97.3 F L 22 110/74 11/16/24 00:31 97 H 35 H 113/82 11/16/24 00:21 93 H 30 H 11/16/24 00:12 103 H 36 H 11/16/24 00:01 113/85 11/15/24 23:54 99 H 30 H 11/15/24 23:51 101 H 30 H 11/15/24 23:42 125 H 25 H 11/15/24 23:21 101 H 40 H 11/15/24 23:18 90 40 H 11/15/24 23:00 121/81 11/15/24 23:00 93 H 30 H 11/15/24 22:48 93 H 35 H 11/15/24 22:30 106/83 11/15/24 22:30 106/83 11/15/24 22:30 106/83 11/15/24 22:30 90 27 H 11/15/24 22:30 106/83 11/15/24 22:21 112 H 34 H Pulse Ox O2 Del Method 11/16/24 09:13 11/16/24 08:07 92 Room Air 11/16/24 02:25 92 Room Air 11/16/24 01:01 Room Air 11/16/24 01:01 Room Air 11/16/24 00:57 94 Room Air 11/16/24 00:31 96 Room Air 11/16/24 00:21 90 11/16/24 00:12 96 11/16/24 00:01 11/15/24 23:54 95 11/15/24 23:51 94 11/15/24 23:42 89 L 11/15/24 23:21 95 11/15/24 23:18 95 11/15/24 23:00 11/15/24 23:00 95 11/15/24 22:48 11/15/24 22:30 11/15/24 22:30 11/15/24 22:30 11/15/24 22:30 11/15/24 22:30 11/15/24 22:21 Laboratory Results cbc and chemistry reviewed Diagnostic Findings cxr reviewed PG Care Time/CCT Total # of Minutes Spent Total Time Spent with Patient: Total time spent is greater than 50% in coordination of care (as documented) at patient's floor/unit and/or counseling patient: Coding Level of Care Code 10691 SUB INP/OBS CARE 3/50MIN Diagnoses Acute on chronic heart failure with preserved ejection fraction I50.33 Elevated alkaline phosphatase level R74.8"
--- NOTE | 2024-11-16 11:42 | Electrocardiogram Report ---
Test Reason : Blood Pressure : */* mmHG Vent. Rate : 93 BPM Atrial Rate : * BPM P-R Int : * ms QRS Dur : 100 ms QT Int : 388 ms P-R-T Axes : * 69 117 degrees QTcB Int : 482 ms Atrial fibrillation Low voltage QRS Incomplete right bundle branch block Abnormal ECG When compared with ECG of 27-Oct-2024 05:40, Nonspecific T wave abnormality no longer evident in Inferior leads Nonspecific T wave abnormality, improved in Anterior leads QT has lengthened Confirmed by Yovani Mohan ([id number]) on 11/16/2024 11:41:56 AM Referred By: REFERRED SELF Confirmed By: Yovani Mohan
--- NOTE | 2024-11-16 14:20 | Ultrasound Report ---
ULTRASOUND ASCITES CHECK CLINICAL HISTORY: Abdominal ascites. COMPARISON STUDY: Abdominal x-ray dated 10/26/2024. FINDINGS: Real-time grayscale sonography of all 4 quadrants of the abdomen is performed to assess for ascites. There is a small volume of abdominopelvic ascites. The largest pocket of fluid is seen in t he right lower quadrant. Survey imaging of the liver shows cirrhotic morphology. IMPRESSION: Small volume abdominopelvic ascites. Electronically signed by: Dario Hong M.D. 11/16/2024 2:19 PM
[2024-11-16] MEDS: MELATONIN 3 MG TAB PO PRN (20:41)
[2024-11-17] MEDS: ACETAMINOPHEN 325 MG TAB PO PRN (00:14)
[2024-11-17] MEDS: MoRPHine SULFATE 4 MG/ML 1 ML CARP\\VIAL IV STA (06:50)
[2024-11-17 06:59] LABS: Hematocrit (blood only) 37.0 % (37.0-47.0); Hemoglobin 11.6 g/dl (12.0-16.0); Mean Corpuscular Hemoglobin 29.8 pg (25.0-34.0); Mean Corpuscular Volume 95.1 fL (80.0-100.0); Platelet Count 238 K/uL (130-400); RDW Standard Deviation 61.3 fL (36.4-46.3); Red Blood Count 3.89 M/uL (4.20-5.40); White Blood Count 10.20 K/ul (4.8-10.8)
[2024-11-17 07:16] LABS: Alanine Aminotransferase 17.0 U/L (7-52); Albumin Globulin Ratio 1.2 (0.9-2); Alkaline Phosphatase 157.0 U/L (34-104); Anion Gap 8.0 (3-11); Bilirubin,Total 1.1 mg/dl (0.2-1.0); Blood Urea Nitrogen 31.0 mg/dl (6-23); Calcium 8.9 mg/dl (8.6-10.3); Carbon Dioxide 29.0 mmol/L (21-32); Chloride 102.0 mmol/L (98-107); Creatinine Clr Calc Pharmacy 56.0 ml/min; Globulin 2.5 gm/dl (2.5-4.0); Glucose 129.0 mg/dl (70-99(Fasting)); Potassium 4.2 mmol/L (3.5-5.1); Sodium 139.0 mmol/L (136-145); Total Protein 5.5 gm/dl (6.0-8.3)
--- NOTE | 2024-11-17 13:01 | Cardiology Consultation ---
Date of Consultation November 17, 2024 Assessment & Plan (1) Right-sided congestive heart failure: (2) Chronic cor pulmonale: (3) Cardiorenal syndrome with renal failure: hx of last admit (4) Respiratory failure: hx last admit Plan The patient has pretty significant and severe right-sided acute on chronic congestive heart failure. Her LV function is fairly normal. She has severe tricuspid regurgitation and her RV is severely dilated and this is contributing to the other symptoms going along with the right heart failure ascites cirrhotic pattern and pulmonary hypertension. I am not sure if she would qualify for a tricuspid valve ring but we will try to get her stabilized as an outpatient to see if potentially she would qualify for a tricuspid valve ring to try to treat her right-sided heart failure. At this point she has been very difficult to control her symptoms. I suspect that she is having decreased p.o. bioavailability with the Lasix as an outpatient. She may do better on torsemide or Demadex which has increased p.o. bioavailability especially when someone has bowel edema and ascites. I think it is preferable to keep her on IV Lasix while she is here in the hospital and at the time of discharge we should probably send her home on p.o. Demadex or torsemide such as perhaps 50 mg a day and we can titrate up or down on the dose depending on her diuresis and her renal function. In addition I have had luck keeping some patients out of the hospital using subcutaneous Furoscix which is a subcu version of furosemide which is thought to be equivalent to IV Lasix. At times will use this on an as-needed basis when someone has rapid weight gain or marked increase in their edema to once again try to keep them out of the hospital. This is an outpatient medication however and I will work on my office trying to get her scheduled to have this done. I also feel pretty strongly that she needs to go home on oxygen at least to be able to wear at night because of her severe cor pulmonale. I realize her blood pressure is running low and limits the amount of beta-sera that she is going to tolerate. With the last hospitalization her heart rate slowed down when she was well diuresed. I do not think she is yet ready to switchto PO diuretics--would cont with IV. Please have wound care eval her legs while she is here. History of Present Illness Reason for Consultation: CHF exacerbation Attending Physician: Rosana Jackson MD History of Present Illness Liss Slater is an 84-year-old woman who I first met back in August and evaluated her for atrial fibrillation as well as increasing shortness of breath. She has a history of A-fib going back to at least 2013 when she was in [place] and apparently never had this further evaluated. She apparently developed gallstone pancreatitis back in 2013 and that was when she first developed her A-fib initially when I met her she told me that she did have signs of heart failure for years she was told this many years ago with swelling in her abdomen as well as swelling in her legs. Initially when I met her she was found to have A-fib with RVR and appeared to be quite short of breath. We attempted to get her on rate controlling medications with metoprolol and she was started on Xarelto as well as furosemide. She came to me already taking losartan. Her echo done showed overall normal LV function however her right heart was significantly dilated with at least mild pulmonary hypertension. After several weeks of attempting to control her heart rate unsuccessfully we decided to proceed with doing a cardioversion on her. Unfortunately she ended up being admitted to the hospital with congestive heart failure several days before the outpatient cardioversion. We did do a YZAMIN because I was not completely sure if she was compliant with her anticoagulation prior to doing the cardioversion. The YAZMIN shows a massively enlarged right heart with pulmonary hypertension the LV was small and somewhat hyperdynamic but there was no signs of left atrial appendage thrombus so we proceeded with cardioversion. Normal sinus rhythm was achieved. While she was in the hospital she was also started on p.o. amiodarone in an attempt to maintain normal rhythm. Prior to her discharge from the hospital at the end of September, I stopped her losartan and maintained her just on beta-sera amiodarone as well as diuresis. She was admitted to hospital 10/25/24-11/07/24 with acute on Chronic Right sided CHF, ascites, respiratory failure and was intubated and hypotensive in the ICU for several days. Eventually, she was able to be extubated, her HR controlled with IV/PO Beta blockers and IV diuretics and DC to [facility]--she is now back in with CHF exacerbation again. Her ECHO shows normal/hyperDynamic LV function with a severely dilated right heart severe tricuspid regurgitation with pulmonary hypertension. She is in chronic A-fib usually with RVR. Allergies Allergy/AdvReac Type Severity Reaction Status Date / Time nickel AdvReac Mild Rash Verified 10/10/24 13:39 Home Medications Medication Instructions Recorded Confirmed Type cholecalciferol (vitamin D3) 25 25 mcg PO DAILY 10/06/24 11/16/24 History mcg (1,000 unit) tablet (Vitamin D3) furosemide 40 mg tablet 80 mg PO DAILY PRN Edema/Wt > 220 10/06/24 11/16/24 History lbs potassium chloride 20 mEq 20 meq PO QAM 10/06/24 11/16/24 History tablet,extended release rivaroxaban 20 mg tablet (Xarelto) 20 mg PO QPM 10/06/24 11/03/24 History cephalexin 500 mg capsule 500 mg PO QID #8 caps 11/07/24 Rx furosemide 80 mg tablet 80 mg PO BID17 #20 tabs 11/07/24 11/16/24 Rx magnesium oxide 400 mg (241.3 mg 400 mg PO BID@0700,1900 #20 tabs 11/07/24 11/16/24 Rx magnesium) tablet metoprolol succinate 50 mg 50 mg PO QAM #20 tabs 11/07/24 11/16/24 Rx tablet,extended release 24 hr multivitamin with folic acid 400 1 tab PO QAM #20 tabs 11/07/24 11/16/24 Rx mcg tablet (Daily-Charity (with folic acid)) thiamine HCl (vitamin B1) 100 mg 100 mg PO QAM #20 tabs 11/07/24 11/16/24 Rx tablet acetaminophen 325 mg tablet 325 mg PO QID PRN Pain/fever 11/16/24 11/16/24 History bisacodyl 10 mg rectal suppository 10 mg DE DAILY PRN Constipation 11/16/24 11/16/24 History docusate sodium 100 mg capsule 100 mg PO DAILY PRN Constipation 11/16/24 11/16/24 History (Colace) spironolactone 25 mg tablet 25 mg PO DAILY 11/16/24 11/16/24 History Patient History Medical History Edema Dyspnea on exertion History of anemia (1989) 4 units PRBCs Hx of congestive heart failure (1989) Cardiac murmur Echo 09/2024 Atrial fibrillation Follows with Dr. Walker Surgical History Hx of tonsillectomy (1945) Hx laparoscopic cholecystectomy (2013) Social History Smoking Status: Never smoker Second Hand Exposure: No; Do You Dip or Chew Tobacco: No; Hx Alcohol Use: Yes Alcohol type: beer and wine Hx Substance Use: No Preferred Language: Swedish Communication Ability: Effective Visual Impairment: No Limitations Policy Cancellation Clerk Required: No Beliefs That Will Affect Care: None Current Living Situation: Personal Care Facility Current Living Situation Comment: Lives with Son Ronny Feels Safe at Home: Yes Safety Concerns: Feels Safe At This Time Assistive Devices: Walker and Wheelchair Review of Systems Review of Systems: All systems reviewed & are unremarkable except as noted in HPI & below Physical Exam Physical Exam: AAO x3 is mildly SOB; appears tired Neck: JVD and HJR Respiratory: rales at bases left > right Cardiovascular: irregular tachy +TR on exam legs +2-3 edema; right leg with dressing marked erythema Gastrointestinal (Abdomen): distended Results & Data Vital Signs (Past 12 Hours) Vital Signs Temp Pulse Pulse Resp BP Pulse Ox O2 Del Method 11/17/24 11:27 36.2 C L 112 H 18 102/75 94 Room Air 11/17/24 07:53 96 H 11/17/24 07:28 36.2 C L 98 H 18 100/68 93 Room Air 11/17/24 03:26 100 H 24 89/61 L 98 Room Air Laboratory Results Abnormal lab results 11/17/24 Range/Units 06:22 RBC 3.89 L (4.20-5.40) M/uL Hgb 11.6 L (12.0-16.0) g/dl MCHC 31.4 L (32.0-36.0) g/dL RDW Std Deviation 61.3 H (36.4-46.3) fL RDW Coeff of Celso 17.9 H (11.5-14.5) % BUN 31 H (6-23) mg/dl BUN/Creatinine Ratio 33.0 H (10-20) Glucose 129 H (70-99(Fasting)) mg/dl Total Bilirubin 1.1 H (0.2-1.0) mg/dl Alkaline Phosphatase 157 H (34-104) U/L Total Protein 5.5 L (6.0-8.3) gm/dl Albumin 3.0 L (3.4-5.0) gm/dl Medications Administered Current Inpatient Medications Acetaminophen (Acetaminophen 325 Mg Tab) 325 mg PO QID PRN PRN Reason: Pain/fever Stop: 12/16/24 01:18 Last Admin: 11/17/24 06:20 Dose: 325 mg Bisacodyl (Bisacodyl 10 Mg Supp) 10 mg DE DAILY PRN PRN Reason: Constipation Stop: 12/16/24 01:18 Docusate Sodium (Docusate Sodium 100 Mg Cap) 100 mg PO DAILY PRN PRN Reason: Constipation Stop: 12/16/24 01:18 Furosemide (Furosemide 80 Mg Tab) 80 mg PO BID17 [facility] Stop: 12/16/24 08:59 Last Admin: 11/17/24 08:57 Dose: 80 mg Magnesium Oxide (Magnesium Oxide 400 Mg Tab) 400 mg PO BID@0700,1900 [facility] Stop: 12/16/24 06:59 Last Admin: 11/17/24 06:17 Dose: 400 mg Melatonin (Melatonin 3 Mg Tab) 3 mg PO HS PRN PRN Reason: Sleep Stop: 12/16/24 00:56 Last Admin: 11/16/24 20:41 Dose: 3 mg Metoprolol Succinate (Metoprolol Succ 50mg Ext Rel Tab) 50 mg PO QAM [facility] Stop: 12/16/24 08:59 Last Admin: 11/17/24 08:58 Dose: 50 mg Polyethylene Glycol (Polyethylene (Miralax) 17 Gm Pack) 17 gm PO DAILY PRN PRN Reason: Constipation Stop: 12/16/24 00:56 Potassium Chloride (Potassium Chloride Crtab 20 Meq Tabcr) 20 meq PO QAM [facility] Stop: 12/16/24 08:59 Last Admin: 11/17/24 09:00 Dose: 20 meq Spironolactone (Spironolactone 25 Mg Tab) 25 mg PO DAILY [facility] Stop: 12/16/24 08:59 Last Admin: 11/17/24 08:58 Dose: 25 mg Thiamine HCl (Thiamine Hcl 100 Mg Tab) 100 mg PO QAM [facility] Stop: 12/16/24 08:59 Last Admin: 11/17/24 08:57 Dose: 100 mg ECG Additional Comments: Afib with RVR
--- NOTE | 2024-11-17 13:42 | Hospitalist Progress Note ---
"Date of Service November 17, 2024 Assessment & Plan (1) Acute on chronic heart failure with preserved ejection fraction: (2) Elevated alkaline phosphatase level: Plan 84-year-old female PMHx A-fib on Xarelto, HFpEF, HTN, PFO, and recent hospital admission 10/25/2024 until 11/07/2024 for acute on chronic respiratory failure as well as A-fib with RVR he was now presenting for abdominal pain and leg swelling with additional weight gain. Inital evaluation without evidence of infection, alkaline phosphatase is within at 191, BNP 535 . Admitted for CHF exacerbation. #Acute on chronic HFpEF | Afib - recent admission (10/25-11/07) requiring intubation and lasix drip; presenting with BLE edema, abdominal distention, and SOB; volume overloaded at time of admission. Home regimen: Lasix 80mg BID with additional 80mg prn for weight gain, spironolactone. Recent Echo - /2024 EF 65- 70%, severe TR, RVSP > 60 mmHg, tricuspid annulus dilated, mild concentric LVH, EV moderate/severe dilation, mild/moderate RVH. CXR unchanged small L and trace R pleural effusions. Abd US showing cirrhosis, likely from her right sided heart failure. Daily weights standing, I+Os Consult cardiology - recommend continued diuresis until bump in creatinine/BUN. Reports that her dry weight in August was 84 kg. Feels that her heart rate slowed some when her heart failure is controlled. Recommend switching to IV diuresis while here. And recommend switching to torsemide (? 50 mg) at discharge. also recommends home oxygen arranged Continue metoprolol. Xarelto was held with vaginal bleeding. Patient still reports vaginal bleeding but not as severe, hemoglobin is stable. Plan to resume Xarelto for 11/17 and monitor CBC With cirrhosis would benefit from increasing her spironolactone dose, monitor blood pressures with further diuresis PT/OT - came from rehab but progressing, hoping she can go home with HH at time of discharge #Elevated alkaline phosphatase H/o transaminitis, was thought to be 2/2 hepatic congestion. No abdominal pain, but distended. abdominal ultrasound showed cirrhosis - Alk Phos 191, and downtrending #Hypocalcemia In setting of low albumin/fluid mismatch. - Ca 8.5, albumin 3.2; corrected 9.1 #RLE wound- no leukocytosis/fever/pain. wound care nurse consulted #Vaginal bleeding - US done last admissions shows thickened endometrium. 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 Dispo: Continued inpatient stay, cardiology consulted, continue IV diuresis VTE Prophylaxis: Xarelto resume 11/17 Follow ups after discharge: FULLER BRUSH WORKER, cardiology Code status discussion held at admission; she is sure that she wants respiratory interventions to take place in the case of emergencies but is unsure if she wants to pursue cardiac interventions (CPR, defibrillation). Decided to be full code at time of admission but would like to further think on this moving forward. Admission and Anticipated Discharge Date Admission Date: November 15, 2024 Subjective patient seen sitting up in the chair, reports that she is still getting winded with any activity. No pain. Telemetry A-fib 90s to 100s Review of Systems Review of Systems: All systems reviewed & are unremarkable except as noted in Subjective Physical Exam Physical Exam: General: NAD, VS as above Resp: no optics technical officer muscle use today, diminished in the bases CV: afib - tachycardic Abd: normal bowel sounds, distended, mild tenderness Extremities: Moves all extremities, 1+ LE edema Neuro: A&O x3, Skin: wound covered over left leg Results & Data Results & Data Vital Signs (Past 12 Hours) Vital Signs Temp Pulse Pulse Resp BP Pulse Ox Pulse Ox 11/17/24 13:18 95 11/17/24 11:27 97.2 F L 112 H 18 102/75 94 11/17/24 07:53 96 H 11/17/24 07:28 97.2 F L 98 H 18 100/68 93 11/17/24 03:26 100 H 24 89/61 L 98 O2 Del Method 11/17/24 13:18 11/17/24 11:27 Room Air 11/17/24 07:53 11/17/24 07:28 Room Air 11/17/24 03:26 Room Air Laboratory Results CBC and chemistry reviewed PG Care Time/CCT Total # of Minutes Spent Total Time Spent with Patient: Total time spent is greater than 50% in coordination of care (as documented) at patient's floor/unit and/or counseling patient: Coding Level of Care Code 15356 SUB INP/OBS CARE 3/50MIN Diagnoses Acute on chronic heart failure with preserved ejection fraction I50.33 Elevated alkaline phosphatase level R74.8"
[2024-11-17] MEDS: FUROSEMIDE 40 MG/4 ML VIAL IV ONE (16:12)
[2024-11-17] MEDS: RIVAROXABAN 20 MG TAB PO SCH (16:25)
[2024-11-18 07:09] LABS: Alanine Aminotransferase 17.0 U/L (7-52); Albumin Globulin Ratio 1.2 (0.9-2); Alkaline Phosphatase 161.0 U/L (34-104); Anion Gap 7.0 (3-11); Bilirubin,Total 0.9 mg/dl (0.2-1.0); Blood Urea Nitrogen 36.0 mg/dl (6-23); Calcium 8.7 mg/dl (8.6-10.3); Carbon Dioxide 30.0 mmol/L (21-32); Chloride 102.0 mmol/L (98-107); Creatinine Clr Calc Pharmacy 59.8 ml/min; Globulin 2.5 gm/dl (2.5-4.0); Glucose 127.0 mg/dl (70-99(Fasting)); Potassium 4.2 mmol/L (3.5-5.1); Sodium 139.0 mmol/L (136-145); Total Protein 5.4 gm/dl (6.0-8.3)
--- NOTE | 2024-11-18 07:50 | Cardiology Progress Note ---
Date of Service November 18, 2024 Assessment & Plan (1) Right-sided congestive heart failure: Plan: cont with daily IV lasix will change to torsemide po prob 50mg at time of DC and use Furoscix weekly to start (my office will arrange for this follow renal function (2) Chronic cor pulmonale: (3) Cardiorenal syndrome with renal failure: Plan: hx of last admit (4) Respiratory failure: Plan: hx last admit Plan The patient has pretty significant and severe right-sided acute on chronic congestive heart failure. Her LV function is fairly normal. She has severe tricuspid regurgitation and her RV is severely dilated and this is contributing to the other symptoms going along with the right heart failure ascites cirrhotic pattern and pulmonary hypertension. I am not sure if she would qualify for a tricuspid valve ring but we will try to get her stabilized as an outpatient to see if potentially she would qualify for a tricuspid valve ring to try to treat her right-sided heart failure. At this point she has been very difficult to control her symptoms. I suspect that she is having decreased p.o. bioavailability with the Lasix as an outpatient. She may do better on torsemide or Demadex which has increased p.o. bioavailability especially when someone has bowel edema and ascites. I think it is preferable to keep her on IV Lasix while she is here in the hospital and at the time of discharge we should probably send her home on p.o. Demadex or torsemide such as perhaps 50 mg a day and we can titrate up or down on the dose depending on her diuresis and her renal function. In addition I have had luck keeping some patients out of the hospital using subcutaneous Furoscix which is a subcu version of furosemide which is thought to be equivalent to IV Lasix. At times will use this on an as-needed basis when someone has rapid weight gain or marked increase in their edema to once again try to keep them out of the hospital. This is an outpatient medication however and I will work on my office trying to get her scheduled to have this done. I also feel pretty strongly that she needs to go home on oxygen at least to be able to wear at night because of her severe cor pulmonale. I realize her blood pressure is running low and limits the amount of beta-sera that she is going to tolerate. With the last hospitalization her heart rate slowed down when she was well diuresed. I do not think she is yet ready to switchto PO diuretics--would cont with IV. Please have wound care eval her legs while she is here. Admission and Anticipated Discharge Date Admission Date: November 15, 2024 Subjective patient seen sitting up in the chair, reports that she is still getting winded with any activity. No pain. Telemetry A-fib 90s to 100s diuresed over night--probably still needs more IV diuresis needs PT/OT consult wound for her right leg would watch her another 24-48 hours pnd renal function Review of Systems Review of Systems: All systems reviewed & are unremarkable except as noted in HPI & below Physical Exam Physical Exam: no change Results & Data Vital Signs (Past 12 Hours) Vital Signs Temp Pulse Pulse Resp BP Pulse Ox O2 Del Method 11/18/24 03:53 36.8 C 113 H 20 106/66 95 Room Air 11/17/24 22:56 98 H 11/17/24 22:52 36.3 C L 103 H 20 141/84 H 94 Room Air 11/17/24 20:14 Room Air 11/17/24 19:49 36.5 C 101 H 20 100/69 92 Room Air Laboratory Results Abnormal lab results 11/18/24 Range/Units 06:14 BUN 36 H (6-23) mg/dl BUN/Creatinine Ratio 41.4 H (10-20) Glucose 127 H (70-99(Fasting)) mg/dl Alkaline Phosphatase 161 H (34-104) U/L Total Protein 5.4 L (6.0-8.3) gm/dl Albumin 2.9 L (3.4-5.0) gm/dl
[2024-11-18] MEDS: FUROSEMIDE 40 MG/4 ML VIAL IV SCH (08:14)
--- NOTE | 2024-11-18 13:19 | Hospitalist Progress Note ---
"Date of Service November 18, 2024 Assessment & Plan (1) Acute on chronic heart failure with preserved ejection fraction: (2) Elevated alkaline phosphatase level: Plan 84-year-old female PMHx A-fib on Xarelto, HFpEF, HTN, PFO, and recent hospital admission 10/25/2024 until 11/07/2024 for acute on chronic respiratory failure as well as A-fib with RVR he was now presenting for abdominal pain and leg swelling with additional weight gain. Inital evaluation without evidence of infection, alkaline phosphatase is within at 191, BNP 535 . Admitted for CHF exacerbation. #Acute on chronic HFpEF | Afib - recent admission (10/25-11/07) requiring intubation and lasix drip; presenting with BLE edema, abdominal distention, and SOB; volume overloaded at time of admission. Home regimen: Lasix 80mg BID with additional 80mg prn for weight gain, spironolactone. Recent Echo - /2024 EF 65- 70%, severe TR, RVSP > 60 mmHg, tricuspid annulus dilated, mild concentric LVH, EV moderate/severe dilation, mild/moderate RVH. CXR unchanged small L and trace R pleural effusions. Abd US showing cirrhosis, likely from her right sided heart failure. Daily weights standing, I+Os - orders changed for more frequent I&O monitoring Consult cardiology - recommend continued diuresis until bump in creatinine/BUN. Reports that her dry weight in August was 84 kg. Feels that her heart rate slowed some when her heart failure is controlled. Recommend switching to IV diuresis while here. And recommend switching to torsemide (? 50 mg) at discharge. also recommends home oxygen arranged Continue metoprolol. Xarelto was held with vaginal bleeding. Patient still reports vaginal bleeding but not as severe, hemoglobin is stable. Plan to resume Xarelto for 11/17 and monitor CBC With cirrhosis would benefit from increasing her spironolactone dose, monitor blood pressures with further diuresis PT/OT - recommend rehab losing 1 to 2 kg/day, will continue IV diuresis. #Elevated alkaline phosphatase H/o transaminitis, was thought to be 2/2 hepatic congestion. No abdominal pain, but distended. abdominal ultrasound showed cirrhosis - Alk Phos 191, and downtrending #Hypocalcemia - Resolved, now 8.7 #RLE wound- no leukocytosis/fever/pain. wound care nurse consulted #Vaginal bleeding - US done last admissions shows thickened endometrium. Needs OP CATERING DRIVER follow up. We discussed the possibility of this being cancer when her son was present, pt does not think she has cancer. But is agreeable to resume her eliquis. Monitor CBC occasionally. Dispo: Continued inpatient stay, continue IV diuresis VTE Prophylaxis: Xarelto resume 11/17 Follow ups after discharge: CATERING DRIVER, cardiology Code status discussion held at admission; she is sure that she wants respiratory interventions to take place in the case of emergencies but is unsure if she wants to pursue cardiac interventions (CPR, defibrillation). Decided to be full code at time of admission but would like to further think on this moving forward. Case discussed with cardiology Admission and Anticipated Discharge Date Admission Date: November 15, 2024 Subjective Patient seen sitting up in the chair. Reports that her legs feel little bit smaller, stomach is still distended. Is still getting winded with walking to the bathroom Telemetry A-fib 90s to 100s Review of Systems Review of Systems: All systems reviewed & are unremarkable except as noted in Subjective Physical Exam Physical Exam: General: NAD, VS as above Resp: no assessory muscle use today, diminished in the bases, did become conversationally dyspneic after prolonged talking CV: afib - tachycardic Abd: normal bowel sounds, distended, nontender Extremities: Moves all extremities, 2+ LE edema Neuro: A&O x3, Skin: wound covered over left leg Results & Data Results & Data Vital Signs (Past 12 Hours) Vital Signs Temp Pulse Resp BP Pulse Ox O2 Del Method 11/18/24 11:47 98.1 F 91 H 18 113/73 97 Room Air 11/18/24 08:09 97.7 F 113 H 18 113/65 96 Room Air 11/18/24 03:53 98.2 F 113 H 20 106/66 95 Room Air Laboratory Results CMP reviewed PG Care Time/CCT Total # of Minutes Spent Total Time Spent with Patient: Total time spent is greater than 50% in coordination of care (as documented) at patient's floor/unit and/or counseling patient: Coding Level of Care Code 35101 SUB INP/OBS CARE 3/50MIN Diagnoses Acute on chronic heart failure with preserved ejection fraction I50.33 Elevated alkaline phosphatase level R74.8"
[2024-11-18] MEDS: MoRPHine SULFATE 2 MG/ML CARP IV PRN (20:56)
[2024-11-19 06:23] LABS: Anion Gap 11.0 (3-11); Bilirubin,Total 1.1 mg/dl (0.2-1.0); Calcium 9.1 mg/dl (8.6-10.3); Carbon Dioxide 25.0 mmol/L (21-32); Chloride 99.0 mmol/L (98-107); Potassium 4.5 mmol/L (3.5-5.1); Sodium 135.0 mmol/L (136-145)
[2024-11-19 06:30] LABS: Alanine Aminotransferase 18.0 U/L (7-52); Albumin Globulin Ratio 1.1 (0.9-2); Alkaline Phosphatase 205.0 U/L (34-104); Blood Urea Nitrogen 40.0 mg/dl (6-23); Creatinine Clr Calc Pharmacy 55.3 ml/min; Globulin 3.1 gm/dl (2.5-4.0); Glucose 148.0 mg/dl (70-99(Fasting)); Total Protein 6.5 gm/dl (6.0-8.3)
--- NOTE | 2024-11-19 09:22 | Surgery Consultation ---
Date of Consultation November 19, 2024 Assessment & Plan (1) Leg wound, right: This is an 84yF with a PMH of CHF, tricuspid regurgitation, afib on xarelto, vaginal bleeding, who presents to the [facility] on 11/15/24 with respiratory complaints. Patient is admitted under medicine and being followed by cardiology in consultation for her cardiac issues. We have been consulted today for evaluation of patient's right lower extremity wound. She cannot tell me when it originated, but believes it started on her last admission which was in October for cardio pulmonary issues. Patient reports the wound is painful for her but she is able to ambulate and move her legs. She denies any fevers/chills. She denies any trauma to the area as a causative factor. She is still dealing with shortness of breath. No chest pain. She endorses + vaginal bleeding. Patient currently had a dressing with kerlex wrap on her RLE wound that is dated/timed as recently changed. She has pictures in the chart noted by the independent contractor taken yesterday. There is some necrotic appearing tissue with slough in the wound bed. She is not an ideal surgical candidate for her cardio/pulmonary issues. Continue local wound care, can consider adding santyl for chemical debridement. If possible hold xarelto today, we will evaluate the wound tomorrow at bedside and may consider a bedside debridement. No need for NPO at midnight, if we perform any debridement we will attempt it at the bedside. Will follow. History of Present Illness Attending Physician: Rosana Jackson MD History of Present Illness This is an 84yF with a PMH of CHF, tricuspid regurgitation, afib on xarelto, vaginal bleeding, who presents to the [facility] on 11/15/24 with respiratory complaints. Patient is admitted under medicine and being followed by cardiology in consultation for her cardiac issues. We have been consulted today for evaluation of patient's right lower extremity wound. She cannot tell me when it originated, but believes it started on her last admission which was in October for cardio pulmonary issues. Patient reports the wound is painful for her but she is able to ambulate and move her legs. She denies any fevers/chills. She denies any trauma to the area as a causative factor. She is still dealing with shortness of breath. No chest pain. She endorses + vaginal bleeding. Allergies Allergy/AdvReac Type Severity Reaction Status Date / Time nickel AdvReac Mild Rash Verified 10/10/24 13:39 Home Medications Medication Instructions Recorded Confirmed Type cholecalciferol (vitamin D3) 25 25 mcg PO DAILY 10/06/24 11/16/24 History mcg (1,000 unit) tablet (Vitamin D3) furosemide 40 mg tablet 80 mg PO DAILY PRN Edema/Wt > 220 10/06/24 11/16/24 History lbs potassium chloride 20 mEq 20 meq PO QAM 10/06/24 11/16/24 History tablet,extended release rivaroxaban 20 mg tablet (Xarelto) 20 mg PO QPM 10/06/24 11/03/24 History cephalexin 500 mg capsule 500 mg PO QID #8 caps 11/07/24 Rx furosemide 80 mg tablet 80 mg PO BID17 #20 tabs 11/07/24 11/16/24 Rx magnesium oxide 400 mg (241.3 mg 400 mg PO BID@0700,1900 #20 tabs 11/07/24 11/16/24 Rx magnesium) tablet metoprolol succinate 50 mg 50 mg PO QAM #20 tabs 11/07/24 11/16/24 Rx tablet,extended release 24 hr multivitamin with folic acid 400 1 tab PO QAM #20 tabs 11/07/24 11/16/24 Rx mcg tablet (Daily-Charity (with folic acid)) thiamine HCl (vitamin B1) 100 mg 100 mg PO QAM #20 tabs 11/07/24 11/16/24 Rx tablet acetaminophen 325 mg tablet 325 mg PO QID PRN Pain/fever 11/16/24 11/16/24 History bisacodyl 10 mg rectal suppository 10 mg WI DAILY PRN Constipation 11/16/24 11/16/24 History docusate sodium 100 mg capsule 100 mg PO DAILY PRN Constipation 11/16/24 11/16/24 History (Colace) spironolactone 25 mg tablet 25 mg PO DAILY 11/16/24 11/16/24 History Patient History Medical History Edema Dyspnea on exertion History of anemia (1989) 4 units PRBCs Hx of congestive heart failure (1989) Cardiac murmur Echo 09/2024 Atrial fibrillation Follows with Dr. Walker Surgical History Hx of tonsillectomy (1945) Hx laparoscopic cholecystectomy (2014) Social History Smoking Status: Never smoker Second Hand Exposure: No; Do You Dip or Chew Tobacco: No; Hx Alcohol Use: Yes Alcohol type: beer and wine Hx Substance Use: No Preferred Language: Sinhala Communication Ability: Effective Visual Impairment: No Limitations Early Childhood Education Specialist Required: No Beliefs That Will Affect Care: None Current Living Situation: Personal Care Facility Current Living Situation Comment: Lives with Son Ronny Feels Safe at Home: Yes Safety Concerns: Feels Safe At This Time Assistive Devices: Walker and Wheelchair Review of Systems Constitutional: no fever and no chills Respiratory: + dyspnea and + dyspnea on exertion Cardiovascular: no chest pain Genitourinary: + vaginal bleeding Integumentary: + right lower extremity leg wound, painf ul Physical Exam Physical Exam: awake, alert, no distress Respiratory: appears to be oxygenating well on room air, does not appear short of breath Skin: + RLE leg wound noted with recently calabrese ged dressing, wound pictures seen in chart Results & Data Vital Signs (Past 12 Hours) Vital Signs Temp Pulse Pulse Resp BP Pulse Ox O2 Del Method 11/19/24 07:19 97.5 F L 100 H 18 103/71 94 Room Air 11/19/24 04:15 97.5 F L 103 H 20 104/74 93 Room Air 11/18/24 23:29 111/76 11/18/24 23:24 97.9 F 111 H 20 95/65 L 93 Room Air 11/18/24 21:48 101 H PG Care Time/CCT Total # of Minutes Spent Total Time Spent with Patient: Total time spent is greater than 50% in coordination of care (as documented) at patient's floor/unit and/or counseling patient: Coding Level of Care Code 61296 INT INP/OBS CARE 1/40MIN Diagnoses Leg wound, right S81.801A
--- NOTE | 2024-11-19 09:52 | Hospitalist Progress Note ---
"Date of Service November 19, 2024 Assessment & Plan (1) Acute on chronic heart failure with preserved ejection fraction: (2) Elevated alkaline phosphatase level: Plan 84-year-old female PMHx A-fib on Xarelto, HFpEF, HTN, PFO, and recent hospital admission 10/25/2024 until 11/07/2024 for acute on chronic respiratory failure as well as A-fib with RVR he was now presenting for abdominal pain and leg swelling with additional weight gain. Inital evaluation without evidence of infection, alkaline phosphatase is within at 191, BNP 535 . Admitted for CHF exacerbation. #Acute on chronic HFpEF | Afib - recent admission (10/25-11/07) requiring intubation and lasix drip; presenting with BLE edema, abdominal distention, and SOB; volume overloaded at time of admission. Home regimen: Lasix 80mg BID with additional 80mg prn for weight gain, spironolactone. Recent Echo - /2024 EF 65- 70%, severe TR, RVSP > 60 mmHg, tricuspid annulus dilated, mild concentric LVH, EV moderate/severe dilation, mild/moderate RVH. CXR unchanged small L and trace R pleural effusions. Abd US showing cirrhosis, likely from her right sided heart failure. Daily weights standing, I+Os - orders changed for more frequent I&O monitoring Consult cardiology - recommend continued diuresis until bump in creatinine/BUN. Reports that her dry weight in August was 84 kg. Feels that her heart rate slowed some when her heart failure is controlled. Recommend switching to IV diuresis while here. And recommend switching to torsemide (? 50 mg) at discharge. also recommends home oxygen arranged Continue metoprolol. With cirrhosis would benefit from increasing her spironolactone dose, monitor blood pressures with further diuresis PT/OT - recommend rehab weight gain overnight, but kidney function has not bumped. Will add additional dose of IV lasix this afternoon - monitor CMP and weight, may need to switch diuretics tomorrow #Elevated alkaline phosphatase H/o transaminitis, was thought to be 2/2 hepatic congestion. No abdominal pain, but distended. abdominal ultrasound showed cirrhosis - Alk Phos 205 - trend #Hypocalcemia - Resolved, now 8.7 #RLE wound- no leukocytosis/fever/pain. wound care nurse consulted Surgery consulted - do not anticpate surgical intervention, xarelto held for possible bedside debridement tomorrow 11/20 #Vaginal bleeding - US done last admissions shows thickened endometrium. Needs OP PAPER TESTING SUPERVISOR follow up. We discussed the possibility of this being cancer when her son was present, pt does not think she has cancer. But is agreeable to resume her eliquis. Monitor CBC occasionally. Dispo: Continued inpatient stay, continue IV diuresis VTE Prophylaxis: Xarelto held 11/19 for possible bedside wound debridement Follow ups after discharge: PAPER TESTING SUPERVISOR, cardiology Code status discussion held at admission; she is sure that she wants respiratory interventions to take place in the case of emergencies but is unsure if she wants to pursue cardiac interventions (CPR, defibrillation). Decided to be full code at time of admission but would like to further think on this moving forward. Case discussed with cardiology Admission and Anticipated Discharge Date Admission Date: November 15, 2024 Subjective Patient seen sitting up in bed reports that still getting short of breath with ambulating abd slighlty softer pain is in her leg/wound tele - afib 90s Review of Systems Review of Systems: All systems reviewed & are unremarkable except as noted in Subjective Physical Exam Physical Exam: General: NAD, VS as above Resp: no assessory muscle use today, diminished in the bases, CV: afib - not tachycardic Abd: normal bowel sounds, softer than yesterday, nontender Extremities: Moves all extremities, 2+ LE edema Neuro: A&O x3, Skin: wound covered over left leg - pictures reviewed in chart Results & Data Results & Data Vital Signs (Past 12 Hours) Vital Signs Temp Pulse Resp BP Pulse Ox O2 Del Method 11/19/24 07:19 97.5 F L 100 H 18 103/71 94 Room Air 11/19/24 04:15 97.5 F L 103 H 20 104/74 93 Room Air 11/18/24 23:29 111/76 11/18/24 23:24 97.9 F 111 H 20 95/65 L 93 Room Air Laboratory Results CMP reviewed PG Care Time/CCT Total # of Minutes Spent Total Time Spent with Patient: Total time spent is greater than 50% in coordination of care (as documented) at patient's floor/unit and/or counseling patient: Coding Level of Care Code 91655 SUB INP/OBS CARE 3/50MIN Diagnoses Acute on chronic heart failure with preserved ejection fraction I50.33 Elevated alkaline phosphatase level R74.8"
--- NOTE | 2024-11-19 10:17 | Cardiology Progress Note ---
Date of Service November 19, 2024 Assessment & Plan (1) Atrial fibrillation with rapid ventricular response: (2) Diastolic CHF, chronic: (3) Tricuspid regurgitation: Plan Ms. Slater continues to be mildly tachycardic in A-fib. She appears short of breath today. I think at this point she needs more aggressive intervention for her heart rates and heart failure. I agree with the hospitalists and increasing her furosemide to twice daily. She can be changed to torsemide po 50mg at time of DC and use Furoscix weekly to start (my office will arrange for this). Her diastolic heart failure is likely secondary to both diastolic dysfunction and loss of atrial kick in afib. Unfortunately she was unable to maintain SR after cardioversion a few weeks ago. Her TR and pulmonary hypertension may improve some after diuresis. She is on metoprolol and does not have a whole lot of blood pressure room to keep going up on beta-blockers. I we will add digoxin IV x 1 now and then start on daily 0.125 mg tablets thereafter. She will need digoxin level in a week. Her renal function will need to be followed closely with higher doses of diuretics and digoxin. Her Xarelto is on hold for possible debridement of her lower extremity wound. Hopefully this can be resumed WESLY. Her case was discussed with Dr. Walker Admission and Anticipated Discharge Date Admission Date: November 15, 2024 Subjective Ms. Slater is visibly dyspneic today. Her heart rate remains elevated in afib. Review of Systems Review of Systems: All systems reviewed & are unremarkable except as noted in HPI & below Physical Exam Constitutional: + ill appearing Respiratory: + labored breathing Auscultation: norman gs clear to auscultation bilaterally Cardiovascular: Rate/Rhythm: + abnormal rate and + abnormal rhythm Heart Sounds: normal S1 and normal S2 Extremities: + edema (mild right lower extremity) Skin: no rashes, warm and dry Neurologic: moves all extremities and awake Psychiatric: Orientation: oriented x 3 Results & Data Vital Signs (Past 12 Hours) Vital Signs Temp Pulse Resp BP Pulse Ox O2 Del Method 11/19/24 07:19 36.4 C L 100 H 18 103/71 94 Room Air 11/19/24 04:15 36.4 C L 103 H 20 104/74 93 Room Air 11/18/24 23:29 111/76 11/18/24 23:24 36.6 C 111 H 20 95/65 L 93 Room Air
[2024-11-19] MEDS: DIGOXIN 250 MCG in SYRINGE 9 ML IV STA (11:07)
[2024-11-19] MEDS ORDERED: DIGOXIN 0.125 MG TAB PO SCH (16:00)
[2024-11-19] MEDS: FUROSEMIDE 40 MG/4 ML VIAL IV ONE (16:53)
[2024-11-19] MEDS: DIGOXIN 250 MCG in SYRINGE 9 ML IV ONE (16:54)
--- NOTE | 2024-11-19 17:57 | Electrocardiogram Report ---
Test Reason : Blood Pressure : */* mmHG Vent. Rate : 99 BPM Atrial Rate : * BPM P-R Int : * ms QRS Dur : 98 ms QT Int : 428 ms P-R-T Axes : * 59 62 degrees QTcB Int : 549 ms Atrial fibrillation Low voltage QRS Incomplete right bundle branch block Nonspecific T wave abnormality Abnormal ECG When compared with ECG of 15-Nov-2024 21:14, QT has lengthened Confirmed by Yovani Mohan ([id number] on 11/19/2024 5:56:57 PM Referred By: REFERRED SELF Confirmed By: Yovani Mohan
[2024-11-19 21:47] LABS: Base Excess VBG 7.6 mEq/L; HCO3 VBG 34 mmol/L; Oxygen Saturation VBG < 60.0 %; PCO2 VBG 52 mmHg (38-50); PO2 VBG 20 mmHg; pH VBG 7.42 (7.36-7.41)
--- NOTE | 2024-11-20 00:41 | XRay Report ---
Exam(s): XR CXR 1 VIEW EXAM: XR Chest, 1 View CLINICAL HISTORY: Reason for exam: increasing O2 needs. TECHNIQUE: Frontal view of the chest. COMPARISON: Prior chest x-ray from November 15, 2024. FINDINGS: Lungs: Mild to moderate peribronchial thickening of the central lower lobe bronchi with dense patchy opacity at the left lung base. Pleural space: Moderate left pleural effusion. No pneumothorax. Heart: Mild cardiomegaly. Mediastinum: Unremarkable. Normal mediastinal contour. Bones/joints: Diffuse osteopenia throughout the visualized bones. No acute fracture. IMPRESSION: Bronchitis with left lower lobe infiltrate and pleural effusion, not significantly changed from the prior examination. Electronically signed by: Pauly Arauz MD 11/20/24 00:40 AM
[2024-11-20 06:00] LABS: Hematocrit (blood only) 38.7 % (37.0-47.0); Hemoglobin 11.6 g/dl (12.0-16.0); Mean Corpuscular Hemoglobin 28.7 pg (25.0-34.0); Mean Corpuscular Volume 95.8 fL (80.0-100.0); Platelet Count 225 K/uL (130-400); RDW Standard Deviation 60.8 fL (36.4-46.3); Red Blood Count 4.04 M/uL (4.20-5.40); White Blood Count 10.88 K/ul (4.8-10.8)
[2024-11-20 06:17] LABS: Alanine Aminotransferase 18.0 U/L (7-52); Albumin Globulin Ratio 1.1 (0.9-2); Alkaline Phosphatase 175.0 U/L (34-104); Anion Gap 4.0 (3-11); Bilirubin,Total 1.0 mg/dl (0.2-1.0); Blood Urea Nitrogen 40.0 mg/dl (6-23); Calcium 8.8 mg/dl (8.6-10.3); Carbon Dioxide 30.0 mmol/L (21-32); Chloride 102.0 mmol/L (98-107); Creatinine Clr Calc Pharmacy 58.3 ml/min; Globulin 2.7 gm/dl (2.5-4.0); Glucose 121.0 mg/dl (70-99(Fasting)); Potassium 4.6 mmol/L (3.5-5.1); Sodium 136.0 mmol/L (136-145); Total Protein 5.6 gm/dl (6.0-8.3)
--- NOTE | 2024-11-20 09:08 | Surgery Progress Note ---
Date of Service November 20, 2024 Assessment & Plan (1) Leg wound, right: Plan: She has multiple comorbidities and I do not think placing her under anesthesia for debridement is a good idea Will start Santyl ointment on her wound for today Will tentatively plan on a bedside debridement tomorrow if she is able to tolerate this Admission and Anticipated Discharge Date Admission Date: November 15, 2024 Subjective Patient seen and examined. No acute events overnight. Still with pain regards to her right lower extremity wound. Review of Systems Constitutional: no fever and no chills Eyes: no blind spots and no corrective lenses Respiratory: + dyspnea; no cough Cardiovascular: + dyspnea on exertion; no chest pain Gastrointestinal: no abdominal pain, no nausea and no vomiting Genitourinary: no dysuria and no urinary urgency Musculoskeletal: no back pain and no neck pain Neurologic: no headache(s) and no memory loss Psychiatric: no behavioral changes and no depression Physical Exam Constitutional: WD/WN, vitals as above Respiratory: normal respiratory effort, lungs clear to auscultation Cardiovascular: RRR, no murmur, no edema Gastrointestinal (Abdomen): normal bowel sounds, soft, nontender, no hepatosplenomegaly Skin: no rashes, warm and dry Right lower extremity calf wound, superficial but with significant slough present, mild surrounding erythema and edema Psychiatric: A+Ox3, euthymic affect Results & Data Vital Signs (Past 12 Hours) Vital Signs Temp Pulse Pulse Resp BP BP Pulse Ox 11/20/24 08:00 11/20/24 07:53 36.5 C 80 17 106/72 95 11/20/24 02:51 36.4 C L 93 H 24 105/72 92 11/19/24 22:52 36.3 C L 93 H 16 101/69 91 11/19/24 21:47 82 11/19/24 21:44 92 H 119/86 94 O2 Del Method 11/20/24 08:00 Room Air 11/20/24 07:53 Room Air 11/20/24 02:51 Room Air 11/19/24 22:52 Room Air 11/19/24 21:47 11/19/24 21:44 Room Air PG Care Time/CCT Total # of Minutes Spent Total Time Spent with Patient: Total time spent is greater than 50% in coordination of care (as documented) at patient's floor/unit and/or counseling patient: Coding Level of Care Code 89606 SUB INP/OBS CARE 04/10MIN Diagnoses Leg wound, right S81.801A
[2024-11-20] MEDS: COLLAGENASE OINT 30 GM TUBE EXT SCH (10:47)
--- NOTE | 2024-11-20 13:00 | Electrocardiogram Report ---
Test Reason : Blood Pressure : */* mmHG Vent. Rate : 87 BPM Atrial Rate : * BPM P-R Int : * ms QRS Dur : 98 ms QT Int : 348 ms P-R-T Axes : * 80 155 degrees QTcB Int : 418 ms Atrial fibrillation Low voltage QRS Incomplete right bundle branch block Nonspecific ST and T wave abnormality Abnormal ECG When compared with ECG of 15-Nov-2024 22:40, Nonspecific T wave abnormality, improved in Inferior leads T wave inversion no longer evident in Anterior leads QT has shortened Confirmed by Shalom Mae ([id number]) on 11/20/2024 1:00:10 PM Referred By: REFERRED SELF Confirmed By: Shalom Mae
[2024-11-20] MEDS: DIGOXIN 0.125 MG TAB PO SCH (16:05)
--- NOTE | 2024-11-20 22:46 | Hospitalist Progress Note ---
"Date of Service November 20, 2024 Assessment & Plan (1) Acute on chronic heart failure with preserved ejection fraction: (2) Elevated alkaline phosphatase level: Plan 84-year-old female PMHx A-fib on Xarelto, HFpEF, HTN, PFO, and recent hospital admission 10/25/2024 until 11/07/2024 for acute on chronic respiratory failure as well as A-fib with RVR he was now presenting for abdominal pain and leg swelling with additional weight gain. Inital evaluation without evidence of infection, alkaline phosphatase is within at 191, BNP 535 . Admitted for CHF exacerbation. #Acute on chronic HFpEF | Afib - recent admission (10/25-11/07) requiring intubation and lasix drip; presenting with BLE edema, abdominal distention, and SOB; volume overloaded at time of admission. Home regimen: Lasix 80mg BID with additional 80mg prn for weight gain, spironolactone. Recent Echo - /2024 EF 65- 70%, severe TR, RVSP > 60 mmHg, tricuspid annulus dilated, mild concentric LVH, EV moderate/severe dilation, mild/moderate RVH. CXR unchanged small L and trace R pleural effusions. Abd US showing cirrhosis, likely from her right sided heart failure. Daily weights standing, I+Os - orders changed for more frequent I&O monitoring Consult cardiology - recommend continued diuresis until bump in creatinine/BUN. Reports that her dry weight in August was 84 kg. Feels that her heart rate slowed some when her heart failure is controlled. Recommend switching to IV diuresis while here. And recommend switching to torsemide (? 50 mg) at discharge. also recommends home oxygen arranged Continue metoprolol. With cirrhosis increased spironolactone to 100 mg this will be started tomorrow. May consider paracenthesis on friday if enough fluid is found on u/s PT/OT - recommend rehab weight gain overnight, but kidney function has not bumped. Will add additional dose of IV lasix this afternoon - monitor CMP and weight, may need to switch diuretics tomorrow #Elevated alkaline phosphatase H/o transaminitis, was thought to be 2/2 hepatic congestion. No abdominal pain, but distended. abdominal ultrasound showed cirrhosis - Alk Phos 205 - trend #Hypocalcemia - Resolved, now 8.7 #RLE wound- no leukocytosis/fever/pain. wound care nurse consulted Surgery consulted - do not anticpate surgical intervention, xarelto held for possible bedside debridement on 11/21 #Vaginal bleeding - US done last admissions shows thickened endometrium. Needs OP WIRELESS SALES ASSOCIATE follow up. We discussed the possibility of this being cancer when her son was present, pt does not think she has cancer. But is agreeable to resume her eliquis. Monitor CBC occasionally. Dispo: Continued inpatient stay, continue IV diuresis VTE Prophylaxis: Xarelto held 11/19 for possible bedside wound debridement Follow ups after discharge: WIRELESS SALES ASSOCIATE, cardiology Code status discussion held at admission; she is sure that she wants respiratory interventions to take place in the case of emergencies but is unsure if she wants to pursue cardiac interventions (CPR, defibrillation). Decided to be full code at time of admission but would like to further think on this moving forward. Case discussed with cardiology Admission and Anticipated Discharge Date Admission Date: November 15, 2024 Subjective 84 yo female reports no new symptoms. She states her legs are becoming a bit more swollen. Physical Exam Constitutional: no acute distress Respiratory: normal respiratory effort Auscultation: lungs clear to auscultation bilaterally Cardiovascular: Rate/Rhythm: + abnormal rate and + abnormal rhythm Heart Sounds: normal S1 and normal S2 Extremities: + edema (mild right lower extremity) Skin: no rashes, warm and dry Neurologic: moves all extremities and awake Psychiatric: Orientation: oriented x 3 Results & Data Results & Data Vital Signs (Past 12 Hours) Vital Signs Temp Pulse Pulse Resp BP Pulse Ox O2 Del Method 11/20/24 22:42 36.4 C L 101 H 20 113/75 92 Room Air 11/20/24 20:00 Room Air 11/20/24 19:59 36.6 C 92 H 20 105/71 95 Room Air 11/20/24 16:43 36.5 C 91 H 18 118/68 95 Room Air 11/20/24 16:05 88 11/20/24 13:52 85 11/20/24 12:32 36.5 C 90 18 111/75 94 Room Air 11/20/24 11:29 88 PG Care Time/CCT Total # of Minutes Spent Total Time Spent with Patient: Total time spent is greater than 50% in coordination of care (as documented) at patient's floor/unit and/or counseling patient: Coding Level of Care Code 22682 SUB INP/OBS CARE 3/50MIN Diagnoses Acute on chronic heart failure with preserved ejection fraction I50.33 Elevated alkaline phosphatase level R74.8"
[2024-11-21] MEDS: MoRPHine SULFATE 2 MG/ML CARP IV PRN (02:00)
[2024-11-21 07:42] LABS: Hematocrit (blood only) 39.8 % (37.0-47.0); Hemoglobin 11.9 g/dl (12.0-16.0); Mean Corpuscular Hemoglobin 28.5 pg (25.0-34.0); Mean Corpuscular Volume 95.2 fL (80.0-100.0); Platelet Count 217 K/uL (130-400); RDW Standard Deviation 60.2 fL (36.4-46.3); Red Blood Count 4.18 M/uL (4.20-5.40); White Blood Count 11.58 K/ul (4.8-10.8)
[2024-11-21 07:59] LABS: Alanine Aminotransferase 20.0 U/L (7-52); Albumin Globulin Ratio 1.2 (0.9-2); Alkaline Phosphatase 191.0 U/L (34-104); Anion Gap 6.0 (3-11); Bilirubin,Total 1.0 mg/dl (0.2-1.0); Blood Urea Nitrogen 40.0 mg/dl (6-23); Calcium 8.9 mg/dl (8.6-10.3); Carbon Dioxide 30.0 mmol/L (21-32); Chloride 102.0 mmol/L (98-107); Creatinine Clr Calc Pharmacy 66.6 ml/min; Globulin 2.6 gm/dl (2.5-4.0); Glucose 129.0 mg/dl (70-99(Fasting)); Potassium 4.4 mmol/L (3.5-5.1); Sodium 138.0 mmol/L (136-145); Total Protein 5.7 gm/dl (6.0-8.3)
[2024-11-21] MEDS: SPIRONOLACTONE 100 MG TAB PO SCH (09:24)
[2024-11-21] MEDS: LIDOCAINE/EPINEPH/TETRACAINE 1 EA SYR EXT ONE (09:24)
--- NOTE | 2024-11-21 13:57 | Surgery Progress Note ---
Date of Service November 21, 2024 Assessment & Plan (1) Leg wound, right: Plan: LET gel applied to the wound approximately 15 minutes prior to attempted bedside debridement. Patient is exquisitely tender and was not able to tolerate a meaningful bedside debridement. Wound dressed with Santyl, 4 x 4, ABD, Kerlix. Unfortunately, patient too high risk to proceed with debridement in OR. Please continue local wound care. Wound care nurse to return tomorrow. Admission and Anticipated Discharge Date Admission Date: November 15, 2024 Subjective Patient seen and examined. Still with pain regards to her right lower extremity wound. Will attempt bedside debridement today. Physical Exam Constitutional: WD/WN, vitals as above Respiratory: normal respiratory effort, lungs clear to auscultation Cardiovascular: RRR, no murmur, no edema Gastrointestinal (Abdomen): normal bowel sounds, soft, nontender, no hepatosplenomegaly Skin: no rashes, warm and dry Right lower extremity calf wound, superficial but with significant slough present, mild surrounding erythema and edema Wound measures 12 cm x 10 cm. Psychiatric: A+Ox3, euthymic affect Results & Data Vital Signs (Past 12 Hours) Vital Signs Temp Pulse Pulse Resp BP BP Pulse Ox 11/21/24 11:40 36.3 C L 100 H 16 106/76 91 11/21/24 08:02 36.0 C L 86 16 124/72 86 L 11/21/24 08:00 11/21/24 08:00 80 11/21/24 03:10 36.4 C L 92 H 24 110/76 94 O2 Del Method 11/21/24 11:40 Room Air 11/21/24 08:02 Room Air 11/21/24 08:00 Room Air 11/21/24 08:00 11/21/24 03:10 Room Air PG Care Time/CCT Total # of Minutes Spent Total Time Spent with Patient: Total time spent is greater than 50% in coordination of care (as documented) at patient's floor/unit and/or counseling patient: Coding Level of Care Code 09875 SUB INP/OBS CARE 2/35MIN Diagnoses Leg wound, right S81.801A
[2024-11-21] MEDS: MoRPHine SULFATE 2 MG/ML CARP IV STA (14:15)
--- NOTE | 2024-11-21 22:57 | Hospitalist Progress Note ---
"Date of Service November 21, 2024 Assessment & Plan (1) Acute on chronic heart failure with preserved ejection fraction: (2) Elevated alkaline phosphatase level: Plan 84-year-old female PMHx A-fib on Xarelto, HFpEF, HTN, PFO, and recent hospital admission 10/25/2024 until 11/07/2024 for acute on chronic respiratory failure as well as A-fib with RVR he was now presenting for abdominal pain and leg swelling with additional weight gain. Inital evaluation without evidence of infection, alkaline phosphatase is within at 191, BNP 535 . Admitted for CHF exacerbation. #Acute on chronic HFpEF | Afib - recent admission (10/25-11/07) requiring intubation and lasix drip; presenting with BLE edema, abdominal distention, and SOB; volume overloaded at time of admission. Home regimen: Lasix 80mg BID with additional 80mg prn for weight gain, spironolactone. Recent Echo - /2024 EF 65- 70%, severe TR, RVSP > 60 mmHg, tricuspid annulus dilated, mild concentric LVH, EV moderate/severe dilation, mild/moderate RVH. CXR unchanged small L and trace R pleural effusions. Abd US showing cirrhosis, likely from her right sided heart failure. Daily weights standing, I+Os - orders changed for more frequent I&O monitoring Consult cardiology - recommend continued diuresis until bump in creatinine/BUN. Reports that her dry weight in August was 84 kg. Feels that her heart rate slowed some when her heart failure is controlled. Recommend switching to IV diuresis while here. And recommend switching to torsemide (? 50 mg) at discharge. also recommends home oxygen arranged Continue metoprolol. With cirrhosis increased spironolactone to 100 mg will order paracenthesis on friday PT/OT - recommend rehab weight gain overnight, but kidney function has not bumped. Will add additional dose of IV lasix this afternoon - monitor CMP and weight, may need to switch di uretics tomorrow #Elevated alkaline phosphatase H/o transaminitis, was thought to be 2/2 hepatic congestion. No abdominal pain, but distended. abdominal ultrasound showed cirrhosis - Alk Phos 205 - trend #Hypocalcemia - Resolved, now 8.7 #RLE wound- no leukocytosis/fever/pain. wound care nurse consulted Surgery consulted - do not anticpate surgical intervention, xarelto held for possible bedside debridement on 11/21 #Vaginal bleeding - US done last admissions shows thickened endometrium. Needs OP WIRE INSPECTOR follow up. We discussed the possibility of this being cancer when her son was present, pt does not think she has cancer. But is agreeable to resume her eliquis. Monitor CBC occasionally. Dispo: Continued inpatient stay, continue IV diuresis VTE Prophylaxis: Xarelto held 11/19 for possible bedside wound debridement Follow ups after discharge: WIRE INSPECTOR, cardiology PT recommending rehab. Code status discussion held at admission; she is sure that she wants respiratory interventions to take place in the case of emergencies but is unsure if she wants to pursue cardiac interventions (CPR, defibrillation). Decided to be full code at time of admission but would like to further think on this moving forward. Case discussed with cardiology Admission and Anticipated Discharge Date Admission Date: November 15, 2024 Subjective 84 yo female reports no change in her symptoms. Physical Exam Constitutional: no acute distress Respiratory: normal respiratory effort Auscultation: lungs clear to auscultation bilaterally Cardiovascular: Rate/Rhythm: + abnormal rate and + abnormal rhythm Heart Sounds: normal S1 and normal S2 Extremities: + edema (mild right lower extremity) Skin: no rashes, warm and dry Neurologic: moves all extremities and awake Psychiatric: Orientation: oriented x 3 Results & Data Results & Data Vital Signs (Past 12 Hours) Vital Signs Temp Pulse Pulse Resp BP Pulse Ox O2 Del Method 11/21/24 22:54 75 11/21/24 22:18 36.6 C 93 H 18 107/75 90 Room Air 11/21/24 20:00 Room Air 11/21/24 19:08 36.2 C L 97 H 18 107/73 92 Room Air 11/21/24 18:20 92 H 11/21/24 15:43 36.3 C L 94 H 16 106/74 90 Room Air 11/21/24 11:40 36.3 C L 100 H 16 106/76 91 Room Air PG Care Time/CCT Total # of Minutes Spent Total Time Spent with Patient: Total time spent is greater than 50% in coordination of care (as documented) at patient's floor/unit and/or counseling patient: Coding Level of Care Code 79213 SUB INP/OBS CARE 3/50MIN Diagnoses Acute on chronic heart failure with preserved ejection fraction I50.33 Elevated alkaline phosphatase level R74.8"
--- NOTE | 2024-11-22 08:42 | Surgery Progress Note ---
Date of Service November 22, 2024 Assessment & Plan (1) Leg wound, right: Plan: The area was debrided at bedside yesterday however the patient did have fairly significant pain with this Would recommend just continuing with the Santyl ointment at this time Reconsult wound care for further recommendations Surgery will sign off at this time, please call with any questions or concerns Admission and Anticipated Discharge Date Admission Date: November 15, 2024 Subjective Patient seen and examined. She did not tolerate the bedside debridement well yesterday. No acute events overnight. Afebrile. Review of Systems Constitutional: no fever and no chills Respiratory: no cough and no dyspnea Cardiovascular: no chest pain and no dyspnea on exertion Gastrointestinal: no abdominal pain, no nausea and no vomiting Genitourinary: no dysuria and no urinary urgency Integumentary: no acne and no boil Psychiatric: no behavioral changes and no depression Physical Exam Constitutional: WD/WN, vitals as above Respiratory: normal respiratory effort, lungs clear to auscultation Cardiovascular: RRR, no murmur, no edema Gastrointestinal (Abdomen): normal bowel sounds, soft, nontender, no hepatosplenomegaly Skin: no rashes, warm and dry Right lower extremity calf wound, superficial but with significant slough present, mild surrounding erythema and edema Psychiatric: A+Ox3, euthymic affect Results & Data Vital Signs (Past 12 Hours) Vital Signs Temp Pulse Pulse Resp BP Pulse Ox O2 Del Method 11/22/24 08:00 100 H 11/22/24 08:00 Room Air 11/22/24 07:48 36.4 C L 96 H 20 125/85 94 Room Air 11/22/24 04:11 36.7 C 97 H 20 114/81 93 Room Air 11/21/24 22:54 75 11/21/24 22:18 36.6 C 93 H 18 107/75 90 Room Air PG Care Time/CCT Total # of Minutes Spent Total Time Spent with Patient: Total time spent is greater than 50% in coordination of care (as documented) at patient's floor/unit and/or counseling patient: Coding Level of Care Code 73195 SUB INP/OBS CARE 04/10MIN Diagnoses Leg wound, right S81.801A
[2024-11-22 11:25] LABS: Hematocrit (blood only) 39.4 % (37.0-47.0); Hemoglobin 12.0 g/dl (12.0-16.0); Mean Corpuscular Hemoglobin 29.5 pg (25.0-34.0); Mean Corpuscular Volume 96.8 fL (80.0-100.0); Platelet Count 241 K/uL (130-400); RDW Standard Deviation 61.7 fL (36.4-46.3); Red Blood Count 4.07 M/uL (4.20-5.40); White Blood Count 12.51 K/ul (4.8-10.8)
[2024-11-22 11:36] LABS: Alanine Aminotransferase 21.0 U/L (7-52); Albumin Globulin Ratio 1.1 (0.9-2); Alkaline Phosphatase 192.0 U/L (34-104); Anion Gap 8.0 (3-11); Bilirubin,Total 1.2 mg/dl (0.2-1.0); Blood Urea Nitrogen 43.0 mg/dl (6-23); Calcium 8.8 mg/dl (8.6-10.3); Carbon Dioxide 32.0 mmol/L (21-32); Chloride 97.0 mmol/L (98-107); Creatinine Clr Calc Pharmacy 56.0 ml/min; Globulin 2.8 gm/dl (2.5-4.0); Glucose 214.0 mg/dl (70-99(Fasting)); Potassium 5.4 mmol/L (3.5-5.1); Sodium 137.0 mmol/L (136-145); Total Protein 5.8 gm/dl (6.0-8.3)
--- NOTE | 2024-11-22 11:46 | XRay Report ---
XR chest 2V PA/lateral CLINICAL HISTORY: dyspnea COMPARISON STUDY: 11/19/2024 FINDINGS: Stable cardiomegaly with mild pulmonary vascular congestion. Stable bilateral pleural effus ions, left greater than right. No pneumothorax. IMPRESSION: Stable exam. ACT 112: Negative or not required by law. Electronically signed by: Ronny Laura M.D. 11/22/2024 11:45 AM
--- NOTE | 2024-11-22 12:53 | Cardiology Progress Note ---
Date of Service November 22, 2024 Assessment & Plan (1) Atrial fibrillation with rapid ventricular response: (2) Diastolic CHF, chronic: (3) Tricuspid regurgitation: Plan Ms. Slater's rates have improved a little with digoxin but will likely not improve further until her respiratory status improves. She is hyperkalemic this morning. I will decrease her spironolactone to 50 mg daily and stop her potassium supplement. She will get 1 mg IV Bumex this afternoon and we'll switch from furosemide to Bumex for tomorrow to see if that has any better effect for her. She also has a moderately sized pleural effusion stable on CXR today on the left that could be contributing to her dyspnea. I'll order an US to quantify size to assess for appropriateness for possible thoracentesis. She can be changed to torsemide po 50mg at time of DC and use Furoscix weekly to start (my office will arrange for this). Her diastolic heart failure is likely secondary to both diastolic dysfunction and loss of atrial kick in afib. Unfortunately she was unable to maintain SR after cardioversion a few weeks ago. Her TR and pulmonary hypertension may improve some after diuresis. She is on metoprolol and does not have a whole lot of blood pressure room to keep going up on beta-blockers. She continues on digoxin. Hopefully her potassium will have normalized tomorrow with the changes in diuretics. She continues on Xeralto for stroke prevention although this has been held for a number of days. She should also have infiltrative cardiomyopathy ruled out and I will place orders for spep, upep, and iron panel. Admission and Anticipated Discharge Date Admission Date: November 15, 2024 Subjective Ms. Slater continues to appear labored in her breathing and feels dyspneic. Her heart rates are 80s-90s on the monitor. No chest discomfort. Review of Systems Review of Systems: All systems reviewed & are unremarkable except as noted in HPI & below Physical Exam Constitutional: + ill appearing Respiratory: + labored breathing Auscultation: norman gs clear to auscultation bilaterally Cardiovascular: Rate/Rhythm: + abnormal rate and + abnormal rhythm Heart Sounds: normal S1 and normal S2 Extremities: + edema (mild right lower extremity) Skin: no rashes, warm and dry Neurologic: moves all extremities and awake Psychiatric: Orientation: oriented x 3 Results & Data Vital Signs (Past 12 Hours) Vital Signs Temp Pulse Pulse Resp BP Pulse Ox O2 Del Method 11/22/24 11:04 36.8 C 93 H 18 113/72 92 Room Air 11/22/24 08:00 100 H 11/22/24 08:00 Room Air 11/22/24 07:48 36.4 C L 96 H 20 125/85 94 Room Air 11/22/24 04:11 36.7 C 97 H 20 114/81 93 Room Air
--- NOTE | 2024-11-22 14:46 | Ultrasound Report ---
US effusion-chest/mediastinum CLINICAL HISTORY: left pleural effusion size COMPARISON STUDY: Chest radiograph performed earlier today. TECHNIQUE: Sonography of the hemithoraces was performed to assess pleural effusions. FINDINGS: A [id number] left pleural effusion has an estimated volume of 441 cc. A small right pleural effusion has an estimated volume of 127 cc. IMPRESSION: 1. Small to moderate left pleural effusion with estimated volume of 441 cc. 2. Small right pleural effusion with estimated volume of 127 cc. ACT 112: Negative or not required by law. Electronically signed by: Star Shea M.D. 11/22/2024 2:45 PM
[2024-11-22] MEDS: BUMETANIDE 1 MG in SYRINGE 0 ML IV ONE (15:12)
--- NOTE | 2024-11-22 15:19 | Ultrasound Report ---
ULTRASOUND-GUIDED PARACENTESIS CLINICAL HISTORY: Ascites PROCEDURE: Procedure and risks were explained. Informed consent was obtained. A final timeout was com pleted. The abdomen was prepped and draped in sterile fashion. 1% lidocaine was utilized for skin ane sthesia. Utilizing ultrasound guidance, a 5 Malay safety centesis catheter was advanced into the left lower q uadrant pocket of ascites. Ultrasound images were obtained. 2.8 L of ascites fluid was removed, with 1 L sent to the lab for analysis. The catheter was removed and Band-Aid applied. The patient tolerate d the procedure well. Vital signs will be monitored postprocedure. IMPRESSION: Ultrasound-guided paracentesis as above. Performed, dictated, and signed by Renaldo Gonzalez PA-C; to be co-signed by Dr. Ronny Laura. Electronically signed by: Ronny Laura M.D. 11/22/2024 4:04 PM
[2024-11-22 15:34] LABS: Appearance Peritoneal Fluid Hazy; Color Peritoneal Fluid Pale Yellow; RBC Peritoneal Fluid Auto < 2000 /uL; WBC Peritoneal Fluid Auto 277 /ul (0-300)
[2024-11-22 15:36] LABS: Albumin Peritoneal Fluid < 1.5 gm/dl; Lipase Peritoneal Fluid 15 U/L
[2024-11-22] MEDS: ALBUMIN 25% 25 GM/100 ML VIAL IV ONE (18:22)
[2024-11-22] MEDS: ENOXAPARIN 100 MG/1ML SYR SQ ONE (18:22)
--- NOTE | 2024-11-22 22:16 | Hospitalist Progress Note ---
"Date of Service November 22, 2024 Assessment & Plan (1) Acute on chronic heart failure with preserved ejection fraction: (2) Elevated alkaline phosphatase level: Plan 84-year-old female PMHx A-fib on Xarelto, HFpEF, HTN, PFO, and recent hospital admission 10/25/2024 until 11/07/2024 for acute on chronic respiratory failure as well as A-fib with RVR he was now presenting for abdominal pain and leg swelling with additional weight gain. Inital evaluation without evidence of infection, alkaline phosphatase is within at 191, BNP 535 . Admitted for CHF exacerbation. #Acute on chronic HFpEF | Afib - recent admission (10/25-11/07) requiring intubation and lasix drip; presenting with BLE edema, abdominal distention, and SOB; volume overloaded at time of admission. Home regimen: Lasix 80mg BID with additional 80mg prn for weight gain, spironolactone. Recent Echo - /2024 EF 65- 70%, severe TR, RVSP > 60 mmHg, tricuspid annulus dilated, mild concentric LVH, EV moderate/severe dilation, mild/moderate RVH. CXR unchanged small L and trace R pleural effusions. Abd US showing cirrhosis, likely from her right sided heart failure. Daily weights standing, I+Os - orders changed for more frequent I&O monitoring Consult cardiology - recommend continued diuresis until bump in creatinine/BUN. Reports that her dry weight in August was 84 kg. Feels that her heart rate slowed some when her heart failure is controlled. Despite increasing lasix to 80 mg, not much improvement with diuretics. Patient is not hypoxic, and is not tachycardic. This is likely complicated from her chronic cor pulmonale, HFpEF, obesity, and now in the setting of cirrhosis which is newly diagnosed by imaging and suggested by her labwork (elevated INR, Bili, low albumin) will order albumin this afternoon and will repeat tomorrow. D/W IR: she has a small moderate pleural effusion, though does not think draining this will help. IR reports 2.8 liters were removed from her abdomen and her exam showed anasarca, which likely is the main culprit to her hypoxia. At this time, I doubt Pulmonary emboli. Continue metoprolol. With cirrhosis increased spironolactone to 100 mg PT/OT - recommend rehab weight gain overnight, but kidney function has not bumped. #Elevated alkaline phosphatase H/o transaminitis, was thought to be 2/2 hepatic congestion. No abdominal pain, but distended. abdominal ultrasound showed cirrhosis #Hypocalcemia - Resolved, now 8.7 #Hyperkalemia likely iatrogenic #RLE wound- no leukocytosis/fever/pain. wound care nurse consulted Surgery consulted - do not anticpate surgical intervention, xarelto held for possible bedside debridement on 11/21 #Vaginal bleeding - US done last admissions shows thickened endometrium. Needs OP YARD OPERATOR follow up. We discussed the possibility of this being cancer when her son was present, pt does not think she has cancer. But is agreeable to resume her eliquis. Monitor CBC occasionally. Dispo: Continued inpatient stay, continue IV diuresis VTE Prophylaxis: Xarelto held 11/19 for possible bedside wound debridement Follow ups after discharge: YARD OPERATOR, cardiology PT recommending rehab. Code status discussion held at admission; she is sure that she wants respiratory interventions to take place in the case of emergencies but is unsure if she wants to pursue cardiac interventions (CPR, defibrillation). Decided to be full code at time of admission but would like to further think on this moving forward. Case discussed with cardiology Admission and Anticipated Discharge Date Admission Date: November 15, 2024 Subjective Patient reports havign difficulty breathing today. SHe reports no much or any improvement on that front despite diuretics. Physical Exam Constitutional: no acute distress Respiratory: normal respiratory effort Auscultation: lungs clear to auscultation bilaterally Cardiovascular: Rate/Rhythm: + abnormal rate and + abnormal rhythm Heart Sounds: normal S1 and normal S2 Extremities: + edema (mild right lower extremity) Skin: no rashes, warm and dry Neurologic: moves all extremities and awake Psychiatric: Orientation: oriented x 3 Results & Data Results & Data Vital Signs (Past 12 Hours) Vital Signs Temp Pulse Pulse Resp BP Pulse Ox O2 Del Method 11/22/24 20:00 Room Air 11/22/24 19:20 36.4 C L 84 16 96/66 L 95 Room Air 11/22/24 16:26 36.5 C 86 20 110/77 95 Room Air 11/22/24 15:56 36.5 C 81 20 102/69 92 Room Air 11/22/24 15:26 36.6 C 80 20 103/71 94 Room Air 11/22/24 15:12 80 11/22/24 14:56 36.5 C 86 20 113/78 92 Room Air 11/22/24 14:50 94 H 11/22/24 14:26 36.6 C 83 18 104/74 92 Room Air 11/22/24 11:04 36.8 C 93 H 18 113/72 92 Room Air PG Care Time/CCT Total # of Minutes Spent Total Time Spent with Patient: Total time spent is greater than 50% in coordination of care (as documented) at patient's floor/unit and/or counseling patient: Coding Level of Care Code 93387 SUB INP/OBS CARE 3/50MIN Diagnoses Acute on chronic heart failure with preserved ejection fraction I50.33 Elevated alkaline phosphatase level R74.8"
[2024-11-23 06:29] LABS: Hematocrit (blood only) 35.8 % (37.0-47.0); Hemoglobin 11.3 g/dl (12.0-16.0); Immature Granulocytes # (auto) 0.15 K/uL (0.01-0.20); Immature Granulocytes % (auto) 1.2 %; Mean Corpuscular Hemoglobin 29.7 pg (25.0-34.0); Mean Corpuscular Volume 94.0 fL (80.0-100.0); Platelet Count 207 K/uL (130-400); RDW Standard Deviation 58.9 fL (36.4-46.3); Red Blood Count 3.81 M/uL (4.20-5.40); White Blood Count 12.36 K/ul (4.8-10.8)
[2024-11-23 06:50] LABS: Alanine Aminotransferase 16.0 U/L (7-52); Albumin Globulin Ratio 1.3 (0.9-2); Alkaline Phosphatase 166.0 U/L (34-104); Anion Gap 6.0 (3-11); Bilirubin,Total 1.1 mg/dl (0.2-1.0); Blood Urea Nitrogen 44.0 mg/dl (6-23); Calcium 8.8 mg/dl (8.6-10.3); Carbon Dioxide 30.0 mmol/L (21-32); Chloride 100.0 mmol/L (98-107); Creatinine Clr Calc Pharmacy 58.1 ml/min; Globulin 2.3 gm/dl (2.5-4.0); Glucose 125.0 mg/dl (70-99(Fasting)); Iron 23.0 mcg/dl (35-150); Potassium 4.8 mmol/L (3.5-5.1); Sodium 136.0 mmol/L (136-145); Total Iron Binding Cap Calc 353.0 mcg/dl (250-450); Total Protein 5.3 gm/dl (6.0-8.3); Transferrin 252.0 mg/dl (200-360); Transferrin (FE) Percent Satur 7.0 % (15-50)
[2024-11-23 06:51] LABS: INR 1.2 (0.9-1.1); Prothrombin Time 13.1 Seconds (9.0-12.0)
[2024-11-23 07:09] LABS: Ferritin 19.1 ng/ml (8-388)
[2024-11-23 07:49] LABS: Basophils, Fluid 2 %; Eosinophils, Fluid 1 %; Lymphocytes, Fluid 17 %; Mono,Macrophage,Mesothelial 34 %; Neutrophils, Fluid 46 %
[2024-11-23] MEDS: SPIRONOLACTONE 25 MG TAB PO SCH (08:46)
[2024-11-23] MEDS: ALBUMIN 25% 25 GM/100 ML VIAL IV ONE (08:47)
--- NOTE | 2024-11-23 08:54 | Hospitalist Progress Note ---
"Date of Service November 23, 2024 Assessment & Plan (1) Acute on chronic heart failure with preserved ejection fraction: (2) Elevated alkaline phosphatase level: Plan 84-year-old female PMHx A-fib on Xarelto, HFpEF, HTN, PFO, and recent hospital admission 10/25/2024 until 11/07/2024 for acute on chronic respiratory failure as well as A-fib with RVR he was now presenting for abdominal pain and leg swelling with additional weight gain. Inital evaluation without evidence of infection, alkaline phosphatase is within at 191, BNP 535 . Admitted for CHF exacerbation. #Acute on chronic HFpEF | Afib - recent admission (10/25-11/07) requiring intubation and lasix drip; presenting with BLE edema, abdominal distention, and SOB; volume overloaded at time of admission. Home regimen: Lasix 80mg BID with additional 80mg prn for weight gain, spironolactone. Recent Echo - /2024 EF 65- 70%, severe TR, RVSP > 60 mmHg, tricuspid annulus dilated, mild concentric LVH, EV moderate/severe dilation, mild/moderate RVH. CXR unchanged small L and trace R pleural effusions. Abd US showing cirrhosis, likely from her right sided heart failure. Daily weights standing, I+Os - orders changed for more frequent I&O monitoring Consult cardiology - recommend continued diuresis until bump in creatinine/BUN. Reports that her dry weight in August was 84 kg. Feels that her heart rate slowed some when her heart failure is controlled. Despite increasing lasix to 80 mg, not much improvement with diuretics. Patient is not hypoxic, and is not tachycardic. This is likely complicated from her chronic cor pulmonale, HFpEF, obesity, and now in the setting of cirrhosis which is newly diagnosed by imaging and suggested by her labwork (elevated INR, Bili, low albumin) albumin on 11/22 for 25 gr IV x1 Will reorder albumin 25 gr IV x1 at time of diuretic on 11/23 D/W IR: she has a small moderate pleural effusion, though does not think draining this will help. IR reports 2.8 liters were removed from her abdomen and her exam showed anasarca, which likely is the main culprit to her hypoxia. At this time, I doubt Pulmonary emboli as a differential, resumed xarelto. Continue metoprolol. With cirrhosis increased spironolactone to 100 mg Also placed parham catheter on 11/23 to monitor Is and Os PT/OT - recommend rehab weight gain overnight, but kidney function has not bumped. #Elevated alkaline phosphatase H/o transaminitis, was thought to be 2/2 hepatic congestion. No abdominal pain, but distended. abdominal ultrasound showed cirrhosis #Hypocalcemia - Resolved, now 8.7 #Hyperkalemia likely iatrogenic #RLE wound- no leukocytosis/fever/pain. wound care nurse consulted Surgery consulted - do not anticpate surgical intervention, xarelto held for possible bedside debridement on 11/21 #Vaginal bleeding - US done last admissions shows thickened endometrium. Needs OP MEAT TEAM LEAD follow up. We discussed the possibility of this being cancer when her son was present, pt does not think she has cancer. But is agreeable to resume her eliquis. Monitor CBC occasionally. Dispo: Continued inpatient stay, continue IV diuresis VTE Prophylaxis: Xarelto held 11/19 for possible bedside wound debridement Follow ups after discharge: MEAT TEAM LEAD, cardiology PT recommending rehab. Code status discussion held at admission; she is sure that she wants respiratory interventions to take place in the case of emergencies but is unsure if she wants to pursue cardiac interventions (CPR, defibrillation). Decided to be full code at time of admission but would like to further think on this moving forward. Case discussed with cardiology Admission and Anticipated Discharge Date Admission Date: November 15, 2024 Subjective Patient reports not much improvement this AM. Physical Exam Constitutional: no acute distress Respiratory: normal respiratory effort Auscultation: lungs clear to auscultation bilaterally Cardiovascular: Rate/Rhythm: + abnormal rate and + abnormal rhythm Heart Sounds: normal S1 and normal S2 Extremities: + edema (2+edema) Skin: no rashes, warm and dry Neurologic: moves all extremities and awake Psychiatric: Orientation: oriented x 3 Results & Data Results & Data Vital Signs (Past 12 Hours) Vital Signs Temp Pulse Pulse Resp BP BP Pulse Ox 11/23/24 08:01 36.5 C 91 H 20 102/70 94 11/23/24 07:30 88 11/23/24 02:37 36.6 C 87 18 111/79 93 11/22/24 23:10 90 11/22/24 22:30 36.5 C 88 18 103/64 93 O2 Del Method 11/23/24 08:01 Room Air 11/23/24 07:30 11/23/24 02:37 Room Air 11/22/24 23:10 11/22/24 22:30 Room Air PG Care Time/CCT Total # of Minutes Spent Total Time Spent with Patient: Total time spent is greater than 50% in coordination of care (as documented) at patient's floor/unit and/or counseling patient: Coding Level of Care Code 29618 SUB INP/OBS CARE 3/50MIN Diagnoses Acute on chronic heart failure with preserved ejection fraction I50.33 Elevated alkaline phosphatase level R74.8"
--- NOTE | 2024-11-23 10:17 | Cardiology Progress Note ---
Date of Service November 23, 2024 Assessment & Plan (1) Atrial fibrillation with rapid ventricular response: (2) Diastolic CHF, chronic: (3) Tricuspid regurgitation: Plan Ms. Slater's rates have improved a little further. She continues digoxin and metoprolol. Her potassium level was normal this morning. Continue spironolactone to 50 mg daily. Continue IV Bumex. Hospitalists have added IV albumin. She also has a moderately sized pleural about 400 cc on ultrasound so probably not big enough to warrant thoracentesis. She did not find much improvement in her dyspnea with yesterday's paracentesis which drained about a liter. Her newly diagnosed cirrhosis is likely contributing her fluid shifts and making her diastolic heart failure more difficult to control. She can be changed to torsemide po 50mg at time of DC and use Furoscix weekly to start (my office will arrange for this). Her diastolic heart failure is multifactorial with her ascites, diastolic dysfunction, loss of atrial kick in afib, pulmonary hypertension and TR. Unfortunately she was unable to maintain SR after cardioversion a few weeks ago. Her TR and pulmonary hypertension may improve some after diuresis. We could consider having her undergo VQ scan to look for chronic thromboembolic given her pulmonary pressures but but she probably would not be able to tolerate laying flat that long until she is better diuresed. Her Xeralto for stroke prevention was resumed today after being held for a number of days for wound debridement and paracentesis. She should also have infiltrative cardiomyopathy ruled out and I will place orders for spep, upep, and iron panel. Given her heart failure and cirrhosis and now treatment with albumin and diuretic which is largely palliative, consider consulting palliative care. Admission and Anticipated Discharge Date Admission Date: November 15, 2024 Subjective Ms. Slater does not feel much different following the increase in diuretics yesterday. Her dyspnea is unchanged. She does not have chest pain. Her heart rates on he monitor are better, more like 80s and 90s. Review of Systems Review of Systems: All systems reviewed & are unremarkable except as noted in HPI & below Physical Exam Constitutional: WD/WN, vitals as above Respiratory: normal respiratory effort, lungs clear to auscultation Cardiovascular: Rate/Rhythm: + abnormal rate and + abnormal rhythm Heart Sounds: normal S1 and normal S2 Extremities: + edema (mild bilateral LE edema) Skin: no rashes, warm and dry Neurologic: moves all extremities and awake Psychiatric: A+Ox3, euthymic affect Results & Data Vital Signs (Past 12 Hours) Vital Signs Temp Pulse Pulse Resp BP BP Pulse Ox 11/23/24 09:00 11/23/24 08:01 36.5 C 91 H 20 102/70 94 11/23/24 07:30 88 11/23/24 02:37 36.6 C 87 18 111/79 93 11/22/24 23:10 90 11/22/24 22:30 36.5 C 88 18 103/64 93 O2 Del Method 11/23/24 09:00 Room Air 11/23/24 08:01 Room Air 11/23/24 07:30 11/23/24 02:37 Room Air 11/22/24 23:10 11/22/24 22:30 Room Air
[2024-11-23] MEDS: BUMETANIDE 2 MG in SYRINGE 0 ML IV SCH (10:37)
[2024-11-24 08:36] LABS: Hematocrit (blood only) 41.6 % (37.0-47.0); Hemoglobin 12.4 g/dl (12.0-16.0); Mean Corpuscular Hemoglobin 28.4 pg (25.0-34.0); Mean Corpuscular Volume 95.2 fL (80.0-100.0); Platelet Count 204 K/uL (130-400); RDW Standard Deviation 59.9 fL (36.4-46.3); Red Blood Count 4.37 M/uL (4.20-5.40); White Blood Count 13.76 K/ul (4.8-10.8)
--- NOTE | 2024-11-24 08:42 | Cardiology Progress Note ---
Date of Service November 24, 2024 Assessment & Plan (1) Atrial fibrillation with rapid ventricular response: (2) Diastolic CHF, chronic: (3) Tricuspid regurgitation: Plan Ms. Slater's rates have improved a little further. She continues digoxin and metoprolol. Her potassium level was normal this morning. Continue spironolactone to 50 mg daily. Continue IV Bumex. Hospitalists have added IV albumin. She also has a moderately sized pleural about 400 cc on ultrasound so probably not big enough to warrant thoracentesis. She did not find much improvement in her dyspnea with yesterday's paracentesis which drained about a liter. Her newly diagnosed cirrhosis is likely contributing her fluid shifts and making her diastolic heart failure more difficult to control. She can be changed to torsemide po 50mg at time of DC and use Furoscix weekly to start (my office will arrange for this). Her diastolic heart failure is multifactorial with her ascites, diastolic dysfunction, loss of atrial kick in afib, pulmonary hypertension and TR. Unfortunately she was unable to maintain SR after cardioversion a few weeks ago. Her TR and pulmonary hypertension may improve some after diuresis. We could consider having her undergo VQ scan to look for chronic thromboembolic given her pulmonary pressures but but she probably would not be able to tolerate laying flat that long until she is better diuresed. Her Xeralto for stroke prevention was resumed today after being held for a number of days for wound debridement and paracentesis. She should also have infiltrative cardiomyopathy ruled out and I will place orders for spep, upep, and iron panel. Given her heart failure and cirrhosis and now treatment with albumin and diuretic which is largely palliative, consider consulting palliative care. Will make contact with [facility] to discuss option for eval with right sided CHF. Transfer if they accept the patient. Admission and Anticipated Discharge Date Admission Date: November 15, 2024 Supervising Physician Co-Signing Physician Notes Patient seen and examined, chart reviewed, case discussed with KAYKAY Mcghee and I agree with the assessment and plan as above. Patient with acute on chronic HFpEF presenting with significant shortness of breath, edema, abdominal distention On exam she is ill in appearance, tachypneic +crackles in bilateral lung ball, no wheeze +Abdominal fullness, nontender +LE edema +JVD Labs and images reviewed Assessment/Plan -Aggressive diuresis - patient given 80mg IV in the ER and has just started urinating - will need to monitor closely UOP and daily weights as well as electrolytes and renal function. Continue diuresis with 80mg IV BID -Repeat LFTs in with AM labs to monitor AP -Remainder as above Subjective Patient reports not much improvement this AM. She is in bed, has conversational dyspnea and with minimal exertion very SOB. Her weight remains 98KG (he weight when I met her in August was 95kg). We switched to IV bumex, yesterday had about 1600cc output but BUN increasing. I discussed with her possibility of transfer to a tertiary center for further eval of the right sided CHF. She is in agreement and prefers [facility] over other centers. My concern is that her right sided CHF has been likely going on for some time (years) and in August when she presented the situation was already severe. She is not improving and I think needs further eval for the right sided CHF. I am making contact with [facility] to discuss case and see if she is appropriate for further evaluation. I reviewed this with her and she is agreeable. Review of Systems Review of Systems: All systems reviewed & are unremarkable except as noted in HPI & below Physical Exam Physical Exam: no change Results & Data Vital Signs (Past 12 Hours) Vital Signs Temp Pulse Pulse Resp BP BP Pulse Ox 11/24/24 07:20 36.4 C L 93 H 19 98/71 L 92 11/24/24 03:39 36.4 C L 91 H 18 98/58 L 94 11/23/24 23:31 36.2 C L 80 18 100/69 94 11/23/24 23:07 84 O2 Del Method 11/24/24 07:20 Room Air 11/24/24 03:39 Room Air 11/23/24 23:31 Room Air 11/23/24 23:07 Laboratory Results Abnormal lab results 11/24/24 Range/Units 08:11 WBC 13.76 H (4.8-10.8) K/ul MCHC 29.8 L (32.0-36.0) g/dL RDW Std Deviation 59.9 H (36.4-46.3) fL RDW Coeff of Celso 17.6 H (11.5-14.5) % Medications Administered Abnormal lab results 11/24/24 Range/Units 08:11 WBC 13.76 H (4.8-10.8) K/ul MCHC 29.8 L (32.0-36.0) g/dL RDW Std Deviation 59.9 H (36.4-46.3) fL RDW Coeff of Celso 17.6 H (11.5-14.5) %
[2024-11-24 09:03] LABS: INR 1.7 (0.9-1.1); Prothrombin Time 17.7 Seconds (9.0-12.0)
[2024-11-24 09:07] LABS: Anion Gap 6.0 (3-11); Blood Urea Nitrogen 41.0 mg/dl (6-23); Calcium 9.2 mg/dl (8.6-10.3); Carbon Dioxide 32.0 mmol/L (21-32); Chloride 98.0 mmol/L (98-107); Creatinine Clr Calc Pharmacy 55.7 ml/min; Glucose 174.0 mg/dl (70-99(Fasting)); Potassium 5.0 mmol/L (3.5-5.1); Sodium 136.0 mmol/L (136-145)
--- NOTE | 2024-11-24 10:54 | Hospitalist Progress Note ---
Date of Service November 24, 2024 Assessment & Plan (1) Acute on chronic heart failure with preserved ejection fraction: Plan: Much improved since admission with parenteral Lasix diuresis. Monitor intake and output. Serial chest x-ray (2) Leg wound, right: Plan: Chronic. Local care until healed (3) Dysfunctional uterine bleeding: Plan: Recent pelvic ultrasound noted. She has been seen by gynecology and will need continued outpatient treatment. Significant vaginal bleeding precludes use of systemic anticoagulants. Xarelto has been discontinued. This can be restarted once the DU B has been addressed (4) Chronic cor pulmonale: Plan: With severe TR. Further outpatient evaluation at [facility] (5) Chronic atrial fibrillation: Plan: Rate control measures. Systemic anticoagulation is contraindicated due to significant vaginal bleeding related to dysfunctional uterine bleeding. Xarelto has been discontinued (6) Cirrhosis of liver with ascites: Plan: Due to chronic fatty liver disease. Paracentesis completed this admission. No evidence of malignancy. Plan Hopeful discharge to [facility] tomorrow, November 25 Admission and Anticipated Discharge Date Admission Date: November 15, 2024 Subjective Alert and oriented. No distress. Xarelto needs to be discontinued because of persistent dysfunctional uterine bleeding that is significant. Xarelto can be restarted after this issue has been addressed. Anticipate discharge to [facility] tomorrow, November 25. Further evaluation of her cardiac issue will need to be completed on an outpatient basis because it is not emergent. Chest ultrasound was completed November 22 showing small bilateral pleural effusions. She is currently on room air. Review of Systems 2 Review of Systems: Constitutionalno fever or chills ENTno blurred vision, no double vision, no epistaxis, no sore throat Respiratoryno cough, no wheezing, no shortness of breath at rest. She does have dyspnea on exertion Cardiacno palpitations, no chest pain, no syncope Joel nausea, vomiting, diarrhea, melena, hematochezia GUno urinary retention, no urinary incontinence, no dysuria, no hematuria Musculoskeletalno joint pain, no muscle tenderness Skinno bruising, no rashes, no pruritus. Right lower extremity below the knee is bandaged Neurono isolated weakness, no paresthesia Psychno depression, no anxiety Physical Exam 2 Physical Exam: General-alert and oriented x3, no fever, no chills HEENT-head atraumatic and normocephalic, pupils equal and reactive to light, extraocular muscles intact Neck-no lymphadenopathy or thyromegaly, trachea midline Chest-bibasilar dullness and diminished breath sounds. No wheezing. No rhonchi Cardiac-irregular rhythm with controlled rate. Normal S1 and S2 Abdomen-normal bowel sounds. Mildly distended. Extremities-right lower extremity is wrapped below the right knee. Mild pitting edema bilaterally Neuro-cranial nerves II through XII intact, motor and sensory function within normal limits, strength symmetrical, no focal deficits Psych-normal affect, normal mood Results & Data Results & Data Vital Signs (Past 12 Hours) Vital Signs Temp Pulse Pulse Resp BP BP Pulse Ox 11/24/24 07:20 36.4 C L 93 H 19 98/71 L 92 11/24/24 03:39 36.4 C L 91 H 18 98/58 L 94 11/23/24 23:31 36.2 C L 80 18 100/69 94 11/23/24 23:07 84 O2 Del Method 11/24/24 07:20 Room Air 11/24/24 03:39 Room Air 11/23/24 23:31 Room Air 11/23/24 23:07 Laboratory Results 11/24/24 08:11 11/24/24 08:11 PG Care Time/CCT Total # of Minutes Spent Total Time Spent with Patient: Total time spent is greater than 50% in coordination of care (as documented) at patient's floor/unit and/or counseling patient: Coding Level of Care Code 24694 SUB INP/OBS CARE 3/50MIN Diagnoses Acute on chronic heart failure with preserved ejection fraction I50.33 Leg wound, right S81.801A Dysfunctional uterine bleeding N93.8 Chronic cor pulmonale I27.81 Chronic atrial fibrillation I48.20 Cirrhosis of liver with ascites K74.60; R18.8
--- NOTE | 2024-11-24 15:19 | Discharge Summary ---
Discharge Summary Date of Service November 24, 2024 Principal Dx & Hospital Course #1 = Principal Diagnosis (1) Acute on chronic heart failure with preserved ejection fraction: Much improved since admission with parenteral Lasix diuresis. Monitor intake a nd output. Serial chest x-ray (2) Leg wound, right: Chronic. Local care until healed (3) Dysfunctional uterine bleeding: Recent pelvic ultrasound noted. She has been seen by gynecology and will need continued outpatient treatment. Significant vaginal bleeding precludes use of systemic anticoagulants. Xarelto has been discontinued. This can be restarted once the DU B has been addressed (4) Chronic cor pulmonale: With severe TR. Further evaluation at [facility] (5) Chronic atrial fibrillation: Rate control measures. Systemic anticoagulation is contraindicated due to significant vaginal bleeding related to dysfunctional uterine bleeding. Xarelto has been discontinued (6) Cirrhosis of liver with ascites: Due to chronic fatty liver disease. Paracentesis completed this admission. No evidence of malignancy. Plan Dr. Soares has arranged transfer to [facility] for further treatment of her CHF and cor pulmonale. Dr. Doron Garcia is the accepting physician Admission HPI Per Admitting Provider 84-year-old female PMHx A-fib on Xarelto, HFpEF, HTN, PFO, and recent hospital admission 10/25/2024 until 11/07/2024 for acute on chronic respiratory failure as well as A-fib with RVR he was now presenting for abdominal pain and leg swelling with additional weight gain. Patient provides limited history. When asked when she was at the hospital she states "fluid". She states that she has had swelling in her legs bilaterally which has been "on and off since May." She also has noted some abdominal swelling but she does not know whenever this started. She states that she is currently short of breath and the only thing that makes it better as whenever the excess fluid is removed. Nothing makes the SOB worse. She is unsure what dose of Lasix she is taking. States that she occasionally gets some chest pain that is a quick sharp pain on the left side of her chest that comes and goes. She did feel dizzy with standing. No falls. Denies palpitations, abdominal pain, N/V/D/C, numbness/tingling, fever/chills, URI symptoms, LUTS, syncope, or falls. She states she does not feel as bad as she did during her prior admission. ED evaluation reveals CBC without leukocytosis, stable H&H; PT/INR WNL; VBG's PCO2 54; CMP BUN 31, BUN/creatinine ratio 33.3, glucose 157, alkaline phosphatase 191; calcium 8.5; troponin 13.2; BNP 535; CXR unchanged pleural effusions bilaterally; EKG A-fib, low voltage QRS, incomplete RBBB at 93 bpm.; Provided with furosemide 80 mg IV in ED. Please see Dr. Oneil attestation for adjustments/additions to treatment plan. Discharge Exam General-alert and oriented x3, no fever, no chills HEENT-head atraumatic and normocephalic, pupils equal and reactive to light, extraocular muscles intact Neck-no lymphadenopathy or thyromegaly, trachea midline Chest-bibasilar dullness and diminished breath sounds. No wheezing. No rhonchi Cardiac-irregular rhythm with controlled rate. Normal S1 and S2 Abdomen-normal bowel sounds. Mildly distended. Extremities-right lower extremity is wrapped below the right knee. Mild pitting edema bilaterally Neuro-cranial nerves II through XII intact, motor and sensory function within normal limits, strength symmetrical, no focal deficits Psych-normal affect, normal mood Discharge Plan Discharge Items Patient Disposition: Transfer Acute Care Hospital Reason For Visit: ACUTE ON CHRONIC HFpEF Discharge Diagnosis: Acute on chronic cor pulmonale, acute on chronic CHFD, Condition on Discharge: Fair Activity: As commented below Activity Comment: Avoid overexertion or heavy lifting until cleared by cardiology Non-emergency contact: Primary Care Provider and Oil Lease Broker Call non-emergency contact if: you have any medication questions Follow-up/Referrals: David Minaya D.O. [Primary Care Provider] - Diet: Regular and Heart Healthy Addtl Attending Provider Instructions: See primary care provider and mold release worker as soon as possible after discharge from [facility] Pending Studies at Discharge: No Stand-Alone Forms: My [facility] [employer] Skilled Items Patient informed of condition?: Yes DNR: Yes Discharge Level of Care: Other Communicable Disease: No Discharge Prognosis: Stable Lines: Peripheral IV Urinary Catheter: No Medications and DC Order Prescriptions: New melatonin 3 mg Tablet 3 mg PO HS PRNQty: 0 0RF tramadol 50 mg Tablet 50 mg PO Q4H PRNQty: 0 0RF digoxin [Digitek] 125 mcg (0.125 mg) Tablet 0.125 mg PO DAILY@1600 Qty: 0 0RF polyethylene glycol 3350 [Miralax] 17 gram Powder In Packet 17 g PO DAILY PRNQty: 0 0RF Santyl 250 unit/gram Ointment 1 applic EXT DAILY Qty: 0 0RF Continued metoprolol succinate 50 mg Tablet Extended Release 24 Hr 50 mg PO QAM Qty: 20 0RF thiamine HCl (vitamin B1) 100 mg Tablet 100 mg PO QAM Qty: 20 0RF magnesium oxide 400 mg (241.3 mg magnesium) Tablet 400 mg PO BID@0700,1900 Qty: 20 0RF furosemide 80 mg Tablet 80 mg PO BID17 Qty: 20 0RF cephalexin 500 mg Capsule 500 mg PO QID Qty: 8 0RF multivitamin with folic acid [Daily-Charity (with folic acid)] 400 mcg Tablet 1 tab PO QAM Qty: 20 0RF furosemide 40 mg Tablet 80 mg PO DAILY PRN (Reason: Edema/Wt > 220 lbs) cholecalciferol (vitamin D3) [Vitamin D3] 25 mcg (1,000 unit) Tablet 25 mcg PO DAILY potassium chloride 20 mEq Tablet Extended Release 20 meq PO QAM acetaminophen 325 mg Tablet 325 mg PO QID PRN (Reason: Pain/fever) spironolactone 25 mg Tablet 25 mg PO DAILY bisacodyl 10 mg Suppository 10 mg TN DAILY PRN (Reason: Constipation) docusate sodium [Colace] 100 mg Capsule 100 mg PO DAILY PRN (Reason: Constipation) Discontinued Xarelto 20 mg Tablet 20 mg PO QPM Rx Instructions: must administer with evening meal Discharge Orders: Discharge Order- CHF (Routine); Ordered 11/24/24 Ordered By: Andres Workman Admission Data Admit Date/Time: 11/15/24 22:58 Attending Provider: Andres Workman Admit Provider: Edna Oneil Primary Care Provider: David Minaya Other Providers: Edna Oneil; Maki Walker; Shaggy Bro [place]; Ryan Gonzales Hospital Stay Data Consultations 11/15/24 22:15 ED Decision to Admit Stat 11/16/24 10:16 Consult Cardiology Routine 11/19/24 08:21 Consult General Surgery Routine Diagnostic Imagining Performed 11/16/24 10:16 US abdomen ltd ascites Routine 11/22/24 IR paracentesis abd w/img US Routine 11/22/24 12:45 US effusion-chest/mediastinum Routine Pending Results Patient Have Any Pending Studies at Discharge: No Discharge Instructions Given to Patient (Per Discharging Provider) See primary care provider and mold release worker as soon as possible after discharge from [facility] Total Time Total Time Spent Total Time Spent (In Minutes): 45 minutes Coding Level of Care Code 97284 INP/OBS DISCH >30 MIN Diagnoses Acute on chronic heart failure with preserved ejection fraction I50.33 Leg wound, right S81.801A Dysfunctional uterine bleeding N93.8 Chronic cor pulmonale I27.81 Chronic atrial fibrillation I48.20 Cirrhosis of liver with ascites K74.60; R18.8
[2024-11-24 19:54] VITALS: BP 101/68; PULSE 75; RESP 18; TEMP 98.1; O2SAT 98
[2024-11-26 08:22] LABS: Albumin 2.8 g/dL (3.8-4.8); Beta-1-Globulin 0.4 g/dL (0.4-0.6); Gamma Globulin 0.5 g/dL (0.8-1.7); Total Protein 5.1 g/dL (6.1-8.1)
== END 2024-11-24 20:04 | disposition short-term general hospital (02) | DRG 291 ==
LOC: ED 20:56 → 2S 22:58 → SUATTDRO 22:58 → 2S 11-16 00:31